=== PATIENT | male | born 1950 ===

== ENCOUNTER 2023-07-12 09:31 | Outpatient (OUT) | payer MEDICARE, OTHER, SELFPAY ==
--- NOTE | 2023-07-12 09:30 | CA_ITS ---
Patient Name: SHIVANI RUIZ MR#: [id number] : 1950 Exam Date: 07/12/2023 Ordering Doctor: LETY TOMAS CNP ECHOCARDIOGRAM REPORT PROCEDURE: CA ECHO DOPPLER COMPLETE INDICATIONS: Heart failure COMPARISON: None. DESCRIPTION: COMPLETE ECHOCARDIOGRAM Real-time transthoracic echocardiography with 2D, M-mode, spectral and color flow Doppler performed. QUALITY: Technical quality was adequate. 68 , 290#, BSA 2.39, BP 142/88 LEFT VENTRICLE: Normal chamber size. Mild concentric left ventricular hypertrophy. LV EF: Global left ventricular systolic function is difficult to assess but appears preserved; visually estimated ejection fraction is 50-55%. Unable to assess regional wall motion abnormality; consider contrast study for better delineation of endocardial borders. DIASTOLIC: Unable to assess diastolic dysfunction due to underlying rhythm. ATRIAL SEPTUM: Inadequately seen. LEFT ATRIUM: Mild dilatation. RIGHT ATRIUM: Moderate dilatation. RIGHT VENTRICLE: Poorly seen; mild dilatation. Systolic function appears preserved. TRICUSPID VALVE: Normal mobility and thickness. No stenosis with trivial regurgitation. Unable to assess right-sided pressures due to lack of measurable tricuspid regurgitation. MITRAL VALVE: Normal mobility and thickness. No evidence of mitral valve stenosis. Mild mitral annular calcification. Trivial mitral regurgitation. AORTIC VALVE: Normal trileaflet appearance. Mildly calcified aortic valve. Normal leaflet mobility. No evidence of aortic valve stenosis. No aortic regurgitation. AORTIC ROOT: Normal diameter and appearance. Ascending aorta is normal in size. PULMONIC VALVE: Normal thickness and mobility. No stenosis. No regurgitation. PERICARDIUM: No evidence of pericardial effusion. IVC: Not well visualized. CONCLUSION: 1. Global left ventricular systolic function is difficult to assess but appears preserved; visually estimated ejection fraction is 50 to 55% 2. The right ventricle is poorly seen; it appears dilated with preserved systolic function 3. Biatrial enlargement 4. Valves are poorly seen; no significant valvular abnormalities 5. The patient's underlying rhythm appears to be atrial fibrillation Adult Echocardiography Procedure Report Left Ventricle LVEDD (3.7 - 5.6 cm): 5.40 cm LVESD (2.2 - 4.0 cm): 3.59 cm LVIVS thickness (0.6 - 1.2 cm): 1.06 cm LVPW thickness (0.5 - 1.0 cm): 1.16 cm E - e': 6.42 LVOT Max Gradient: 0.40 mm[Hg] LVOT Area (cm2): 0.31 m/s Peak Velocity (LVOT): 0.31 m/s LVOT Diameter 2.59 cm Left Atrium LA Volume Index (2D A2C): 43.28 ml/m2 Left Atrium Systolic Dimension: 4.74 cm Mitral Valve MV E to A Ratio: 3.79 Mitral Valve A-Wave Peak Velocity: 0.24 m/s Mitral Valve E-Wave Peak Velocity: 0.89 m/s Right Ventricle Aorta AO Root Diam: 3.20 cm Ascending Ao Diam: 3.19 cm Aortic Valve AoV Area (Peak Darvin): 1.67 cm2, 1.67 cm2 Peak Velocity(Antegrade Flow): 0.99 m/s Peak Gradient(Antegrade Flow): 3.94 mm[Hg] Tricuspid Valve Pulmonic Valve Peak Gradient: 2.58 mm[Hg], 3.32 mm[Hg] Right Atrium Right Atrium Systolic Pressure: 109.21 ml, 109.21 ml Dictated by: Stanley Durham M.D. on 07/13/2023 at 16:33 Approved by: Stanley Durham M.D. on 07/13/2023 at 16:39
== END 2023-07-12 09:32 | disposition home or self-care (01) ==
LOC: CARD 09:32
PROVIDERS: Visit Provider Nurse Practitioner Family
DX: I50.22 Chronic systolic (congestive) heart failure (principal)
CPT/HCPCS: 93306

== ENCOUNTER 2024-05-23 09:01 | Outpatient (OUT) | payer MEDICARE, OTHER, SELFPAY ==
--- OUTSIDE RECORDS SUMMARY | 2024-05-23 09:13 | XMS_ITS | CCD ---
Author Organization [facility] Care Team Providers Care Supervisor Powdered Metal Name Role Phone Negin, Jaren M Primary Care Provider UnavailZiyad Lynch Attending Provider Unavailable LEYT URIAS Consulting Unavailable LETY URIAS Admitting Unavailable LETY URIAS Attending Unavailable NEGIN, DR EASTMAN Consulting Unavailable MELITONCECI Consulting Unavailable MELITONCECI Admitting Unavailable MELITONCECI Attending Unavailable MISC, DR ORNELAS Admitting Unavailable MISC, DR ORNELAS Attending Unavailable MISC, DR ORNELAS Admitting Unavailable MISC, DR ORNELAS Attending Unavailable MISC, DR ORNELAS Consulting Unavailable BLUNT, JAREN Primary Care Unavailable CECI GONZALES Attending Unavailable CECI GONZALES Admitting Unavailable BLUNT, JAREN Referring Unavailable BLUNT, JAREN Primary Care Unavailable LAVON PEREZ Attending Unavailable SHENDGE, VITHAL Surgeon Unavailable SELF, REFERRED Referring Unavailable [place] Procedure Practitioner Unavailab le ALI, VALENTIN Admitting Unavailable OH Procedure Practitioner Unavailab le ALI, VALENTIN Surgeon Unavailable MYKEL NASCIMENTO Referring Unavailable BLUNT, JAREN Primary Care Unavailable MYKEL NASCIMENTO Referring Unavailable BLUNT, JAREN Primary Care Unavailable GEORGESCU, HERMAN A Referring Unavailable ARAVIND DOEAR Referring Unavailable SHENDGE, VITHAL Attending Unavailable MYKEL NASCIMENTO Attending Unavailable SHENDGEKYREE Attending Unavailable SHENDGE, VITHAL Referring Unavailable SHENDGE, VITHAL Attending Unavailable SHENDGE, VITBASIL Attending Unavailable LETY URIAS Attending Unavailable LETY URIAS Attending Unavailable MYKEL NASCIMENTO Attending Unavailable TYRONE HANNA Referring Unavailable HORANI, HYUN Admitting Unavailable HYUN, VALENTIN Attending Unavailable HYUN, AVLENTIN Referring Unavailable GEORGESCU, HERMAN A Referring Unavailable Mykel Nascimento Admitting Unavailable Mykel Nascimento Attending Unavailable Lety Urias Consulting Unavailable Blunt, Jaren M Primary Care Unavailable Blunt, Jaren M Consulting Unavailable Mykel Nascimento Admitting Unavailable Nascimento, Mykel Attending Unavailable Blunt, Jaren M Primary Care Unavailable Blunt, Jaren M Primary Care Unavailable Blunt, Jaren M Attending Unavailable Nascimento, Mykel Admitting Unavailable Nascimento, Mykel Attending Unavailable Blunt, Jaren M Primary Care Unavailable Copsey, Angella M Attending Unavailable Copsey, Angella M Admitting Unavailable Blunt, Jaren M Primary Care Unavailable Azam, Mykel Admitting Unavailable Nascimento, Mykel Attending Unavailable Blunt, Jaren M Primary Care Unavailable Blunt, Jaren M Attending Unavailable Blunt, Jaren M Admitting Unavailable Blunt, Jaren M Primary Care Unavailable Mykel Nascimento Admitting Unavailable Azam, Mykel Attending Unavailable Blunt, Jaren M Primary Care Unavailable Blunt, Jaren M Primary Care Unavailable Mannie PETE, Kyree B Admitting Unavailable Mannie PETE, Vithal B Attending Unavailable Mannie PETE, Vithal B Admitting Unavailable Blunt, Jaren M Primary Care Unavailable Mannie PETE, Vithal B Attending Unavailable Mannie PETE, Vithal B Admitting Unavailable Blunt, Jaren M Primary Care Unavailable Mannie PETE, Vithal B Attending Unavailable Mykel Nascimento Admitting Unavailable Mykel Nascimento Attending Unavailable Blunt, Jaren M Primary Care Unavailable NICHOLAS Isaac Attending Unavailable NICHOALS Isaac Admitting Unavailable Blunt, Jaren M Primary Care Unavailable Comer PAC, Jack Anderson Attending Unavailable Comer PAC, Jack Anderson Admitting Unavailable Blunt, Jaren M Primary Care Unavailable Copsey, Angella M Attending Unavailable Copsey, Angella M Admitting Unavailable Blunt, Jaren M Primary Care Unavailable Mykel Nascimento Admitting Unavailable Mykel Nascimento Attending Unavailable Blunt, Jaren M Primary Care Unavailable Mykel Nascimento Admitting Unavailable Mykel Nascimento Attending Unavailable Blunt, Jaren M Primary Care Unavailable Mykel Nascimento Admitting Unavailable Azam, Mykel Attending Unavailable Blunt, Jaren M Primary Care Unavailable Copsey, Angella M Attending Unavailable Copsey, Angella M Admitting Unavailable Blunt, Jaren M Primary Care Unavailable Blunt, Jaren M Attending Unavailable Blunt, Jaren M Primary Care Unavailable Blunt, Jaren M Attending Unavailable Blunt, Jaren M Primary Care Unavailable Blunt, Jaren M Primary Care Unavailable Blunt, Jaren M Attending Unavailable Blunt, Jaren M Attending Unavailable Blunt, Jaren M Primary Care Unavailable Copsey, Angella M Admitting Unavailable Copsey, Angella M Attending Unavailable Blunt, Jaren M Primary Care Unavailable Copsey, Angella M Admitting Unavailable Copsey, Angella M Attending Unavailable Blunt, Jaren M Primary Care Unavailable Copsey, Angella M Admitting Unavailable Copsey, Angella M Attending Unavailable Blunt, Jaren M Primary Care Unavailable Copsey, Angella M Admitting Unavailable Copsey, Angella M Attending Unavailable Blunt, Jaren M Primary Care Unavailable Copsey, Angella M Admitting Unavailable Copsey, Angella M Attending Unavailable Blunt, Jaren M Primary Care Unavailable Copsey, Angella M Admitting Unavailable Copsey, Angella M Attending Unavailable Blunt, Jaren M Primary Care Unavailable Copsey, Angella M Attending Unavailable Copsey, Angella M Admitting Unavailable Blunt, Jaren M Primary Care Unavailable Copsey, Angella M Attending Unavailable Copsey, Angella M Admitting Unavailable Blunt, Jaren M Primary Care Unavailable Copsey, Angella M Attending Unavailable Copsey, Angella M Admitting Unavailable Blunt, Jaren M Primary Care Unavailable Copsey, Angella M Attending Unavailable Copsey, Angella M Admitting Unavailable Blunt, Jaren M Primary Care Unavailable Stalter, Tyrone Attending Unavailable Blunt, Jaren M Primary Care Unavailable Stalter, Tyrone Admitting Unavailable Blunt, Jaren M Primary Care Unavailable BrooksKasi weinstein Admitting Unavailable BrooksKasi weinstein P Attending Unavailable Azam, Mykel Admitting Unavailable Azam, Mykel Attending Unavailable Blunt, Jaren M Primary Care Unavailable Azam, Mykel Admitting Unavailable Azam, Mykel Attending Unavailable Blunt, Jaren M Primary Care Unavailable Blunt, Jaren M Primary Care Unavailable Willy Romero Admitting Unavailable Willy Romero Attending Unavailable Mykel Nascimento Admitting Unavailable Blunt, Jaren M Primary Care Unavailable Azam, Mykel Attending Unavailable Copsey, Angella M Attending Unavailable Copsey, Angella M Admitting Unavailable Blunt, Jaren M Primary Care Unavailable Copsey, Angella M Attending Unavailable Copsey, Angella M Admitting Unavailable Blunt, Jaren M Primary Care Unavailable KYREE CHAND Referring Unavailable BLUNT, JAREN Primary Care Unavailable Unavailable Unavailable Unavailable Allergies Allergy Classification Reported Allergen(s) Allergy Type Date of Onset Reaction(s) Facility (1 source) CH; Translations: [CHG] Propensity to adverse reactions (disorder) 1 [facility] Repository (1 source) Chlorhexidine; Translations: [CHLORHEXIDINE] Drug Allergy 2 [facility] Repository (1 source) ALCOHOL SWABS; Translations: [ALCOHOL SWABS] Propensity to adverse reactions to drug (disorder) 2 [facility] Repository (1 source) chlorhexidine containing compounds; Translations: [chlorhexidine containing compounds] Propensity to adverse reactions to drug (disorder) [facility] Repository (1 source) Alcohol Prep Pads; Translations: [Alcohol Prep Pads] Propensity to adverse reactions (disorder) [facility] Repository Medications Current Medications Medication Drug Class(es) Dates Sig (Normalized) Sig (Original) allopurinol 300 mg oral tablet (1 source) Xanthine Oxidase Inhibitor Start: 07-28-2019 Allopurinol Active TABLET July 28, 2019 7:55am apixaban 5 mg oral tablet (1 source) Factor Xa Inhibitor Start: 07-28-2019 Apixaban Active TABLET July 28, 2019 7:57am pt unsure of mg carvedilol 6.25 mg oral tablet (1 source) alpha-Adrenergic Zena, beta-Adrenergic Zena Start: 07-28-2019 Carvedilol Active TABLET July 28, 2019 7:55am clindamycin 300 mg oral capsule (1 source) Lincosamide Antibacterial Start: 07-28-2019 Clindamycin Hcl Active July 28, 2019 7:55am furosemide 40 mg oral tablet (1 source) Loop Diuretic Start: 07-28-2019 Furosemide Active TABLET July 28, 2019 7:55am hydrOXYzine hydrochloride 25 mg oral tablet (1 source) Antihistamine Start: 07-28-2019 Hydroxyzine Hcl Active TABLET July 28, 2019 7:55am pantoprazole 40 mg delayed release oral tablet (1 source) Proton Pump Inhibitor Start: 07-28-2019 Pantoprazole Active July 28, 2019 7:55am microencapsulated potassium chloride 20 meq extended release oral tablet (1 source) Start: 07-28-2019 Potassium Chloride Active July 28, 2019 7:55am Problems Active Problems Problem Classification Problem Date Documented Da te Episodic/Chronic Chronic ulcer of skin (1 source) 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; Translations: [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] Onset: 05-17-2024 Chronic Complications of surgical procedures or medical care (3 sources) Disruption of wound, unspecified, initial encounter; Translations: [Dehiscence of amputation stump] Onset: 11-13-2022 Episodic Congestive heart failure; nonhypertensive (4 sources) Chronic combined systolic (congestive) and diastolic (congestive) heart failure; Translations: [Chronic systolic (congestive) heart failure] Onset: 11-23-2022 Chronic Infective arthritis and osteomyelitis (except that caused by tuberculosis or sexually transmitted disease) (7 sources) Other chronic osteomyelitis, right tibia and fibula; Translations: [Osteomyelitis, unspecified] Onset: 12-19-2021 Chronic Open wounds of extremities (2 sources) 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, initial encounter; Translations: [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, initial encounter] Onset: 11-13-2022 Chronic Other connective tissue disease (2 sources) Presence of unspecified artificial knee joint; Translations: [Presence of unspecified artificial knee joint] Onset: 10-17-2022 Chronic Other gastrointestinal disorders (1 source) Dysphagia; Translations: [Swallowing painful] Episodic Other gastrointestinal disorders (1 source) Dysphagia, unspecified; Translations: [Swallowing painful] Episodic Other nutritional; endocrine; and metabolic disorders (2 sources) Morbid (severe) obesity with alveolar hypoventilation; Translations: [Morbid (severe) obesity with alveolar hypoventilation] Onset: 01-24-2024 Chronic Other nutritional; endocrine; and metabolic disorders (2 sources) Body mass index (BMI) 40.0-44.9, adult; Translations: [Body mass index (BMI) 40.0-44.9, adult] Onset: 01-24-2024 Chronic Residual codes; unclassified (1 source) Illness, unspecified; Translations: [Illness, unspecified] Onset: 05-14-2023 Episodic Residual codes; unclassified (2 sources) Pain; Translations: [Pain] Onset: 02-28-2024 Episodic Unclassified (4 sources) Permanent atrial fibrillation; Translations: [PERMANENT ATRIAL FIBRILLATION] Onset: 10-02-2020 Unclassified (4 sources) Chronic atrial fibrillation, unspecified; Translations: [CHRONIC ATRIAL FIBRILLATION UNSPEC] Onset: 06-11-2020 Unclassified (1 source) Obesity, class 3; Translations: [Obesity, class 3] Onset: 01-24-2024 Past or Other Problems Problem Classification Problem Date Documented Da te Episodic/Chronic Complication of device; implant or graft (2 sources) Infection and inflammatory reaction due to other internal joint prosthesis, subsequent encounter; Translations: [Infection and inflammatory reaction due to other internal joint prosthesis, subsequent encounter] Onset: 10-17-2022 Episodic Nutritional deficiencies (2 sources) Thiamine deficiency, unspecified; Translations: [Thiamine deficiency, unspecified] Onset: 01-01-2024 Episodic Other lower respiratory disease (1 source) Dyspnea, unspecified; Translations: [DYSPNEA UNSPECIFIED] Onset: 06-17-2020 Episodic Unclassified (1 source) Obesity, class 3; Translations: [Obesity, class 3] Onset: 01-24-2024 Results Test Name Value Interpretation Reference Range Facility Wound Care Noteon 05-19-2024 Wound Care Note [id number]#[id number] Normal [facility] BASIC METABOLIC PANLon 05-18 Anion gap [Moles/Vol] 4 mmol/L Low 5-15 [facility] Comment on above: Performed By: #### Jose AGUIRRE [facility], 1987-07 #### [facility] ([id number]) [address] [place] [address] 81655 Calcium [Mass/Vol] 8.9 mg/dL Normal 8.5-10.5 [facility] Comment on above: Performed By: #### Jose AGUIRRE [facility]1987-07 #### [facility] ([id number]) [address] [place] [address] 85040 Chloride [Moles/Vol] 101 mmol/L Normal 98-109 [facility] Comment on above: Performed By: #### Jose AGUIRRE [facility]1987-07 #### [facility] ([id number]) [address] [place] [address] 86170 CO2 [Moles/Vol] 29 mmol/L Normal 22-32 [facility] Comment on above: Performed By: #### Jose AGUIRRE [facility]1987-07 #### [facility] ([id number]) [address] [place] [address] 59392 Creatinine [Mass/Vol] 1.54 mg/dL High 0.70-1.20 [facility] Comment on above: Result Comment: METH OD TRACEABLE TO IDMS STANDARD Performed By: #### C CARLA [facility], 1987-07 #### [facility] ([id number]) [address] [place] [address] 80572 GFR/1.73 sq M.predicted among non-blacks MDRD (S/P/Bld) [Vol rate/Area] 48 mL/min/{1.73_m2} Low >59 [facility] Comment on above: Result Comment: Reported eGFR is based on the CKD-EPI 2020 equation that does not use a race coefficient. Performed By: #### C CARLA [facility], 1987-07 #### [facility] ([id number]) [address] [place] [address] 18972 Glucose [Mass/Vol] 116 mg/dL High 65-99 [facility] Comment on above: Performed By: #### C CARLA [facility]1987-07 #### [facility] ([id number]) [address] [place] [address] 09072 Potassium [Moles/Vol] 4.0 mmol/L Normal 3.5-5.0 [facility] Comment on above: Performed By: #### C CARLA [facility]1987-07 #### [facility] ([id number]) [address] [place] [address] 92544 Sodium [Moles/Vol] 134 mmol/L Normal 134-146 [facility] Comment on above: Performed By: #### C CARLA [facility]1987-07 #### [facility] ([id number]) [address] [place] [address] 29862 Urea nitrogen [Mass/Vol] 29 mg/dL High 5-27 [facility] Comment on above: Performed By: #### C CARLA [facility], 1987-07 #### [facility] ([id number]) [address] [place] [address] 05991 CBC AND AUTO DIFFon 05-19-19 25 ABSOLUTE BASOPHIL 0.1 X10E9/L Normal 0.0-0.2 [facility] Comment on above: Performed By: #### Jose [facility], 1987-07 #### [facility] ([id number]) [address] [place] [address] 33689 ABSOLUTE NEUTROPHIL 4.3 X10E9/L Normal 1.5-6.6 [facility] Comment on above: Performed By: #### Jose [facility], 1987-07 #### [facility] ([id number]) [address] [place] [address] 38405 Basophils/100 WBC (Bld) 0.7 % Normal [facility] Comment on above: Performed By: #### Jose [facility], 1987-07 #### [facility] ([id number]) [address] [place] [address] 85879 Eosinophils (Bld) [#/Vol] 0.8 10*3/uL High 0.0-0.4 [facility] Comment on above: Performed By: #### Jose AGUIRRE [facility], 1987-07 #### [facility] ([id number]) [address] [place] [address] 64348 Eosinophils/100 WBC (Bld) 11.6 % Normal [facility] Comment on above: Performed By: #### Jose [facility]-07 #### [facility] ([id number]) [address] [place] [address] 07018 Erythrocyte distribution width (RBC) [Ratio] 16.4 % High 11.5-15.0 [facility] Comment on above: Performed By: #### Jose AGUIRRE [facility]1987-07 #### [facility] ([id number]) [address] [place] [address] 31436 Hematocrit (Bld) [Volume fraction] 42.6 % Normal 39-49 [facility] Comment on above: Performed By: #### Jose AGUIRRE [facility], 1987-07 #### [facility] ([id number]) [address] [place] [address] 72445 Hemoglobin (Bld) [Mass/Vol] 14.4 g/dL Normal 13.0-17.0 [facility] Comment on above: Performed By: #### Jose AGUIRRE [facility], 1987-07 #### [facility] ([id number]) [address] [place] [address] 05099 Lymphocytes (Bld) [#/Vol] 1.3 10*3/uL Normal 1.0-3.5 [facility] Comment on above: Performed By: #### Jose AGUIRRE [facility] 1987-07 #### [facility] ([id number]) [address] [place] [address] 04484 Lymphocytes/100 WBC (Bld) 18.5 % Normal [facility] Comment on above: Performed By: #### Jose AGUIRRE [facility]1987-07 #### [facility] ([id number]) [address] [place] [address] 67151 MCH (RBC) [Entitic mass] 34.6 pg High 27-34 [facility] Comment on above: Performed By: #### Jose AGUIRRE [facility], 1987-07 #### [facility] ([id number]) [address] [place] [address] 17638 MCHC (RBC) [Mass/Vol] 33.7 g/dL Normal 32-36 [facility] Comment on above: Performed By: #### Jose AGUIRRE [facility]1987-07 #### [facility] ([id number]) [address] [place] [address] 60072 MCV (RBC) [Entitic vol] 103 fL High 80-100 [facility] Comment on above: Performed By: #### Jose AGUIRRE [facility], 1987-07 #### [facility] ([id number]) [address] [place] [address] 04015 Monocytes (Bld) [#/Vol] 0.5 10*3/uL Normal 0-0.9 [facility] Comment on above: Performed By: #### Jose AGUIRRE [facility], 1987-07 #### [facility] ([id number]) [address] [place] [address] 09373 Monocytes/100 WBC (Bld) 7.5 % Normal [facility] Comment on above: Performed By: #### Jose AGUIRRE [facility], 1987-07 #### [facility] ([id number]) [address] [place] [address] 36992 Neutrophils/100 WBC (Bld) 61.7 % Normal [facility] Comment on above: Performed By: #### Jose AGUIRRE [facility], 1987-07 #### [facility] ([id number]) [address] [place] [address] 62085 Platelet mean volume (Bld) [Entitic vol] 7.9 fL Normal 7-12 [facility] Comment on above: Performed By: #### Jose AGUIRRE [facility], 1987-07 #### [facility] ([id number]) [address] [place] [address] 55347 Platelets (Bld) [#/Vol] 234 10*3/uL Normal 150-450 [facility] Comment on above: Performed By: #### Jose AGUIRRE [facility], 1987-07 #### [facility] ([id number]) [address] [place] [address] 08696 RBC COUNT 4.15 X10E12/L Normal 4.10-5.70 [facility] Comment on above: Performed By: #### Jose AGUIRRE [facility], 1987-07 #### [facility] ([id number]) [address] [place] [address] WBC (Bld) [#/Vol] 7.0 10*3/uL Normal 4.0-11.0 [facility] Comment on above: Performed By: #### C MARCUS AGUIRRE, 1985-07 #### [facility] ([id number]) [address] [place] [address] 88042 CRP [Mass/Vol]on 05-18-2024 C REACTIVE PROTEIN 1.4 mg/dL High 0.000-0.744 [facility] Comment on above: Performed By: #### C MARCUS AGUIRRE, 1985-07 #### [facility] ([id number]) [address] [place] [address] 32954 Wound Cultureon 05-17-2024 Wound Culture right amp site above the knee, TC, 05-17-24, 30 Scant growth of Staphylococcus epidermidis No NESTOR performed on this organism Rare Gram Positive Rods [facility] Comment on above: Performed By: #### [id number] ####[facility] (DEFAULT)[address] [place] [address] Coding Summaryon 05-15-2024 Coding Summary [facility] Coding Summary [facility] Wound Care Noteon 05-12-2024 Wound Care Note [id number]#[id number] [facility] 36on 05-08-2024 36 Called and left mess age for patient to reschedule for 06/21 instead of 06/[address] Chand. Normal [facility] Wound Care Noteon 05-05-2024 Wound Care Note [id number]#[id number] [facility] C Tissueon 05-03-2024 C Tissue TC, 05-03-24, 09:30, rt thigh No growth at 3 days. Rare Gram Negative Rods [facility] Comment on above: Performed By: #### 2 [id number] ####[facility] (DEFAULT)[address] [place] [address] 8[address] Coding Summaryon 05-01-2024 Coding Summary Normal [facility] Wound Care Noteon 05-01-2024 Wound Care Note [id number]#[id number] Normal [facility] Coding Summaryon 04-23-2024 Coding Summary Normal [facility] .Auto Diff 1on 04-21-2024 Auto [place] % 8 % Normal 12 [facility] Comment on above: Performed By: #### 1 [id number], [id number], [id number] ####[facility] (DEFAULT)[address] [place] [address] Baso Abs# 0.2 x10 Normal 0.0-0.2 [facility] Comment on above: Performed By: #### 1 [id number], [id number], [id number] ####[facility] (DEFAULT)[address] [place] [address] 39411 Basophils/100 WBC (Bld) 3.9 % High 0.2-2.0 [facility] [facility] Comment on above: Performed By: #### 1 1702460, 3549421, [id number], 0618813 ####[facility] (DEFAULT)[address] [place] [address] 82075 Eos Abs# 0.6 x10 High 0.0-0.4 [facility] Comment on above: Performed By: #### 1 3701897, 9901990, [id number], 4059903 ####[facility] (DEFAULT)[address] [place] [address] 34060 Eosinophils/100 WBC (Bld) 11.6 % High 0.9-4.0 [facility] Comment on above: Performed By: #### 1 0526868, 4022834, 5268415033, 8298547 ####[facility] (DEFAULT)[address] [place] [address] 37807 Lymph Abs# 0.7 x10 Low 1.3-2.9 [facility] Comment on above: Performed By: #### 1 1949315, 9191697, 5788354325, 3183302 ####[facility] (DEFAULT)[address] [place] [address] 78142 Lymphocytes/100 WBC (Bld) 12 % Low 14-48 [facility] Comment on above: Performed By: #### 1 8670896, 5432812, 9564799601, 9829656 ####[facility] (DEFAULT)[address] [place] [address] [place] Abs# 0.4 x10 Normal 0.0-0.8 [facility] Comment on above: Performed By: #### 1 6941492, 8156447, 7872962351, 4320490 ####[facility] (DEFAULT)[address] [place] [address] Neut Abs# 3.6 x10 Normal 1.5-9.2 [facility] Comment on above: Performed By: #### 1 1241316, 2453400, 7527910871, 1331120 ####[facility] (DEFAULT)[address] [place] [address] 00353 Neutrophils/100 WBC (Bld) 65 % Normal 44-88 [facility] Comment on above: Performed By: #### 1 3661433, 2383926, [id number], 1029269 ####[facility] (DEFAULT)[address] [place] [address] 04613 BMP Standardon 04-21-2024 eGFR Non AA 38 mL/min/1.73m2 Invalid Interpretation Code [facility] Comment on above: Performed By: #### 1 7951492, 4360065, 4902034640, 8531211 ####[facility] (DEFAULT)[address] [place] [address] 17921 eGFR AA 46 mL/min/1.73m2 Invalid Interpretation Code [facility] Comment on above: Performed By: #### 1 8998382, 6797609, [id number], 9491321 ####[facility] (DEFAULT)[address] [place] [address] 49953 Anion gap [Moles/Vol] 11.7 mmol/L Normal 5.0-19.0 [facility] Comment on above: Performed By: #### 1 1310581, 6179841, 9543382352, 1416857 ####[facility] (DEFAULT)[address] [place] [address] 33965 Calcium [Mass/Vol] 9.5 mg/dL Normal 8.9-10.3 [facility] Comment on above: Performed By: #### 1 7081967, 2759139, 2560960917, 3156261 ####[facility] (DEFAULT)[address] [place] [address] 69712 Chloride [Moles/Vol] 100 mmol/L Low 101-111 [facility] Comment on above: Performed By: #### 1 0021020, 0545319, 8104409675, 2127605 ####[facility] (DEFAULT)[address] [place] [address] 70838 CO2 [Moles/Vol] 31 mmol/L Normal 21-32 [facility] Comment on above: Performed By: #### 1 8747011, 8576260, 7578045657, 1763483 ####[facility] (DEFAULT)[address] [place] [address] 58953 Creatinine [Mass/Vol] 1.79 mg/dL High 0.90-1.30 [facility] Comment on above: Performed By: #### 1 1371540, 9320414, 5324514984, 1938463 ####[facility] (DEFAULT)[address] [place] [address] 53333 Glucose [Mass/Vol] 96.0 mg/dL Normal 74.0-118.0 [facility] Comment on above: Performed By: #### 1 0517679, 7999720, 9110479266, 3459444 ####[facility] (DEFAULT)[address] [place] [address] 64843 Osmolality 287 mOsm/L Invalid Interpretation Code [facility] Comment on above: Performed By: #### 1 2501580, 4615794, 7014071245, 2508449 ####[facility] (DEFAULT)[address] [place] [address] 93065 Potassium [Moles/Vol] 4.7 mmol/L Normal 3.6-5.1 [facility] Comment on above: Performed By: #### 1 1867194, 0757139, 0753970958, 4639475 ####[facility] (DEFAULT)[address] [place] [address] 54314 Sodium [Moles/Vol] 138.0 mmol/L Normal 136.0-144.0 [facility] Comment on above: Performed By: #### 1 4225706, 9216351, 3637016612, 8873012 ####[facility] (DEFAULT)[address] [place] [address] 47726 Urea nitrogen [Mass/Vol] 45 mg/dL High 8-26 [facility] Comment on above: Performed By: #### 1 0904394, 5649669, 1630048150, 1056880 ####[facility] (DEFAULT)[address] [place] [address] 32311 Urea nitrogen/Creatini ne [Mass ratio] 25.1 mg/mg High 4.6-16.2 [facility] Comment on above: Performed By: #### 1 6110279, 1663605, 1726336841, 7615402 ####[facility] (DEFAULT)[address] [place] [address] 61454 CBC w/ Auto Diffon 5 Erythrocyte distribution width (RBC) [Ratio] 18.4 % High 11.5-15.0 [facility] Comment on above: Performed By: #### 1 4283562, 3992969, 7858798651, 0808566 ####[facility] (DEFAULT)[address] [place] [address] 91379 Hematocrit (Bld) [Volume fraction] 43.7 % Normal 34.8-51.9 [facility] Comment on above: Performed By: #### 1 9992797, 9809709, 2261795693, 0210856 ####[facility] (DEFAULT)[address] [place] [address] 80688 Hemoglobin (Bld) [Mass/Vol] 14.6 g/dL Normal 11.8-17.7 [facility] Comment on above: Performed By: #### 1 6245461, 0050205, 3866772290, 3919137 ####[facility] (DEFAULT)[address] [place] [address] Man Diff? Auto Invalid Interpretation Code [facility] Comment on above: Performed By: #### 1 1771855, 5571385, 9513578824, 4672766 ####[facility] (DEFAULT)[address] [place] [address] MCH (RBC) [Entitic mass] 34 pg Normal 24-34 [facility] Comment on above: Performed By: #### 1 1233061, 7054290, 1302091307, 0396634 ####[facility] (DEFAULT)[address] [place] [address] MCHC (RBC) [Mass/Vol] 33 g/dL Normal 26-37 [facility] Comment on above: Performed By: #### 1 4460011, 2803014, 2541927092, 0655737 ####[facility] (DEFAULT)[address] [place] [address] MCV (RBC) [Entitic vol] 102 fL High 81-100 [facility] Comment on above: Performed By: #### 1 9025017, 4830734, 2301690592, 9661423 ####[facility] (DEFAULT)[address] [place] [address] Platelet 229 x10 Normal 138-427 [facility] Comment on above: Performed By: #### 1 1905898, 8993631, 1979601477, 3331707 ####[facility] (DEFAULT)[address] [place] [address] 58774 Platelet mean volume (Bld) [Entitic vol] 8.8 fL Normal 6.3-10.2 [facility] Comment on above: Performed By: #### 1 6823063, 7521088, 2378282468, 2232519 ####[facility] (DEFAULT)[address] [place] [address] RBC 4.26 x10 Normal 3.70-5.30 [facility] Comment on above: Performed By: #### 1 9912410, 1180294, 5921528442, 5019739 ####[facility] (DEFAULT)[address] [place] [address] WBC 5.5 x10 Normal 3.5-10.5 [facility] Comment on above: Performed By: #### 1 9534445, 2719280, 9253372097, 4577548 ####[facility] (DEFAULT)[address] [place] [address] CRPon 04-21-2024 CRP 1.5 mg/dL High <=0.5 [facility] Comment on above: Performed By: #### 1 8181156, 5127787, 9928803037, 1382095 ####[facility] (DEFAULT)[address] [place] [address] Provider Orderson 04-21-2024 Provider Orders [id number]#1.00OTGTIFF [facility] Provider Orders [id number]#1.00OTGTIFF [facility] Wound Care Noteon 04-21-2024 Wound Care Note [id number]#1.00OTGTIFF [facility] Coding Summaryon 04-20-2024 Coding Summary [facility] Refillon 04-20-2024 Refill [id number] Shivani Ruiz 1950 M Date Provider Department Center 04/20/2024 KEN ELLSWORTH [facility] Family History Problem Relation Age of Onset Heart attack Father Coronary artery disease Father Other Father Coronary artery disease Brother Family Status - Relation Status Age at Father Brother Reason for Visit and Comments: Med Refill [[id number]] Normal [facility] Coding Summaryon 04-18-2024 Coding Summary [facility] Wound Care Noteon 04-17-2024 Wound Care Note [id number]#1.00OTGTIFF [facility] Wound Care Noteon 04-10-2024 Wound Care Note [id number]#1.00OTGTIFF [facility] Coding Summaryon 04-07-2024 Coding Summary Normal [facility] Outside Recordson 04-03-2024 Outside Records [id number]#1.00OTGTIFF [facility] Wound Care Noteon 04-03-2024 Wound Care Note [id number]#1.00OTGTIFF [facility] Coding Summaryon 03-31-2024 Coding Summary Normal [facility] Coding Summary [facility] Coding Summary [facility] 36on 03-28-2024 36 Pt notified by voice mail on 03/28/24 at 8:32am Normal [facility] Wound Care Noteon 03-27-2024 Wound Care Note [id number]#1.00OTGTIFF [facility] .Auto Diff 1on 03-25-2024 Auto [place] % 9 % Normal 1-12 [facility] Comment on above: Performed By: #### 2 925248, 01386951, 9721953, [id number] ####[facility] (DEFAULT)[address] [place] [address] Baso Abs# 0.1 x10 Normal 0.0-0.2 [facility] Comment on above: Performed By: #### 2 566585, 47953847, 7771310, [id number] ####[facility] (DEFAULT)[address] [place] [address] 97921 Basophils/100 WBC (Bld) 1.1 % Normal 0.2-2.0 [facility] Comment on above: Performed By: #### 2 677086, 45759147, 0550567, [id number] ####[facility] (DEFAULT)[address] [place] [address] 15701 Eos Abs# 0.7 x10 High 0.0-0.4 [facility] Comment on above: Performed By: #### 2 525854, 58622970, 9062168, [id number] ####[facility] (DEFAULT)[address] [place] [address] 94850 Eosinophils/100 WBC (Bld) 10.9 % High 0.9-4.0 [facility] Comment on above: Performed By: #### 2 061853, 98679710, 6659665, [id number] ####[facility] (DEFAULT)[address] [place] [address] 26304 Lymph Abs# 1.2 x10 Low 1.3-2.9 [facility] Comment on above: Performed By: #### 2 129757, 39065123, 1744801, 2522342552 ####[facility] (DEFAULT)[address] [place] [address] 77810 Lymphocytes/100 WBC (Bld) 18 % Normal 14-48 [facility] Comment on above: Performed By: #### 2 967669, 84786933, 4651679, 3624744335 ####[facility] (DEFAULT)[address] [place] [address] [place] Abs# 0.6 x10 Normal 0.0-0.8 [facility] Comment on above: Performed By: #### 2 339575, 92871012, 8051770, 8082321173 ####[facility] (DEFAULT)[address] [place] [address] 44606 Neut Abs# 4.1 x10 Normal 1.5-9.2 [facility] Comment on above: Performed By: #### 2 158743, 76182482, 8167652, 8810929303 ####[facility] (DEFAULT)[address] [place] [address] 33350 Neutrophils/100 WBC (Bld) 61 % Normal 44-88 [facility] Comment on above: Performed By: #### 2 715125, 41265724, 8244033, 9285104485 ####[facility] (DEFAULT)[address] [place] [address] BMP Standardon 03-25-2024 eGFR Non AA 33 mL/min/1.73m2 Invalid Interpretation Code [facility] Comment on above: Performed By: #### 2 777681, 56952531, 6350865, [id number] ####[facility] (DEFAULT)[address] [place] [address] 05457 eGFR AA 41 mL/min/1.73m2 Invalid Interpretation Code [facility] Comment on above: Performed By: #### 2 684873, 99022575, 0852752, 5709796505 ####[facility] (DEFAULT)[address] [place] [address] 36528 Calcium [Mass/Vol] 9.2 mg/dL Normal 8.9-10.3 [facility] Comment on above: Performed By: #### 2 592128, 99403503, 1493245, 8578312920 ####[facility] (DEFAULT)[address] [place] [address] 76681 Chloride [Moles/Vol] 99 mmol/L Low 101-111 [facility] Comment on above: Performed By: #### 2 617091, 81543869, 7059166, 1272275908 ####[facility] (DEFAULT)[address] [place] [address] 23515 CO2 [Moles/Vol] 28 mmol/L Normal 21-32 [facility] Comment on above: Performed By: #### 2 832343, 87958374, 8340006, 5116146114 ####[facility] (DEFAULT)[address] [place] [address] 72936 Creatinine [Mass/Vol] 1.98 mg/dL High 0.90-1.30 [facility] Comment on above: Performed By: #### 2 497569, 79296835, 1443162, 1781709611 ####[facility] (DEFAULT)[address] [place] [address] 24638 Glucose [Mass/Vol] 93.0 mg/dL Normal 74.0-118.0 [facility] Comment on above: Performed By: #### 2 719893, 67898051, 5380774, 5406190624 ####[facility] (DEFAULT)[address] [place] [address] 38139 Potassium [Moles/Vol] 3.7 mmol/L Normal 3.6-5.1 [facility] Comment on above: Performed By: #### 2 275099, 31915098, 5979709, 1220445535 ####[facility] (DEFAULT)[address] [place] [address] 84793 Sodium [Moles/Vol] 134.0 mmol/L Low 136.0-144.0 [facility] Comment on above: Performed By: #### 2 363826, 83854212, 5155186, 3950762237 ####[facility] (DEFAULT)[address] [place] [address] 02792 Urea nitrogen [Mass/Vol] 45 mg/dL High 8-26 [facility] Comment on above: Performed By: #### 2 107871, 92428793, 3775680, 0305259316 ####[facility] (DEFAULT)[address] [place] [address] 59484 Anion gap [Moles/Vol] 10.7 mmol/L Normal 5.0-19.0 [facility] Comment on above: Performed By: #### 2 013946, 56821789, 0143095, [id number] ####[facility] (DEFAULT)[address] [place] [address] Osmolality 279 mOsm/L Invalid Interpretation Code [facility] Comment on above: Performed By: #### 2 402935, 85606408, 9070166, 7475485810 ####[facility] (DEFAULT)[address] [place] [address] 46073 Urea nitrogen/Creatini ne [Mass ratio] 22.7 mg/mg High 4.6-16.2 [facility] Comment on above: Performed By: #### 2 077896, 39366868, 1073375, 0584237246 ####[facility] (DEFAULT)[address] [place] [address] 08705 CBC w/ Auto Diffon 5 Erythrocyte distribution width (RBC) [Ratio] 17.8 % High 11.5-15.0 [facility] Comment on above: Performed By: #### 2 055881, 49789002, 5635327, 7142876481 ####[facility] (DEFAULT)[address] [place] [address] Hematocrit (Bld) [Volume fraction] 47.0 % Normal 34.8-51.9 [facility] Comment on above: Performed By: #### 2 435781, 05588684, 6422542, [id number] ####[facility] (DEFAULT)[address] [place] [address] Hemoglobin (Bld) [Mass/Vol] 15.8 g/dL Normal 11.8-17.7 [facility] Comment on above: Performed By: #### 2 129729, 92614121, 4682273, 7843139717 ####[facility] (DEFAULT)[address] [place] [address] Man Diff? Auto Invalid Interpretation Code [facility] Comment on above: Performed By: #### 2 109475, 07124686, 4919464, [id number] ####[facility] (DEFAULT)[address] [place] [address] 59021 MCH (RBC) [Entitic mass] 34 pg Normal 24-34 [facility] Comment on above: Performed By: #### 2 100336, 92345862, 4422000, 8108730999 ####[facility] (DEFAULT)[address] [place] [address] 27171 MCHC (RBC) [Mass/Vol] 34 g/dL Normal 26-37 [facility] Comment on above: Performed By: #### 2 872638, 28389834, 6526340, 4423638523 ####[facility] (DEFAULT)[address] [place] [address] 09247 MCV (RBC) [Entitic vol] 103 fL High 81-100 [facility] Comment on above: Performed By: #### 2 587256, 39904879, 4167783, 4981031232 ####[facility] (DEFAULT)[address] [place] [address] 01795 Platelet 252 x10 Normal 138-427 [facility] Comment on above: Performed By: #### 2 038829, 94828205, 2228557, [id number] ####[facility] (DEFAULT)[address] [place] [address] 12061 Platelet mean volume (Bld) [Entitic vol] 9.0 fL Normal 6.3-10.2 [facility] Comment on above: Performed By: #### 2 870571, 66106008, 6848720, 4955226154 ####[facility] (DEFAULT)[address] [place] [address] 96395 RBC 4.57 x10 Normal 3.70-5.30 [facility] Comment on above: Performed By: #### 2 968136, 58938937, 0319237, [id number] ####[facility] (DEFAULT)[address] [place] [address] 29463 WBC 6.8 x10 Normal 3.5-10.5 [facility] Comment on above: Performed By: #### 2 918783, 64236965, 3758569, [id number] ####[facility] (DEFAULT)[address] [place] [address] 97359 CRPon 03-25-2024 CRP 1.7 mg/dL High <=0.5 [facility] Comment on above: Performed By: #### 2 957140, 10239002, 1360986, 1355853684 ####[facility] (DEFAULT)[address] [place] [address] 92151 Provider Orderson 03-25-2024 Provider Orders [id number]#1.00OTGTIFF [facility] 36on 03-24-2024 36 Pt called and stated he had a bottle of pills that expires 12/2024 and wasn't sure if he could take them, but he didn't want them to go bad. Pill had the following letters [id number] Normal [facility] Telephoneon 03-24-2024 Telephone [id number] Shivani Ruiz 1950 M Date Provider Department Center 03/24/2024 [facility] Family History Problem Relation Age of Onset Heart attack Father Coronary artery disease Father Other Father Coronary artery disease Brother Family Status - Relation Status Age at Father Brother [facility] Coding Summaryon 03-22-2024 Coding Summary [facility] Follow-Upon 03-22-2024 Follow-Up [id number] Shivani Ruiz 1950 M [facility] Provider Department Center 03/22/2024 MYKEL L[facility]Z [facility] Family History Problem Relation Age of Onset Heart attack Father Coronary artery disease Father Other Father Coronary artery disease Brother Family Status - Relation Status Age at Father Brother Level of Service:41078 [place] OFFICE/OUTPATIENT ESTABLISHED MOD MDM 30 MIN [facility] 36on 03-21-2024 36 I called the patient . Labs are okay. We could move this to every month lab draw. Normal [facility] Coding Summaryon 03-21-2024 Coding Summary [facility] Coding Summary [facility] Coding Summary [facility] Telephoneon 03-21-2024 Telephone [id number] Shivani Ruiz 1950 [facility] Provider Department Center 03/21/2024 MYKEL LOPEZ [facility] Family History Problem Relation Age of Onset Heart attack Father Coronary artery disease Father Other Father Coronary artery disease Brother Family Status - Relation Status Age at Father Brother [facility] .Auto Diff 03-17-2024 Auto [place] % 7 % Normal - [facility] Comment on above: Performed By: #### 1 3560875, [id number], 1950523 ####[facility] (DEFAULT)[address] [place] [address] Baso Abs# 0.1 x10 Normal 0.0-0.2 [facility] Comment on above: Performed By: #### 1 7586577, [id number], 0579209 ####[facility] (DEFAULT)[address] [place] [address] Basophils/100 WBC (Bld) 1.3 % Normal 0.2-2.0 [facility] Comment on above: Performed By: #### 1 4583558, 3788225161, 6656888 ####[facility] (DEFAULT)[address] [place] [address] 81589 Eos Abs# 0.7 x10 High 0.0-0.4 [facility] Comment on above: Performed By: #### 1 1401161, [id number], 2724281 ####[facility] (DEFAULT)[address] [place] [address] 01216 Eosinophils/100 WBC (Bld) 10.2 % High 0.9-4.0 [facility] Comment on above: Performed By: #### 1 6263197, 8289647152, 4730161 ####[facility] (DEFAULT)[address] [place] [address] 08205 Lymph Abs# 1.6 x10 Normal 1.3-2.9 [facility] Comment on above: Performed By: #### 1 8451672, 1390684477, 1490669 ####[facility] (DEFAULT)[address] [place] [address] 41728 Lymphocytes/100 WBC (Bld) 23 % Normal 14-48 [facility] Comment on above: Performed By: #### 1 6619167, 5147770004, 5476238 ####[facility] (DEFAULT)[address] [place] [address] 68071 [place] Abs# 0.5 x10 Normal 0.0-0.8 [facility] Comment on above: Performed By: #### 1 7257187, 8306449666, 4428275 ####[facility] REHABILITATION (DEFAULT)[address] [place] [address] 50532 Neut Abs# 4.0 x10 Normal 1.5-9.2 [facility] Comment on above: Performed By: #### 1 [id number], [id number], 7565659 ####[facility] (DEFAULT)[address] [place] [address] 77605 Neutrophils/100 WBC (Bld) 58 % Normal 44-88 [facility] Comment on above: Performed By: #### 1 5619171, [id number], 2914734 ####[facility] (DEFAULT)[address] [place] [address] 65251 CBC w/ Auto Diffon Erythrocyte distribution width (RBC) [Ratio] 17.4 % High 11.5-15.0 [facility] Comment on above: Performed By: #### 1 5912783, [id number], 5282634 ####[facility] (DEFAULT)[address] [place] [address] Hematocrit (Bld) [Volume fraction] 47.6 % Normal 34.8-51.9 [facility] Comment on above: Performed By: #### 1 6347085, [id number], 2551895 ####[facility] (DEFAULT)[address] [place] [address] Hemoglobin (Bld) [Mass/Vol] 16.0 g/dL Normal 11.8-17.7 [facility] Comment on above: Performed By: #### 1 2280533, [id number], 3861703 ####[facility] (DEFAULT)[address] [place] [address] Man Diff? Auto Invalid Interpretation Code [facility] Comment on above: Performed By: #### 1 [id number], [id number], 3485981 ####[facility] (DEFAULT)[address] [place] [address] MCH (RBC) [Entitic mass] 34 pg Normal 24-34 [facility] Comment on above: Performed By: #### 1 8028565, [id number], 7814248 ####[facility] (DEFAULT)[address] [place] [address] 93256 MCHC (RBC) [Mass/Vol] 34 g/dL Normal 26-37 [facility] Comment on above: Performed By: #### 1 4857742, [id number], 2314134 ####[facility] (DEFAULT)[address] [place] [address] MCV (RBC) [Entitic vol] 102 fL High 81-100 [facility] Comment on above: Performed By: #### 1 [id number], [id number], 6227619 ####[facility] (DEFAULT)[address] [place] [address] Platelet 226 x10 Normal 138-427 [facility] Comment on above: Performed By: #### 1 8242650, [id number], 1125612 ####[facility] (DEFAULT)[address] [place] [address] 90895 Platelet mean volume (Bld) [Entitic vol] 9.1 fL Normal 6.3-10.2 [facility] Comment on above: Performed By: #### 1 8931233, [id number], 7149805 ####[facility] (DEFAULT)[address] [place] [address] 77712 RBC 4.66 x10 Normal 3.70-5.30 [facility] Comment on above: Performed By: #### 1 7915893, [id number], 9494278 ####[facility] (DEFAULT)[address] [place] [address] 40941 WBC 6.9 x10 Normal 3.5-10.5 [facility] Comment on above: Performed By: #### 1 9158930, [id number], 5023875 ####[facility] (DEFAULT)[address] [place] [address] Provider Orderson 03-17-2024 Provider Orders [id number]#[id number] Normal [facility] Renal Function Panel Standar don 03-17-2024 eGFR Non AA 49 mL/min/1.73m2 Invalid Interpretation Code [facility] Comment on above: Performed By: #### 1 9810669, [id number], 2763352 ####[facility] (DEFAULT)[address] [place] [address] 85316 eGFR AA 60 mL/min/1.73m2 Invalid Interpretation Code [facility] Comment on above: Performed By: #### 1 8405725, [id number], 2048541 ####[facility] (DEFAULT)[address] [place] [address] 65569 Albumin [Mass/Vol] 4.0 g/dL Normal 3.5-5.0 [facility] Comment on above: Performed By: #### 1 0412873, [id number], 9893193 ####[facility] (DEFAULT)[address] [place] [address] 55953 Anion gap [Moles/Vol] 14.6 mmol/L Normal 5.0-19.0 [facility] Comment on above: Performed By: #### 1 4251306, [id number], 7866015 ####[facility] (DEFAULT)[address] [place] [address] 17238 Calcium [Mass/Vol] 9.3 mg/dL Normal 8.9-10.3 [facility] Comment on above: Performed By: #### 1 0057088, [id number], 6589318 ####[facility] (DEFAULT)[address] [place] [address] 69538 Chloride [Moles/Vol] 102 mmol/L Normal 101-111 [facility] Comment on above: Performed By: #### 1 5720457, [id number], 6375680 ####[facility] (DEFAULT)[address] [place] [address] 28646 CO2 [Moles/Vol] 24 mmol/L Normal 21-32 [facility] Comment on above: Performed By: #### 1 5002127, 1452637475, 4384469 ####[facility] (DEFAULT)[address] [place] [address] 80399 Creatinine [Mass/Vol] 1.42 mg/dL High 0.90-1.30 [facility] Comment on above: Performed By: #### 1 3148320, [id number], 8405669 ####[facility] (DEFAULT)[address] [place] [address] 19059 Glucose [Mass/Vol] 103.0 mg/dL Normal 74.0-118.0 [facility] Comment on above: Performed By: #### 1 7180653, [id number], 0939998 ####[facility] (DEFAULT)[address] [place] [address] 87801 Osmolality 280 mOsm/L Invalid Interpretation Code [facility] Comment on above: Performed By: #### 1 7053908, [id number], 6700896 ####[facility] (DEFAULT)[address] [place] [address] 45399 Phosphate [Mass/Vol] 2.8 mg/dL Normal 2.5-4.6 [facility] Comment on above: Performed By: #### 1 4762080, 1579439682, 4375909 ####[facility] (DEFAULT)[address] [place] [address] 19721 Potassium [Moles/Vol] 3.6 mmol/L Normal 3.6-5.1 [facility] Comment on above: Performed By: #### 1 0779930, [id number], 4698373 ####[facility] (DEFAULT)[address] [place] [address] 02347 Sodium [Moles/Vol] 137.0 mmol/L Normal 136.0-144.0 [facility] Comment on above: Performed By: #### 1 4212524, 0629241097, 9197606 ####[facility] (DEFAULT)[address] [place] [address] 80328 Urea nitrogen [Mass/Vol] 30 mg/dL High 8-26 [facility] Comment on above: Performed By: #### 1 5359599, 6309856135, 3575396 ####[facility] (DEFAULT)[address] [place] [address] 89916 Urea nitrogen/Creatini ne [Mass ratio] 21.1 mg/mg High 4.6-16.2 [facility] Comment on above: Performed By: #### 1 1202574, [id number], 5566133 ####[facility] (DEFAULT)[address] [place] [address] 30485 Wound Care Noteon 03-17-2024 Wound Care Note [id number]#1.00OTGTIFF Normal [facility] Coding Summaryon 03-13-2024 Coding [address] [facility] .Auto Diff 1on 03-09-2024 Auto [place] % 9 % Normal 1-12 [facility] Comment on above: Performed By: #### 1 [id number], 70138058, 1851896 ####[facility] (DEFAULT)[address] [place] [address] 30728 Baso Abs# 0.0 x10 Normal 0.0-0.2 [facility] Comment on above: Performed By: #### 1 714531500, 43701951, 5516118 ####[facility] (DEFAULT)[address] [place] [address] 01713 Basophils/100 WBC (Bld) 1.1 % Normal 0.2-2.0 [facility] Comment on above: Performed By: #### 1 441868545, 41750324, 1136397 ####[facility] (DEFAULT)[address] [place] [address] 13311 Eos Abs# 0.5 x10 High 0.0-0.4 [facility] Comment on above: Performed By: #### 1 271088219, 24337308, 8632317 ####[facility] (DEFAULT)[address] [place] [address] Eosinophils/100 WBC (Bld) 11.8 % High 0.9-4.0 [facility] Comment on above: Performed By: #### 1 855290681, 48895215, 0264717 ####[facility] (DEFAULT)[address] [place] [address] 60396 Lymph Abs# 0.8 x10 Low 1.3-2.9 [facility] Comment on above: Performed By: #### 1 781655166, 76583716, 2816040 ####[facility] (DEFAULT)[address] [place] [address] 40569 Lymphocytes/100 WBC (Bld) 18 % Normal 14-48 [facility] Comment on above: Performed By: #### 1 [id number], 76524942, 2922459 ####[facility] (DEFAULT)[address] [place] [address] 30636 [place] Abs# 0.4 x10 Normal 0.0-0.8 [facility] Comment on above: Performed By: #### 1 103629523, 44449239, 6805866 ####[facility] (DEFAULT)[address] [place] [address] Neut Abs# 2.7 x10 Normal 1.5-9.2 [facility] Comment on above: Performed By: #### 1 431500255, 42123607, 0876621 ####[facility] (DEFAULT)[address] [place] [address] Neutrophils/100 WBC (Bld) 60 % Normal 44-88 [facility] Comment on above: Performed By: #### 1 [id number], 26377490, 8898223 ####[facility] (DEFAULT)[address] [place] [address] CBC w/ Auto Diffon 5 Erythrocyte distribution width (RBC) [Ratio] 16.5 % High 11.5-15.0 [facility] Comment on above: Performed By: #### 1 215143543, 30361615, 8048112 ####[facility] (DEFAULT)[address] [place] [address] Hematocrit (Bld) [Volume fraction] 45.0 % Normal 34.8-51.9 [facility] Comment on above: Performed By: #### 1 175389943, 77433454, 2100620 ####[facility] (DEFAULT)[address] [place] [address] Hemoglobin (Bld) [Mass/Vol] 14.9 g/dL Normal 11.8-17.7 [facility] Comment on above: Performed By: #### 1 031883743, 83165020, 3579010 ####[facility] (DEFAULT)[address] [place] [address] Man Diff? Auto Invalid Interpretation Code [facility] Comment on above: Performed By: #### 1 [id number], 31508182, 4345969 ####[facility] (DEFAULT)[address] [place] [address] MCH (RBC) [Entitic mass] 34 pg Normal 24-34 [facility] Comment on above: Performed By: #### 1 844051646, 95113737, 5406375 ####[facility] (DEFAULT)[address] [place] [address] 13301 MCHC (RBC) [Mass/Vol] 33 g/dL Normal 26-37 [facility] Comment on above: Performed By: #### 1 154565029, 88425208, 3599758 ####[facility] (DEFAULT)[address] [place] [address] 38769 MCV (RBC) [Entitic vol] 103 fL High 81-100 [facility] Comment on above: Performed By: #### 1 [id number], 41077016, 4243179 ####[facility] (DEFAULT)[address] [place] [address] 94028 Platelet 205 x10 Normal 138-427 [facility] Comment on above: Performed By: #### 1 603406850, 10213324, 9152173 ####[facility] (DEFAULT)[address] [place] [address] 43600 Platelet mean volume (Bld) [Entitic vol] 8.5 fL Normal 6.3-10.2 [facility] Comment on above: Performed By: #### 1 100896693, 67464103, 9960463 ####[facility] (DEFAULT)[address] [place] [address] 32460 RBC 4.37 x10 Normal 3.70-5.30 [facility] Comment on above: Performed By: #### 1 443710533, 94429665, 3526634 ####[facility] (DEFAULT)[address] [place] [address] 48611 WBC 4.5 x10 Normal 3.5-10.5 [facility] Comment on above: Performed By: #### 1 221856149, 43558638, 7664286 ####[facility] (DEFAULT)[address] [place] [address] Provider Orderson 03-09-2024 Provider Orders [id number] Normal [facility] Renal Function Panel Standar don 03-09-2024 eGFR Non AA 53 mL/min/1.73m2 Invalid Interpretation Code [facility] Comment on above: Performed By: #### 1 [id number], 58874479, 3814609 ####[facility] (DEFAULT)[address] [place] [address] 03368 eGFR AA >60 Invalid Interpretation Code [facility] Comment on above: Performed By: #### 1 [id number], 93879521, 1255856 ####[facility] (DEFAULT)[address] [place] [address] 81871 Albumin [Mass/Vol] 3.5 g/dL Normal 3.5-5.0 [facility] Comment on above: Performed By: #### 1 710353905, 12044065, 9675924 ####[facility] (DEFAULT)[address] [place] [address] 68819 Anion gap [Moles/Vol] 13.6 mmol/L Normal 5.0-19.0 [facility] Comment on above: Performed By: #### 1 997105414, 44372013, 1459376 ####[facility] (DEFAULT)[address] [place] [address] 74721 Calcium [Mass/Vol] 8.8 mg/dL Low 8.9-10.3 [facility] Comment on above: Performed By: #### 1 301502956, 92263030, 9302986 ####[facility] (DEFAULT)[address] [place] [address] 58394 Chloride [Moles/Vol] 101 mmol/L Normal 101-111 [facility] Comment on above: Performed By: #### 1 590395803, 50901693, 7870070 ####[facility] (DEFAULT)[address] [place] [address] 47651 CO2 [Moles/Vol] 23 mmol/L Normal 21-32 [facility] Comment on above: Performed By: #### 1 791805503, 57016140, 0782647 ####[facility] (DEFAULT)[address] [place] [address] 90498 Creatinine [Mass/Vol] 1.34 mg/dL High 0.90-1.30 [facility] Comment on above: Performed By: #### 1 [id number], 90047838, 1040040 ####[facility] (DEFAULT)[address] [place] [address] 90417 Glucose [Mass/Vol] 107.0 mg/dL Normal 74.0-118.0 [facility] Comment on above: Performed By: #### 1 022748601, 06377584, 0729274 ####[facility] (DEFAULT)[address] [place] [address] 67748 Osmolality 271 mOsm/L Invalid Interpretation Code [facility] Comment on above: Performed By: #### 1 [id number], 08892476, 2294630 ####[facility] (DEFAULT)[address] [place] [address] 85527 Phosphate [Mass/Vol] 3.0 mg/dL Normal 2.5-4.6 [facility] Comment on above: Performed By: #### 1 863269212, 18458245, 9471159 ####[facility] (DEFAULT)[address] [place] [address] 90161 Potassium [Moles/Vol] 4.6 mmol/L Normal 3.6-5.1 [facility] Comment on above: Performed By: #### 1 [id number], 27709201, 0573099 ####[facility] (DEFAULT)[address] [place] [address] 06843 Sodium [Moles/Vol] 133.0 mmol/L Low 136.0-144.0 [facility] Comment on above: Performed By: #### 1 798088057, 98363230, 7398222 ####[facility] (DEFAULT)[address] [place] [address] 81856 Urea nitrogen [Mass/Vol] 24 mg/dL Normal 8-26 [facility] Comment on above: Performed By: #### 1 [id number], 53130912, 0332176 ####[facility] (DEFAULT)[address] [place] [address] 11989 Urea nitrogen/Creatini ne [Mass ratio] 17.9 mg/mg High 4.6-16.2 [facility] Comment on above: Performed By: #### 1 827443866, 54977903, 3689752 ####[facility] (DEFAULT)[address] [place] [address] 50574 Coding Summaryon 03-07-2024 Coding Summary Normal [facility] Coding Summary Normal [facility] .Auto Diff 1on 03-03-2024 Auto [place] % 8 % Normal 03-19 [facility] Comment on above: Performed By: #### 7 259414, [id number] ####[facility] (DEFAULT)[address] [place] [address] 56562 Baso Abs# 0.1 x10 Normal 0.0-0.2 [facility] Comment on above: Performed By: #### 7 080337, [id number] ####[facility] (DEFAULT)[address] [place] [address] Basophils/100 WBC (Bld) 1.1 % Normal 0.2-2.0 [facility] Comment on above: Performed By: #### 7 953894, 49809682 ####[facility] (DEFAULT)[address] [place] [address] 47275 Eos Abs# 0.5 x10 High 0.0-0.4 [facility] Comment on above: Performed By: #### 7 991283, 16256659 ####[facility] (DEFAULT)[address] [place] [address] Eosinophils/100 WBC (Bld) 10.3 % High 0.9-4.0 [facility] Comment on above: Performed By: #### 7 320054, 62050503 ####[facility] (DEFAULT)[address] [place] [address] 33473 Lymph Abs# 0.9 x10 Low 1.3-2.9 [facility] Comment on above: Performed By: #### 7 468537, 57563394 ####[facility] (DEFAULT)[address] [place] [address] 86243 Lymphocytes/100 WBC (Bld) 19 % Normal 14-48 [facility] Comment on above: Performed By: #### 7 445660, 96200782 ####[facility] (DEFAULT)[address] [place] [address] 67259 [place] Abs# 0.4 x10 Normal 0.0-0.8 [facility] Comment on above: Performed By: #### 7 461875, 42233633 ####[facility] (DEFAULT)[address] [place] [address] Neut Abs# 3.1 x10 Normal 1.5-9.2 [facility] Comment on above: Performed By: #### 7 244808, 34909004 ####[facility] (DEFAULT)[address] [place] [address] Neutrophils/100 WBC (Bld) 62 % Normal 44-88 [facility] Comment on above: Performed By: #### 7 786681, [id number] ####[facility] (DEFAULT)[address] [place] [address] 36on 03-03-2024 36 Pt notified Normal [facility] CBC w/ Auto Diffon Erythrocyte distribution width (RBC) [Ratio] 16.1 % High 11.5-15.0 [facility] Comment on above: Performed By: #### 7 839991, 87617888 ####[facility] (DEFAULT)[address] [place] [address] Hematocrit (Bld) [Volume fraction] 45.7 % Normal 34.8-51.9 [facility] Comment on above: Performed By: #### 7 954208, 16077091 ####[facility] (DEFAULT)[address] [place] [address] Hemoglobin (Bld) [Mass/Vol] 15.3 g/dL Normal 11.8-17.7 [facility] Comment on above: Performed By: #### 7 706133, 19822355 ####[facility] (DEFAULT)[address] [place] [address] Man Diff? Auto Invalid Interpretation Code [facility] Comment on above: Performed By: #### 7 755056, [id number] ####[facility] (DEFAULT)[address] [place] [address] 35472 MCH (RBC) [Entitic mass] 34 pg Normal 24-34 [facility] Comment on above: Performed By: #### 7 882760, 98396281 ####[facility] (DEFAULT)[address] [place] [address] 87342 MCHC (RBC) [Mass/Vol] 34 g/dL Normal 26-37 [facility] Comment on above: Performed By: #### 7 036936, [id number] ####[facility] (DEFAULT)[address] [place] [address] 82751 MCV (RBC) [Entitic vol] 102 fL High 81-100 [facility] Comment on above: Performed By: #### 7 148762, 43044130 ####[facility] (DEFAULT)[address] [place] [address] 40152 Platelet 259 x10 Normal 138-427 [facility] Comment on above: Performed By: #### 7 735326, 16702987 ####[facility] (DEFAULT)[address] [place] [address] 82843 Platelet mean volume (Bld) [Entitic vol] 8.6 fL Normal 6.3-10.2 [facility] Comment on above: Performed By: #### 7 103532, 97772397 ####[facility] (DEFAULT)[address] [place] [address] RBC 4.49 x10 Normal 3.70-5.30 [facility] Comment on above: Performed By: #### 7 926373, [id number] ####[facility] (DEFAULT)[address] [place] [address] 11642 WBC 5.0 x10 Normal 3.5-10.5 [facility] Comment on above: Performed By: #### 7 324311, 79177346 ####[facility] (DEFAULT)[address] [place] [address] 52179 Provider Orderson 03-03-2024 Provider Orders [id number] Normal [facility] Renal Function Panel Standar don 03-03-2024 eGFR Non AA 53 mL/min/1.73m2 Invalid Interpretation Code [facility] Comment on above: Performed By: #### 1 [id number] ####[facility] (DEFAULT)[address] [place] [address] eGFR AA >60 Invalid Interpretation Code [facility] Comment on above: Performed By: #### 1 [id number] ####[facility] (DEFAULT)[address] [place] [address] 67435 Albumin [Mass/Vol] 3.6 g/dL Normal 3.5-5.0 [facility] Comment on above: Performed By: #### 1 [id number] ####[facility] (DEFAULT)[address] [place] [address] 23047 Anion gap [Moles/Vol] 13.4 mmol/L Normal 5.0-19.0 [facility] Comment on above: Performed By: #### 1 [id number] ####[facility] (DEFAULT)[address] [place] [address] [id number] Calcium [Mass/Vol] 9.2 mg/dL Normal 8.9-10.3 [facility] Comment on above: Performed By: #### 1 [id number] ####[facility] (DEFAULT)[address] [place] [address] [id number] Chloride [Moles/Vol] 100 mmol/L Low 101-111 [facility] Comment on above: Performed By: #### 1 [id number] ####[facility] (DEFAULT)[address] [place] [address] [id number] CO2 [Moles/Vol] 28 mmol/L Normal 21-32 [facility] Comment on above: Performed By: #### 1 [id number] ####[facility] (DEFAULT)[address] [place], [place] [address] 43616 Creatinine [Mass/Vol] 1.34 mg/dL High 0.90-1.30 [facility] Comment on above: Performed By: #### 1 [id number] ####[facility] (DEFAULT)[address] [place] [address] 39133 Glucose [Mass/Vol] 120.0 mg/dL High 74.0-118.0 [facility] Comment on above: Performed By: #### 1 [id number] ####[facility] (DEFAULT)[address] [place] [address] 57344 Osmolality 280 mOsm/L Invalid Interpretation Code [facility] Comment on above: Performed By: #### 1 [id number] ####[facility] (DEFAULT)[address] [place] [address] 82222 Phosphate [Mass/Vol] 2.9 mg/dL Normal 2.5-4.6 [facility] Comment on above: Performed By: #### 1 [id number] ####[facility] (DEFAULT)[address] [place] [address] 43299 Potassium [Moles/Vol] 4.4 mmol/L Normal 3.6-5.1 [facility] Comment on above: Performed By: #### 1 [id number] ####[facility] (DEFAULT)[address] [place] [address] 53709 Sodium [Moles/Vol] 137.0 mmol/L Normal 136.0-144.0 [facility] Comment on above: Performed By: #### 1 [id number] ####[facility] (DEFAULT)[address] [place] [address] 65498 Urea nitrogen [Mass/Vol] 27 mg/dL High 10-31 [facility] Comment on above: Performed By: #### 1 [id number] ####[facility] (DEFAULT)[address] [place] [address] 44172 Urea nitrogen/Creatini ne [Mass ratio] 20.1 mg/mg High 4.6-16.2 [facility] Comment on above: Performed By: #### 1 [id number] ####[facility] (DEFAULT)[address] [place] [address] 85105 36on 03-02-2024 36 Pt called and wanted to know if he need to refill his medications you prescribed? Normal [facility] Telephoneon 03-02-2024 Telephone [id number] Shivani Ruiz 1950 M Date Provider Department Center 03/02/2024 KEN ELLSWORTH [facility] INF Mohit Heal Family History Problem Relation Age of Onset Heart attack Father Coronary artery disease Father Other Father Coronary artery disease Brother Family Status - Relation Status Age at Father Brother [facility] Coding Summaryon 02-29-2024 Coding Summary [facility] 36on 02-28-2024 36 I called the patient . Labs are stable. Normal [facility] Follow-Upon 02-28-2024 Follow-Up [id number] Shivani Ruiz 1950 M Date Provider Department Center 02/28/2024 KYREE RAWLS ORTHO MPORTHO Family History Problem Relation Age of Onset Heart attack Father Coronary artery disease Father Other Father Coronary artery disease Brother Family Status - Relation Status Age at Father Brother Level of Service:49745 [place] OFFICE/OUTPATIENT ESTABLISHED SF MDM 10 MIN () Reason for Visit and Comments: Follow-up [804779] Pain [136] Normal [facility] Telephoneon 02-28-2024 Telephone [id number] Shivani Ruiz 1950 M Date Provider Department Center 02/28/2024 MYKEL LOPEZ [facility] INF Mohit Heal Family History Problem Relation Age of Onset Heart attack Father Coronary artery disease Father Other Father Coronary artery disease Brother Family Status - Relation Status Age at Father Brother [facility] Wound Care Noteon 02-28-2024 Wound Care Note [id number]#[id number] [facility] .Auto Diff 1on 02-25-2024 Auto [place] % 10 % Normal 03-19 [facility] Comment on above: Performed By: #### 7 222107, [id number], [id number] ####[facility] (DEFAULT)[address] [place] [address] 34298 Baso Abs# 0.1 x10 Normal 0.0-0.2 [facility] Comment on above: Performed By: #### 7 716557, [id number], 23952545 ####[facility] (DEFAULT)[address] [place] [address] 83020 Basophils/100 WBC (Bld) 1.5 % Normal 0.2-2.0 [facility] Comment on above: Performed By: #### 7 817810, [id number], [id number] ####[facility] (DEFAULT)[address] [place] [address] 47452 Eos Abs# 0.6 x10 High 0.0-0.4 [facility] Comment on above: Performed By: #### 7 591652, [id number], 96957915 ####[facility] (DEFAULT)[address] [place] [address] 68554 Eosinophils/100 WBC (Bld) 10.6 % High 0.9-4.0 [facility] Comment on above: Performed By: #### 7 673783, [id number], [id number] ####[facility] (DEFAULT)[address] [place] [address] 86454 Lymph Abs# 0.6 x10 Low 1.3-2.9 [facility] Comment on above: Performed By: #### 7 007531, [id number], [id number] ####[facility] (DEFAULT)[address] [place] [address] 38375 Lymphocytes/100 WBC (Bld) 11 % Low 14-48 [facility] Comment on above: Performed By: #### 7 282615, [id number], [id number] ####[facility] (DEFAULT)[address] [place] [address] [place] Abs# 0.5 x10 Normal 0.0-0.8 [facility] Comment on above: Performed By: #### 7 330230, [id number], 40161040 ####[facility] (DEFAULT)[address] [place] [address] 35315 Neut Abs# 3.6 x10 Normal 1.5-9.2 [facility] Comment on above: Performed By: #### 7 401791, [id number], 13438700 ####[facility] (DEFAULT)[address] [place] [address] 02768 Neutrophils/100 WBC (Bld) 67 % Normal 44-88 [facility] Comment on above: Performed By: #### 7 038194, [id number], 19924059 ####[facility] (DEFAULT)[address] [place] [address] CBC w/ Auto Diffon 4 Erythrocyte distribution width (RBC) [Ratio] 15.7 % High 11.5-15.0 [facility] Comment on above: Performed By: #### 7 817094, [id number], [id number] ####[facility] (DEFAULT)[address] [place] [address] Hematocrit (Bld) [Volume fraction] 47.1 % Normal 34.8-51.9 [facility] Comment on above: Performed By: #### 7 551443, [id number], 51415197 ####[facility] (DEFAULT)[address] [place] [address] Hemoglobin (Bld) [Mass/Vol] 15.7 g/dL Normal 11.8-17.7 [facility] Comment on above: Performed By: #### 7 063884, [id number], 69505689 ####[facility] (DEFAULT)[address] [place] [address] Man Diff? Auto Invalid Interpretation Code [facility] Comment on above: Performed By: #### 7 512545, [id number], [id number] ####[facility] (DEFAULT)[address] [place] [address] MCH (RBC) [Entitic mass] 34 pg Normal 24-34 [facility] Comment on above: Performed By: #### 7 592701, [id number], 75617643 ####[facility] (DEFAULT)[address] [place] [address] MCHC (RBC) [Mass/Vol] 33 g/dL Normal 26-37 [facility] Comment on above: Performed By: #### 7 856369, [id number], 96279420 ####[facility] (DEFAULT)[address] [place] [address] 76168 MCV (RBC) [Entitic vol] 103 fL High 81-100 [facility] Comment on above: Performed By: #### 7 807712, [id number], [id number] ####[facility] (DEFAULT)[address] [place] [address] 79856 Platelet 262 x10 Normal 138-427 [facility] Comment on above: Performed By: #### 7 705163, [id number], 44046766 ####[facility] (DEFAULT)[address] [place] [address] 17774 Platelet mean volume (Bld) [Entitic vol] 8.6 fL Normal 6.3-10.2 [facility] Comment on above: Performed By: #### 7 256002, [id number], 54640428 ####[facility] (DEFAULT)[address] [place] [address] 80996 RBC 4.59 x10 Normal 3.70-5.30 [facility] Comment on above: Performed By: #### 7 109742, 5075270694, 85771075 ####[facility] (DEFAULT)[address] [place] [address] 08053 WBC 5.4 x10 Normal 3.5-10.5 [facility] Comment on above: Performed By: #### 7 371965, [id number], 32158157 ####[facility] (DEFAULT)[address] [place] [address] Provider Orderson 02-25-2024 Provider Orders [id number]#1.00OTGTIFF Normal [facility] Renal Function Panel Standar don 02-25-2024 eGFR Non AA 45 mL/min/1.73m2 Invalid Interpretation Code [facility] Comment on above: Performed By: #### 7 642607, [id number], 28735997 ####[facility] (DEFAULT)[address] [place] [address] 06327 eGFR AA 54 mL/min/1.73m2 Invalid Interpretation Code [facility] Comment on above: Performed By: #### 7 222593, [id number], 78409688 ####[facility] (DEFAULT)[address] [place] [address] 60926 Albumin [Mass/Vol] 3.7 g/dL Normal 3.5-5.0 [facility] Comment on above: Performed By: #### 7 786825, [id number], 94964471 ####[facility] (DEFAULT)[address] [place] [address] 54332 Creatinine [Mass/Vol] 1.54 mg/dL High 0.90-1.30 [facility] Comment on above: Performed By: #### 7 326147, [id number], 88589642 ####[facility] (DEFAULT)[address] [place] [address] 84285 Osmolality 279 mOsm/L Invalid Interpretation Code [facility] Comment on above: Performed By: #### 7 679908, [id number], 18744922 ####[facility] (DEFAULT)[address] [place] [address] 21749 Phosphate [Mass/Vol] 3.2 mg/dL Normal 2.5-4.6 [facility] Comment on above: Performed By: #### 7 528030, [id number], 12685349 ####[facility] (DEFAULT)[address] [place] [address] 02727 Urea nitrogen [Mass/Vol] 29 mg/dL High 8-26 [facility] Comment on above: Performed By: #### 7 280655, 7145375438, 60395414 ####[facility] (DEFAULT)[address] [place] [address] 39298 Urea nitrogen/Creatini ne [Mass ratio] 18.8 mg/mg High 4.6-16.2 [facility] Comment on above: Performed By: #### 7 069574, [id number], 50085685 ####[facility] (DEFAULT)[address] [place] [address] 55191 Anion gap [Moles/Vol] 14.2 mmol/L Normal 5.0-19.0 [facility] Comment on above: Performed By: #### 7 215286, [id number], 50483241 ####[facility] (DEFAULT)[address] [place] [address] 49257 Calcium [Mass/Vol] 9.0 mg/dL Normal 8.9-10.3 [facility] Comment on above: Performed By: #### 7 132105, [id number], 63369404 ####[facility] (DEFAULT)[address] [place] [address] 20253 Chloride [Moles/Vol] 97 mmol/L Low 101-111 [facility] Comment on above: Performed By: #### 7 474467, 5133450034, 79107787 ####[facility] (DEFAULT)[address] [place] [address] 46302 CO2 [Moles/Vol] 28 mmol/L Normal 21-32 [facility] Comment on above: Performed By: #### 7 381497, 0829058048, 49404895 ####[facility] (DEFAULT)[address] [place] [address] 59002 Glucose [Mass/Vol] 152.0 mg/dL High 74.0-118.0 [facility] Comment on above: Performed By: #### 7 946006, 3332410691, 54050195 ####[facility] (DEFAULT)[address] [place] [address] 08899 Potassium [Moles/Vol] 4.2 mmol/L Normal 3.6-5.1 [facility] Comment on above: Performed By: #### 7 525758, 3852301476, 31145531 ####[facility] (DEFAULT)[address] [place] [address] 66700 Sodium [Moles/Vol] 135.0 mmol/L Low 136.0-144.0 [facility] Comment on above: Performed By: #### 7 232919, 4545930464, 20053332 ####[facility] (DEFAULT)[address] [place] [address] 79572 Coding Summaryon 02-22-2024 Coding Summary Normal [facility] .Auto Diff 102-18-2024 Auto [place] % 8 % Normal 03-19 [facility] Comment on above: Performed By: #### 1 [id number], 5093766, 53465581 ####[facility] (DEFAULT)[address] [place] [address] 41088 Baso Abs# 0.1 x10 Normal 0.0-0.2 [facility] Comment on above: Performed By: #### 1 [id number], 4389393, 97793661 ####[facility] (DEFAULT)[address] [place] [address] 65106 Basophils/100 WBC (Bld) 1.2 % Normal 0.2-2.0 [facility] Comment on above: Performed By: #### 1 048291542, 0318130, 22205995 ####[facility] (DEFAULT)[address] [place] [address] 65958 Eos Abs# 0.7 x10 High 0.0-0.4 [facility] Comment on above: Performed By: #### 1 609381258, 2623980, 04454763 ####[facility] (DEFAULT)[address] [place] [address] 88669 Eosinophils/100 WBC (Bld) 12.6 % High 0.9-4.0 [facility] Comment on above: Performed By: #### 1 549171309, 6727442, 97766469 ####[facility] (DEFAULT)[address] [place] [address] Lymph Abs# 0.5 x10 Low 1.3-2.9 [facility] Comment on above: Performed By: #### 1 [id number], 4362499, 47011536 ####[facility] (DEFAULT)[address] [place] [address] 20026 Lymphocytes/100 WBC (Bld) 10 % Low 14-48 [facility] Comment on above: Performed By: #### 1 665632063, 2903021, 12123046 ####[facility] (DEFAULT)[address] [place] [address] 91661 [place] Abs# 0.4 x10 Normal 0.0-0.8 [facility] Comment on above: Performed By: #### 1 693382794, 7417158, 27253797 ####[facility] (DEFAULT)[address] [place] [address] 04314 Neut Abs# 3.7 x10 Normal 1.5-9.2 [facility] Comment on above: Performed By: #### 1 875135793, 0043960, 37990385 ####[facility] (DEFAULT)[address] [place] [address] 17948 Neutrophils/100 WBC (Bld) 68 % Normal 44-88 [facility] Comment on above: Performed By: #### 1 364208784, 2892298, 71714026 ####[facility] (DEFAULT)[address] [place] [address] CBC w/ Auto Diffon Erythrocyte distribution width (RBC) [Ratio] 15.7 % High 11.5-15.0 [facility] Comment on above: Performed By: #### 1 317704316, 2111740, 65524606 ####[facility] (DEFAULT)[address] [place] [address] Hematocrit (Bld) [Volume fraction] 44.5 % Normal 34.8-51.9 [facility] Comment on above: Performed By: #### 1 487995585, 6476192, 93250458 ####[facility] (DEFAULT)[address] [place] [address] Hemoglobin (Bld) [Mass/Vol] 14.7 g/dL Normal 11.8-17.7 [facility] Comment on above: Performed By: #### 1 440115276, 4727037, 53286691 ####[facility] (DEFAULT)[address] [place] [address] Man Diff? Auto Invalid Interpretation Code [facility] Comment on above: Performed By: #### 1 [id number], 5601249, 30009205 ####[facility] (DEFAULT)[address] [place] [address] MCH (RBC) [Entitic mass] 34 pg Normal 24-34 [facility] Comment on above: Performed By: #### 1 [id number], 6772624, 71863431 ####[facility] (DEFAULT)[address] [place] [address] MCHC (RBC) [Mass/Vol] 33 g/dL Normal 26-37 [facility] Comment on above: Performed By: #### 1 [id number], 9517228, 06194957 ####[facility] (DEFAULT)[address] [place] [address] MCV (RBC) [Entitic vol] 103 fL High 81-100 [facility] Comment on above: Performed By: #### 1 044236578, 3683702, 25933120 ####[facility] (DEFAULT)[address] [place] [address] 17147 Platelet 206 x10 Normal 138-427 [facility] Comment on above: Performed By: #### 1 [id number], 7031311, 17579777 ####[facility] (DEFAULT)[address] [place] [address] 69846 Platelet mean volume (Bld) [Entitic vol] 8.7 fL Normal 6.3-10.2 [facility] Comment on above: Performed By: #### 1 451282087, 9105082, 31533339 ####[facility] (DEFAULT)[address] [place] [address] RBC 4.33 x10 Normal 3.70-5.30 [facility] Comment on above: Performed By: #### 1 861969635, 7747324, 91764304 ####[facility] (DEFAULT)[address] [place] [address] WBC 5.4 x10 Normal 3.5-10.5 [facility] Comment on above: Performed By: #### 1 [id number], 3194477, 77083321 ####[facility] (DEFAULT)[address] [place] [address] Provider Orderson 02-18-2024 Provider Orders [id number]#[id number] Normal [facility] Renal Function Panel Standar don 02-18-2024 eGFR Non AA 53 mL/min/1.73m2 Invalid Interpretation Code [facility] Comment on above: Performed By: #### 1 [id number], 1641444, 96589334 ####[facility] (DEFAULT)[address] [place] [address] eGFR AA >60 Invalid Interpretation Code [facility] Comment on above: Performed By: #### 1 [id number], 4486228, 70607258 ####[facility] (DEFAULT)[address] [place] [address] 39129 Albumin [Mass/Vol] 3.4 g/dL Low 3.5-5.0 [facility] Comment on above: Performed By: #### 1 [id number], 7922368, 54123747 ####[facility] (DEFAULT)[address] [place] [address] 42690 Creatinine [Mass/Vol] 1.32 mg/dL High 0.90-1.30 [facility] Comment on above: Performed By: #### 1 893267895, 6619353, 07790319 ####[facility] (DEFAULT)[address] [place] [address] 40197 Osmolality 270 mOsm/L Invalid Interpretation Code [facility] Comment on above: Performed By: #### 1 721062137, 3004877, 06220726 ####[facility] (DEFAULT)[address] [place] [address] 30592 Phosphate [Mass/Vol] 3.1 mg/dL Normal 2.5-4.6 [facility] Comment on above: Performed By: #### 1 212167323, 5332394, 28507938 ####[facility] (DEFAULT)[address] [place] [address] 05981 Urea nitrogen [Mass/Vol] 25 mg/dL Normal 8-26 [facility] Comment on above: Performed By: #### 1 624103722, 1114311, 44586155 ####[facility] (DEFAULT)[address] [place] [address] 69882 Urea nitrogen/Creatini ne [Mass ratio] 18.9 mg/mg High 4.6-16.2 [facility] Comment on above: Performed By: #### 1 318134643, 9909750, 41487086 ####[facility] (DEFAULT)[address] [place] [address] 57584 Anion gap [Moles/Vol] 6.8 mmol/L Normal 5.0-19.0 [facility] Comment on above: Performed By: #### 1 [id number], 0984205, 66484764 ####[facility] (DEFAULT)[address] [place] [address] 14729 Calcium [Mass/Vol] 8.4 mg/dL Low 8.9-10.3 [facility] Comment on above: Performed By: #### 1 759521592, 1870327, 25004307 ####[facility] (DEFAULT)[address] [place] [address] 04471 Chloride [Moles/Vol] 100 mmol/L Low 101-111 [facility] Comment on above: Performed By: #### 1 019822075, 8526624, 27124582 ####[facility] (DEFAULT)[address] [place] [address] 80226 CO2 [Moles/Vol] 28 mmol/L Normal 21-32 [facility] Comment on above: Performed By: #### 1 886413451, 3109368, 03248754 ####[facility] (DEFAULT)[address] [place] [address] 52568 Glucose [Mass/Vol] 144.0 mg/dL High 74.0-118.0 [facility] Comment on above: Performed By: #### 1 660990342, 8115048, 89906774 ####[facility] (DEFAULT)[address] [place] [address] 54627 Potassium [Moles/Vol] 3.8 mmol/L Normal 3.6-5.1 [facility] Comment on above: Performed By: #### 1 359034594, 3563444, 16791580 ####[facility] (DEFAULT)[address] [place] [address] 45405 Sodium [Moles/Vol] 131.0 mmol/L Low 136.0-144.0 [facility] Comment on above: Performed By: #### 1 857517387, 8629269, 48351965 ####[facility] (DEFAULT)[address] [place] [address] 72002 Wound Care Noteon 02-18-2024 Wound Care Note [id number]#1.00OTGTIFF [facility] Coding Summaryon 02-16-2024 Coding Summary [facility] .Auto Diff 1on 02-11-2024 Auto [place] % 9 % Normal 03-19 [facility] Comment on above: Performed By: #### 7 158092, 83485823, [id number] ####[facility] (DEFAULT)[address] [place] [address] 61571 Baso Abs# 0.1 x10 Normal 0.0-0.2 [facility] Comment on above: Performed By: #### 7 088924, 09025308, [id number] ####[facility] (DEFAULT)[address] [place] [address] 61688 Basophils/100 WBC (Bld) 0.9 % Normal 0.2-2.0 [facility] Comment on above: Performed By: #### 7 982832, 72857088, [id number] ####[facility] (DEFAULT)[address] [place] [address] 02877 Eos Abs# 0.6 x10 High 0.0-0.4 [facility] Comment on above: Performed By: #### 7 539484, 85603791, [id number] ####[facility] (DEFAULT)[address] [place] [address] Eosinophils/100 WBC (Bld) 9.6 % High 0.9-4.0 [facility] Comment on above: Performed By: #### [id number] ####[facility] (DEFAULT)[address] [place] [id number] Lymph Abs# 0.8 x10 Low 1.3-2.9 [facility] Comment on above: Performed By: #### [id number] ####[facility] [facility] ([facility] [place] [address] 18206 Lymphocytes/100 WBC (Bld) 13 % Low 14-48 [facility] Comment on above: Performed By: #### 7 434067, 51218410, [id number] ####[facility] (DEFAULT)[address] [place] [address] 64396 [place] Abs# 0.6 x10 Normal 0.0-0.8 [facility] Comment on above: Performed By: #### 7 971951, 98728697, [id number] ####[facility] (DEFAULT)[address] [place] [address] Neut Abs# 4.1 x10 Normal 1.5-9.2 [facility] Comment on above: Performed By: #### 7 705395, 68023286, [id number] ####[facility] (DEFAULT)[address] [place] [address] Neutrophils/100 WBC (Bld) 67 % Normal 44-88 [facility] Comment on above: Performed By: #### 7 089631, 37137633, [id number] ####[facility] (DEFAULT)[address] [place] [address] CBC w/ Auto Diffon 4 Erythrocyte distribution width (RBC) [Ratio] 15.5 % High 11.5-15.0 [facility] Comment on above: Performed By: #### 7 924062, 64536083, [id number] ####[facility] (DEFAULT)[address] [place] [address] Hematocrit (Bld) [Volume fraction] 46.3 % Normal 34.8-51.9 [facility] Comment on above: Performed By: #### 7 122853, 32727403, [id number] ####[facility] (DEFAULT)[address] [place] [address] Hemoglobin (Bld) [Mass/Vol] 15.3 g/dL Normal 11.8-17.7 [facility] Comment on above: Performed By: #### 7 720056, 45509054, [id number] ####[facility] (DEFAULT)[address] [place] [address] Man Diff? Auto Invalid Interpretation Code [facility] Comment on above: Performed By: #### 7 433943, 86627365, [id number] ####[facility] (DEFAULT)[address] [place] [address] 77616 MCH (RBC) [Entitic mass] 34 pg Normal 24-34 [facility] Comment on above: Performed By: #### 7 064895, 22543871, [id number] ####[facility] (DEFAULT)[address] [place] [address] MCHC (RBC) [Mass/Vol] 33 g/dL Normal 26-37 [facility] Comment on above: Performed By: #### 7 200955, 24146486, [id number] ####[facility] (DEFAULT)[address] [place] [address] MCV (RBC) [Entitic vol] 102 fL High 81-100 [facility] Comment on above: Performed By: #### 7 145637, 40016777, [id number] ####[facility] (DEFAULT)[address] [place] [address] Platelet 235 x10 Normal 138-427 [facility] Comment on above: Performed By: #### 7 122896, 15293972, [id number] ####[facility] (DEFAULT)[address] [place] [address] Platelet mean volume (Bld) [Entitic vol] 9.1 fL Normal 6.3-10.2 [facility] Comment on above: Performed By: #### 7 459408, 62092589, [id number] ####[facility] (DEFAULT)[address] [place] [address] RBC 4.52 x10 Normal 3.70-5.30 [facility] Comment on above: Performed By: #### 7 892682, 88535750, [id number] ####[facility] (DEFAULT)[address] [place] [address] WBC 6.1 x10 Normal 3.5-10.5 [facility] Comment on above: Performed By: #### 7 329562, 65066234, [id number] ####[facility] (DEFAULT)[address] [place] [address] Provider Orderson 02-11-2024 Provider Orders [id number]#1.00OTGTIFF Normal [facility] Provider Orders [id number]#1.00OTGTIFF Normal [facility] Renal Function Panel Standar don 02-11-2024 eGFR Non AA 54 mL/min/1.73m2 Invalid Interpretation Code [facility] Comment on above: Performed By: #### 7 119705, 13623683, [id number] ####[facility] (DEFAULT)[address] [place] [address] 19735 eGFR AA >60 Invalid Interpretation Code [facility] Comment on above: Performed By: #### 7 079562, 34453245, [id number] ####[facility] (DEFAULT)[address] [place] [address] 18380 Albumin [Mass/Vol] 3.6 g/dL Normal 3.5-5.0 [facility] Comment on above: Performed By: #### 7 229948, 50859029, [id number] ####[facility] (DEFAULT)[address] [place] [address] 74366 Anion gap [Moles/Vol] 8.2 mmol/L Normal 5.0-19.0 [facility] Comment on above: Performed By: #### 7 639897, 13772594, [id number] ####[facility] (DEFAULT)[address] [place] [address] 49997 Calcium [Mass/Vol] 8.8 mg/dL Low 8.9-10.3 [facility] Comment on above: Performed By: #### 7 271481, 98376302, [id number] ####[facility] (DEFAULT)[address] [place] [address] 81687 Chloride [Moles/Vol] 101 mmol/L Normal 101-111 [facility] Comment on above: Performed By: #### 7 451715, 57354871, [id number] ####[facility] (DEFAULT)[address] [place] [address] 87548 CO2 [Moles/Vol] 29 mmol/L Normal 21-32 [facility] Comment on above: Performed By: #### 7 948481, 66172061, [id number] ####[facility] (DEFAULT)[address] [place] [address] 73085 Creatinine [Mass/Vol] 1.30 mg/dL Normal 0.90-1.30 [facility] Comment on above: Performed By: #### 7 138724, 08741214, [id number] ####[facility] (DEFAULT)[address] [place] [address] 36144 Glucose [Mass/Vol] 146.0 mg/dL High 74.0-118.0 [facility] Comment on above: Performed By: #### 7 039265, 51044683, 9393063281 ####[facility] (DEFAULT)[address] [place] [address] 05625 Osmolality 275 mOsm/L Invalid Interpretation Code [facility] Comment on above: Performed By: #### 7 141384, 09592413, [id number] ####[facility] (DEFAULT)[address] [place] [address] 73624 Phosphate [Mass/Vol] 2.8 mg/dL Normal 2.5-4.6 [facility] Comment on above: Performed By: #### 7 217306, 36073051, 7778211672 ####[facility] (DEFAULT)[address] [place] [address] 27888 Potassium [Moles/Vol] 4.2 mmol/L Normal 3.6-5.1 [facility] Comment on above: Performed By: #### 7 622657, 36911259, 1656930716 ####[facility] (DEFAULT)[address] [place] [address] 94387 Sodium [Moles/Vol] 134.0 mmol/L Low 136.0-144.0 [facility] Comment on above: Performed By: #### 7 166239, 91060503, [id number] ####[facility] (DEFAULT)[address] [place] [address] 43832 Urea nitrogen [Mass/Vol] 25 mg/dL Normal 8-26 [facility] Comment on above: Performed By: #### 7 744472, 99071848, [id number] ####[facility] (DEFAULT)[address] [place] [address] 14746 Urea nitrogen/Creatini ne [Mass ratio] 19.2 mg/mg High 4.6-16.2 [facility] Comment on above: Performed By: #### 7 303691, 80842324, 1785443094 ####[facility] (DEFAULT)[address] [place] [address] 98715 Wound Care Noteon 02-11-2024 Wound Care Note [id number]#1.00OTGTIFF Normal [facility] Coding Summaryon 02-10-2024 Coding Summary Normal [facility] Physical Therapy Noteon Physical Therapy Note [id number]#1.00OTGTIFF Normal [facility] Provider Orderson 02-07-2024 Provider Orders [id number]#1.00OTGTIFF Normal [facility] Hemogram Standardon 02-05-20 Erythrocyte distribution width (RBC) [Ratio] 15.2 % High 11.5-15.0 [facility] Comment on above: Performed By: #### 1 [id number], [id number] ####[facility] (DEFAULT)[address] [place] [address] 78585 Hematocrit (Bld) [Volume fraction] 46.2 % Normal 34.8-51.9 [facility] Comment on above: Performed By: #### 1 447883382, 7196150086 ####[facility] (DEFAULT)[address] [place] [address] 41527 Hemoglobin (Bld) [Mass/Vol] 15.2 g/dL Normal 11.8-17.7 [facility] Comment on above: Performed By: #### 1 116766522, [id number] ####[facility] (DEFAULT)[address] [place] [address] 09239 MCH (RBC) [Entitic mass] 34 pg Normal 24-34 [facility] Comment on above: Performed By: #### 1 722275655, 0252741872 ####[facility] (DEFAULT)[address] [place] [address] 10234 MCHC (RBC) [Mass/Vol] 33 g/dL Normal 26-37 [facility] Comment on above: Performed By: #### 1 104206628, 1457466585 ####[facility] (DEFAULT)[address] [place] [address] 26254 MCV (RBC) [Entitic vol] 104 fL High 81-100 [facility] Comment on above: Performed By: #### 1 644554764, [id number] ####[facility] (DEFAULT)[address] [place] [address] Platelet 282 x10 Normal 138-427 [facility] Comment on above: Performed By: #### 1 120135956, 5800730706 ####[facility] (DEFAULT)[address] [place] [address] Platelet mean volume (Bld) [Entitic vol] 8.6 fL Normal 6.3-10.2 [facility] Comment on above: Performed By: #### 1 973498581, 6889772381 ####[facility] (DEFAULT)[address] [place] [address] RBC 4.47 x10 Normal 3.70-5.30 [facility] Comment on above: Performed By: #### 1 [id number], 7055058262 ####[facility] (DEFAULT)[address] [place] [address] WBC 6.8 x10 Normal 3.5-10.5 [facility] Comment on above: Performed By: #### 1 [id number], 6808316928 ####[facility] (DEFAULT)[address] [place] [address] Provider Orderson 02-05-2024 Provider Orders [id number]#1.00OTGTIFF Normal [facility] Renal Function Panel Standar don 02-05-2024 eGFR Non AA 44 mL/min/1.73m2 Invalid Interpretation Code [facility] Comment on above: Performed By: #### 1 066322535, [id number] ####[facility] (DEFAULT)[address] [place] [address] eGFR AA 53 mL/min/1.73m2 Invalid Interpretation Code [facility] Comment on above: Performed By: #### 1 [id number], [id number] ####[facility] (DEFAULT)[address] [place] [address] 01826 Albumin [Mass/Vol] 3.6 g/dL Normal 3.5-5.0 [facility] Comment on above: Performed By: #### 1 [id number], 4985331424 ####[facility] (DEFAULT)[address] [place] [address] 03893 Anion gap [Moles/Vol] 13.5 mmol/L Normal 5.0-19.0 [facility] Comment on above: Performed By: #### 1 209234866, [id number] ####[facility] (DEFAULT)[address] [place] [address] 90409 Calcium [Mass/Vol] 9.1 mg/dL Normal 8.9-10.3 [facility] Comment on above: Performed By: #### 1 864304054, 7417936655 ####[facility] (DEFAULT)[address] [place] [address] 46389 Chloride [Moles/Vol] 98 mmol/L Low 101-111 [facility] Comment on above: Performed By: #### 1 778556275, 6034710220 ####[facility] (DEFAULT)[address] [place] [address] 70512 CO2 [Moles/Vol] 27 mmol/L Normal 21-32 [facility] Comment on above: Performed By: #### 1 093087143, 6130104444 ####[facility] (DEFAULT)[address] [place] [address] 57691 Creatinine [Mass/Vol] 1.56 mg/dL High 0.90-1.30 [facility] Comment on above: Performed By: #### 1 765177890, 1040437312 ####[facility] (DEFAULT)[address] [place] [address] 60319 Glucose [Mass/Vol] 112.0 mg/dL Normal 74.0-118.0 [facility] Comment on above: Performed By: #### 1 951407104, 3094503767 ####[facility] (DEFAULT)[address] [place] [address] 73200 Osmolality 272 mOsm/L Invalid Interpretation Code [facility] Comment on above: Performed By: #### 1 246710366, [id number] ####[facility] (DEFAULT)[address] [place] [address] 85049 Phosphate [Mass/Vol] 2.7 mg/dL Normal 2.5-4.6 [facility] Comment on above: Performed By: #### 1 327401303, 2725031578 ####[facility] (DEFAULT)[address] [place] [address] 37952 Potassium [Moles/Vol] 3.5 mmol/L Low 3.6-5.1 [facility] Comment on above: Performed By: #### 1 942518309, 4248139419 ####[facility] (DEFAULT)[address] [place] [address] 16108 Sodium [Moles/Vol] 135.0 mmol/L Low 136.0-144.0 [facility] Comment on above: Performed By: #### 1 753871587, 9839170365 ####[facility] (DEFAULT)[address] [place] [address] 17106 Urea nitrogen [Mass/Vol] 17 mg/dL Normal 10-31 [facility] Comment on above: Performed By: #### 1 811365634, 0805581727 ####[facility] (DEFAULT)[address] [place] [address] 48078 Urea nitrogen/Creatini ne [Mass ratio] 10.8 mg/mg Normal 4.6-16.2 [facility] Comment on above: Performed By: #### 1 270686529, 8898993758 ####[facility] (DEFAULT)[address] [place] [address] 30246 Wound Care Noteon 02-04-2024 Wound Care Note [id number]#1.00OTGTIFF Normal [facility] Coding Summaryon 02-02-2024 Coding Summary [facility] 36on 02-01-2024 36 Patient called to reschedule 02/01 appointment. Next available appointment he is able to make is March 15 at 9:40. He was also requesting you give him a call. Normal [facility] Orthopedic Office/Clinic Not omari 02-01-2024 Orthopedic Office/Clinic Note [id number]#1.00OTGTIFF Normal [facility] .Auto Diff 1on 01-28-2024 Auto [place] % 9 % Normal - [facility] Comment on above: Performed By: #### 1 4713075, 6110830, [id number] ####[facility] (DEFAULT)[address] [place] [address] Baso Abs# 0.1 x10 Normal 0.0-0.2 [facility] Comment on above: Performed By: #### 1 1986967, 8879787, [id number] ####[facility] (DEFAULT)[address] [place] [address] Basophils/100 WBC (Bld) 1.2 % Normal 0.2-2.0 [facility] Comment on above: Performed By: #### 1 6806019, 7707483, [id number] ####[facility] (DEFAULT)[address] [place] [address] Eos Abs# 0.8 x10 High 0.0-0.4 [facility] Comment on above: Performed By: #### 1 0090054, 8497974, [id number] ####[facility] (DEFAULT)[address] [place] [address] Eosinophils/100 WBC (Bld) 14.9 % High 0.9-4.0 [facility] Comment on above: Performed By: #### 1 9613723, 4476557, 0822461104 ####[facility] (DEFAULT)[address] [place] [address] Lymph Abs# 0.9 x10 Low 1.3-2.9 [facility] Comment on above: Performed By: #### 1 0191051, 7260770, 3819783452 ####[facility] (DEFAULT)[address] [place] [address] Lymphocytes/100 WBC (Bld) 17 % Normal 14-48 [facility] Comment on above: Performed By: #### 1 7146730, 4267023, [id number] ####[facility] (DEFAULT)[address] [place] [address] [place] Abs# 0.5 x10 Normal 0.0-0.8 [facility] Comment on above: Performed By: #### 1 9395457, 5871957, 3160156377 ####[facility] (DEFAULT)[address] [place] [address] Neut Abs# 3.1 x10 Normal 1.5-9.2 [facility] Comment on above: Performed By: #### 1 7137940, 7875014, 8396816476 ####[facility] (DEFAULT)[address] [place] [address] Neutrophils/100 WBC (Bld) 58 % Normal 44-88 [facility] Comment on above: Performed By: #### 1 7351861, 8134416, [id number] ####[facility] (DEFAULT)[address] [place] [address] CBC w/ Auto Diffon Erythrocyte distribution width (RBC) [Ratio] 14.9 % Normal 11.5-15.0 [facility] Comment on above: Performed By: #### 1 9906152, 1298840, 3686866023 ####[facility] (DEFAULT)[address] [place] [address] Hematocrit (Bld) [Volume fraction] 43.7 % Normal 34.8-51.9 [facility] Comment on above: Performed By: #### 1 7756859, 1388205, 3176754087 ####[facility] (DEFAULT)[address] [place] [address] Hemoglobin (Bld) [Mass/Vol] 14.7 g/dL Normal 11.8-17.7 [facility] Comment on above: Performed By: #### 1 0125247, 8123596, 6272083677 ####[facility] (DEFAULT)[address] [place] [address] 58629 Man Diff? Auto Invalid Interpretation Code [facility] Comment on above: Performed By: #### 1 8775190, 4166146, [id number] ####[facility] (DEFAULT)[address] [place] [address] 21642 MCH (RBC) [Entitic mass] 34 pg Normal 24-34 [facility] Comment on above: Performed By: #### 1 2992692, 8587902, 4606752861 ####[facility] (DEFAULT)[address] [place] [address] 71245 MCHC (RBC) [Mass/Vol] 34 g/dL Normal 26-37 [facility] Comment on above: Performed By: #### 1 4836896, 3737161, 7450575299 ####[facility] (DEFAULT)[address] [place] [address] 24684 MCV (RBC) [Entitic vol] 102 fL High 81-100 [facility] Comment on above: Performed By: #### 1 5728656, 4678712, [id number] ####[facility] (DEFAULT)[address] [place] [address] 34830 Platelet 324 x10 Normal 138-427 [facility] Comment on above: Performed By: #### 1 7936472, 8037885, 7118038591 ####[facility] (DEFAULT)[address] [place] [address] 72377 Platelet mean volume (Bld) [Entitic vol] 8.8 fL Normal 6.3-10.2 [facility] Comment on above: Performed By: #### 1 6267420, 3874824, 1145102313 ####[facility] (DEFAULT)[address] [place] [address] 39308 RBC 4.28 x10 Normal 3.70-5.30 [facility] Comment on above: Performed By: #### 1 2582202, 0339931, [id number] ####[facility] (DEFAULT)[address] [place] [address] 92121 WBC 5.3 x10 Normal 3.5-10.5 [facility] Comment on above: Performed By: #### 1 0731459, 7076928, [id number] ####[facility] (DEFAULT)[address] [place] [address] Provider Orderson 01-28-2024 Provider Orders [id number]#1.00OTGTIFF Normal [facility] Renal Function Panel Standar don 01-28-2024 eGFR Non AA 48 mL/min/1.73m2 Invalid Interpretation Code [facility] Comment on above: Performed By: #### 1 4395186, 0060362, [id number] ####[facility] (DEFAULT)[address] [place] [address] 08215 eGFR AA 59 mL/min/1.73m2 Invalid Interpretation Code [facility] Comment on above: Performed By: #### 1 2842436, 2568181, [id number] ####[facility] (DEFAULT)[address] [place] [address] 07264 Albumin [Mass/Vol] 3.6 g/dL Normal 3.5-5.0 [facility] Comment on above: Performed By: #### 1 5175945, 4060918, [id number] ####[facility] (DEFAULT)[address] [place] [address] 11069 Anion gap [Moles/Vol] 14.3 mmol/L Normal 5.0-19.0 [facility] Comment on above: Performed By: #### 1 5557939, 9088217, 8644930587 ####[facility] (DEFAULT)[address] [place] [address] 33670 Calcium [Mass/Vol] 9.3 mg/dL Normal 8.9-10.3 [facility] Comment on above: Performed By: #### 1 8698540, 8815191, [id number] ####[facility] (DEFAULT)[address] [place] [address] 11282 Chloride [Moles/Vol] 100 mmol/L Low 101-111 [facility] Comment on above: Performed By: #### 1 9544282, 7245188, [id number] ####[facility] (DEFAULT)[address] [place] [address] 06092 CO2 [Moles/Vol] 26 mmol/L Normal 21-32 [facility] Comment on above: Performed By: #### 1 4262790, 9932691, [id number] ####[facility] (DEFAULT)[address] [place] [address] 24469 Creatinine [Mass/Vol] 1.44 mg/dL High 0.90-1.30 [facility] Comment on above: Performed By: #### 1 7160709, 4786990, [id number] ####[facility] (DEFAULT)[address] [place] [address] 26016 Glucose [Mass/Vol] 142.0 mg/dL High 74.0-118.0 [facility] Comment on above: Performed By: #### 1 4003326, 6856986, [id number] ####[facility] (DEFAULT)[address] [place] [address] 52120 Osmolality 277 mOsm/L Invalid Interpretation Code [facility] Comment on above: Performed By: #### 1 [id number], [id number], [id number] ####[facility] (DEFAULT)[address] [place] [address] 77772 Phosphate [Mass/Vol] 3.2 mg/dL Normal 2.5-4.6 [facility] Comment on above: Performed By: #### 1 [id number], [id number], [id number] ####[facility] (DEFAULT)[address] [place] [address] 37881 Potassium [Moles/Vol] 4.3 mmol/L Normal 3.6-5.1 [facility] Comment on above: Performed By: #### 1 [id number], [id number], [id number] ####[facility] (DEFAULT)67 [place] [address] Sodium [Moles/Vol] 136.0 mmol/L Normal 136.0-144.0 [facility] Comment on above: Performed By: #### 1 [id number], [id number], [id number] ####[facility] (DEFAULT)[address] [place] [address] Urea nitrogen [Mass/Vol] 20 mg/dL Normal 8-26 [facility] Comment on above: Performed By: #### 1 [id number], 7817914, [id number] ####[facility] (DEFAULT)[address] [place] [address] Urea nitrogen/Creatini ne [Mass ratio] 13.8 mg/mg Normal 4.6-16.2 [facility] Comment on above: Performed By: #### 1 9394937, 3197323, [id number] ####[facility] (DEFAULT)[address] [place] [address] 36on 01-25-2024 36 Spoke with richar thomson relayed over the phone [facility] 36on 01-24-2024 36 [facility] called requesting wound care orders. Office not is open from 01/24/24 so ad copy writer unable to advise. Please call Richar [phone] Please fax orders to [phone] [facility] Office Visiton 01-24-2024 Follow-up visit [id number] Shivani Ruiz 1950 [facility] Provider Department Center 01/24/2024 KYREE RAWLS MP ORTHO MPORTHO Family History Problem Relation Age of Onset Heart attack Father Coronary artery disease Father Other Father Coronary artery disease Brother Family Status - Relation Status Age at Father Brother Level of Service:34184 [place] POSTOP FOLLOW UP VISIT RELATED TO ORIGINAL PX Reason for Visit and Comments: Post-op [483] Pain [136] [facility] Outside Recordson 01-24-2024 Outside Records [id number]#1.00OTGTIFF [facility] Outside Records [id number]#1.00OTGTIFF [facility] Follow-Upon 01-20-2024 Follow-Up [id number] Shivani Ruiz 1950 [facility] Provider Department Center 01/20/2024 MYKEL LOPEZ [facility] INF [facility] Family History Problem Relation Age of Onset Heart attack Father Coronary artery disease Father Other Father Coronary artery disease Brother Family Status - Relation Status Age at Father Brother Level of Service:95918 [place] OFFICE/OUTPATIENT ESTABLISHED HIGH MDM 40 MIN Normal [facility] 01-19-2024 36 SNF updated to dani weeks up with Dr. Nascimento in office 01/19 to determine care plan. No new orders at this time Normal [facility] 3601-18-2024 36 Ghazala HAYNES from [facility] called stating that overnight patient had chills, no fever and vital signs WLN. States that WBC on 01/16 was 9.7. He does have drainage from right thigh stump and was wondering if you would like drainage cultured or wait until patient is seen in office 01/19. Please advise [facility] faxing over 01/16 lab result Callback Number [phone] [facility] .Auto Diff 01-17-2024 Auto [place] % 9 % Normal 03-19 [facility] Comment on above: Performed By: #### 2 657298, 93349131, 4773463, 7419690, 1919009, 7207262, 1446782 ####[facility] (DEFAULT)[address] [place] [address] Baso Abs# 0.1 x10 Normal 0.0-0.2 [facility] Comment on above: Performed By: #### 2 323071, 31840305, 7709927, 7335407, 1824932, 4934217, 2766673 ####[facility] (DEFAULT)[address] [place] [address] Basophils/100 WBC (Bld) 1.4 % Normal 0.2-2.0 [facility] Comment on above: Performed By: #### 2 180456, 29526087, 4535829, 9968738, 1076860, 7436758, 0526517 ####[facility] (DEFAULT)[address] [place] [address] Eos Abs# 0.9 x10 High 0.0-0.4 [facility] Comment on above: Performed By: #### 2 403668, 59596817, 3880330, 1980356, 9089446, 9144463, 5816468 ####[facility] (DEFAULT)[address] [place] [address] 77365 Eosinophils/100 WBC (Bld) 9.1 % High 0.9-4.0 [facility] Comment on above: Performed By: #### 2 198771, 04405725, 2065969, 9359369, 1972570, 9892647, 3426255 ####[facility] (DEFAULT)[address] [place] [address] Lymph Abs# 0.9 x10 Low 1.3-2.9 [facility] Comment on above: Performed By: #### 2 596113, 68277103, 8070426, 8723809, 5778314, 7910645, 3999995 ####[facility] (DEFAULT)[address] [place] [address] Lymphocytes/100 WBC (Bld) 10 % Low 14-48 [facility] Comment on above: Performed By: #### 2 435638, 76076456, 3020053, 6394477, 5217268, 0818151, 8399581 ####[facility] (DEFAULT)[address] [place] [address] [place] Abs# 0.9 x10 High 0.0-0.8 [facility] Comment on above: Performed By: #### 2 613548, 80863863, 9668218, 8977382, 5326158, 1542872, 1932389 ####[facility] (DEFAULT)[address] [place] [address] Neut Abs# 6.9 x10 Normal 1.5-9.2 [facility] Comment on above: Performed By: #### 2 878417, 30307780, 4164559, 8855401, 1387402, 9373431, 7188009 ####[facility] (DEFAULT)[address] [place] [address] Neutrophils/100 WBC (Bld) 71 % Normal 44-88 [facility] Comment on above: Performed By: #### 2 830713, 36035841, 7061851, 6193802, 0490957, 7723075, 3558556 ####[facility] (DEFAULT)[address] [place] [address] BUNon 01-17-2024 Urea nitrogen [Mass/Vol] 18 mg/dL Normal 8-26 [facility] Comment on above: Performed By: #### 2 961495, 70139302, 5145894, 0930819, 5019111, 4845880, 4334831 ####[facility] (DEFAULT)[address] [place] [address] CBC w/ Auto Diffon Erythrocyte distribution width (RBC) [Ratio] 14.7 % Normal 11.5-15.0 [facility] Comment on above: Performed By: #### 2 322199, 04872919, 7057416, 8162211, 9643166, 7285263, 9345554 ####[facility] (DEFAULT)[address] [place] [address] Hematocrit (Bld) [Volume fraction] 36.7 % Normal 34.8-51.9 [facility] Comment on above: Performed By: #### 2 381675, 25669375, 2163450, 1749453, 2768553, 3202563, 3958405 ####[facility] (DEFAULT)[address] [place] [address] Hemoglobin (Bld) [Mass/Vol] 11.9 g/dL Normal 11.8-17.7 [facility] Comment on above: Performed By: #### 2 327918, 81871970, 7985460, 9988587, 7832189, 4439324, 0642074 ####[facility] (DEFAULT)[address] [place] [address] Man Diff? Auto Invalid Interpretation Code [facility] Comment on above: Performed By: #### 2 814109, 87887210, 2598522, 6127471, 5985187, 1461236, 8390415 ####[facility] (DEFAULT)[address] [place] [address] MCH (RBC) [Entitic mass] 34 pg Normal 24-34 [facility] Comment on above: Performed By: #### 2 549832, 78431741, 5508564, 4383244, 2482564, 7337376, 9881550 ####[facility] (DEFAULT)[address] [place] [address] MCHC (RBC) [Mass/Vol] 32 g/dL Normal 26-37 [facility] Comment on above: Performed By: #### 2 250333, 87004778, 7297153, 4728872, 0116418, 5113919, 8729297 ####[facility] (DEFAULT)[address] [place] [address] MCV (RBC) [Entitic vol] 106 fL High 81-100 [facility] Comment on above: Performed By: #### 2 863724, 99306230, 1136325, 5692389, 6006034, 7113339, 8132713 ####[facility] (DEFAULT)[address] [place] [address] Platelet 290 x10 Normal 138-427 [facility] Comment on above: Performed By: #### 2 316146, 74569961, 3438810, 1292763, 9292629, 4496646, 4357617 ####[facility] (DEFAULT)[address] [place] [address] Platelet mean volume (Bld) [Entitic vol] 8.7 fL Normal 6.3-10.2 [facility] Comment on above: Performed By: #### 2 473771, 48907045, 1322828, 1622759, 6481941, 8779400, 1277949 ####[facility] (DEFAULT)[address] [place] [address] RBC 3.47 x10 Low 3.70-5.30 [facility] Comment on above: Performed By: #### 2 328503, 90479392, 7196334, 6261842, 9470194, 8644446, 4978332 ####[facility] (DEFAULT)[address] [place] [address] WBC 9.7 x10 Normal 3.5-10.5 [facility] Comment on above: Performed By: #### 2 054059, 90606210, 2870310, 4926904, 8003102, 5863870, 1679060 ####[facility] (DEFAULT)[address] [place] [address] 08447 CKon 01-17-2024 CK [Catalytic activity/Vol] 27 U/L Low 49-397 [facility] Comment on above: Performed By: #### 2 304630, 44345842, 3245989, 6909164, 5891788, 0722677, 6014408 ####[facility] (DEFAULT)[address] [place] [address] 25435 CRPon 01-17-2024 CRP 2.8 mg/dL High <=0.5 [facility] Comment on above: Performed By: #### 2 745281, 38970649, 6908228, 9327464, 5898268, 1746044, 2523904 ####[facility] (DEFAULT)[address] [place] [address] 47557 Creatinine Lvlon 01-17-2024 eGFR Non AA >60 Invalid Interpretation Code [facility] Comment on above: Performed By: #### 2 822836, 53774708, 9812138, 3517120, 5577291, 3180808, 9693031 ####[facility] (DEFAULT)[address] [place] [address] 92280 eGFR AA >60 Invalid Interpretation Code [facility] Comment on above: Performed By: #### 2 594142, 18466262, 1781789, 6454035, 3576854, 1151178, 6204926 ####[facility] (DEFAULT)[address] [place] [address] 94311 Creatinine [Mass/Vol] 1.09 mg/dL Normal 0.90-1.30 [facility] Comment on above: Performed By: #### 2 454382, 69006548, 6042262, 9011667, 7573793, 4575055, 4843081 ####[facility] (DEFAULT)[address] [place] [address] 85774 Provider Orderson 01-17-2024 Provider Orders [id number]#1.00OTGTIFF [facility] Sed Rateon 01-17-2024 Sed Rate 32 mm/hr High 0-15 [facility] Comment on above: Performed By: #### 2 472456, 61238789, 5463411, 4068691, 3364413, 7031141, 4433068 ####[facility] (DEFAULT)[address] [place] [address] 36on 01-14-2024 36 RN called to request most recent labs be faxed to [facility] ID. Fax number confirmed [facility] Coding Summaryon 01-13-2024 Coding Summary [facility] Progress Note - Provideron 1 03-13-2023 Progress Note - Provider [id number]#1.00OTGTIFF [facility] Coding Summaryon 01-11-2024 Coding Summary [facility] 36on 01-10-2024 36 Patient called coco may to be seen by you on 01/19 at 9am for hospital follow up. I did get his appointment moved to 9:40am when you had available appointment but patient wanted to know if he could be seen at 9am on 01/19. Normal [facility] 36on 01-07-2024 36 Called to confirm OP AT orders, no answer, unable to leave callback number Normal [facility] BASIC METABOLIC PANELon 10-3 Anion gap [Moles/Vol] 8 mmol/L Normal 7-20 [facility] Comment on above: Performed By: #### L [id number] #### [facility] (BEAKER) [address] [place] [address] Calcium [Mass/Vol] 8.5 mg/dL Low 8.6-10.3 [facility] Comment on above: Performed By: #### L [id number] #### [facility] (BEAKER) [address] [place] [address] Chloride [Moles/Vol] 106 mmol/L Normal 98-107 [facility] Comment on above: Performed By: #### L [id number] #### [facility] ([facility]) [address] [place] [address] CO2 [Moles/Vol] 32 mmol/L High 21-31 [facility] Comment on above: Performed By: #### L [id number] #### [facility] ([facility]) [address] [place] [address] Creatinine [Mass/Vol] 1.00 mg/dL Normal 0.70-1.30 [facility] Comment on above: Performed By: #### L [id number] #### [facility] ([facility]) [address] [place] [address] GLOMERULAR FILTRATION RATE ML/MIN/1.73 SQ M.PREDICTED 80.5 mL/min/1.73m*2 Normal >60.0 [facility] Comment on above: Result Comment: The [facility]???s estimated glomerular filtration rate (eGFR) will no longer include consideration of race in its calculation. The National Kidney Foundation???s eGFR Task Force developed new recommendations for the estimation of the glomerular filtration rate in the [place] They recommend immediate implementation of the new equation refit without the race variable in all laboratories because the calculation does not include race. In addition to not including race in the calculation and reporting, it included diversity in its development, and has acceptable performance characteristics and potential consequences that do not disproportionately affect any one group of individuals. Performed By: #### L [id number] #### [facility] ([facility]) [address] [place] [address] Glucose [Mass/Vol] 100 mg/dL Normal 70-100 [facility] Comment on above: Performed By: #### L [id number] #### [facility] ([facility]) [address] [place] [address] Potassium [Moles/Vol] 4.3 mmol/L Normal 3.5-5.1 [facility] Comment on above: Performed By: #### L [id number] #### [facility] (BEAKER) [address] [place] [address] Sodium [Moles/Vol] 142 mmol/L Normal 136-145 [facility] Comment on above: Performed By: #### L [id number] #### [facility] ([place]) [address] [place] [address] Urea nitrogen [Mass/Vol] 21 mg/dL Normal 7-25 [facility] Comment on above: Performed By: #### L [id number] #### [facility] ([place]) [address] [place] [address] UREA NITROGEN/CREATINI NE (MASS RATIO) IN SER/PLAS 21.0 Normal [facility] Comment on above: Performed By: #### L [id number] #### [facility] ([place]) [address] [place] [address] NURSNOTEon 01-06-2024 NURSNOTE Report called to [facility] isgerald at [facility]. All questions answered. Patient discharged via [employer]. All questions answered. Patient left floor with all belongings. Normal [facility] 30on 01-05-2024 30 Daily Case Managemen t Update Multidisciplinary rounds have been completed. Barriers to Discharge: Voicemail left for Francia in admissions at [facility] ([place]). Awaiting call back. 1220: Francia reported the first bed available is not until 01/12/24. Need additional SNF choices. 1600: [facility] is able to accept and can admit patient 01/05. Diet: Dietary Orders (From admission, onward) Start Ordered 01/03/24 1005 Dietary nutrition supplements TID; Liquacel; Vary Flavors; 1 packet; Oral Until discontinued Question Answer Comment Deliver with TID Select supplement: Liquacel flavor Vary Flavors Strength: 1 packet Route Oral 01/03/24 1004 01/02/241808 Regular Diet Diet effective now Question: Room Service? Answer: Yes 01/02/241808 Physician Expected Discharge Date: 01/05/2024 Discharge Delays: PT Six Click Score: 14 OT Six Click Score: 17 PT Recommendations: intermediate facility placement OT Recommendations: intermediate facility placement New Consults: Therapy Orders (From admission, onward) Start Ordered 01/01/2447 PT eval and treat Until therapy completed Question: Reason for PT? Answer: dc recs 01/01/24 0746 01/01/2447 OT eval and treat Until therapy completed Question: Reason for OT? Answer: dc recs 01/01/24 0746 Normal [facility] BASIC METABOLIC PANELon 10-3 0-2023 Anion gap [Moles/Vol] 6 mmol/L Low 7-20 [facility] Comment on above: Performed By: #### L [id number] #### [facility] (BEAKER) [address] [place] [address] Calcium [Mass/Vol] 8.4 mg/dL Low 8.6-10.3 [facility] Comment on above: Performed By: #### L [id number] #### [facility] (BEAKER) [address] [place] [address] Chloride [Moles/Vol] 107 mmol/L Normal 98-107 [facility] Comment on above: Performed By: #### L [id number] #### [facility] (BEAKER) [address] [place] [address] CO2 [Moles/Vol] 33 mmol/L High 21-31 [facility] Comment on above: Performed By: #### L [id number] #### [facility] (BEAKER) [address] [place] [address] Creatinine [Mass/Vol] 1.02 mg/dL Normal 0.70-1.30 [facility] Comment on above: Performed By: #### L [id number] #### [facility] (BEAKER) [address] [place] [address] GLOMERULAR FILTRATION RATE ML/MIN/1.73 SQ M.PREDICTED 78.6 mL/min/1.73m*2 Normal >60.0 [facility] Comment on above: Result Comment: The [facility]???s estimated glomerular filtration rate (eGFR) will no longer include consideration of race in its calculation. The National Kidney Foundation???s eGFR Task Force developed new recommendations for the estimation of the glomerular filtration rate in the [place] They recommend immediate implementation of the new equation refit without the race variable in all laboratories because the calculation does not include race. In addition to not including race in the calculation and reporting, it included diversity in its development, and has acceptable performance characteristics and potential consequences that do not disproportionately affect any one group of individuals. Performed By: #### L [id number] #### [facility] ([facility]) [address] [place] [address] Glucose [Mass/Vol] 92 mg/dL Normal 70-100 [facility] Comment on above: Performed By: #### L [id number] #### [facility] ([facility]) [address] [place] [address] Potassium [Moles/Vol] 4.3 mmol/L Normal 3.5-5.1 [facility] Comment on above: Performed By: #### L [id number] #### [facility] ([facility]) [address] [place] [address] Sodium [Moles/Vol] 142 mmol/L Normal 136-145 [facility] Comment on above: Performed By: #### L [id number] #### [facility] ([facility]) [address] [place] [address] Urea nitrogen [Mass/Vol] 23 mg/dL Normal 7-25 [facility] Comment on above: Performed By: #### L [id number] #### [facility] ([facility]) [address] [place] [address] UREA NITROGEN/CREATINI NE (MASS RATIO) IN SER/PLAS 22.5 Normal [facility] Comment on above: Performed By: #### L [id number] #### [facility] (BEAKER) [address] [place] [address] C Bloodon 01-05-2024 C Blood No growth at 5 Days Normal [facility] Comment on above: Performed By: #### 6 [id number] ####[facility] (DEFAULT)[address] [place] [address] CBC WITH AUTO DIFFERENTIALon 01-05-2024 Basophils (Bld) [#/Vol] 0.07 10*3/uL Normal 0.00-0.20 [facility] Comment on above: Performed By: #### L [id number] #### [facility] (BEAKER) [address] [place] [address] Basophils/100 WBC (Bld) 0.9 % Normal 0.0-1.0 [facility] Comment on above: Performed By: #### L [id number] #### [facility] ([facility]) [address] [place] [address] Eosinophils (Bld) [#/Vol] 0.67 10*3/uL High 0.00-0.50 [facility] Comment on above: Performed By: #### L [id number] #### [facility] ([facility]) [address] [place] [address] Eosinophils/100 WBC (Bld) 8.9 % High 0.0-6.0 [facility] Comment on above: Performed By: #### L [id number] #### [facility] ([facility]) [address] [place] [address] Erythrocyte distribution width (RBC) [Ratio] 13.0 % Normal 11.5-15.0 [facility] Comment on above: Performed By: #### L [id number] #### [facility] ([facility]) [address] [place] [address] ERYTHROCYTE MEAN CORPUSCULAR HEMOGLOBIN CONCENTRATION (G/DL) BY AUTOMATED 32.9 g/dL Normal 32.0-35.0 [facility] Comment on above: Performed By: #### L [id number] #### [facility] ([facility]) [address] [place] [address] Hematocrit (Bld) [Volume fraction] 34.0 % Low 39.0-55.0 [facility] Comment on above: Performed By: #### L [id number] #### [facility] (BEAKER) [address] [place] [address] Hemoglobin (Bld) [Mass/Vol] 11.2 g/dL Low 13.0-17.0 [facility] Comment on above: Performed By: #### L [id number] #### [facility] ([facility]) [address] [place] [address] Immature granulocytes (Bld) [#/Vol] 0.03 10*3/uL Normal 0.00-0.20 [facility] Comment on above: Performed By: #### L [id number] #### [facility] ([facility]) [address] [address] Immature granulocytes/100 WBC (Bld) 0.4 % Normal 0.0-1.0 [facility] Comment on above: Performed By: #### L [id number] #### [facility] ([facility]) [address] [place] [address] Lymphocytes (Bld) [#/Vol] 1.44 10*3/uL Normal 1.20-4.00 [facility] Comment on above: Performed By: #### L [id number] #### [facility] ([facility]) [address] [place] [address] Lymphocytes/100 WBC (Bld) 19.1 % Low 20.0-45.0 [facility] Comment on above: Performed By: #### L [id number] #### [facility] ([facility]) [address] [place] [address] MCH (RBC) [Entitic mass] 34.7 pg High 27.0-33.0 [facility] Comment on above: Performed By: #### L [id number] #### [facility] ([facility]) [address] [place] [address] MCV (RBC) [Entitic vol] 105.3 fL High 82.0-98.0 [facility] Comment on above: Performed By: #### L [id number] #### [facility] (BEAKER) [address] [place] [address] Monocytes (Bld) [#/Vol] 0.61 10*3/uL Normal 0.10-1.00 [facility] Comment on above: Performed By: #### L [id number] #### [facility] ([facility]) [address] [place] [address] Monocytes/100 WBC (Bld) 8.1 % Normal 5.0-12.0 [facility] Comment on above: Performed By: #### L [id number] #### [facility] ([facility]) [address] [place] [address] Neutrophils (Bld) [#/Vol] 4.73 10*3/uL Normal 1.60-7.60 [facility] Comment on above: Performed By: #### L [id number] #### [facility] ([facility]) [address] [place] [address] Neutrophils/100 WBC (Bld) 62.6 % Normal 40.0-72.0 [facility] Comment on above: Performed By: #### L [id number] #### [facility] ([facility]) [address] [place] [address] NRBC (PER 100 WBCS) BY AUTOMATED COUNT 0.0 % Normal 0 [facility] Comment on above: Performed By: #### L [id number] #### [facility] ([facility]) [address] [place] [address] PLATELETS (10*3/UL) IN BLOOD AUTOMATED COUNT 295 10*3/uL Normal 150-400 [facility] Comment on above: Performed By: #### L [id number] #### [facility] ([facility]) [address] [place] [address] RBC (Bld) [#/Vol] 3.23 10*6/uL Low 4.20-5.70 [facility] Comment on above: Performed By: #### L [id number] #### [facility] ([facility]) [address] [place] [address] WBC (Bld) [#/Vol] 7.55 10*3/uL Normal 4.00-10.60 [facility] Comment on above: Performed By: #### L [id number] #### [facility] ([facility]) [address] [place] [address] 30on 01-04-2024 30 Daily Case Managemen t Update Multidisciplinary rounds have been completed. Barriers to Discharge: Plan for total of 6 weeks of IV Daptomycin per ID. Awaiting SNF acceptance to [facility] ([place])- patient does not need pre-cert. 1615: Spoke with Francia at [facility] who is checking to see if they are able to accommodate patients Daptomycin dose and when they will have an available bed. Diet: Dietary Orders (From admission, onward) Start Ordered 01/03/24 1005 Dietary nutrition supplements TID; Liquacel; Vary Flavors; 1 packet; Oral Until discontinued Question Answer Comment Deliver with TID Select supplement: Liquacel flavor Vary Flavors Strength: 1 packet Route Oral 01/03/24 1004 01/02/24 180 Regular Diet Diet effective now Question: Room Service? Answer: Yes 01/02/241808 Physician Expected Discharge Date: 01/05/2024 Discharge Delays: PT Six Click Score: 18 OT Six Click Score: 17 PT Recommendations: intermediate facility placement OT Recommendations: intermediate facility placement New Consults: Therapy Orders (From admission, onward) Start Ordered 01/01/24 0747 PT eval and treat Until therapy completed Question: Reason for PT? Answer: dc recs 01/01/24 0746 01/01/24 0747 OT eval and treat Until therapy completed Question: Reason for OT? Answer: dc recs 01/01/24 0746 Normal [facility] BASIC METABOLIC PANELon 10- Anion gap [Moles/Vol] 7 mmol/L Normal 7-20 [facility] Comment on above: Performed By: #### L [id number] ####[facility] ([facility])[address] [place] [address] Calcium [Mass/Vol] 8.4 mg/dL Low 8.6-10.3 [facility] Comment on above: Performed By: #### L [id number] ####[facility] ([employer] [place] [address] Chloride [Moles/Vol] 107 mmol/L Normal 98-107 [facility] Comment on above: Performed By: #### L [id number] ####[facility] ([facility])[address] [place] [address] CO2 [Moles/Vol] 29 mmol/L Normal 21-31 [facility] Comment on above: Performed By: #### L [id number] ####[facility] ([facility])[address] [place] [address] Creatinine [Mass/Vol] 1.27 mg/dL Normal 0.70-1.30 [facility] Comment on above: Performed By: #### L [id number] ####[facility] ([facility])[address] [place] [address] GLOMERULAR FILTRATION RATE ML/MIN/1.73 SQ M.PREDICTED 60.4 mL/min/1.73m*2 Normal >60.0 [facility] Comment on above: Result Comment: The [facility]???s estimated glomerular filtration rate (eGFR) will no longer include consideration of race in its calculation. The National Kidney Foundation???s eGFR Task Force developed new recommendations for the estimation of the glomerular filtration rate in the [place] They recommend immediate implementation of the new equation refit without the race variable in all laboratories because the calculation does not include race. In addition to not including race in the calculation and reporting, it included diversity in its development, and has acceptable performance characteristics and potential consequences that do not disproportionately affect any one group of individuals. Performed By: #### L [id number] ####[facility] ([facility])[address] [place] [address] Glucose [Mass/Vol] 112 mg/dL High 70-100 [facility] Comment on above: Performed By: #### L [id number] ####[facility] ([facility])[address] [place] [address] Potassium [Moles/Vol] 4.4 mmol/L Normal 3.5-5.1 [facility] Comment on above: Performed By: #### L [id number] ####[facility] ([facility])[address] [place] [address] Sodium [Moles/Vol] 139 mmol/L Normal 136-145 [facility] Comment on above: Performed By: #### L [id number] ####[facility] ([facility])[address] [place] [address] Urea nitrogen [Mass/Vol] 28 mg/dL High 7-25 [facility] Comment on above: Performed By: #### L [id number] ####[facility] ([facility])[address] [place] [address] UREA NITROGEN/CREATINI NE (MASS RATIO) IN SER/PLAS 22.0 Normal [facility] Comment on above: Performed By: #### L [id number] ####[facility] ([facility])[address] [place] [address] CBCon 01-04-2024 Erythrocyte distribution width (RBC) [Ratio] 13.1 % Normal 11.5-15.0 [facility] Comment on above: Performed By: #### L [id number] ####[facility] ([facility])[address] [place] [address] ERYTHROCYTE MEAN CORPUSCULAR HEMOGLOBIN CONCENTRATION (G/DL) BY AUTOMATED 32.4 g/dL Normal 32.0-35.0 [facility] Comment on above: Performed By: #### L [id number] ####[facility] ([facility])[address] [place] [address] Hematocrit (Bld) [Volume fraction] 33.3 % Low 39.0-55.0 [facility] Comment on above: Performed By: #### L [id number] ####[facility] ([facility])[address] [place] [address] Hemoglobin (Bld) [Mass/Vol] 10.8 g/dL Low 13.0-17.0 [facility] Comment on above: Performed By: #### L [id number] ####[facility] ([facility])[address] [place] [address] MCH (RBC) [Entitic mass] 34.4 pg High 27.0-33.0 [facility] Comment on above: Performed By: #### L [id number] ####[facility] ([facility])[address] [place] [address] MCV (RBC) [Entitic vol] 106.1 fL High 82.0-98.0 [facility] Comment on above: Performed By: #### L [id number] ####[facility] ([facility])[address] [place] [address] PLATELETS (10*3/UL) IN BLOOD AUTOMATED COUNT 284 10*3/uL Normal 150-400 [facility] Comment on above: Performed By: #### L [id number] ####[facility] ([facility])[address] [place] [address] RBC (Bld) [#/Vol] 3.14 10*6/uL Low 4.20-5.70 [facility] Comment on above: Performed By: #### L [id number] ####[facility] ([facility])[address] [place] [address] WBC (Bld) [#/Vol] 8.71 10*3/uL Normal 4.00-10.60 [facility] Comment on above: Performed By: #### L [id number] ####[facility] ([facility])[address] [place] [address] CKon 01-04-2024 CREATINE KINASE (U/L) IN SER/PLAS 18.0 U/L Low 30.0-223.0 [facility] Comment on above: Performed By: #### L [id number] #### [facility] ([facility]) [address] [place] [address] 30on 01-03-2024 30 Daily Case Managemen t Update Multidisciplinary rounds have been completed. Barriers to Discharge: POD 1 I&D R AKA stump. On vanco per ID. PT/OT ordered. Diet: Dietary Orders (From admission, onward) Start Ordered 01/03/24 1005 Dietary nutrition supplements TID; Liquacel; Vary Flavors; 1 packet; Oral Until discontinued Question Answer Comment Deliver with TID Select supplement: Liquacel flavor Vary Flavors Strength: 1 packet Route Oral 01/03/24 1004 01/02/241808 Regular Diet Diet effective now Question: Room Service? Answer: Yes 01/02/241808 Physician Expected Discharge Date: 01/05/2024 Discharge Delays: PT Six Click Score: 14 OT Six Click Score: PT Recommendations: OT Recommendations: New Consults: Ancillary Consults (From admission, onward) Start Ordered 01/01/24211 Inpatient consult to Social Work Once Provider: (Not yet assigned) Question: Select all services needed for the patient Answer: Substance Abuse 01/01/24211 Therapy Orders (From admission, onward) Start Ordered 01/01/24746 PT eval and treat Until therapy completed Question: Reason for PT? Answer: dc recs 01/01/2446 01/01/24746 OT eval and treat Until therapy completed Question: Reason for OT? Answer: dc recs 01/01/24745 Normal [facility] BASIC METABOLIC PANELon 10- Anion gap [Moles/Vol] 10 mmol/L Normal 7-20 [facility] Comment on above: Performed By: #### L [id number] #### [facility] ([facility]) [address] [place] [address] Calcium [Mass/Vol] 8.3 mg/dL Low 8.6-10.3 [facility] Comment on above: Performed By: #### L [id number] #### [facility] ([facility]) [address] [place] [address] Chloride [Moles/Vol] 105 mmol/L Normal 98-107 [facility] Comment on above: Performed By: #### L [id number] #### [facility] ([facility]) [address] [place] [address] CO2 [Moles/Vol] 28 mmol/L Normal 21-31 [facility] Comment on above: Performed By: #### L [id number] #### [facility] ([facility]) [address] [place] [address] Creatinine [Mass/Vol] 1.35 mg/dL High 0.70-1.30 [facility] Comment on above: Performed By: #### L [id number] #### [facility] ([facility]) [address] [place] [address] GLOMERULAR FILTRATION RATE ML/MIN/1.73 SQ M.PREDICTED 56.1 mL/min/1.73m*2 Low >60.0 [facility] Comment on above: Result Comment: The [facility]???s estimated glomerular filtration rate (eGFR) will no longer include consideration of race in its calculation. The National Kidney Foundation???s eGFR Task Force developed new recommendations for the estimation of the glomerular filtration rate in the [place] They recommend immediate implementation of the new equation refit without the race variable in all laboratories because the calculation does not include race. In addition to not including race in the calculation and reporting, it included diversity in its development, and has acceptable performance characteristics and potential consequences that do not disproportionately affect any one group of individuals. Performed By: #### L [id number] #### [facility] ([facility]) [address] [place] [address] Glucose [Mass/Vol] 166 mg/dL High 70-100 [facility] Comment on above: Performed By: #### L [id number] #### [facility] ([facility]) [address] [place] [address] Potassium [Moles/Vol] 4.6 mmol/L Normal 3.5-5.1 [facility] Comment on above: Performed By: #### L [id number] #### [facility] ([facility]) [address] [place] [address] Sodium [Moles/Vol] 138 mmol/L Normal 136-145 [facility] Comment on above: Performed By: #### L [id number] #### [facility] ([facility]) [address] [place] [address] Urea nitrogen [Mass/Vol] 26 mg/dL High 7-25 [facility] Comment on above: Performed By: #### L [id number] #### [facility] ([facility]) [address] [place] [address] UREA NITROGEN/CREATINI NE (MASS RATIO) IN SER/PLAS 19.3 Normal [facility] Comment on above: Performed By: #### L [id number] #### [facility] ([facility]) [address] [place] [address] Anion gap [Moles/Vol] 8 mmol/L Normal 7-20 [facility] Comment on above: Performed By: #### L [id number] #### [facility] ([facility]) [address] [place] [address] Calcium [Mass/Vol] 8.8 mg/dL Normal 8.6-10.3 [facility] Comment on above: Performed By: #### L [id number] #### [facility] ([facility]) [address] [place] [address] Chloride [Moles/Vol] 106 mmol/L Normal 98-107 [facility] Comment on above: Performed By: #### L [id number] #### [facility] ([facility]) [address] [place] [address] CO2 [Moles/Vol] 29 mmol/L Normal 21-31 [facility] Comment on above: Performed By: #### L [id number] #### [facility] ([facility]) [address] [place] [address] Creatinine [Mass/Vol] 1.25 mg/dL Normal 0.70-1.30 [facility] Comment on above: Performed By: #### L [id number] #### [facility] ([facility]) [address] [place] [address] GLOMERULAR FILTRATION RATE ML/MIN/1.73 SQ M.PREDICTED 61.6 mL/min/1.73m*2 Normal >60.0 [facility] Comment on above: Result Comment: The [facility]???s estimated glomerular filtration rate (eGFR) will no longer include consideration of race in its calculation. The National Kidney Foundation???s eGFR Task Force developed new recommendations for the estimation of the glomerular filtration rate in the [place] They recommend immediate implementation of the new equation refit without the race variable in all laboratories because the calculation does not include race. In addition to not including race in the calculation and reporting, it included diversity in its development, and has acceptable performance characteristics and potential consequences that do not disproportionately affect any one group of individuals. Performed By: #### L [id number] #### [facility] ([facility]) [address] [place] [address] Glucose [Mass/Vol] 156 mg/dL High 70-100 [facility] Comment on above: Performed By: #### L [id number] #### [facility] ([facility]) [address] [place] [address] Potassium [Moles/Vol] 5.2 mmol/L High 3.5-5.1 [facility] Comment on above: Performed By: #### L [id number] #### [facility] ([facility]) [address] [place] [address] Sodium [Moles/Vol] 138 mmol/L Normal 136-145 [facility] Comment on above: Performed By: #### L [id number] #### [facility] ([facility]) [address] [place] [address] Urea nitrogen [Mass/Vol] 22 mg/dL Normal 7-25 [facility] Comment on above: Performed By: #### L [id number] #### [facility] ([facility]) [address] [place] [address] UREA NITROGEN/CREATINI NE (MASS RATIO) IN SER/PLAS 17.6 Normal [facility] Comment on above: Performed By: #### L [id number] #### [facility] ([facility]) [address] [place] [address] CONSULTon 01-03-2024 CONSULT construction safety consultant Davion magallon Note Visit Date: 01/03/2024 Patient Name: Shivani Ruiz Date of : 1950 Reason for Consult: Wound on L lower leg *Staff nurses are responsible for performing treatments and interventions as ordered. Recommended care: Wound Location: Left Lower Extremity wound Wash wound with normal saline or wound cleanser. Pat wound and surrounding area dry. May leave open to air. Cleanse wound and assess daily for changes in appearance and report unexpected changes to MD immediately. Wound Care Prevention: Pillows applied for pressure redistribution and Patient/Staff were educated on the importance of frequent turns in bed to avoid prolonged pressure on high-risk area. Focused skin assessment performed Situation/ background: History of wound: Shivani Ruiz is an 73 y.o. male who is having surgery for an infected right above-knee amputation site. Patient has a history of multiple amputations and osteomyelitis. He was transferred from an outside hospital due to induration and CT findings of a focal fluid collection at the R AKA site. Patient was noted to have a partial thickness wound due to a previous dog bite to the left lower extremity. The original injury occurred in June of 2022 and has been slowly healing since. The area was noted to have a dry stable scab covering at this time. Orders have been written for treatment. Patient was noted to be s/p Incision and drainage down to deep fascia of right above-knee amputation infected stump site and Irrigation and debridement of right above-knee amputation site on 01/02/[address] Kyree Chand MD, Maria E Webster MD, and Harish Mtz DO. Barriers to care: Patient is free from barriers at this time. Problems identified: None Discharge Planning: Patient to discharge home with home health , Patient to follow up with MD., and Patient requires assistance to care for their wound after discharge. Teaching performed: Patient was educated on the process of how to care for their wound after discharge. Tolerance of dressings: Patient tolerated well without being medicated for pain. Number of staff and time required for dressin, 10 minutes Photos: 01/03/2024 Left Lower Extremity wound 01/03/2024 Left Lower Extremity wound Pertinent Labs: Albumin Date Value Ref Range Status 01/01/2024 3.1 (L) 3.5 - 5.7 g/dL Final Wound Assessment: Wound 10/14/22 Traumatic Pretibial Left (Active) Wound Image 01/03/24 0942 Site Assessment Dry;Red 01/03/24 1006 Divine-Wound Assessment Dry;Intact 01/03/24 1006 Wound Length (cm) 2.5 cm 01/03/24 1006 Wound Width (cm) 0.7 cm 01/03/24 1006 Wound Surface Area (cm^2) 1.75 cm^2 01/03/24 100 Wound Depth (cm) 0.1 cm 01/03/24 100 Wound Volume (cm^3) 0.175 cm^3 01/03/24 100 Closure None 01/03/24 100 Drainage Amount None 01/03/24 1006 Treatments Cleansed 01/03/24 100 Dressing Open to air 01/03/241005 Dressing Changed Changed 01/03/241005 State of Healing Non-granulated tissue 01/03/24 100 Wound Bed Granulation (%) 0 % 01/03/24 100 Wound Bed Epithelium (%) 0 % 01/03/241005 Wound Bed Non-Granulation (%) 100 % 01/03/24 100 Wound Bed Slough (%) 0 % 01/03/241005 Wound Bed Eschar (%) 0 % 01/03/241005 Margins Attached edges;Well-defined edges 01/03/241005 Non-staged Wound Description Partial thickness 01/03/241005 Wound 01/02/24 Incision Leg Anterior;Distal;Right;Upper (Active) Site Assessment Unable to assess 01/03/24832 Closure Sutures 01/02/241999 Dressing ABD;Gauze;Misha bandage;Xeroform 01/02/241999 Dressing Changed New 01/02/241999 Dressing Status Clean;Intact 01/03/24832 Rebecca Maki RN, CWON 01/03/2024 10:08 AM Normal [facility] Consent Formson 01-03-2024 Consent Forms [id number] [facility] Transfer Noteon 01-03-2024 Transfer Note [id number] [facility] VANCOMYCIN TIMEDon VANCOMYCIN IN SER/PLAS - TIMED 13.6 Low 20.0-40.0 [facility] Comment on above: Performed By: #### L [id number] #### [facility] ([facility]) [address] [place] [address] ABSCESS CULTUREon 01-02-2024 Clindamycin [Susc] >2 Resistant [facility] Comment on above: Order Comment: Pre-o p diagnosis:Osteomyelitis (CMS/HCC) [M86.9] Performed By: #### L [id number] #### [facility] ([facility]) [address] [place] [address] DAPTOmycin [Susc] <=1 Susceptible [facility] Comment on above: Order Comment: Pre-o p diagnosis:Osteomyelitis (CMS/HCC) [M86.9] Performed By: #### L [id number] #### [facility] ([facility]) [address] [place] [address] Linezolid [Susc] <=1 Susceptible [facility] Comment on above: Order Comment: Pre-o p diagnosis:Osteomyelitis (CMS/HCC) [M86.9] Performed By: #### L [id number] #### [facility] ([facility]) [address] [place] [address] Oxacillin [Susc] >2 Resistant [facility] Comment on above: Order Comment: Pre-o p diagnosis:Osteomyelitis (CMS/HCC) [M86.9] Performed By: #### L [id number] #### [facility] ([facility]) [address] [place] [address] Tetracycline [Susc] >8 Resistant [facility] Comment on above: Order Comment: Pre-o p diagnosis:Osteomyelitis (CMS/HCC) [M86.9] Performed By: #### L [id number] #### [facility] ([facility]) [address] [place] [address] Trimethoprim+Sulf amethoxazole [Susc] <=0.5/9.5 Susceptible [facility] Comment on above: Order Comment: Pre-o p diagnosis:Osteomyelitis (CMS/HCC) [M86.9] Performed By: #### L [id number] #### [facility] ([facility]) [address] [place] [address] Vancomycin [Susc] <=0.5 Susceptible [facility] Comment on above: Order Comment: Pre-o p diagnosis:Osteomyelitis (CMS/HCC) [M86.9] Performed By: #### L [id number] #### [facility] ([facility]) [address] [place] [address] Anesthesiaon 01-02-2024 Anesthesia [id number] Shivani Ruiz 1950 M Date Provider Department Center 01/02/2024 LINDA CH [facility] OR [facility] C Family History Problem Relation Age of Onset Heart attack Father Coronary artery disease Father Other Father Coronary artery disease Brother Family Status - Relation Status Age at Father Brother Normal [facility] BASIC METABOLIC PANELon 12-07 Anion gap [Moles/Vol] 7 mmol/L Normal 7-20 [facility] Comment on above: Performed By: #### L [id number] #### [facility] ([facility]) [address] [place] [address] Calcium [Mass/Vol] 8.8 mg/dL Normal 8.6-10.3 [facility] Comment on above: Performed By: #### L [id number] #### [facility] ([facility]) [address] [place] [address] Chloride [Moles/Vol] 106 mmol/L Normal 98-107 [facility] Comment on above: Performed By: #### L [id number] #### [facility] ([facility]) [address] [place] [address] CO2 [Moles/Vol] 31 mmol/L Normal 21-31 [facility] Comment on above: Performed By: #### L [id number] #### [facility] ([facility]) [address] [place] [address] Creatinine [Mass/Vol] 1.40 mg/dL High 0.70-1.30 [facility] [facility] Comment on above: Performed By: #### L [id number] #### [facility] (BEAKER) [address] [place] [address] GLOMERULAR FILTRATION RATE ML/MIN/1.73 SQ M.PREDICTED 53.7 mL/min/1.73m*2 Low >60.0 [facility] Comment on above: Result Comment: The [facility]???s estimated glomerular filtration rate (eGFR) will no longer include consideration of race in its calculation. The National Kid[employer] Foundation???s eGFR Task Force developed new recommendations for the estimation of the glomerular filtration rate in the [place] They recommend immediate implementation of the new equation refit without the race variable in all laboratories because the calculation does not include race. In addition to not including race in the calculation and reporting, it included diversity in its development, and has acceptable performance characteristics and potential consequences that do not disproportionately affect any one group of individuals. Performed By: #### L [id number] #### [facility] ([facility]) [address] [place] [address] Glucose [Mass/Vol] 100 mg/dL Normal 70-100 [facility] Comment on above: Performed By: #### L [id number] #### [facility] ([facility]) [address] [place] [address] Potassium [Moles/Vol] 4.0 mmol/L Normal 3.5-5.1 [facility] Comment on above: Performed By: #### L [id number] #### [facility] ([facility]) [address] [place] [address] Sodium [Moles/Vol] 140 mmol/L Normal 136-145 [facility] Comment on above: Performed By: #### L [id number] #### [facility] ([facility]) [address] [facility] [place] [address] Urea nitrogen [Mass/Vol] 20 mg/dL Normal 7-25 [facility] Comment on above: Performed By: #### L [id number] #### [facility] ([facility]) [address] [place] [address] UREA NITROGEN/CREATINI NE (MASS RATIO) IN SER/PLAS 14.3 Normal [facility] Comment on above: Performed By: #### L [id number] #### [facility] ([facility]) [address] [place] [address] CONSULTon 01-02-2024 CONSULT ------- Attestation signed by Kyree Chand MD at 01/02/2024 2:38 PM By using the attestations below, the signing clinician agrees that I have read and verify that the documentation has been personally reviewed by me and ensure that the documentation accurately reflects the encounter. GC: I personally saw this patient on the day of the encounter, performed the hernandez portion(s) of the service and participated in the management and confirm the resident's documentation. Please note there may be an additional personal documentation from me. Dr. Kyree Chand MD MRCSEd Phonograph Cartridge Assembler orthopedic surgery Adult Reconstruction and Trauma [facility]. Orthopaedic Surgery CHIEF COMPLAINT: No chief complaint on file. HPI: Shivani Ruiz is a 73 y.o. male who was transferred here from [facility] on 12/31. He is a poor historian. He states that his RLE does not bother him much. However, he did seek medical attention due to increased pain about the stump site. He denies any fevers or chills. Patient History Past Surgical History: Procedure Laterality Date CARDIOVERSION CARPAL TUNNEL RELEASE FL GUIDED ASPIRATION OR INJECTION LARGE JOINT BILATERAL Bilateral 02/04/2018 FL GUIDED ASPIRATION OR INJECTION LARGE JOINT BILATERAL [place] CONVERSION FL GUIDED ASPIRATION OR INJECTION LARGE JOINT BILATERAL Bilateral 04/11/2018 FL GUIDED ASPIRATION OR INJECTION LARGE JOINT BILATERAL [place] CONVERSION KNEE ARTHROPLASTY Right TONSILLECTOMY Past Medical History: Diagnosis Date Atrial fibrillation (CMS/HCC) Cardiomyopathy (CMS/HCC) Chronic infection of prosthetic knee (CMS/HCC) Chronic infectious disease Chronic kidney disease STAGE 3 GERD (gastroesophageal reflux disease) Gout Hypertension Lymphedema MRSA (methicillin resistant Staphylococcus aureus) Nonrheumatic aortic (valve) stenosis Obesity Pneumothorax Allergies Allergen Reactions Chlorhexidine Alcohol Swabs Rash Current Facility-Administered Medications: allopurinol (Zyloprim) tablet 300 mg, 300 mg, oral, Daily after evening meal, Paul Doe MD, 300 mg at 01/01/24 1808 aspirin EC tablet 81 mg, 81 mg, oral, Daily, Paul Doe MD, 81 mg at 01/01/24 0846 carvedilol (Coreg) tablet 6.25 mg, 6.25 mg, oral, BID with meals, Paul Doe MD, 6.25 mg at 01/01/24 1653 folic acid (Folvite) split tablet 1 mg, 1 mg, oral, Daily, Paul Doe MD, 1 mg at 01/01/24 0846 furosemide (Lasix) tablet 20 mg, 20 mg, oral, Daily, Paul Doe MD, 20 mg at 01/01/24 0846 heparin (porcine) injection 5,000 Units, 5,000 Units, subcutaneous, q8h ALEXANDRA, Paul Doe MD, 5,000 Units at 01/02/24 0557 HYDROcodone-acetaminophen ([place]) 7.5-325 mg per tablet 1 tablet, 1 tablet, oral, q6h PRN, Paul Doe MD, 1 tablet at 01/01/24 2130 LORazepam (Ativan) tablet 1 mg, 1 mg, oral, q1h PRN OR LORazepam (Ativan) tablet 2 mg, 2 mg, oral, q1h PRN OR LORazepam (Ativan) tablet 3 mg, 3 mg, oral, q1h PRN OR LORazepam (Ativan) tablet 4 mg, 4 mg, oral, q1h PRN, Paul Doe MD morphine injection 1 mg, 1 mg, intravenous, q6h PRN, Paul Doe MD pantoprazole (ProtoNix) EC tablet 40 mg, 40 mg, oral, Daily before breakfast, Paul Doe MD, 40 mg at 01/02/24 0557 Insert peripheral IV, , , Once AND Saline lock IV, , , Once AND sodium chloride flush 10 mL, 10 mL, intravenous, q8h PRN, Paul Doe MD thiamine (Vitamin B-1) tablet 100 mg, 100 mg, oral, Daily, Paul Doe MD, 100 mg at 01/01/24 0846 vancomycin intermittent dosing placeholder, 1 each, Does not apply, RX Placeholder, Lavon Perez MD Social History Socioeconomic History Marital status: Spouse name: Not on file Number of children: Not on file Years of education: Not on file Highest education level: Not on file Occupational History Not on file Tobacco Use Smoking status: Former Types: Cigarettes Smokeless tobacco: Never Substance and Sexual Activity Alcohol use: Yes Alcohol/week: 8.0 standard drinks of alcohol Types: 8 Cans of beer per week Drug use: Never Sexual activity: Defer Other Topics Concern Not on file Social History Narrative Not on file Social Determinants of Health Financial Resource Strain: Low Risk (01/01/2024) Overall Financial Resource Strain (CARDIA) Difficulty of Paying Living Expenses: Not very hard Food Insecurity: No Food Insecurity (01/01/2024) Hunger Vital Sign Worried About Running Out of Food in the Last Year: Never true Ran Out of Food in the Last Year: Not on file Transportation Needs: No Transportation Needs (01/01/2024) Transportation Lack of Transportation (Medical): No Lack of Transportation (Non-Medical): Not on file Physical Activity: Not on file Stres (more content not included)... Normal [facility] FUNGAL CULTUREon 01-02-2024 FUNGAL SMEAR No yeast or fungal e lements seen Normal [facility] Comment on above: Order Comment: Pre-o p diagnosis:Osteomyelitis (CMS/HCC) [M86.9] Performed By: #### L [id number] #### [facility] (BEAKER) [address] [place] [address] FUNGAL SMEAR No yeast or fungal e lements seen Normal [facility] Comment on above: Order Comment: Pre-o p diagnosis:Osteomyelitis (CMS/HCC) [M86.9] Performed By: #### L [id number] ####[facility] (BEAKER)[address] [place] [address] HPon 01-02-2024 H&P reviewed. The nicholas rosario was examined and there are no changes to the H&P. Patient was seen again in the preoperative holding area and has a right amputation stump has been draining purulent discharge along with collection locally. Patient will benefit with right above-knee amputation stump incision drainage debridement washout and plus or minus use of wound VAC if required and other required procedures. Patient has been reviewed bioprosthetic imaging as well and will need to wait for the healing of the stump before he can start using this again. All the risk and benefits of right above-knee amputation stump irrigation debridement washout and required procedures were explained at length with the patient including complication which are but not restricted to bleeding, infection, neurovascular injury, residual pain and stiffness, recurrent wound dehiscence, wound healing complications, need for strict blood sugar control, need for further revision amputation, anesthetic risks, differentthrombosis, pulm embolism, microinfarction, stroke, recurrence of infection and osteomyelitis, need for multiple revision surgeries, limb-threatening or life-threatening complications, overall discussed at length with the patient. Despite all the risks patient wishes to proceed with surgery. He has signed his consent form. Site was marked. Patient will continue with his follow-up with the infectious disease team and IV antibiotics as required. All questions answered patient agrees with the plan. Dr. Kyree Chand MD MRCSEd Phonograph Cartridge Assembler orthopedic surgery Adult Reconstruction and Trauma [facility]. Normal [facility] HP ------- Attestation signed by Kyree Chand MD at 01/02/2024 2:38 PM By using the attestations below, the signing clinician agrees that I have read and verify that the documentation has been personally reviewed by me and ensure that the documentation accurately reflects the encounter. GC: I personally saw this patient on the day of the encounter, performed the hernandez portion(s) of the service and participated in the management and confirm the resident's documentation. Please note there may be an additional personal documentation from me. Dr. Kyree Chand MD MRCSEd Phonograph Cartridge Assembler orthopedic surgery Adult Reconstruction and Trauma [facility]. Orthopaedic Surgery CHIEF COMPLAINT: No chief complaint on file. HPI: Shivani Ruiz is a 73 y.o. male who was transferred here from [facility] on 12/31. He is a poor historian. He states that his RLE does not bother him much. However, he did seek medical attention due to increased pain about the stump site. He denies any fevers or chills. Patient History Past Surgical History: Procedure Laterality Date CARDIOVERSION CARPAL TUNNEL RELEASE FL GUIDED ASPIRATION OR INJECTION LARGE JOINT BILATERAL Bilateral 02/04/2018 FL GUIDED ASPIRATION OR INJECTION LARGE JOINT BILATERAL [place] CONVERSION FL GUIDED ASPIRATION OR INJECTION LARGE JOINT BILATERAL Bilateral 04/11/2018 FL GUIDED ASPIRATION OR INJECTION LARGE JOINT BILATERAL [place] CONVERSION KNEE ARTHROPLASTY Right TONSILLECTOMY Past Medical History: Diagnosis Date Atrial fibrillation (CMS/HCC) Cardiomyopathy (CMS/HCC) Chronic infection of prosthetic knee (CMS/HCC) Chronic infectious disease Chronic kidney disease STAGE 3 GERD (gastroesophageal reflux disease) Gout Hypertension Lymphedema MRSA (methicillin resistant Staphylococcus aureus) Nonrheumatic aortic (valve) stenosis Obesity Pneumothorax Allergies Allergen Reactions Chlorhexidine Alcohol Swabs Rash Current Facility-Administered Medications: allopurinol (Zyloprim) tablet 300 mg, 300 mg, oral, Daily after evening meal, Paul Doe MD, 300 mg at 01/01/24 1808 aspirin EC tablet 81 mg, 81 mg, oral, Daily, Paul Doe MD, 81 mg at 01/01/24 0846 carvedilol (Coreg) tablet 6.25 mg, 6.25 mg, oral, BID with meals, Paul Doe MD, 6.25 mg at 01/01/24 2814 folic acid (Folvite) split tablet 1 mg, 1 mg, oral, Daily, Paul Doe MD, 1 mg at 01/01/24 0846 furosemide (Lasix) tablet 20 mg, 20 mg, oral, Daily, Paul Doe MD, 20 mg at 01/01/24 0846 heparin (porcine) injection 5,000 Units, 5,000 Units, subcutaneous, q8h ALEXANDRA, Paul Doe MD, 5,000 Units at 01/02/24 0557 HYDROcodone-acetaminophen ([place]) 7.5-325 mg per tablet 1 tablet, 1 tablet, oral, q6h PRN, Paul Doe MD, 1 tablet at 01/01/24 2130 LORazepam (Ativan) tablet 1 mg, 1 mg, oral, q1h PRN OR LORazepam (Ativan) tablet 2 mg, 2 mg, oral, q1h PRN OR LORazepam (Ativan) tablet 3 mg, 3 mg, oral, q1h PRN OR LORazepam (Ativan) tablet 4 mg, 4 mg, oral, q1h PRN, Paul Doe MD morphine injection 1 mg, 1 mg, intravenous, q6h PRN, Paul Deo MD pantoprazole (ProtoNix) EC tablet 40 mg, 40 mg, oral, Daily before breakfast, Paul Doe MD, 40 mg at 01/02/24 0557 Insert peripheral IV, , , Once AND Saline lock IV, , , Once AND sodium chloride flush 10 mL, 10 mL, intravenous, q8h PRN, Paul Doe MD thiamine (Vitamin B-1) tablet 100 mg, 100 mg, oral, Daily, Paul Doe MD, 100 mg at 01/01/24 0846 vancomycin intermittent dosing placeholder, 1 each, Does not apply, RX Placeholder, Lavon Perez MD Social History Socioeconomic History Marital status: Spouse name: Not on file Number of children: Not on file Years of education: Not on file Highest education level: Not on file Occupational History Not on file Tobacco Use Smoking status: Former Types: Cigarettes Smokeless tobacco: Never Substance and Sexual Activity Alcohol use: Yes Alcohol/week: 8.0 standard drinks of alcohol Types: 8 Cans of beer per week Drug use: Never Sexual activity: Defer Other Topics Concern Not on file Social History Narrative Not on file Social Determinants of Health Financial Resource Strain: Low Risk (01/01/2024) Overall Financial Resource Strain (CARDIA) Difficulty of Paying Living Expenses: Not very hard Food Insecurity: No Food Insecurity (01/01/2024) Hunger Vital Sign Worried About Running Out of Food in the Last Year: Never true Ran Out of Food in the Last Year: Not on file Transportation Needs: No Transportation Needs (01/01/2024) Transportation Lack of Transportation (Medical): No Lack of Transportation (Non-Medical): Not on file Physical Activity: Not on file Stres (more content not included)... [facility] NURSNOTEon 01-02-2024 NURSNOTE Pt placed on transpo rt to come to preop for his I&D of Right femur. [facility] OPNOTEon 01-02-2024 OPNOTE ------- Attestation signed by Kyree Chand MD at 01/02/2024 6:50 PM I was present throughout the procedure. I&D RIGHT AKA STUMP (R) Operative Note Date: 01/02/2024 Location: [facility] OR Name: Shivani Ruiz, : 1950, Diagnosis Pre-op Diagnosis * Osteomyelitis (CMS/HCC) [M86.9] Post-op Diagnosis * Osteomyelitis (CMS/HCC) [M86.9] Procedures Incision and drainage down to deep fascia of right above-knee amputation infected stump site Irrigation and debridement of right above-knee amputation site Surgeons Primary: Kyree Chand MD Resident - Assisting: Maria E Webster MD; Harish Mtz DO Procedure Summary Anesthesia: General ASA: IV Estimated Blood Loss: 100 mL Total IV Fluids: Per anesthesia Drains: * None in log * Specimens ID Source Type Tests Collected By Collected At Frozen? Priority Lab ID 1 Leg Tissue FUNGAL CULTURE TISSUE CULTURE AND ANAEROBIC CULTURE Kyree Chand MD 01/02/24 1716 Routine [id number], [id number], [id number] Description: RIGHT AKA SITE ABCESS 2 Leg Tissue FUNGAL CULTURE TISSUE CULTURE AND ANAEROBIC CULTURE Kyree Chand MD 01/02/24 1729 Routine [id number], [id number], [id number] Description: TISSUE FROM RIGHT AKA STUMP Staff: Analyst Food And Beverage: Megha Mckeon RN Scrub Person: Kia Garcia Indications: Shivani Ruiz is an 73 y.o. male who is having surgery for an infected right above-knee amputation site. Patient has a history of multiple amputations and osteomyelitis. He was transferred from an outside hospital due to induration and CT findings of a focal fluid collection at the R AKA site. Nothing was implanted during the procedure Procedure Details: The patient was seen in the preoperative area. The risks, benefits, complications, treatment options, non-operative alternatives, expected recovery and outcomes were discussed with the patient. The possibilities of reaction to medication, pulmonary aspiration, injury to surrounding structures, bleeding, recurrent infection, the need for additional procedures, failure to diagnose a condition, and creating a complication requiring transfusion or operation were discussed with the patient. The patient concurred with the proposed plan, giving informed consent. The site of surgery was properly marked by attending physician. Prophylactic antibiotics have been ordered and given within 1 hours of incision. DVT prophylaxis has been ordered including unilateral sequential compression device. The patient was then taken back to the operating theater and placed in supine position on the operating table. Anesthesia was induced without complications. The right lower extremity was then prepped and draped in a standard sterile fashion. A time-out was next performed to confirm the correct patient, correct procedure, and correct laterality. Operative personnel were introduced as well. We started by marking out an elliptical incision centered over the focal fluid collection, which had now created a small open wound with purulent drainage, over the anterior AKA stump. Using a 10 blade knife incision was made through skin and subcutaneous tissue further dissection was carried out using electrocautery. A full-thickness ellipse of tissue was then excised and sent for culture. A moderate amount of purulent fluid was encountered at the distal aspect of our incision and this fluid was sent for culture. Using rongeur we debrided the remaining devitalized/necrotic tissue. An 18-gauge needle on a syringe was used to aspirate deeper to our level of dissection and no remaining purulence was encountered. We then used electrocautery to debulk an ellipse subcutaneous fat to allow for adequate closure of our incision. We then irrigated with a total of 3 L of normal saline on pulse lavage. The remaining deep fascia was closed using a 1-0 Prolene, subcutaneous layer was closed using 1-0 Prolene and skin was able to be closed using a combination of 1-0 Prolene and 2-0 nylon. Sterile dressing was then applied. Findings: Focal purulent fluid collection in the deep fascia of right AKA stump site with necrotic/devitalized deep fascia and musculature s/p irrigation and debridement and wound closure Complications: None; patient tolerated the procedure well. Disposition: PACU - hemodynamically stable. Condition: stable PLAN: Patient will return to the floor and we will follow up on culture results, infectious disease is on board for this patient Weightbearing Status: NWB right lower extremity until incision has healed DVT prophylaxis: Will need 4 weeks of DVT ppx from day of surgery starting postoperative day 1, Ortho prefers Lovenox however primary team may substitute for alternative as indicated Dressing: Dry dressing with 4 x (more content not included)... Normal [facility] SEDIMENTATION RATEon 024 SEDIMENTATION RATE, ERYTHROCYTE 66 mm/hr High <=10 [facility] Comment on above: Performed By: #### L [id number] #### [facility] (BEAKER) [address] [place] [address] TISSUE CULTUREon 01-02-2024 Bacteria identified Cx Nom (Unsp spec) STAPHYLOCOCCUS AUREUS METHICILLIN (OXACILLIN) RESISTANT Critically abnormal [facility] Comment on above: Order Comment: Pre-o p diagnosis:Osteomyelitis (CMS/HCC) [M86.9] Result Comment: Rare Growth Methicillin-Resistant Staphylococcus aureus For Susceptibility Results Please Refer to Performed By: #### L [id number] #### [facility] ([facility]) [address] [place] [place] [address] GRAM STAIN RESULT Normal [facility] Comment on above: Order Comment: Pre-o p diagnosis:Osteomyelitis (CMS/HCC) [M86.9] Result Comment: Mode rate Polymorphonuclear leukocytes No organisms seen Performed By: #### L [id number] #### [facility] ([facility]) [address] [address] VANCOMYCIN TIMEDon 4 VANCOMYCIN IN SER/PLAS - TIMED 11.9 Low 20.0-40.0 [facility] Comment on above: Performed By: #### L [id number] #### [facility] ([facility]) [address] [place] [address] BLOOD CULTUREon 01-01-2024 Bacteria identified Cx Nom (Bld) No growth at 5 days Normal [facility] Comment on above: Order Comment: From a different site than #1. Performed By: #### L [id number] ####[facility] ([facility])[address] [place] [address] C-REACTIVE PROTEINon 024 C REACTIVE PROTEIN (MG/L) IN SER/PLAS 161.5 mg/L High <=5.0 [facility] Comment on above: Result Comment: Test ing performed using a new methodology, turbidimetry. Normal ranges have been updated. Old normal range was <8 mg/L. Performed By: #### L [id number] #### [facility] ([facility]) [address] [place] [address] CBC WITH AUTO DIFFERENTIALon 01-01-2024 Basophils (Bld) [#/Vol] 0.05 10*3/uL Normal 0.00-0.20 [facility] Comment on above: Performed By: #### L [id number] #### [facility] ([facility]) [address] [place] [address] Basophils/100 WBC (Bld) 0.5 % Normal 0.0-1.0 [facility] Comment on above: Performed By: #### L [id number] #### [facility] ([facility]) [address] [place] [address] Eosinophils (Bld) [#/Vol] 0.68 10*3/uL High 0.00-0.50 [facility] Comment on above: Performed By: #### L [id number] #### [facility] ([facility]) [address] [place] [address] Eosinophils/100 WBC (Bld) 6.6 % High 0.0-6.0 [facility] Comment on above: Performed By: #### L [id number] #### [facility] ([facility]) [address] [place] [address] Erythrocyte distribution width (RBC) [Ratio] 13.5 % Normal 11.5-15.0 [facility] Comment on above: Performed By: #### L [id number] #### [facility] ([facility]) [address] [place] [address] ERYTHROCYTE MEAN CORPUSCULAR HEMOGLOBIN CONCENTRATION (G/DL) BY AUTOMATED 32.9 g/dL Normal 32.0-35.0 [facility] Comment on above: Performed By: #### L [id number] #### [facility] ([facility]) [address] [place] [address] Hematocrit (Bld) [Volume fraction] 40.4 % Normal 39.0-55.0 [facility] Comment on above: Performed By: #### L [id number] #### [facility] ([facility]) [address] [place] [address] Hemoglobin (Bld) [Mass/Vol] 13.3 g/dL Normal 13.0-17.0 [facility] Comment on above: Performed By: #### L [id number] #### [facility] (BEAKER) [address] [place] [address] Immature granulocytes (Bld) [#/Vol] 0.04 10*3/uL Normal 0.00-0.20 [facility] Comment on above: Performed By: #### L [id number] #### [facility] ([facility]) [address] [place] [address] Immature granulocytes/100 WBC (Bld) 0.4 % Normal 0.0-1.0 [facility] Comment on above: Performed By: #### L [id number] #### [facility] ([facility]) [address] [place] [address] Lymphocytes (Bld) [#/Vol] 0.35 10*3/uL Low 1.20-4.00 [facility] Comment on above: Performed By: #### L [id number] #### [facility] ([facility]) [address] [place] [address] Lymphocytes/100 WBC (Bld) 3.4 % Low 20.0-45.0 [facility] Comment on above: Performed By: #### L [id number] #### [facility] ([facility]) [address] [place] [address] MCH (RBC) [Entitic mass] 34.5 pg High 27.0-33.0 [facility] Comment on above: Performed By: #### L [id number] #### [facility] [facility] ([facility]) [address] [place] [address] MCV (RBC) [Entitic vol] 104.7 fL High 82.0-98.0 [facility] Comment on above: Performed By: #### L [id number] #### [facility] ([facility]) [address] [place] [address] Monocytes (Bld) [#/Vol] 0.86 10*3/uL Normal 0.10-1.00 [facility] Comment on above: Performed By: #### L [id number] #### [facility] ([facility]) [address] [place] [address] Monocytes/100 WBC (Bld) 8.4 % Normal 5.0-12.0 [facility] Comment on above: Performed By: #### L [id number] #### [facility] ([facility]) [address] [place] [address] Neutrophils (Bld) [#/Vol] 8.26 10*3/uL High 1.60-7.60 [facility] Comment on above: Performed By: #### L [id number] #### [facility] ([facility]) [address] [place] [address] Neutrophils/100 WBC (Bld) 80.7 % High 40.0-72.0 [facility] Comment on above: Performed By: #### L [id number] #### [facility] ([facility]) [address] [place] [address] NRBC (PER 100 WBCS) BY AUTOMATED COUNT 0.0 % Normal 0 [facility] Comment on above: Performed By: #### L [id number] #### [facility] ([facility]) [address] [place] [address] PLATELETS (10*3/UL) IN BLOOD AUTOMATED COUNT 242 10*3/uL Normal 150-400 [facility] Comment on above: Performed By: #### L [id number] #### [facility] ([facility]) [address] [place] [address] RBC (Bld) [#/Vol] 3.86 10*6/uL Low 4.20-5.70 [facility] Comment on above: Performed By: #### L [id number] #### [facility] ([facility]) [address] [place] [address] WBC (Bld) [#/Vol] 10.24 10*3/uL Normal 4.00-10.60 [facility] Comment on above: Performed By: #### L [id number] #### [facility] ([facility]) [address] [place] [address] COMPREHENSIVE METABOLIC PANE Leo 01-01-2024 Albumin [Mass/Vol] 3.1 g/dL Low 3.5-5.7 [facility] Comment on above: Performed By: #### L [id number] #### [facility] ([facility]) [address] [place] [address] ALP [Catalytic activity/Vol] 109 U/L High 34-104 [facility] Comment on above: Performed By: #### L [id number] #### [facility] ([facility]) [address] [place] [address] ALT [Catalytic activity/Vol] 12 U/L Normal 7-52 [facility] Comment on above: Performed By: #### L [id number] #### [facility] ([facility]) [address] [place] [address] Anion gap [Moles/Vol] 9 mmol/L Normal 7-20 [facility] Comment on above: Performed By: #### L [id number] #### [facility] ([facility]) [address] [place] [address] AST [Catalytic activity/Vol] 16 U/L Normal 13-39 [facility] Comment on above: Performed By: #### L [id number] #### [facility] ([facility]) [address] [place] [address] Bilirubin [Mass/Vol] 0.5 mg/dL Normal 0.3-1.0 [facility] Comment on above: Performed By: #### L [id number] #### [facility] ([facility]) [address] [place] [address] Calcium [Mass/Vol] 8.6 mg/dL Normal 8.6-10.3 [facility] Comment on above: Performed By: #### L [id number] #### [facility] ([facility]) [address] [place] [address] Chloride [Moles/Vol] 104 mmol/L Normal 98-107 [facility] Comment on above: Performed By: #### L [id number] #### [facility] ([facility]) [address] [place] [address] CO2 [Moles/Vol] 30 mmol/L Normal 21-31 [facility] Comment on above: Performed By: #### L [id number] #### [facility] ([facility]) [address] [place] [address] Creatinine [Mass/Vol] 1.43 mg/dL High 0.70-1.30 [facility] Comment on above: Performed By: #### L [id number] #### [facility] ([facility]) [address] [place] [address] GLOMERULAR FILTRATION RATE ML/MIN/1.73 SQ M.PREDICTED 52.4 mL/min/1.73m*2 Low >60.0 [facility] Comment on above: Result Comment: The [facility]???s estimated glomerular filtration rate (eGFR) will no longer include consideration of race in its calculation. The National Kid[employer] Foundation???s eGFR Task Force developed new recommendations for the estimation of the glomerular filtration rate in the [place] They recommend immediate implementation of the new equation refit without the race variable in all laboratories because the calculation does not include race. In addition to not including race in the calculation and reporting, it included diversity in its development, and has acceptable performance characteristics and potential consequences that do not disproportionately affect any one group of individuals. Performed By: #### L [id number] #### [facility] ([facility]) [address] [place] [address] Glucose [Mass/Vol] 111 mg/dL High 70-100 [facility] Comment on above: Performed By: #### L [id number] #### [facility] ([facility]) [address] [place] [address] Potassium [Moles/Vol] 4.1 mmol/L Normal 3.5-5.1 [facility] Comment on above: Performed By: #### L [id number] #### [facility] ([facility]) [address] [place] [address] Protein [Mass/Vol] 6.1 g/dL Normal 6.0-8.3 [facility] Comment on above: Performed By: #### L [id number] #### [facility] ([facility]) [address] [place] [address] Sodium [Moles/Vol] 139 mmol/L Normal 136-145 [facility] Comment on above: Performed By: #### L [id number] #### [facility] ([facility]) [address] [place] [address] Urea nitrogen [Mass/Vol] 20 mg/dL Normal 7-25 [facility] Comment on above: Performed By: #### L [id number] #### [facility] ([facility]) [address] [place] [address] UREA NITROGEN/CREATINI NE (MASS RATIO) IN SER/PLAS 14.0 Normal [facility] Comment on above: Performed By: #### L [id number] #### [facility] ([facility]) [address] [place] [address] VANCOMYCIN, RANDOMon --2 024 VANCOMYCIN (UG/ML) IN SER/PLAS 13.3 ug/mL Low 20.0-40.0 [facility] Comment on above: Performed By: #### L [id number] #### [facility] ([facility]) [address] [place] [address] .Auto Diff 1on 12-30-2023 Auto [place] % 8 % Normal 1-12 [facility] Comment on above: Performed By: #### 7 027331, [id number], 9493727585, 6231598568, 5811253354, 9335696, 5764920, 17530152 ####[facility] (DEFAULT)[address] [place] [address] Baso Abs# 0.1 x10 Normal 0.0-0.2 [facility] Comment on above: Performed By: #### 7 235833, [id number], 8126967935, 7202087466, 0267789517, 7235754, 0711838, 72854963 ####[facility] (DEFAULT)[address] [place] [address] Basophils/100 WBC (Bld) 0.5 % Normal 0.2-2.0 [facility] Comment on above: Performed By: #### 7 715586, [id number], , 2137143654, 5442673859, 1080976, 2845461, 46997296 ####[facility] (DEFAULT)[address] [place] [address] Eos Abs# 0.6 x10 High 0.0-0.4 [facility] Comment on above: Performed By: #### 7 582131, 3923846056, 2532468224, 2456503269, 6151130941, 6491674, 8045484, 70253094 ####[facility] (DEFAULT)[address] [place] [address] Eosinophils/100 WBC (Bld) 6.0 % High 0.9-4.0 [facility] Comment on above: Performed By: #### 7 467575, 8715319538, 9807120651, 3971129803, 1439589848, 4941006, 9806822, 08841610 ####[facility] (DEFAULT)[address] [place] [address] Lymph Abs# 0.7 x10 Low 1.3-2.9 [facility] Comment on above: Performed By: #### 7 659127, 7354016417, 9495923500, 1121426455, 5306185455, 0735221, 8126545, 31383113 ####[facility] (DEFAULT)[address] [place] [address] Lymphocytes/100 WBC (Bld) 6 % Low 14-48 [facility] Comment on above: Performed By: #### 7 549708, 0137800788, 5493795484, 9500301541, 7784716418, 9999728, 4945590, 78806028 ####[facility] (DEFAULT)[address] [place] [address] [place] Abs# 0.8 x10 Normal 0.0-0.8 [facility] Comment on above: Performed By: #### 7 251322, 0595705707, 4405665648, 7093951106, 9552791031, 6179152, 6559822, 36626956 ####[facility] (DEFAULT)[address] [place] [address] Neut Abs# 8.1 x10 Normal 1.5-9.2 [facility] Comment on above: Performed By: #### 7 160993, 7027581238, 0174199448, 1165736683, 8562886669, 8256485, 8380728, 81293769 ####[facility] (DEFAULT)[address] [place] [address] Neutrophils/100 WBC (Bld) 79 % Normal 44-88 [facility] Comment on above: Performed By: #### 7 912967, 1452934984, 8211991740, 0719623803, 8212971380, 5607251, 0874117, 03752216 ####[facility] (DEFAULT)[address] [place] [address] CBC w/ Auto Diffon Erythrocyte distribution width (RBC) [Ratio] 14.4 % Normal 11.5-15.0 [facility] Comment on above: Performed By: #### 7 828494, 7441705968, 9613616349, 9455903887, 0134684358, 9889295, 1501246, 32399467 ####[facility] (DEFAULT)[address] [place] [address] Hematocrit (Bld) [Volume fraction] 44.0 % Normal 34.8-51.9 [facility] Comment on above: Performed By: #### 7 102698, 6361618541, 2858121496, 5426013482, 2773989948, 5842334, 4772547, 60169709 ####[facility] (DEFAULT)[address] [place] [address] Hemoglobin (Bld) [Mass/Vol] 14.5 g/dL Normal 11.8-17.7 [facility] Comment on above: Performed By: #### 7 044491, 3358134449, 1465070278, 1057138695, 5836199483, 1032818, 2606639, 62845787 ####[facility] (DEFAULT)[address] [place] [address] Man Diff? Auto Invalid Interpretation Code [facility] Comment on above: Performed By: #### 7 886975, 6993837394, 7749553193, 3606011640, 4183129442, 7138051, 6788698, 42321248 ####[facility] (DEFAULT)[address] [place] [address] MCH (RBC) [Entitic mass] 35 pg High 24-34 [facility] Comment on above: Performed By: #### 7 556352, 9217947191, 6124532060, 2068863728, 3791858856, 0132838, 0364214, 74587378 ####[facility] (DEFAULT)[address] [place] [address] MCHC (RBC) [Mass/Vol] 33 g/dL Normal 26-37 [facility] Comment on above: Performed By: #### 7 037789, 4813318910, 5063043800, 7098563003, 6104713287, 3207607, 2803855, 38246111 ####[facility] (DEFAULT)[address] [place] [address] MCV (RBC) [Entitic vol] 106 fL High 81-100 [facility] Comment on above: Performed By: #### 7 812829, 8353454404, 2881784239, 4704385637, 4217945331, 0947657, 7338007, 07376615 ####[facility] (DEFAULT)[address] [place] [address] Platelet 283 x10 Normal 138-427 [facility] Comment on above: Performed By: #### 7 331602, 6116960147, 8387852577, 7454790052, 6562996134, 9681382, 9712963, 14275430 ####[facility] (DEFAULT)[address] [place] [address] Platelet mean volume (Bld) [Entitic vol] 8.4 fL Normal 6.3-10.2 [facility] Comment on above: Performed By: #### 7 056045, 8822826830, 8627724355, 8938859594, 1522597277, 2889597, 0326717, 16381002 ####[facility] (DEFAULT)[address] [place], [place] [address] RBC 4.14 x10 Normal 3.70-5.30 [facility] Comment on above: Performed By: #### 7 285649, 1930551177, 6045221346, 8537980527, 4130746695, 4001394, 8844321, 53095717 ####[facility] (DEFAULT)[address] [place] [address] WBC 10.3 x10 Normal 3.5-10.5 [facility] Comment on above: Performed By: #### 7 720063, 7267994056, 3654819232, 1877567213, 0701119605, 3986179, 2711873, 72805404 ####[facility] (DEFAULT)[address] [place] [address] Standardon 12-31-2023 eGFR Non AA 48 mL/min/1.73m2 Invalid Interpretation Code [facility] Comment on above: Performed By: #### 7 026670, 2087622561, 4359939418, 1348777928, 7571539555, 4353707, 3127618, 98505493 ####[facility] (DEFAULT)[address] [place] [address] eGFR AA 58 mL/min/1.73m2 Invalid Interpretation Code [facility] Comment on above: Performed By: #### 7 789366, 8355766973, 7270660207, 3724545435, 3313274902, 9563298, 1501103, 84608402 ####[facility] (DEFAULT)[address] [place] [address] Albumin [Mass/Vol] 3.3 g/dL Low 3.5-5.0 [facility] Comment on above: Performed By: #### 7 479130, 8744799264, 2771360389, 6407238159, 0355554370, 5947308, 7677175, 50326627 ####[facility] (DEFAULT)[address] [place] [address] Albumin/Globulin [Mass ratio] 0.8 {ratio} Low 1.4-2.6 [facility] Comment on above: Performed By: #### 7 901378, 2644692632, 4307554644, 7939446695, 4035841741, 2479387, 7904708, 37394603 ####[facility] (DEFAULT)[address] [place] [address] Alk Phos 108 IU/L High 32-91 [facility] Comment on above: Performed By: #### 7 366993, 8449989355, 1298033412, 3786898278, 4643217180, 9488369, 2439972, 54356064 ####[facility] (DEFAULT)[address] [place] [address] ALT [Catalytic activity/Vol] 20.0 U/L Normal 17.0-63.0 [facility] Comment on above: Performed By: #### 7 825512, 7622516450, 4402487391, 7190504733, 9906553526, 5270899, 1484689, 39288405 ####[facility] (DEFAULT)[address] [place] [address] Anion gap [Moles/Vol] 12.7 mmol/L Normal 5.0-19.0 [facility] Comment on above: Performed By: #### 7 657513, 4192047842, 9157195118, 7909957179, 1267909856, 9902772, 2501442, 25944163 ####[facility] (DEFAULT)[address] [place] [address] AST [Catalytic activity/Vol] 25 U/L Normal 15-41 [facility] Comment on above: Performed By: #### 7 896480, 3028254294, 0481202505, 2849999306, 4329372623, 2854994, 2576365, 83233615 ####[facility] (DEFAULT)[address] [place] [address] Bili Total 0.5 mg/dL Normal 0.3-1.2 [facility] Comment on above: Performed By: #### 7 085041, 7609603138, 4949642589, 2196842945, 3027938579, 2443752, 8539453, 53590148 ####[facility] (DEFAULT)[address] [place] [address] Calcium [Mass/Vol] 8.7 mg/dL Low 8.9-10.3 [facility] Comment on above: Performed By: #### 7 067932, 7821490505, 9729257669, 4879921921, 6574042535, 9145085, 1991540, 42902739 ####[facility] (DEFAULT)[address] [place] [address] Chloride [Moles/Vol] 98 mmol/L Low 101-111 [facility] Comment on above: Performed By: #### 7 482542, 3107344123, 2028879339, 3335408137, 4620451031, 7132882, 6471855, 47625042 ####[facility] (DEFAULT)[address] [place] [address] CO2 [Moles/Vol] 29 mmol/L Normal 21-32 [facility] Comment on above: Performed By: #### 7 388411, 6268217847, 9712630165, 8348384176, 1479347113, 7242202, 5881902, 19851038 ####[facility] (DEFAULT)[address] [place] [address] Creatinine [Mass/Vol] 1.45 mg/dL High 0.90-1.30 [facility] Comment on above: Performed By: #### 7 381837, 0479851991, 6906156490, 6667743876, 5922860928, 3579307, 7807714, 58111106 ####[facility] (DEFAULT)[address] [place] [address] Globulin (S) [Mass/Vol] 3.9 g/dL Normal 1.5-4.3 [facility] Comment on above: Performed By: #### 7 023805, 3341240710, 1875551969, 4553458133, 3087831754, 8048072, 7058175, 61520535 ####[facility] (DEFAULT)[address] [place] [address] 19476 Glucose [Mass/Vol] 119.0 mg/dL High 74.0-118.0 [facility] Comment on above: Performed By: #### 7 444800, 1793646096, 3835601479, 4141311847, 5994560966, 3818949, 0387859, 53406316 ####[facility] (DEFAULT)[address] [place] [address] Osmolality 276 mOsm/L Invalid Interpretation Code [facility] Comment on above: Performed By: #### 7 960216, 6193783934, 2813969071, 9452267386, 7069540291, 9595951, 5795177, 10392632 ####[facility] (DEFAULT)[address] [place] [address] Potassium [Moles/Vol] 3.7 mmol/L Normal 3.6-5.1 [facility] Comment on above: Performed By: #### 7 629944, 2238299570, 1475751266, 5667591631, 1156441540, 9361535, 3760471, 35809443 ####[facility] (DEFAULT)[address] [place] [address]290 Protein [Mass/Vol] 7.2 g/dL Normal 6.5-8.1 [facility] Comment on above: Performed By: #### 7 837988, 9428409879, 0479702754, 1093040885, 2878142201, 4006650, 3156899, 29492316 ####[facility] (DEFAULT)[address] [place] [address]8795 Sodium [Moles/Vol] 136.0 mmol/L Normal 136.0-144.0 [facility] Comment on above: Performed By: #### 7 684616, 1103889637, 7255034849, 4904942097, 0597914196, 2268650, 1015349, 02319835 ####[facility] (DEFAULT)[address] [place] [address] Urea nitrogen [Mass/Vol] 22 mg/dL Normal 8-26 [facility] Comment on above: Performed By: #### 7 235877, 3563692354, 5944455035, 4788208698, 3012497994, 8055969, 3447380, 92421906 ####[facility] (DEFAULT)[address] [place] [address] Urea nitrogen/Creatini ne [Mass ratio] 15.1 mg/mg Normal 4.6-16.2 [facility] Comment on above: Performed By: #### 7 416579, 1575955991, 5102150200, 4849603524, 8914780560, 8131428, 2308599, 57339661 ####[facility] (DEFAULT)[address] [place] [address] CRPon 12-31-2023 CRP 21.2 mg/dL High <=0.5 [facility] Comment on above: Performed By: #### 7 565635, 2608623488, 3884732715, 5271759058, 7160355076, 6887068, 3364002, 13764625 ####[facility] (DEFAULT)[address] [place] [address] Lower Extremity w/o Contr ast Righton 12-31-2023 CT Lower Extremity w/o Contrast Right [facility] Coding Summaryon 12-31-2023 Coding Summary [facility] ED Clinical Summaryon 2023 ED Clinical Summary [facility] ED Note-Nursingon 12-31-2023 ED Note-Nursing [facility] ED Note-Nursing [facility] ED Patient Education Noteon 12-31-2023 ED Patient Education Note Education Materials [facility] ED Patient Summaryon 024 ED Patient Summary Normal [facility] Extra Redon 12-31-2023 Tube Collected Yes Invalid Interpretation Code [facility] Comment on above: Performed By: #### 7 955617, 9776263869, 3827026872, 9976190176, 2546768526, 3872176, 7841275, 22527932 ####[facility] (DEFAULT)[address] [place] [address] 47681 Lactic Acidon 12-31-2023 Lactic Acid 9.4 mg/dL Normal 4.5-19.8 [facility] Comment on above: Performed By: #### 2 840070 ####[facility] (DEFAULT)[address] [place] [address] Sed Rateon 12-31-2023 Sed Rate 44 mm/hr High 0-15 [facility] Comment on above: Performed By: #### 7 524153, 2437528511, 6180392243, 5328128874, 8558903801, 3343704, 3940357, 72334816 ####[facility] (DEFAULT)[address] [place] [address] XR Femur Righton 12-31-2023 XR Femur Right [facility] 36on 12-29-2023 36 Pt called and stated he has another infection in leg. Symptoms Swollen, red, warm to touch and very painful rate pain 7 I called the patient. He is going to go to the ED to have his leg evaluated. He thinks he has an abscess. [facility] ED Clinical Summaryon 2023 ED Clinical Summary [facility] ED Patient Summaryon 024 ED Patient Summary [facility] Patient Handouton 12-29-2023 Patient Handout [facility] Telephoneon 12-29-2023 Telephone [phone] Shivani Ruiz 1950 M [facility] Provider Department Center 12/29/2023 KEN ELLSWORTH [facility] Family History Problem Relation Age of Onset Heart attack Father Coronary artery disease Father Other Father Coronary artery disease Brother Family Status - Relation Status Age at Father Brother [facility] Urgent Care Note- Provideron 12-29-2023 Urgent Care Note- Provider [facility] Urgent Care Recordon 024 Urgent Care Record [facility] 36on 12-21-2023 36 Pt called back and s tated he just missed your call and wanted to know if you could back? Normal [facility] 36 I called the patient . His labs are okay. I left a message. [facility] Telephoneon 12-21-2023 Telephone [id number] Shivani Ruiz 1950 M Date Provider Department Center 12/21/2023 MYKEL LOPEZ [facility] Relation Age of Onset Heart attack Father Coronary artery disease Father Other Father Coronary artery disease Brother Family Status - Relation Status Age at Father Brother [facility] Telephone [phone] Shivani Ruiz 1950 M Date Provider Department Center 12/21/2023 ValdezRemiDEANN JOYAISE [facility] IN[facility]it [facility] Family History Problem Relation Age of Onset Heart attack Father Coronary artery disease Father Other Father Coronary artery disease Brother Family Status - Relation Status Age at Father Brother [facility] 36on 12-17-2023 36 Patient request CBC, CMP, CRP orders be faxed to [facility] BMP Standardon 12-17-2023 eGFR Non AA 40 mL/min/1.73m2 Invalid Interpretation Code [facility] Comment on above: Performed By: #### 2 [id number], [id number] ####[facility] (DEFAULT)[address] [place] [address] 58959 eGFR AA 49 mL/min/1.73m2 Invalid Interpretation Code [facility] Comment on above: Performed By: #### 2 [id number], [id number] ####[facility] (DEFAULT)[address] [place] [address] 32366 Anion gap [Moles/Vol] 12.4 mmol/L Normal 5.0-19.0 [facility] Comment on above: Performed By: #### 2 410917, [id number] ####[facility] (DEFAULT)[address] [place] [address] 87700 Calcium [Mass/Vol] 9.2 mg/dL Normal 8.9-10.3 [facility] Comment on above: Performed By: #### 2 642473, [id number] ####[facility] (DEFAULT)[address] [place] [address] 51297 Chloride [Moles/Vol] 99 mmol/L Low 101-111 [facility] Comment on above: Performed By: #### 2 598790, [id number] ####[facility] (DEFAULT)[address] [place] [address] 20871 CO2 [Moles/Vol] 30 mmol/L Normal 21-32 [facility] Comment on above: Performed By: #### 2 893102, [id number] ####[facility] (DEFAULT)[address] [place] [address] 05869 Creatinine [Mass/Vol] 1.68 mg/dL High 0.90-1.30 [facility] Comment on above: Performed By: #### 2 633363, [id number] ####[facility] (DEFAULT)[address] [place] [address] 80216 Glucose [Mass/Vol] 118.0 mg/dL Normal 74.0-118.0 [facility] Comment on above: Performed By: #### 2 038838, [id number] ####[facility] (DEFAULT)[address] [place] [address] 72555 Osmolality 282 mOsm/L Invalid Interpretation Code [facility] Comment on above: Performed By: #### 2 380294, [id number] ####[facility] (DEFAULT)[address] [place] [address] 92475 Potassium [Moles/Vol] 4.4 mmol/L Normal 3.6-5.1 [facility] Comment on above: Performed By: #### 2 612378, [id number] ####[facility] (DEFAULT)[address] [place] [address] 55580 Sodium [Moles/Vol] 137.0 mmol/L Normal 136.0-144.0 [facility] Comment on above: Performed By: #### 2 807363, [id number] ####[facility] (DEFAULT)[address] [place] [address] 93805 Urea nitrogen [Mass/Vol] 33 mg/dL High 8-26 [facility] Comment on above: Performed By: #### 2 182454, [id number] ####[facility] (DEFAULT)[address] [place] [address] 48476 Urea nitrogen/Creatini ne [Mass ratio] 19.6 mg/mg High 4.6-16.2 [facility] Comment on above: Performed By: #### 2 199244, [id number] ####[facility] (DEFAULT)[address] [place] [address] 86194 CRPon 12-17-2023 CRP 2.6 mg/dL High <=0.5 [facility] Comment on above: Performed By: #### 2 726546, [id number] ####[facility] (DEFAULT)[address] [place] [address] Provider Orderson 12-17-2023 Provider Orders [id number]#1.00OTGTIFF [facility] Controlled Substances Agreem entson 11-19-2023 Controlled Substances Agreements [id number]#1.00OTGTIFF [facility] 36on 11-04-2023 36 I called the patient . He says he had cellulitis of left leg. He says it is getting better. Normal [facility] Coding Summaryon 11-04-2023 Coding Summary [facility] Telephoneon 11-04-2023 Telephone [id number] Shivani Ruiz 1950 M Date Provider Department [place] 11/04/2023 MYKEL LOPEZ [facility] Family History Problem Relation Age of Onset Heart attack Father Coronary artery disease Father Other Father Coronary artery disease Brother Family Status - Relation Status Age at Father Brother Normal [facility] .Auto Diff 1on 11-03-2023 Auto [place] % 8 % Normal 03-19 [facility] Comment on above: Performed By: #### 1 [id number], 15515371, 8457090, 8828691 ####[facility] (DEFAULT)[address] [place] [address] Baso Abs# 0.1 x10 Normal 0.0-0.2 [facility] Comment on above: Performed By: #### 1 [id number], 88786945, 6842329, 4111178 ####[facility] (DEFAULT)[address] [place] [address] Basophils/100 WBC (Bld) 0.9 % Normal 0.2-2.0 [facility] Comment on above: Performed By: #### 1 [id number], 97861300, 5100677, 9958475 ####[facility] (DEFAULT)[address] [place] [address] 76659 Eos Abs# 1.1 x10 High 0.0-0.4 [facility] Comment on above: Performed By: #### 1 666216472, 67676809, 5464421, 7512453 ####[facility] (DEFAULT)[address] [place] [address] 56577 Eosinophils/100 WBC (Bld) 17.9 % High 0.9-4.0 [facility] Comment on above: Performed By: #### 1 [id number], 56457053, 1466356, 6233471 ####[facility] (DEFAULT)[address] [place] [address] 19101 Lymph Abs# 1.0 x10 Low 1.3-2.9 [facility] Comment on above: Performed By: #### 1 970865982, 54781152, 2758182, 4507136 ####[facility] (DEFAULT)[address] [place] [address] 65786 Lymphocytes/100 WBC (Bld) 16 % Normal 14-48 [facility] Comment on above: Performed By: #### 1 [id number], 73170236, 6084673, 1947125 ####[facility] (DEFAULT)[address] [place] [address] 09915 [place] Abs# 0.5 x10 Normal 0.0-0.8 [facility] Comment on above: Performed By: #### 1 784397964, 45660973, 8033148, 9746960 ####[facility] (DEFAULT)[address] [place] [address] 67539 Neut Abs# 3.6 x10 Normal 1.5-9.2 [facility] Comment on above: Performed By: #### 1 749880018, 44436818, 3052063, 2993519 ####[facility] (DEFAULT)[address] [place] [address] 32370 Neutrophils/100 WBC (Bld) 58 % Normal 44-88 [facility] Comment on above: Performed By: #### 1 [id number], 52743712, 5845061, 5219571 ####[facility] (DEFAULT)[address] [place] [address] 43066 36on 11-03-2023 36 I called the patient . Left a message for him to call me back. Normal [facility] BMP Standardon 11-03-2023 eGFR Non AA 38 mL/min/1.73m2 Invalid Interpretation Code [facility] Comment on above: Performed By: #### 1 [id number], 69772731, 6658930, 3288687 ####[facility] (DEFAULT)[address] [place] [address] 54990 eGFR AA 46 mL/min/1.73m2 Invalid Interpretation Code [facility] Comment on above: Performed By: #### 1 [id number], 43664073, 9913006, 0391622 ####[facility] (DEFAULT)[address] [place] [address] 52927 Anion gap [Moles/Vol] 10.7 mmol/L Normal 5.0-19.0 [facility] Comment on above: Performed By: #### 1 [id number], 96006912, 0235162, 5683121 ####[facility] (DEFAULT)[address] [place] [address] 38788 Calcium [Mass/Vol] 9.1 mg/dL Normal 8.9-10.3 [facility] Comment on above: Performed By: #### 1 586818197, 64460870, 4993891, 6697333 ####[facility] (DEFAULT)[address] [place] [address] 49828 Chloride [Moles/Vol] 100 mmol/L Low 101-111 [facility] Comment on above: Performed By: #### 1 361067447, 24507981, 2505338, 6338864 ####[facility] (DEFAULT)[address] [place] [address] 16697 CO2 [Moles/Vol] 28 mmol/L Normal 21-32 [facility] Comment on above: Performed By: #### 1 500628231, 45266350, 1822795, 9502777 ####[facility] (DEFAULT)[address] [place] [address] 37994 Creatinine [Mass/Vol] 1.79 mg/dL High 0.90-1.30 [facility] Comment on above: Performed By: #### 1 252196676, 36616631, 1087104, 3665463 ####[facility] (DEFAULT)[address] [place] [address] 28829 Glucose [Mass/Vol] 111.0 mg/dL Normal 74.0-118.0 [facility] Comment on above: Performed By: #### 1 150468445, 98506692, 3601802, 8223722 ####[facility] (DEFAULT)[address] [place] [address] 15012 Osmolality 272 mOsm/L Invalid Interpretation Code [facility] Comment on above: Performed By: #### 1 603592942, 68933452, 7823641, 0522004 ####[facility] (DEFAULT)[address] [place] [address] 38193 Potassium [Moles/Vol] 4.7 mmol/L Normal 3.6-5.1 [facility] Comment on above: Performed By: #### 1 636164481, 43835292, 9729190, 3669019 ####[facility] (DEFAULT)[address] [place] [address] 09908 Sodium [Moles/Vol] 134.0 mmol/L Low 136.0-144.0 [facility] Comment on above: Performed By: #### 1 [id number], 59262579, 6730413, 3375114 ####[facility] (DEFAULT)[address] [place] [address] 96498 Urea nitrogen [Mass/Vol] 22 mg/dL Normal 8-26 [facility] Comment on above: Performed By: #### 1 146161670, 32399367, 1370722, 3051442 ####[facility] (DEFAULT)[address] [place] [address] 41804 Urea nitrogen/Creatini ne [Mass ratio] 12.2 mg/mg Normal 4.6-16.2 [facility] Comment on above: Performed By: #### 1 086228649, 04891139, 0223166, 9408536 ####[facility] (DEFAULT)[address] [place] [address] CBC w/ Auto Diffon 4 Erythrocyte distribution width (RBC) [Ratio] 15.2 % High 11.5-15.0 [facility] Comment on above: Performed By: #### 1 [id number], 03993053, 2228831, 9857524 ####[facility] (DEFAULT)[address] [place] [address] Hematocrit (Bld) [Volume fraction] 47.2 % Normal 34.8-51.9 [facility] Comment on above: Performed By: #### 1 964511007, 36964057, 3234760, 2547096 ####[facility] (DEFAULT)[address] [place] [address] Hemoglobin (Bld) [Mass/Vol] 15.5 g/dL Normal 11.8-17.7 [facility] Comment on above: Performed By: #### 1 408052552, 04208980, 8348083, 6391940 ####[facility] (DEFAULT)[address] [place] [address] Man Diff? Auto Invalid Interpretation Code [facility] Comment on above: Performed By: #### 1 090494461, 81717310, 7547718, 5843198 ####[facility] (DEFAULT)[address] [place] [address] 56693 MCH (RBC) [Entitic mass] 35 pg High 24-34 [facility] Comment on above: Performed By: #### 1 158433909, 11400849, 9203221, 6685502 ####[facility] (DEFAULT)[address] [place] [address] 62615 MCHC (RBC) [Mass/Vol] 33 g/dL Normal 26-37 [facility] Comment on above: Performed By: #### 1 885161246, 31614483, 0882785, 0156595 ####[facility] (DEFAULT)[address] [place] [address] 94015 MCV (RBC) [Entitic vol] 105 fL High 81-100 [facility] Comment on above: Performed By: #### 1 146480666, 70039124, 5520681, 9374115 ####[facility] (DEFAULT)[address] [place] [address] 87772 Platelet 247 x10 Normal 138-427 [facility] Comment on above: Performed By: #### 1 756690785, 35535566, 5327846, 7789022 ####[facility] (DEFAULT)[address] [place] [address] 31847 Platelet mean volume (Bld) [Entitic vol] 8.5 fL Normal 6.3-10.2 [facility] Comment on above: Performed By: #### 1 073138339, 31266482, 7002426, 8908665 ####[facility] (DEFAULT)[address] [place] [address] 14064 RBC 4.47 x10 Normal 3.70-5.30 [facility] Comment on above: Performed By: #### 1 193865188, 40851973, 1890856, 7076276 ####[facility] (DEFAULT)[address] [place] [address] 91599 WBC 6.2 x10 Normal 3.5-10.5 [facility] Comment on above: Performed By: #### 1 381859773, 14180076, 9995991, 0673405 ####[facility] (DEFAULT)[address] [place] [address] 31990 CRPon 11-03-2023 CRP 0.8 mg/dL High <=0.5 [facility] Comment on above: Performed By: #### 1 986687809, 46315137, 0141182, 2553671 ####[facility] (DEFAULT)[address] [place] [address] 07408 Telephoneon 11-03-2023 Telephone [id number] Shivani Ruiz 1950 M Date Provider Department Center 11/03/2023 MYKEL LOPEZ [facility] Family History Problem Relation Age of Onset Heart attack Father Coronary artery disease Father Other Father Coronary artery disease Brother Family Status - Relation Status Age at Father Brother Normal [facility] 36on 11-02-2023 36 Patient called reque sting Dr. Nascimento gives him a callback, he did not state why. His lab orders were faxed to [facility] per patient request. Normal [facility] Wound Cultureon 10-27-2023 Wound Culture Normal [facility] Comment on above: Performed By: #### 6 [id number] ####[facility] (DEFAULT)[address] [place] [address] ED Clinical Summaryon 2023 ED Clinical Summary [facility] ED Patient Summaryon 024 ED Patient Summary [facility] Patient Handouton 10-25-2023 Patient Handout [facility] Urgent Care Note- Provideron 10-25-2023 Urgent Care Note- Provider [facility] Urgent Care Recordon 024 Urgent Care Record [facility] Coding Summaryon 10-06-2023 Coding Summary [facility] Office Visiton 09-22-2023 Follow-up visit [id number] Shivani Ruiz 1950 M Date Provider Department [place] 09/22/2023 Chanel[facility]LETY [facility] Family History Problem Relation Age of Onset Heart attack Father Coronary artery disease Father Other Father Coronary artery disease Brother Family Status - Relation Status Age at Father Brother Level of Service:56106 [place] OFFICE/OUTPATIENT ESTABLISHED LOW MDM 20 MIN Reason for Visit and Comments: Follow-up [987554] - 3 Month [facility] .Auto Diff 109-21-2023 Auto [place] % 7 % Normal 03-19 [facility] Comment on above: Performed By: #### 1 [id number], 7683407094, 3090644, 2374506 ####[facility] (DEFAULT)[address] [place] [address] 66675 Baso Abs# 0.1 x10 Normal 0.0-0.2 [facility] Comment on above: Performed By: #### 1 8647806, 2390250676, 6812184, 2502574 ####[facility] (DEFAULT)[address] [place] [address] 47588 Basophils/100 WBC (Bld) 1.3 % Normal 0.2-2.0 [facility] Comment on above: Performed By: #### 1 7372388, 9442483683, 5744993, 1433299 ####[facility] (DEFAULT)[address] [place] [address] Eos Abs# 1.5 x10 High 0.0-0.4 [facility] Comment on above: Performed By: #### 1 7697429, 0670826808, 2075619, 5473812 ####[facility] (DEFAULT)[address] [place] [address] 69657 Eosinophils/100 WBC (Bld) 21.0 % High 0.9-4.0 [facility] Comment on above: Performed By: #### 1 1973302, 7816067342, 2430711, 1170859 ####[facility] (DEFAULT)[address] [place] [address] Lymph Abs# 1.2 x10 Low 1.3-2.9 [facility] Comment on above: Performed By: #### 1 8456157, 6966734751, 7812651, 8243789 ####[facility] (DEFAULT)[address] [place] [address] Lymphocytes/100 WBC (Bld) 17 % Normal 14-48 [facility] Comment on above: Performed By: #### 1 6380167, 4728953685, 3028356, 5466364 ####[facility] (DEFAULT)[address] [place] [address] [place] Abs# 0.5 x10 Normal 0.0-0.8 [facility] Comment on above: Performed By: #### 1 1425788, 3073162385, 3322602, 9494812 ####[facility] (DEFAULT)[address] [place] [address] Neut Abs# 3.7 x10 Normal 1.5-9.2 [facility] Comment on above: Performed By: #### 1 4846072, 4037878450, 3929494, 0956657 ####[facility] (DEFAULT)[address] [place] [address] 69654 Neutrophils/100 WBC (Bld) 54 % Normal 44-88 [facility] Comment on above: Performed By: #### 1 3791551, 6723273763, 9631448, 0595934 ####[facility] (DEFAULT)[address] [place] [address] BMP Standardon 09-21-2023 eGFR Non AA 51 mL/min/1.73m2 Invalid Interpretation Code [facility] Comment on above: Performed By: #### 1 6687599, 0246587469, 6370034, 1900934 ####[facility] (DEFAULT)[address] [place] [address] eGFR AA >60 Invalid Interpretation Code [facility] Comment on above: Performed By: #### 1 8408990, 5587110268, 8330786, 5679909 ####[facility] (DEFAULT)[address] [place] [address] 27143 Calcium [Mass/Vol] 8.7 mg/dL Low 8.9-10.3 [facility] Comment on above: Performed By: #### 1 8224573, 8528440489, 2042852, 5245549 ####[facility] (DEFAULT)[address] [place] [address] 00603 Chloride [Moles/Vol] 101 mmol/L Normal 101-111 [facility] Comment on above: Performed By: #### 1 4152470, 2303060580, 3719201, 1829983 ####[facility] (DEFAULT)[address] [place] [address] 40415 CO2 [Moles/Vol] 29 mmol/L Normal 21-32 [facility] Comment on above: Performed By: #### 1 0593764, 0325562119, 8766988, 9773019 ####[facility] (DEFAULT)[address] [place] [address] 69930 Creatinine [Mass/Vol] 1.37 mg/dL High 0.90-1.30 [facility] Comment on above: Performed By: #### 1 2563926, 3741316287, 8752481, 3294488 ####[facility] (DEFAULT)[address] [place] [address] 31563 Glucose [Mass/Vol] 120.0 mg/dL High 74.0-118.0 [facility] Comment on above: Performed By: #### 1 4884415, 2132015221, 5128497, 8316348 ####[facility] (DEFAULT)[address] [place] [address] 93766 Potassium [Moles/Vol] 4.2 mmol/L Normal 3.6-5.1 [facility] Comment on above: Performed By: #### 1 2315668, 6009846764, 9091731, 4078934 ####[facility] (DEFAULT)[address] [place] [address] 78438 Sodium [Moles/Vol] 136.0 mmol/L Normal 136.0-144.0 [facility] Comment on above: Performed By: #### 1 3663521, 4107871847, 4986935, 6437241 ####[facility] (DEFAULT)[address] [place] [address] 23497 Urea nitrogen [Mass/Vol] 21 mg/dL Normal 8-26 [facility] Comment on above: Performed By: #### 1 4601402, 7029895498, 7149677, 4941702 ####[facility] (DEFAULT)[address] [place] [address] 54365 Anion gap [Moles/Vol] 10.2 mmol/L Normal 5.0-19.0 [facility] Comment on above: Performed By: #### 1 0017245, 6209562873, 3030904, 6764258 ####[facility] (DEFAULT)[address] [place] [address] 86626 Osmolality 276 mOsm/L Invalid Interpretation Code [facility] Comment on above: Performed By: #### 1 8131045, 0898624582, 8244710, 2571141 ####[facility] (DEFAULT)[address] [place] [address] 49222 Urea nitrogen/Creatini ne [Mass ratio] 15.3 mg/mg Normal 4.6-16.2 [facility] Comment on above: Performed By: #### 1 6172492, 5174787864, 4686002, 8085589 ####[facility] (DEFAULT)[address] [place] [address] CBC w/ Auto Diffon 4 Erythrocyte distribution width (RBC) [Ratio] 14.6 % Normal 11.5-15.0 [facility] Comment on above: Performed By: #### 1 6055792, 3951734195, 3045284, 9843202 ####[facility] (DEFAULT)[address] [place] [address] Hematocrit (Bld) [Volume fraction] 50.2 % Normal 34.8-51.9 [facility] Comment on above: Performed By: #### 1 1405246, 5444060505, 9296633, 2698006 ####[facility] (DEFAULT)[address] [place] [address] Hemoglobin (Bld) [Mass/Vol] 16.7 g/dL Normal 11.8-17.7 [facility] Comment on above: Performed By: #### 1 3040259, 7484493817, 3512221, 3059856 ####[facility] (DEFAULT)[address] [place] [address] Man Diff? Auto Invalid Interpretation Code [facility] Comment on above: Performed By: #### 1 1546840, 6620821104, 9061156, 5467285 ####[facility] (DEFAULT)[address] [place] [address] 81035 MCH (RBC) [Entitic mass] 36 pg High 24-34 [facility] Comment on above: Performed By: #### 1 1199933, 4863841319, 0038171, 5186062 ####[facility] (DEFAULT)[address] [place] [address] 99907 MCHC (RBC) [Mass/Vol] 33 g/dL Normal 26-37 [facility] Comment on above: Performed By: #### 1 1548893, 1425228210, 3061306, 1162514 ####[facility] (DEFAULT)[address] [place] [address] MCV (RBC) [Entitic vol] 107 fL High 81-100 [facility] Comment on above: Performed By: #### 1 8526017, 8593618992, 5243369, 6830622 ####[facility] (DEFAULT)[address] [place] [address] Platelet 209 x10 Normal 138-427 [facility] Comment on above: Performed By: #### 1 8507976, 7003070646, 4183725, 4676715 ####[facility] (DEFAULT)[address] [place] [address] Platelet mean volume (Bld) [Entitic vol] 8.0 fL Normal 6.3-10.2 [facility] Comment on above: Performed By: #### 1 4682921, [id number], 5997026, 9147901 ####[facility] (DEFAULT)[address] [place] [address] RBC 4.69 x10 Normal 3.70-5.30 [facility] Comment on above: Performed By: #### 1 6826225, [id number], 6877094, 8881846 ####[facility] (DEFAULT)[address] [place] [address] WBC 6.9 x10 Normal 3.5-10.5 [facility] Comment on above: Performed By: #### 1 7242338, [id number], 6198141, 5936057 ####[facility] (DEFAULT)[address] [place] [address] CRPon 09-21-2023 CRP 1.1 mg/dL High <=0.5 [facility] Comment on above: Performed By: #### 1 7926174, 0436259332, 9986944, 7127942 ####[facility] (DEFAULT)[address] [place] [address] Provider Orderson 09-21-2023 Provider Orders [id number]#1.00OTGTIFF Normal [facility] Coding Summaryon 09-08-2023 Coding Summary Normal [facility] .Auto Diff 108-30-2023 Auto [place] % 6 % Normal 1-12 [facility] Comment on above: Performed By: #### 1 3188649, 7473503, 4138876574, 1826144 ####[facility] (DEFAULT)[address] [place] [address] 06698 Baso Abs# 0.1 x10 Normal 0.0-0.2 [facility] Comment on above: Performed By: #### 1 0613062, 7809579, 9758124434, 7591447 ####[facility] (DEFAULT)[address] [place] [address] 72402 Basophils/100 WBC (Bld) 2.1 % High 0.2-2.0 [facility] Comment on above: Performed By: #### 1 9374102, 4020504, [id number], 1122543 ####[facility] (DEFAULT)[address] [place] [address] 36853 Eos Abs# 1.2 x10 High 0.0-0.4 [facility] Comment on above: Performed By: #### 1 5393992, 0302375, 6476478996, 4797865 ####[facility] (DEFAULT)[address] [place] [address] 70973 Eosinophils/100 WBC (Bld) 19.0 % High 0.9-4.0 [facility] Comment on above: Performed By: #### 1 8218362, 7807535, 4586712095, 3745590 ####[facility] (DEFAULT)[address] [place] [address] 47486 Lymph Abs# 1.0 x10 Low 1.3-2.9 [facility] Comment on above: Performed By: #### 1 5631202, 3514950, 4193063875, 4340244 ####[facility] (DEFAULT)[address] [place] [address] 03936 Lymphocytes/100 WBC (Bld) 15 % Normal 14-48 [facility] Comment on above: Performed By: #### 1 0681778, 3801984, 8775652361, 3741738 ####[facility] (DEFAULT)[address] [place] [address] [place] Abs# 0.4 x10 Normal 0.0-0.8 [facility] Comment on above: Performed By: #### 1 8472825, 5425431, 9157828408, 0094643 ####[facility] (DEFAULT)[address] [place] [address] Neut Abs# 3.8 x10 Normal 1.5-9.2 [facility] Comment on above: Performed By: #### 1 8758306, 5741197, 4068183746, 1826442 ####[facility] (DEFAULT)[address] [place] [address] Neutrophils/100 WBC (Bld) 58 % Normal 44-88 [facility] Comment on above: Performed By: #### 1 4497195, 6628561, 1368846548, 0916157 ####[facility] (DEFAULT)[address] [place] [address] Standardon 08-30-2023 eGFR Non AA 55 mL/min/1.73m2 Invalid Interpretation Code [facility] Comment on above: Performed By: #### 1 5402986, 8664262, 2378328996, 7828849 ####[facility] (DEFAULT)[address] [place] [address] eGFR AA >60 Invalid Interpretation Code [facility] Comment on above: Performed By: #### 1 6540631, 9244587, 4146622928, 2429874 ####[facility] (DEFAULT)[address] [place] [address] Anion gap [Moles/Vol] 12.9 mmol/L Normal 5.0-19.0 [facility] Comment on above: Performed By: #### 1 9155722, 0704034, 6488369548, 8452262 ####[facility] (DEFAULT)[address] [place] [address] Calcium [Mass/Vol] 9.2 mg/dL Normal 8.9-10.3 [facility] Comment on above: Performed By: #### 1 5478708, 7856961, 7164316776, 8668886 ####[facility] (DEFAULT)[address] [place] [address] 61919 Chloride [Moles/Vol] 102 mmol/L Normal 101-111 [facility] Comment on above: Performed By: #### 1 5335719, 5634459, 0518166072, 9188924 ####[facility] (DEFAULT)[address] [place] [address] 34026 CO2 [Moles/Vol] 31 mmol/L Normal 21-32 [facility] Comment on above: Performed By: #### 1 3472870, 5915456, 3589702405, 8103102 ####[facility] (DEFAULT)[address] [place] [address] 01248 Creatinine [Mass/Vol] 1.29 mg/dL Normal 0.90-1.30 [facility] Comment on above: Performed By: #### 1 5149071, 1905321, 2847754060, 4110781 ####[facility] (DEFAULT)[address] [place] [address] 48956 Glucose [Mass/Vol] 142.0 mg/dL High 74.0-118.0 [facility] Comment on above: Performed By: #### 1 1297651, 6300946, 4411614786, 5379846 ####[facility] (DEFAULT)[address] [place] [address] 88193 Osmolality 290 mOsm/L Invalid Interpretation Code [facility] Comment on above: Performed By: #### 1 2550403, 5046047, 1038453374, 8831502 ####[facility] (DEFAULT)[address] [place] [address] 10314 Potassium [Moles/Vol] 3.9 mmol/L Normal 3.6-5.1 [facility] Comment on above: Performed By: #### 1 6554486, 1958740, 9081027890, 9377641 ####[facility] (DEFAULT)[address] [place] [address] 67273 Sodium [Moles/Vol] 142.0 mmol/L Normal 136.0-144.0 [facility] Comment on above: Performed By: #### 1 5784769, 4874075, 4158776360, 8424980 ####[facility] (DEFAULT)[address] [place] [address] 39639 Urea nitrogen [Mass/Vol] 25 mg/dL Normal 8-26 [facility] Comment on above: Performed By: #### 1 2979459, 0423779, 8815758744, 9564515 ####[facility] (DEFAULT)[address] [place] [address] 38036 Urea nitrogen/Creatini ne [Mass ratio] 19.3 mg/mg High 4.6-16.2 [facility] Comment on above: Performed By: #### 1 8877303, 0489461, 1327520238, 4514312 ####[facility] (DEFAULT)[address] [place] [address] 31821 CBC w/ Auto Diffon Erythrocyte distribution width (RBC) [Ratio] 15.7 % High 11.5-15.0 [facility] Comment on above: Performed By: #### 1 9757734, 2969019, 8364071157, 6427966 ####[facility] (DEFAULT)[address] [place] [address] 46783 Hematocrit (Bld) [Volume fraction] 49.1 % Normal 34.8-51.9 [facility] Comment on above: Performed By: #### 1 3831693, 2832499, 9521322148, 9597100 ####[facility] (DEFAULT)[address] [place] [address] 91128 Hemoglobin (Bld) [Mass/Vol] 16.1 g/dL Normal 11.8-17.7 [facility] Comment on above: Performed By: #### 1 8258525, 1312002, 7640085157, 1232169 ####[facility] (DEFAULT)[address] [place] [address] 63620 Man Diff? Auto Invalid Interpretation Code [facility] Comment on above: Performed By: #### 1 3574808, 2110224, 7107208279, 6180825 ####[facility] (DEFAULT)[address] [place] [address] 15088 MCH (RBC) [Entitic mass] 36 pg High 24-34 [facility] Comment on above: Performed By: #### 1 7405960, 9342362, 2028897526, 0553383 ####[facility] (DEFAULT)[address] [place] [address] MCHC (RBC) [Mass/Vol] 33 g/dL Normal 26-37 [facility] Comment on above: Performed By: #### 1 7585809, 9125958, 8221213667, 5779838 ####[facility] (DEFAULT)[address] [place] [address] MCV (RBC) [Entitic vol] 109 fL High 81-100 [facility] Comment on above: Performed By: #### 1 8679688, 4486768, 8809791169, 0376048 ####[facility] (DEFAULT)[address] [place] [address] Platelet 211 x10 Normal 138-427 [facility] Comment on above: Performed By: #### 1 7049135, 5213702, 5319137299, 0496413 ####[facility] (DEFAULT)[address] [place] [address] Platelet mean volume (Bld) [Entitic vol] 9.2 fL Normal 6.3-10.2 [facility] Comment on above: Performed By: #### 1 4390160, 1766097, 0974429485, 5131548 ####[facility] (DEFAULT)[address] [place] [address] 51215 RBC 4.51 x10 Normal 3.70-5.30 [facility] Comment on above: Performed By: #### 1 6627441, 7397825, 7663598433, 2321632 ####[facility] (DEFAULT)[address] [place] [address] 41219 WBC 6.6 x10 Normal 3.5-10.5 [facility] Comment on above: Performed By: #### 1 7118229, 2842005, 1146758178, 5494463 ####[facility] (DEFAULT)[address] [place] [address] CRPon 06-24-2024 CRP 1.0 mg/dL High <=0.5 [facility] Comment on above: Performed By: #### 1 4199690, 1907427, 6460866372, 7300095 ####[facility] (DEFAULT)[address] [place] [address] Provider Orderson 08-30-2023 Provider Orders [id number] Follow-Upon 08-23-2023 Follow-Up [id number] Shivani Ruiz 1950 M Date Provider Department Center 08/23/2023 KYREE RAWLS MP ORTHO MPORTHO Family History Problem Relation Age of Onset Heart attack Father Coronary artery disease Father Other Father Coronary artery disease Brother Family Status - Relation Status Age at Father Brother Level of Service:89835 [place] OFFICE/OUTPATIENT ESTABLISHED SF MDM 10 MIN () Reason for Visit and Comments: Follow-up [389490] [facility] Provider Orderson 08-12-2023 Provider Orders [id number][facility] 36on 07-27-2023 36 Please have him resu me his lasix and get a follow-up BMP/BNP in 1 week. Thanks [facility] Coding Summaryon 07-27-2023 Coding Summary [facility] Outside Recordson 07-22-2023 Outside Records [id number]#[facility] Outside Records [id number]#[facility] Outside Records [id number]#[facility] ED Clinical Summaryon 2023 ED Clinical Summary [facility] ED Patient Summaryon 024 ED Patient Summary [facility] Patient Handouton 07-19-2023 Patient Handout [facility] XR Chest 2 Viewson XR Chest 2 Views Normal [facility] Coding Summaryon 07-14-2023 Coding Summary Normal [facility] Orders Onlyon 07-12-2023 Orders Only [id number] RuizGermaine spenceraye Rabago 1950 M Date Provider Department [place] 07/12/2023 GriffinNASCIMENTOMYKEL [facility] Family History Problem Relation Age of Onset Heart attack Father Coronary artery disease Father Other Father Coronary artery disease Brother Family Status - Relation Status Age at Father Brother Normal [facility] .Auto Diff 1on 07-08-2023 Auto [place] % 12 % Normal -12 [facility] Comment on above: Performed By: #### 1 940670889, 2727124, 44004431, 4994317 ####[facility] (DEFAULT)[address] [place] [address] 48487 Baso Abs# 0.0 x10 Normal 0.0-0.2 [facility] Comment on above: Performed By: #### 1 209656890, 3154353, 03376180, 3336091 ####[facility] (DEFAULT)[address] [place] [address] 14921 Basophils/100 WBC (Bld) 0.8 % Normal 0.2-2.0 [facility] Comment on above: Performed By: #### 1 331217599, 6243268, 29960184, 8150826 ####[facility] (DEFAULT)[address] [place] [address] 75504 Eos Abs# 0.7 x10 High 0.0-0.4 [facility] Comment on above: Performed By: #### 1 282488014, 8001057, 14490709, 4798304 ####[facility] (DEFAULT)[address] [place] [address] 17838 Eosinophils/100 WBC (Bld) 14.6 % High 0.9-4.0 [facility] Comment on above: Performed By: #### 1 014429508, 0261710, 97960417, 1210302 ####[facility] (DEFAULT)[address] [place] [address] 66505 Lymph Abs# 0.7 x10 Low 1.3-2.9 [facility] Comment on above: Performed By: #### 1 852600980, 2406558, 22578475, 6171624 ####[facility] (DEFAULT)[address] [place] [address] Lymphocytes/100 WBC (Bld) 15 % Normal 14-48 [facility] Comment on above: Performed By: #### 1 943067572, 7185817, 32019575, 3451330 ####[facility] (DEFAULT)[address] [place] [address] [place] Abs# 0.6 x10 Normal 0.0-0.8 [facility] Comment on above: Performed By: #### 1 681675444, 8908419, 93609027, 7220531 ####[facility] (DEFAULT)[address] [place] [address] Neut Abs# 2.6 x10 Normal 1.5-9.2 [facility] Comment on above: Performed By: #### 1 507895654, 6385428, 59518658, 0885642 ####[facility] (DEFAULT)[address] [place] [address] Neutrophils/100 WBC (Bld) 57 % Normal 44-88 [facility] Comment on above: Performed By: #### 1 671854975, 8805156, 92942328, 4838915 ####[facility] (DEFAULT)[address] [place] [address] Standardon 07-08-2023 eGFR Non AA 51 mL/min/1.73m2 Invalid Interpretation Code [facility] Comment on above: Performed By: #### 1 025844833, 8502747, 66477527, 9335587 ####[facility] (DEFAULT)[address] [place] [address] eGFR AA >60 Invalid Interpretation Code [facility] Comment on above: Performed By: #### 1 372155540, 3290241, 60289699, 2272434 ####[facility] (DEFAULT)[address] [place] [address] 05721 Anion gap [Moles/Vol] 9.9 mmol/L Normal 5.0-19.0 [facility] Comment on above: Performed By: #### 1 389247428, 3194439, 31184512, 5215929 ####[facility] (DEFAULT)[address] [place] [address] 34261 Calcium [Mass/Vol] 9.3 mg/dL Normal 8.9-10.3 [facility] Comment on above: Performed By: #### 1 346471994, 2043688, 21833872, 9723924 ####[facility] (DEFAULT)[address] [place] [address] 10643 Chloride [Moles/Vol] 100 mmol/L Low 101-111 [facility] Comment on above: Performed By: #### 1 198564894, 8496544, 71559576, 5614454 ####[facility] (DEFAULT)[address] [place] [address] 38138 CO2 [Moles/Vol] 31 mmol/L Normal 21-32 [facility] Comment on above: Performed By: #### 1 456061005, 5418058, 54642248, 1072717 ####[facility] (DEFAULT)[address] [place] [address] 82439 Creatinine [Mass/Vol] 1.37 mg/dL High 0.90-1.30 [facility] Comment on above: Performed By: #### 1 401227607, 6958644, 34137104, 3423401 ####[facility] (DEFAULT)[address] [place] [address] 49284 Glucose [Mass/Vol] 98.0 mg/dL Normal 74.0-118.0 [facility] Comment on above: Performed By: #### 1 685742383, 6999528, 86649731, 0282832 ####[facility] (DEFAULT)[address] [place] [address] 81377 Osmolality 277 mOsm/L Invalid Interpretation Code [facility] Comment on above: Performed By: #### 1 632621364, 3366194, 24646111, 1393920 ####[facility] (DEFAULT)[address] [place] [address] 99170 Potassium [Moles/Vol] 3.9 mmol/L Normal 3.6-5.1 [facility] Comment on above: Performed By: #### 1 872704379, 0698019, 85842966, 7212657 ####[facility] (DEFAULT)[address] [place] [address] 56061 Sodium [Moles/Vol] 137.0 mmol/L Normal 136.0-144.0 [facility] Comment on above: Performed By: #### 1 049675619, 3657029, 25743504, 7000524 ####[facility] (DEFAULT)[address] [place] [address] 37889 Urea nitrogen [Mass/Vol] 21 mg/dL Normal 8-26 [facility] Comment on above: Performed By: #### 1 607852280, 4474573, 41167428, 3709317 ####[facility] (DEFAULT)[address] [place] [address] 86017 Urea nitrogen/Creatini ne [Mass ratio] 15.3 mg/mg Normal 4.6-16.2 [facility] Comment on above: Performed By: #### 1 116933399, 4921089, 05517882, 5862132 ####[facility] (DEFAULT)[address] [place] [address] 31717 CBC w/ Auto Diffon 4 Erythrocyte distribution width (RBC) [Ratio] 18.8 % High 11.5-15.0 [facility] Comment on above: Performed By: #### 1 127716947, 0131773, 64872991, 9335644 ####[facility] (DEFAULT)[address] [place] [address] 97228 Hematocrit (Bld) [Volume fraction] 48.6 % Normal 34.8-51.9 [facility] Comment on above: Performed By: #### 1 196601391, 2670592, 32454347, 7590059 ####[facility] (DEFAULT)[address] [place] [address] 97164 Hemoglobin (Bld) [Mass/Vol] 16.1 g/dL Normal 11.8-17.7 [facility] Comment on above: Performed By: #### 1 947667190, 1076177, 11356967, 7499938 ####[facility] (DEFAULT)[address] [place] [address] Man Diff? Auto Invalid Interpretation Code [facility] Comment on above: Performed By: #### 1 507150860, 3594603, 38676575, 4405592 ####[facility] (DEFAULT)[address] [place] [address] MCH (RBC) [Entitic mass] 35 pg High 24-34 [facility] Comment on above: Performed By: #### 1 109900371, 4898706, 45687303, 0470682 ####[facility] (DEFAULT)[address] [place] [address] MCHC (RBC) [Mass/Vol] 33 g/dL Normal 26-37 [facility] Comment on above: Performed By: #### 1 829948222, 6742554, 90516064, 3037343 ####[facility] (DEFAULT)[address] [place] [address] MCV (RBC) [Entitic vol] 106 fL High 81-100 [facility] Comment on above: Performed By: #### 1 330580002, 1628544, 85061820, 2961225 ####[facility] (DEFAULT)[address] [place] [address] 03062 Platelet 209 x10 Normal 138-427 [facility] Comment on above: Performed By: #### 1 123204676, 5979648, 30823448, 2184034 ####[facility] (DEFAULT)[address] [place] [address] 00564 Platelet mean volume (Bld) [Entitic vol] 8.5 fL Normal 6.3-10.2 [facility] Comment on above: Performed By: #### 1 365047267, 4641621, 15423584, 6740154 ####[facility] (DEFAULT)[address] [place] [address] RBC 4.56 x10 Normal 3.70-5.30 [facility] Comment on above: Performed By: #### 1 040708133, 1473308, 62827640, 3291988 ####[facility] (DEFAULT)[address] [place] [address] WBC 4.5 x10 Normal 3.5-10.5 [facility] Comment on above: Performed By: #### 1 684615397, 9661504, 75267929, 2627272 ####[facility] (DEFAULT)[address] [place] [address] CRPon 07-08-2023 CRP 2.2 mg/dL High <=0.5 [facility] Comment on above: Performed By: #### 1 850332029, 9690841, 34932928, 9816890 ####[facility] (DEFAULT)[address] [place] [address] 53289 Provider Orderson 07-08-2023 Provider Orders [id number][facility] Release of Informationon Release of Information [id number]#[facility] Coding Summaryon 07-05-2023 Coding Summary [facility] Orders Onlyon 07-02-2023 Orders Only [id number] Shivani Ruiz 1950 M Date Provider Department Center 07/02/2023 267-MYKEL NASCIMENTO [facility] Heal Family History Problem Relation Age of Onset Heart attack Father Coronary artery disease Father Other Father Coronary artery disease Brother Family Status - Relation Status Age at Father Brother Normal [facility] Office Visiton 06-29-2023 Follow-up visit [id number] Shivani Ruiz 1950 M Date Provider Department Center 06/29/2023 166-LETY URIAS [facility] Family History Problem Relation Age of Onset Heart attack Father Coronary artery disease Father Other Father Coronary artery disease Brother Family Status - Relation Status Age at Father Brother Level of Service:69879 [place] OFFICE/OUTPATIENT ESTABLISHED MOD MDM 30 MIN Reason for Visit and Comments: Atrial Fibrillation [80] Shortness of Breath [355896] Congestive Heart Failure [127] [facility] 36on 06-28-2023 36 Pt calling. States i t has been about 1 month since labs were drawn and he wonders if he needs any repeat lab work now? 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 Pt is currently out of town in [place], [place] and will be back in town by Wednesday06/09/23. Pt would like you to call him as soon as possible. [facility] Outside Recordson 06-02-2023 Outside Records [id number]#1.00OTGTIFF [facility] 36on 05-24-2023 36 Pt called to cancel upcoming appt and would like to know if you are going to prescribe any medications before he leave tomorrow? [facility] Follow-Upon 05-24-2023 Follow-Up [id number] Shivani Ruiz 1950 [facility] Provider Department Center 05/24/2023 Rosemarie-KYREE CHAND MP [facility] [place] Family History Problem Relation Age of Onset Heart attack Father Coronary artery disease Father Other Father Coronary artery disease Brother Family Status - Relation Status Age at Father Brother Level of Service:10644 [place] OFFICE/OUTPATIENT ESTABLISHED SF MDM 10 MIN () Reason for Visit and Comments: Follow-up [636951] - Infection in joint [facility] Telephoneon 05-24-2023 Telephone [id number] Shivani Ruiz 1950 M Date Provider Department Center 05/24/2023 [facility] INF Mohit Heal Family History Problem Relation Age of Onset Heart attack Father Coronary artery disease Father Other Father Coronary artery disease Brother Family Status - Relation Status Age at Father Brother Normal [facility] BASIC METABOLIC PANLon 05-13 Anion gap [Moles/Vol] 12 mmol/L Normal 5-15 [facility] Comment on above: Performed By: #### Jose AGUIRRE, 59746-7, MARCUS, 1985-07 #### [facility] ([id number]) [address], [address] [place] [address] Calcium [Mass/Vol] 9.3 mg/dL Normal 8.5-10.5 [facility] Comment on above: Performed By: #### Jose AGUIRRE, 66436-4, MARCUS, 1985-07 #### [facility] ([id number]) [address], [address] [place] [address] Chloride [Moles/Vol] 100 mmol/L Normal 98-109 [facility] Comment on above: Performed By: #### Jose AGUIRRE, 78660-7, MARCUS, 1985-07 #### [facility] ([id number]) [address], [address] [place] [address] CO2 [Moles/Vol] 28 mmol/L Normal 22-32 [facility] Comment on above: Performed By: #### Jose BCA, 80660-3, [facility], 1987-07 #### [facility] ([id number]) [address], [address] [place] [address] Creatinine [Mass/Vol] 1.17 mg/dL Normal 0.60-1.30 [facility] Comment on above: Result Comment: METH OD TRACEABLE TO IDMS STANDARD Performed By: #### Jose BCA, 68998-8, MARCUS, 1985-07 #### [facility] ([id number]) [address], [address] [place] [address] GFR/1.73 sq M.predicted among non-blacks MDRD (S/P/Bld) [Vol rate/Area] 67 mL/min/{1.73_m2} Normal >59 [facility] Comment on above: Result Comment: Reported eGFR is based on the CKD-EPI 2020 equation that does not use a race coefficient. Performed By: #### Jose AGUIRRE 76897-4, [facility], 1987-07 #### [facility] ([id number]) [address] [address] Glucose [Mass/Vol] 102 mg/dL High 65-99 [facility] Comment on above: Performed By: #### Jose AGUIRRE 00471-5, [facility], 1987-07 #### [facility] ([id number]) [address] [address] Potassium [Moles/Vol] 4.1 mmol/L Normal 3.5-5.0 [facility] Comment on above: Performed By: #### Jose AGUIRRE 18705-4, [facility], 1987-07 #### [facility] ([id number]) [address] [address] Sodium [Moles/Vol] 140 mmol/L Normal 134-146 [facility] Comment on above: Performed By: #### Jose AGUIRRE 61038-0, [facility], 1987-07 #### [facility] ([id number]) [address] [address] Urea nitrogen [Mass/Vol] 16 mg/dL Normal 5-27 [facility] Comment on above: Performed By: #### Jose AGUIRRE 54098-1, [facility], 1987-07 #### [facility] ([id number]) [address] [address] CBC AND AUTO DIFFon 05-14-19 24 ABSOLUTE BASOPHIL 0.1 X10E9/L Normal 0.0-0.2 [facility] Comment on above: Performed By: #### Jose AGUIRRE 51681-0, [facility], 1987-07 #### [facility] ([id number]) [address], [address] [place] [address] ABSOLUTE NEUTROPHIL 4.3 X10E9/L Normal 1.5-6.6 [facility] Comment on above: Performed By: #### Jose AGUIRRE 59146-4, [facility], 1987-07 #### [facility] ([id number]) [address], [address] [place] [address] Basophils/100 WBC (Bld) 1.2 % Normal [facility] Comment on above: Performed By: #### Jose AGUIRRE 44475-4, [facility], 1987-07 #### [facility] ([id number]) [address], [address] [place] [address] Eosinophils (Bld) [#/Vol] 0.8 10*3/uL High 0.0-0.4 [facility] Comment on above: Performed By: #### Jose AGUIRRE 36437-2, [facility], 1987-07 #### [facility] ([id number]) [address], [address] [place] [address] Eosinophils/100 WBC (Bld) 12.2 % Normal [facility] Comment on above: Performed By: #### Jose AGUIRRE 30884-1, [facility], 1987-07 #### [facility] ([id number]) [address], [address] [place] [address] Erythrocyte distribution width (RBC) [Ratio] 16.8 % High 11.5-15.0 [facility] Comment on above: Performed By: #### Jose AGUIRRE 42881-1, [facility], 1987-07 #### [facility] ([id number]) [address], [address] [place] [address] Hematocrit (Bld) [Volume fraction] 47.0 % Normal 39-49 [facility] Comment on above: Performed By: #### Jose AGUIRRE 26747-9, [facility], 1987-07 #### [facility] ([id number]) [address], [address] [place] [address] Hemoglobin (Bld) [Mass/Vol] 15.7 g/dL Normal 13.0-17.0 [facility] Comment on above: Performed By: #### Jose AGUIRRE 00817-5, [facility], 1987-07 #### [facility] ([id number]) [address], [address] [place] [address] Lymphocytes (Bld) [#/Vol] 1.2 10*3/uL Normal 1.0-3.5 [facility] Comment on above: Performed By: #### Jose AGUIRRE 07204-6, [facility], 1987-07 #### [facility] ([id number]) [address], [address] [place] [address] Lymphocytes/100 WBC (Bld) 18.0 % Normal [facility] Comment on above: Performed By: #### Jose AGUIRRE 01885-4, [facility], 1987-07 #### [facility] ([id number]) [address], [address] [place] [address] MCH (RBC) [Entitic mass] 34.6 pg High 27-34 [facility] Comment on above: Performed By: #### Jose AGUIRRE 02153-8, [facility], 1987-07 #### [facility] ([id number]) [address], [address] [place] [address] MCHC (RBC) [Mass/Vol] 33.5 g/dL Normal 32-36 [facility] Comment on above: Performed By: #### Jose AGUIRRE 38414-8, MARCUS, 1985-07 #### [facility] ([id number]) [address], [address] [place] [address] MCV (RBC) [Entitic vol] 104 fL High 80-100 [facility] Comment on above: Performed By: #### Jose AGUIRRE 12345-8, MARCUS, 1985-07 #### [facility] ([id number]) [address], [address] [place] [address] Monocytes (Bld) [#/Vol] 0.3 10*3/uL Normal 0-0.9 [facility] Comment on above: Performed By: #### Jose AGUIRRE 44376-6, BMP, 1985-07 #### [facility] ([id number]) [address], [facility] [address] [place] [address] Monocytes/100 WBC (Bld) 4.6 % Normal [facility] Comment on above: Performed By: #### Jose AGUIRRE 64440-5, MARCUS, 1985-07 #### [facility] ([id number]) [address], [address] [place] [address] Neutrophils/100 WBC (Bld) 64.0 % Normal [facility] Comment on above: Performed By: #### Jose AGUIRRE 53116-5, MARCUS, 1985-07 #### [facility] ([id number]) [address], [address] [place] [address] Platelet mean volume (Bld) [Entitic vol] 8.6 fL Normal 7-12 [facility] Comment on above: Performed By: #### Jose AGUIRRE 41330-2, MARCUS, 1985-07 #### [facility] ([id number]) [address], [address] [place] [address] Platelets (Bld) [#/Vol] 247 10*3/uL Normal 150-450 [facility] Comment on above: Performed By: #### Jose AGUIRRE, 22995-5, MARCUS, 1985-07 #### [facility] ([id number]) [address], [address] [place] [address] RBC COUNT 4.55 X10E12/L Normal 4.10-5.70 [facility] Comment on above: Performed By: #### C CARLA, 22512-8, [facility], 1987-07 #### [facility] ([id number]) [address], [address] [place] [address] WBC (Bld) [#/Vol] 6.8 10*3/uL Normal 4.0-11.0 [facility] Comment on above: Performed By: #### C CARLA, 12086-4, [facility], 1987-07 #### [facility] ([id number]) [address], [facility] [address] [place] [address] CRP [Mass/Vol]on 05-14-2023 C REACTIVE PROTEIN 1.1 mg/dL High 0.000-0.744 [facility] Comment on above: Performed By: #### Jose AGUIRRE, 11173-7, [facility], 1987-07 #### [facility] ([id number]) [address], [address] [place] [address] ESR Photometric method (Bld) [Velocity]on 05-14-2023 ESR, ERYTHROCYTE SEDIMENTATION RATE 18 mm/h Normal 0-20 [facility] Comment on above: Performed By: #### Jose AGUIRRE, 45255-7, [facility], 1987-07 #### [facility] ([id number]) [address], [address] [place] [address] BASIC METABOLIC PANLon 03-18 Anion gap [Moles/Vol] 5 mmol/L Normal 5-15 [facility] Comment on above: Performed By: #### B MP #### [facility] ([id number]) [address], [address] [place] [address] Calcium [Mass/Vol] 8.8 mg/dL Normal 8.5-10.5 [facility] Comment on above: Performed By: #### B MP #### [facility] ([id number]) [address], [address] [place] [address] Chloride [Moles/Vol] 100 mmol/L Normal 98-109 [facility] Comment on above: Performed By: #### B MP #### [facility] ([id number]) [address], [address] [place] [address] CO2 [Moles/Vol] 35 mmol/L High 22-32 [facility] Comment on above: Performed By: #### B MP #### [facility] ([id number]) [address] [address] [place] [address] Creatinine [Mass/Vol] 1.11 mg/dL Normal 0.60-1.30 [facility] Comment on above: Result Comment: METH OD TRACEABLE TO IDMS STANDARD Performed By: #### B MP #### [facility] ([id number]) [address] [address] [place] [address] GFR/1.73 sq M.predicted among non-blacks MDRD (S/P/Bld) [Vol rate/Area] 71 mL/min/{1.73_m2} Normal >59 [facility] Comment on above: Result Comment: Reported eGFR is based on the CKD-EPI 2020 equation that does not use a race coefficient. Performed By: #### B MP #### [facility] ([id number]) [address], [address] [place] [address] Glucose [Mass/Vol] 123 mg/dL High 65-99 [facility] Comment on above: Performed By: #### B MP #### [facility] ([id number]) [address] [address] [place] [address] Potassium [Moles/Vol] 4.0 mmol/L Normal 3.5-5.0 [facility] Comment on above: Performed By: #### B MP #### [facility] ([id number]) [address] [place] [address] Sodium [Moles/Vol] 140 mmol/L Normal 134-146 [facility] Comment on above: Performed By: #### B MP #### [facility] ([id number]) [address], [address] [place] [address] Urea nitrogen [Mass/Vol] 19 mg/dL Normal 5-27 [facility] Comment on above: Performed By: #### B MP #### [facility] ([id number]) [address], [address] [place] [address] BASIC METABOLIC PANELon 09-0 -2021 Calcium [Mass/Vol] 9.3 mg/dL Normal 8.6-10.3 [facility] Comment on above: Performed By: #### 0 0071, 14760 ####[facility] [place] [address], [facility] Chloride [Moles/Vol] 104 mmol/L Normal 98-107 [facility] Comment on above: Performed By: #### 0 0071, 627[address] ####[facility] [place] [address], [facility] CO2 [Moles/Vol] 30 mmol/L Normal 21-31 [facility] Comment on above: Performed By: #### 0 0071, 434[address] ####[facility] [facility] [place] [address], [place] Creatinine [Mass/Vol] 1.30 mg/dL Normal 0.70-1.30 [facility] Comment on above: Performed By: #### 0 0071, 800[address] ####[facility] [facility] [id number], [facility] EGFR 60 ml/min/1.73sq m Abnormal >60 [facility] Comment on above: Result Comment: The [facility]'s estimated glomerular filtration rate (eGFR) will no longer include consideration of race in its calculation. The [employer]'s eGFR Task Force developed new recommendations for the estimation of the glomerular filtration rate in the [place] They recommend immediate implementation of the new equation refit without the race variable in all laboratories because the calculation does not include race. In addition to not including race in the calculation and reporting, it included diversity in its development, and has acceptable performance characteristics and potential consequences that do not disproportionately affect any one group of individuals. Performed By: #### 0 0071, 63845 ####[facility] [place] [address], [facility] Glucose [Mass/Vol] 103 mg/dL High 70-100 [facility] Comment on above: Performed By: #### 0 0071, [address] ####[address] [address] [place] [address], [facility] Potassium [Moles/Vol] 4.6 mmol/L Normal 3.5-5.1 [facility] Comment on above: Performed By: #### 0 0071, 80284 ####[facility] [place] [address], [facility] Sodium [Moles/Vol] 141 mmol/L Normal 136-145 [facility] Comment on above: Performed By: #### 0 0071, 73902 ####[facility] [place] [address], [facility] Urea nitrogen [Mass/Vol] 25 mg/dL Normal 7-25 [facility] Comment on above: Performed By: #### 0 0071, 15144 ####[facility] [place] [address], [facility] C REACTIVE PROTEINon 022 CRP [Mass/Vol] 10.2 mg/L High 0.0-7.0 [facility] Comment on above: Performed By: #### 6 1405 ####[facility] [place] [address], [facility] CBC W/DIFFon 11-14-2021 ABS IMM GRANS 0.0 10*3/uL Normal 0.0-0.2 [facility] Comment on above: Performed By: #### 5 0103 #### [facility] [address] [place] [address], [facility] ABS NEUTROPHILS 4.4 10*3/uL Normal 1.6-7.6 [facility] Comment on above: Performed By: #### 5 0103 #### [facility] [address] [facility] [place] [address], [facility] Basophils (Bld) [#/Vol] 0.1 10*3/uL Normal 0.0-0.2 [facility] Comment on above: Performed By: #### 5 0103 #### [facility] [address] [facility] [place] [address], [facility] Basophils/100 WBC (Bld) 1.3 % High 0.0-1.0 [facility] Comment on above: Performed By: #### 5 0103 #### [facility] [address] [place] [address], [facility] Eosinophils (Bld) [#/Vol] 0.8 10*3/uL High 0.0-0.5 [facility] Comment on above: Performed By: #### 5 0103 #### [facility] [address] [facility] [place] [address], [facility] Eosinophils/100 WBC (Bld) 10.6 % High 0.0-6.0 [facility] Comment on above: Performed By: #### 5 0103 #### [facility] [address] [facility] [place] [address], [facility] Erythrocyte distribution width (RBC) [Ratio] 15.1 % High 11.5-15.0 [facility] Comment on above: Performed By: #### 5 3 #### [facility] [address] [place] [address], [facility] Hematocrit (Bld) [Volume fraction] 45.5 % Normal 39.0-50.0 [facility] Comment on above: Performed By: #### 5 0103 #### [facility] [address] [place] [address], [facility] Hemoglobin (Bld) [Mass/Vol] 15.1 g/dL Normal 13.0-17.0 [facility] Comment on above: Performed By: #### 5 0103 #### [facility] [address] [place] [address], [facility] IMMATURE GRANS 0.4 % Normal 0.0-1.0 [facility] Comment on above: Performed By: #### 5 0103 #### [facility] [address] Lymphocytes (Bld) [#/Vol] 1.1 10*3/uL Low 1.2-4.0 [facility] Comment on above: Performed By: #### 5 0103 #### [facility] [address] [place] [address], [facility] Lymphocytes/100 WBC (Bld) 15.7 % Low 20.0-45.0 [facility] Comment on above: Performed By: #### 5 3 #### [facility] [address] [place] [address], [facility] MCH (RBC) [Entitic mass] 33.1 pg High 27.0-33.0 [facility] Comment on above: Performed By: #### 5 3 #### [facility] [address] [place] [address], [facility] MCHC (RBC) [Mass/Vol] 33.2 g/dL Normal 32.0-35.0 [facility] Comment on above: Performed By: #### 5 3 #### [facility] [address] [place] [address], [facility] MCV (RBC) [Entitic vol] 99.8 fL High 82.0-98.0 [facility] Comment on above: Performed By: #### 5 102 #### [facility] [address] [place] [address], [facility] Monocytes (Bld) [#/Vol] 0.8 10*3/uL Normal 0.1-1.0 [facility] Comment on above: Performed By: #### 5 3 #### [facility] [address] [place] [address], [facility] MONOS 11.4 % Normal 5.0-12.0 [facility] Comment on above: Performed By: #### 5 102 #### [facility] [address] [place] [address], [facility] Neutrophils/100 WBC (Bld) 60.6 % Normal 40.0-72.0 [facility] Comment on above: Performed By: #### 5 102 #### [facility] [address] Nucleated RBC/100 WBC (Bld) [Ratio] 0 % Normal 0-0 [facility] Comment on above: Performed By: #### 5 102 #### [facility] [address] [place] [address], [facility] PLAT CNT 198 10*3/uL Normal 150-400 [facility] Comment on above: Performed By: #### 5 102 #### [facility] [address] [place] [address], [facility] RBC (Bld) [#/Vol] 4.56 10*6/uL Normal 4.20-5.70 [facility] Comment on above: Performed By: #### 5 102 #### [facility] [address] [place] [address], [facility] WBC (Bld) [#/Vol] 7.19 10*3/uL Normal 4.00-10.60 [facility] Comment on above: Performed By: #### 5 0103 #### [address] FEMUR RIGHT 2 VWSon 11-15-19 FEMUR RIGHT 2 VWS [facility] Department of Radiology [address] [place] [id number] Patient Name: SHIVANI RUIZ : 1950 Sex: M Age: Race: White Pt. Location: Patient Status: Ordered Date: 11/14/2021 9:15:00 AM Completed Date: 11/14/2021 11:15 AM Requesting Provider: KYREE CHAND Attending Provider: Report Copy To: Signs & Symptoms: Z96.651 Presence of right artificial knee joint I10 History: Regla Comments: Evaluate Exam: FEMUR RIGHT 2 S FEMUR RIGHT 2 S 11/14/2021 11:15 AM CLINICAL INDICATIONS: Z96.651 Presence of right artificial knee joint I10 TECHNOLOGIST COMMENTS: History of right femur/right knee surgery 01/02/2021. Ortho follow up. QUESTION FOR THE RADIOLOGIST: Evaluate PROTOCOL: AP(PA) and Lateral views were obtained. COMPARISON: None FINDINGS: No acute fracture. Fusion of the right knee joint with orthopedic hardware in place. No acute fracture malalignment erosion. Soft tissues unremarkable IMPRESSION: Chronic findings as above. Symptoms persist consider bone scan or MRI. Electronically signed: Cary Perez Transcribed by: [email or web address], User Resident: Electronically Signed by: CARY HILL @ 11/14/2021 11:58 AM Normal [facility] Comment on above: Order Comment: Evalu ate KNEE RIGHT 1 OR 2 VWSon KNEE RIGHT 1 OR 2 S [facility] Department of Radiology [address] [place] [id number] Patient Name: SHIVANI RUIZ : 1950 Sex: M Age: Race: White Pt. Location: Patient Status: Ordered Date: 11/14/2021 9:15:00 AM Completed Date: 11/14/2021 11:15 AM Requesting Provider: KYREE CHAND Attending Provider: Report Copy To: Signs & Symptoms: Z96.651 Presence of right artificial knee joint I10 History: Randle Comments: Evaluate Exam: KNEE RIGHT 1 OR 2 [facility] KNEE RIGHT 1 OR 2 S 11/14/2021 11:15 AM CLINICAL INDICATIONS: Z96.651 Presence of right artificial knee joint I10 TECHNOLOGIST COMMENTS: History of right femur/right knee surgery 01/02/2021. Ortho follow up. QUESTION FOR THE RADIOLOGIST: Evaluate PROTOCOL: AP(PA) and Lateral views were obtained. COMPARISON: 10/10/2021 FINDINGS: Fusion of the knee with orthopedic hardware in place. No acute fracture. No new periostitis. Soft tissues unremarkable calcification present. IMPRESSION: No significant change Electronically signed: Cary Hill. Transcribed by: [email or web address], User Resident: Electronically Signed by: CARY Magallon MARTINA @ 11/14/2021 11:59 AM Normal [facility] Comment on above: Order Comment: Evalu ate LIVER ALVAon 11-14-2021 Albumin [Mass/Vol] 3.9 g/dL Normal 3.5-5.7 [facility] Comment on above: Performed By: #### 0 0071, 65576 ####[facility] [place] [address], [facility] ALKALINE PHOSPH 104 IU/L Normal 34-104 [facility] Comment on above: Performed By: #### 0 0071, 24407 ####[facility] [place] [address], [place] ALT [Catalytic activity/Vol] 24 U/L Normal 7-52 [facility] Comment on above: Performed By: #### 0 0071, 22299 ####[facility] [place] [address], [place] AST [Catalytic activity/Vol] 26 U/L Normal 13-39 [facility] Comment on above: Performed By: #### 0 0071, 37744 ####[facility] [place] [address], [place] Bilirubin [Mass/Vol] 0.5 mg/dL Normal 0.3-1.0 [facility] Comment on above: Performed By: #### 0 0071, 05344 ####[facility] [place] [address], [place] Bilirubin.direct [Mass/Vol] 0.1 mg/dL Normal 0.0-0.2 The [facility] Comment on above: Performed By: #### 0 [id number], [id number] ####[facility] [place] [address], [place] Protein [Mass/Vol] 6.7 g/dL Normal 6.0-8.3 The [facility] Comment on above: Performed By: #### 0 [id number], [id number] ####[facility] FEMUR RIGHT 2 [facility] 10-11-19 FEMUR RIGHT 2 S [facility] Department of Radiology [address] [place] [id number] Patient Name: SHIVANI RUIZ : 1950 Sex: M Age: Race: White Pt. Location: Patient Status: O Ordered Date: 10/10/2021 8:30:00 AM Completed Date: 10/10/2021 08:40 AM Requesting Provider: KYREE CHAND Attending Provider: KYREE CHAND Report Copy To: Signs & Symptoms: Z96.651 Presence of right artificial knee joint I10 History: Comments: Evaluate Exam: FEMUR RIGHT 2 [facility] FEMUR RIGHT 2 [facility] 10/10/2021 8:40 AM CLINICAL INDICATIONS: Right leg pain TECHNOLOGIST COMMENTS: Ortho follow up for surgery to the right femur and right knee. QUESTION FOR THE RADIOLOGIST: Evaluate PROTOCOL: AP(PA) and Lateral views were obtained. COMPARISON: Right femur x-ray 09/05/2021 FINDINGS: Redemonstrated knee prosthesis with long femoral and tibial stem components joint effusion. Interlocking screws at proximal femoral component demonstrate surrounding periosteal reaction or cortical thickening which appears stable compared to prior exam. Surrounding lucencies of the proximal screws without significant change from prior. Lucency between cement of the femoral component in the joint appears unchanged compared to prior exam. No acute hardware complication is appreciated on this exam. Degenerative changes seen at right femoral acetabular joint compartment. IMPRESSION: Right femur in the hardware appears stable compared to prior exam. Approved by:Daljit Mendez10/10/2021 10:58 AM. I, Joshua Stark,have reviewed the image(s) and agree with the findings in this report. Electronically signed: Joshua Stark. Transcribed by: [email or web address], User Resident: DALJIT RAJAN Electronically Signed by: JOSHUA STARK @ 10/10/2021 02:26 PM I personally read this/these film(s) with this resident Normal [facility] Comment on above: Order Comment: Evalu ate KNEE RIGHT 1 OR 2 [facility] KNEE RIGHT 1 OR 2 [facility] Department of Radiology [address] [place] [phone] Patient Name: SHIVANI RUIZ : 1950 Sex: M Age: Race: White Pt. Location: Patient Status: O Ordered Date: 10/10/2021 8:30:00 AM Completed Date: 10/10/2021 08:38 AM Requesting Provider: KYREE CHAND Attending Provider: KYREE CHAND Report Copy To: Signs & Symptoms: Z96.651 Presence of right artificial knee joint I10 History: Comments: Evaluate Exam: KNEE RIGHT 1 OR 2 [facility] KNEE RIGHT 1 OR 2 VWS 10/10/2021 8:38 AM CLINICAL INDICATIONS: Knee pain TECHNOLOGIST COMMENTS: Ortho follow up for surgery to the right femur and right knee. QUESTION FOR THE RADIOLOGIST: Evaluate PROTOCOL: AP(PA) and Lateral views were obtained. COMPARISON: 09/06/2019 FINDINGS: No acute fracture. Long stem knee arthroplasty in unchanged alignment without evidence of complication. Bony remodeling involving the knee joint. IMPRESSION: * Long stem knee arthroplasty in unchanged alignment without evidence of complication. Approved by:Hans Lee10/10/2021 10:13 AM. I, Joshua Stark,have reviewed the image(s) and agree with the findings in this report. Electronically signed: Joshua Stark. Transcribed by: [email or web address], User Resident: HANS ROBLEDO Electronically Signed by: JOSHUA STARK @ 10/10/2021 10:52 AM I personally read this/these film(s) with this resident Normal [facility] Comment on above: Order Comment: Evalu ate C REACTIVE PROTEINon 022 CRP [Mass/Vol] 14.5 mg/L High 0.0-7.0 [facility] Comment on above: Performed By: #### 6 1405 ####[facility] CBC COMPLETE BLOOD COUNTon 0 09-05-2021 Erythrocyte distribution width (RBC) [Ratio] 16.6 % High 11.5-15.0 [facility] Comment on above: Performed By: #### 8 [id number] #### [facility] [address] Hematocrit (Bld) [Volume fraction] 45.9 % Normal 39.0-50.0 [facility] Comment on above: Performed By: #### 8 7799 #### [facility] [address] [facility]. [address] Hemoglobin (Bld) [Mass/Vol] 15.3 g/dL Normal 13.0-17.0 [facility] Comment on above: Performed By: #### 8 6733 #### [facility] [address] MCH (RBC) [Entitic mass] 32.4 pg Normal 27.0-33.0 [facility] Comment on above: Performed By: #### 8 5499 #### [facility] [address] MCHC (RBC) [Mass/Vol] 33.3 g/dL Normal 32.0-35.0 [facility] Comment on above: Performed By: #### 8 5499 #### [facility] [address] MCV (RBC) [Entitic vol] 97.2 fL Normal 82.0-98.0 [facility] Comment on above: Performed By: #### 8 [id number] #### [facility] [address] Nucleated RBC/100 WBC (Bld) [Ratio] 0 % Normal 0-0 [facility] Comment on above: Performed By: #### 8 [id number] #### [facility] [address] PLAT CNT 229 10*3/uL Normal 150-400 [facility] Comment on above: Performed By: #### 8 [id number] #### [facility] [address] RBC (Bld) [#/Vol] 4.72 10*6/uL Normal 4.20-5.70 [facility] Comment on above: Performed By: #### 8 5499 #### [facility] [address] [place] [address], [facility] WBC (Bld) [#/Vol] 6.58 10*3/uL Normal 4.00-10.60 [facility] Comment on above: Performed By: #### 8 [id number] #### [facility] [address] [place] [address], [facility] COMP METABOLIC PANELon 09-05 Albumin [Mass/Vol] 4.1 g/dL Normal 3.5-5.7 [facility] Comment on above: Performed By: #### 0 0121 ####[facility] [place] [address], [facility] ALKALINE PHOSPH 112 IU/L High 34-104 [facility] Comment on above: Performed By: #### 0 0121 ####[facility] [place] [address], [place] ALT [Catalytic activity/Vol] 21 U/L Normal 7-52 [facility] Comment on above: Performed By: #### 0 0121 ####[facility] [facility] [place] [address], [facility] AST [Catalytic activity/Vol] 26 U/L Normal 13-39 [facility] Comment on above: Performed By: #### 0 0121 ####[facility] [facility] [place] [address], [facility] Bilirubin [Mass/Vol] 0.8 mg/dL Normal 0.3-1.0 [facility] Comment on above: Performed By: #### 0 0121 ####[facility] [facility] [place] [address], [facility] Calcium [Mass/Vol] 9.6 mg/dL Normal 8.6-10.3 [facility] Comment on above: Performed By: #### 0 0121 ####[facility] [place] [address], [place] Chloride [Moles/Vol] 102 mmol/L Normal 98-107 [facility] Comment on above: Performed By: #### 0 0121 ####[facility] [place] [address], [place] CO2 [Moles/Vol] 30 mmol/L Normal 21-31 [facility] Comment on above: Performed By: #### 0 0121 ####[facility] [place] [address], [facility] Creatinine [Mass/Vol] 1.29 mg/dL Normal 0.70-1.30 [facility] Comment on above: Performed By: #### 0 0121 ####[facility] [place] [address], [facility] eGFR- non- 55 ml/min/1.73sq m Abnormal >60 [facility] Comment on above: Performed By: #### 0 0121 ####[facility] [place] [address], [facility] GFR/1.73 sq M.predicted among blacks MDRD (S/P/Bld) [Vol rate/Area] mL/min/{1.73_m2} Normal >60 [facility] Comment on above: Performed By: #### 0 0121 ####[facility] [place] [address], [facility] Glucose [Mass/Vol] 99 mg/dL Normal 70-100 [facility] Comment on above: Performed By: #### 0 0121 ####[facility] [place] [address], [facility] Potassium [Moles/Vol] 4.1 mmol/L Normal 3.5-5.1 [facility] Comment on above: Performed By: #### 0 0121 ####[facility] [place] [address], [facility] Protein [Mass/Vol] 7.2 g/dL Normal 6.0-8.3 [facility] Comment on above: Performed By: #### 0 0121 ####[facility] [place] [address], [facility] Sodium [Moles/Vol] 139 mmol/L Normal 136-145 [facility] Comment on above: Performed By: #### 0 0121 ####[facility] Urea nitrogen [Mass/Vol] 24 mg/dL Normal 7-25 [facility] Comment on above: Performed By: #### 0 0121 ####[facility] [place], [place] [id number] [place] [address] FEMUR RIGHT 2 VWSon 09-06-19 22 FEMUR RIGHT 2 VWS [facility] Department of Radiology [address] [place] [phone] Patient Name: SHIVANI RUIZ : 1950 Sex: M Age: Race: White Pt. Location: Patient Status: D Ordered Date: 09/05/2021 10:05:00 AM Completed Date: 09/05/2021 10:14 AM Requesting Provider: KYREE CHAND Attending Provider: KYREE CHAND Report Copy To: JAREN KAM Signs & Symptoms: Z96.651 Presence of right artificial knee joint I10 History: Regla Comments: Exam: FEMUR RIGHT 2 VWS FEMUR RIGHT 2 VWS 09/05/2021 10:14 AM SIGNS AND SYMPTOMS: Z96.651 Presence of right artificial knee joint I10 TECHNOLOGIST COMMENTS: Patient complains of right femur and right knee pain. History of right knee surgery 01/02/2021. Ortho follow up. QUESTION FOR THE RADIOLOGIST: PROTOCOL: AP(PA) and Lateral views were obtained. COMPARISON: August 08, 2021 FINDINGS: Redemonstrated knee prosthesis with long femoral and tibial stem components and joint fusion. Interlocking screws the proximal femoral component demonstrates surrounding periosteal reaction or cortical thickening similar to prior studies. Associated lucency between the cement and the femoral stem component at the knee joint. Also unchanged. There is degenerative change of the femoral acetabular joint without acute abnormality. IMPRESSION: * No significant change from previous exams. Electronically signed: Sadiq Curry. Transcribed by: [email or web address], User Resident: SADIQ CURRY Electronically Signed by: SADIQ CURRY @ 09/07/2021 01:02 PM I personally read this/these film(s) with this resident Normal [facility] KNEE RIGHT 1 OR 2 [facility] KNEE RIGHT 1 OR 2 [facility] Department of Radiology [address] [place] [id number] Patient Name: SHIVANI RUIZ : 1950 Sex: M Age: Race: White Pt. Location: Patient Status: D Ordered Date: 09/05/2021 10:05:00 AM Completed Date: 09/05/2021 10:14 AM Requesting Provider: KYREE CHAND Attending Provider: KYREE CHAND Report Copy To: JAREN KAM Signs & Symptoms: Z96.651 Presence of right artificial knee joint I10 History: Randle Comments: Exam: KNEE RIGHT 1 OR 2 [facility] KNEE RIGHT 1 OR 2 VWS 09/05/2021 10:14 AM SIGNS AND SYMPTOMS: Z96.651 Presence of right artificial knee joint I10 TECHNOLOGIST COMMENTS: Patient complains of right femur and right knee pain. History of right knee surgery 01/02/2021. Ortho follow up. QUESTION FOR THE RADIOLOGIST: PROTOCOL: AP(PA) and Lateral views were obtained. COMPARISON: August 08, 2021 FINDINGS: Stable appearance of the long stem knee prosthesis and joint effusion. Tibial component appears intact without perceivable complication. Prominent surrounding soft tissues. IMPRESSION: * Stable appearance of right knee hardware. Electronically signed: Sadiq Curry. Transcribed by: [email or web address], User Resident: SADIQ CURRY Electronically Signed by: SADIQ CURRY @ 09/07/2021 01:03 PM I personally read this/these film(s) with this resident Normal [facility] FEMUR RIGHT 2 VWSon 08-09-19 22 FEMUR RIGHT 2 VWS [facility] Department of Radiology [address] [place] [phone] Patient Name: SHIVANI RUIZ : 1950 Sex: M Age: Race: White Pt. Location: Patient Status: D Ordered Date: 08/08/2021 9:25:00 AM Completed Date: 08/08/2021 09:30 AM Requesting Provider: KYREE CHAND Attending Provider: KYREE CHAND Report Copy To: Signs & Symptoms: Z96.651 Presence of right artificial knee joint I10 History: Comments: Evaluate Exam: FEMUR RIGHT 2 S FEMUR RIGHT 2 VWS 08/08/2021 9:30 AM CLINICAL INDICATIONS: Z96.651 Presence of right artificial knee joint I10 TECHNOLOGIST COMMENTS: follow up surgery to right femur and knee QUESTION FOR THE RADIOLOGIST: Evaluate PROTOCOL: AP(PA) and Lateral views were obtained. COMPARISON: 06/20/2021 FINDINGS: Frontal and lateral views of the right femur. Long stem bicompartmental knee prosthesis is again visualized similar to prior study with lucency surrounding the femoral component again seen as well as 2 interlocking screws seen proximally. Metallic clips are seen in the right upper thigh medially from prior surgery. Right hip joint is unremarkable. No other hardware complications are appreciated and mild vascular calcification is seen. IMPRESSION: Long stem right knee prosthesis with lucency around the femoral component possibly represent early loosening. No change is noticed since prior study. Electronically signed: Terrance Conn. Transcribed by: [email or web address], User Resident: Electronically Signed by: TERRANCE CONN @ 08/10/2021 02:18 PM Normal [facility] Comment on above: Order Comment: Evalu ate KNEE RIGHT 1 OR 2 [facility] KNEE RIGHT 1 OR 2 [facility] Department of Radiology [address] [place] [phone] Patient Name: SHIVANI RUIZ : 1950 Sex: M Age: Race: White Pt. Location: Patient Status: D Ordered Date: 08/08/2021 9:25:00 AM Completed Date: 08/08/2021 09:30 AM Requesting Provider: KYREE CHAND Attending Provider: KYREE CHAND Report Copy To: Signs & Symptoms: Z96.651 Presence of right artificial knee joint I10 History: Comments: Evaluate Exam: KNEE RIGHT 1 OR 2 [facility] KNEE RIGHT 1 OR 2 [facility] 08/08/2021 9:30 AM CLINICAL INDICATIONS: Z96.651 Presence of right artificial knee joint I10 TECHNOLOGIST COMMENTS: follow up surgery to right femur and knee QUESTION FOR THE RADIOLOGIST: Evaluate PROTOCOL: AP(PA) and Lateral views were obtained. COMPARISON: 06/20/2021 FINDINGS: 2 views of the right knee are obtained. Right knee prosthesis with long femoral stem is again visualized in satisfactory alignment was interlocking distal screws seen. Vascular calcification in the popliteal artery. Heterotopic ossification is seen anterior to the right proximal tibia. No evidence of hardware complications or change in alignment since prior study. IMPRESSION: Right knee by compartment prosthesis in satisfactory alignment and no interval change is noticed since prior study. Electronically signed: Terrance Conn. Transcribed by: [email or web address], User Resident: Electronically Signed by: TERRANCE CONN @ 08/10/2021 02:20 PM Normal [facility] Comment on above: Order Comment: Evalu ate FEMUR RIGHT 2 [facility] 06-21-19 22 FEMUR RIGHT 2 S [facility] Department of Radiology [address] [place] [phone] Patient Name: SHIVANI RUIZ : 1950 Sex: M Age: Race: White Pt. Location: Patient Status: Ordered Date: 06/20/2021 11:40:00 AM Completed Date: 06/20/2021 11:40 AM Requesting Provider: KYREE CHAND Attending Provider: Report Copy To: Signs & Symptoms: Z96.651 Presence of right artificial knee joint I10 History: Randle Comments: Evaluate Exam: FEMUR RIGHT 2 VWS FEMUR RIGHT 2 VWS 06/20/2021 11:40 AM CLINICAL INDICATIONS: Z96.651 Presence of right artificial knee joint I10 TECHNOLOGIST COMMENTS: follow/up surgery 10/2020 right knee history infection in right knee 12/2020 QUESTION FOR THE RADIOLOGIST: Evaluate PROTOCOL: AP(PA) and Lateral views were obtained. COMPARISON: 05/09/2021 FINDINGS: No acute fracture. No marked soft tissue swelling. Redemonstration of revision longstem hinged arthroplasty. Periprosthetic lucency around the proximal femoral component now measures 6 mm, previously measuring 4 mm. Bony remodeling and/or periosteal reaction along the proximal interlocking screws. Tibial component is incompletely evaluated on this study. Bone remodeling present around the proximal femoral component. IMPRESSION: * Periprosthetic lucency of the proximal femoral component measures 6 mm, slightly increased from prior. Progressive bony remodeling/calcification along the proximal interlocking screws.. Correlate clinically for loosening or infection. Approved by:Hans Crawford06/20/2021 12:21 PM. I, MYKEL INTERIANO,have reviewed the image(s) and agree with the findings in this report. Electronically signed: MYKEL INTERIANO. Transcribed by: [email or web address], User Resident: HANS ROBLEDO Electronically Signed by: MYKEL INTERIANO @ 06/20/2021 02:19 PM I personally read this/these film(s) with this resident Normal [facility] Comment on above: Order Comment: Evalu ate KNEE RIGHT 1 OR 2 Son - KNEE RIGHT 1 OR 2 S [facility] Department of Radiology [address] [place] [phone] Patient Name: SHIVANI RUIZ : 1950 Sex: M Age: Race: White Pt. Location: Patient Status: D Ordered Date: 06/20/2021 11:40:00 AM Completed Date: 06/20/2021 11:40 AM Requesting Provider: KYREE CHAND Attending Provider: Report Copy To: Signs & Symptoms: Z96.651 Presence of right artificial knee joint I10 History: Randle Comments: Evaluate Exam: KNEE RIGHT 1 OR 2 [facility] KNEE RIGHT 1 OR 2 [facility] 06/20/2021 11:40 AM CLINICAL INDICATIONS: Z96.651 Presence of right artificial knee joint I10 TECHNOLOGIST COMMENTS: follow/up surgery 10/2020 right knee history infection in right knee 12/2020 QUESTION FOR THE RADIOLOGIST: Evaluate PROTOCOL: AP(PA) and Lateral views were obtained. COMPARISON: March 21, 2021 IMPRESSION: Unchanged right knee arthroplasty with longstem prosthesis, no significant interval change in appearance or alignment. No interval hardware complication. Pretibial soft tissue calcifications, also unchanged. Electronically signed: Kwasi Conway. Transcribed by: [email or web address], User Resident: Electronically Signed by: KWASI CONWAY @ 06/21/2021 07:05 PM Normal [facility] Comment on above: Order Comment: Evalu ate FEMUR RIGHT 2 VWSon 05-10-19 22 FEMUR RIGHT 2 S [facility] Department of Radiology [address] [place] [phone] Patient Name: SHIVANI RUIZ : 1950 Sex: M Age: Race: White Pt. Location: Patient Status: D Ordered Date: 05/09/2021 10:05:00 AM Completed Date: 05/09/2021 10:20 AM Requesting Provider: KYREE CHAND Attending Provider: KYREE CHAND Report Copy To: Signs & Symptoms: Z96.651 Presence of right artificial knee joint I10 History: Randle Comments: Evaluate Exam: FEMUR RIGHT 2 S FEMUR RIGHT 2 S HISTORY: Prior surgery, follow-up. COMPARISON: 02/14/2021. IMPRESSION: 1. Redemonstrated changes from revision longstem hinged arthroplasty, periprosthetic lucency surrounding the femoral and tibial components are seen component roughly 4 mm along the tibial component roughly 4 mm as well. Please correlate for possibility of loosening. No appreciable acute or subacute fracture. Some new regions of osseous remodeling cording periosteal new bone along the proximal femoral hardware component along the mid shaft femur, no acute fracture is seen however remodeling from prior fracture is possible. Electronically signed: Joshua Stark. Transcribed by: [id number], User Resident: Electronically Signed by: JOSHUA STARK @ 05/11/2021 06:51 PM Normal [facility] Comment on above: Order Comment: Evalu ate KNEE RIGHT 1 OR 2 Son 03-08 KNEE RIGHT 1 OR 2 S [facility] Department of Radiology [address] [place] [phone] Patient Name: SHIVANI RUIZ : 1950 Sex: M Age: Race: White Pt. Location: Patient Status: D Ordered Date: 03/21/2021 10:25:00 AM Completed Date: 03/21/2021 10:34 AM Requesting Provider: KYREE CHAND Attending Provider: KYREE CHAND Report Copy To: Signs & Symptoms: Z96.651 Presence of right artificial knee joint I10 History: Regla Comments: Evaluate Exam: KNEE RIGHT 1 OR 2 [facility] KNEE RIGHT 1 OR 2 [facility] 03/21/2021 10:34 AM CLINICAL INDICATIONS: Z96.651 Presence of right artificial knee joint I10 TECHNOLOGIST COMMENTS: Ortho follow up. Check healing. Most recent knee surgery on 10/2020. QUESTION FOR THE RADIOLOGIST: Evaluate PROTOCOL: AP(PA) and Lateral views were obtained. COMPARISON: 02/14/2021 FINDINGS: A lucency about the tibial component and femoral bone methylmethacrylate junction appears unchanged. Hardware is unchanged. Marked degenerative change about patellofemoral joint noted no new fractures seen. Multiple small radiopacities overlie suprapatellar joint space. IMPRESSION: Unchanged appearance of the right knee. Infection is not excluded. Electronically signed: Ruby Celeste. Transcribed by: [email or web address], User Resident: Electronically Signed by: RUBY CELESTE @ 03/22/2021 02:00 PM Normal [facility] Comment on above: Order Comment: Evalu ate BASIC METABOLIC PANELon 12- Calcium [Mass/Vol] 9.9 mg/dL Normal 8.6-10.3 [facility] Comment on above: Performed By: #### 0 0071 ####[facility] [place] [address], [facility] Chloride [Moles/Vol] 102 mmol/L Normal 98-107 [facility] Comment on above: Performed By: #### 0 0071 ####[facility] [place] [address], [place] CO2 [Moles/Vol] 30 mmol/L Normal 21-31 [facility] Comment on above: Performed By: #### 0 0071 ####[facility] [place] [address], [place] Creatinine [Mass/Vol] 1.23 mg/dL Normal 0.70-1.30 [facility] Comment on above: Performed By: #### 0 0071 ####[facility] [place] [address], [place] eGFR- non- 59 ml/min/1.73sq m Abnormal >60 [facility] Comment on above: Performed By: #### 0 0071 ####[facility] [place] [address], [place] GFR/1.73 sq M.predicted among blacks MDRD (S/P/Bld) [Vol rate/Area] mL/min/{1.73_m2} Normal >60 [facility] Comment on above: Performed By: #### 0 0071 ####[facility] Glucose [Mass/Vol] 114 mg/dL High 70-100 [facility] Comment on above: Performed By: #### 0 0071 ####[facility] [facility].[address] Potassium [Moles/Vol] 4.3 mmol/L Normal 3.5-5.1 [facility] Comment on above: Performed By: #### 0 0071 ####[facility] [facility].[address] Sodium [Moles/Vol] 141 mmol/L Normal 136-145 [facility] Comment on above: Performed By: #### 0 0071 ####[facility] Urea nitrogen [Mass/Vol] 21 mg/dL Normal 7-25 [facility] Comment on above: Performed By: #### 0 0071 ####[facility] C REACTIVE PROTEINon 021 CRP [Mass/Vol] 22.5 mg/L High 0.0-7.0 [facility] Comment on above: Performed By: #### 6 1405 ####[facility] CBC W/DIFFon 02-14-2021 ABS IMM GRANS 0.1 10*3/uL Normal 0.0-0.2 [facility] Comment on above: Performed By: #### 8 5499 #### [facility] [address] [place] [address], [facility] ABS NEUTROPHILS 5.3 10*3/uL Normal 1.6-7.6 [facility] Comment on above: Performed By: #### 8 5499 #### [facility] [address] [place] [address], [facility] Basophils (Bld) [#/Vol] 0.1 10*3/uL Normal 0.0-0.2 [facility] Comment on above: Performed By: #### 8 5499 #### [facility] [address] [address] [place] [id number], [facility] Basophils/100 WBC (Bld) 0.8 % Normal 0.0-1.0 The [facility] Comment on above: Performed By: #### 8 [id number] #### [facility] [address] [place] [address], [facility] Eosinophils (Bld) [#/Vol] 0.7 10*3/uL High 0.0-0.5 The [facility] Comment on above: Performed By: #### 8 [id number] #### [facility] [address] [place] [address], [facility] Eosinophils/100 WBC (Bld) 8.9 % High 0.0-6.0 The [facility] Comment on above: Performed By: #### 8 [id number] #### [facility] [address] [place] [address], [facility] Erythrocyte distribution width (RBC) [Ratio] 16.8 % High 11.5-15.0 [facility] Comment on above: Performed By: #### 8 [id number] #### [facility] [address] [place] [address], [facility] Hematocrit (Bld) [Volume fraction] 43.5 % Normal 39.0-50.0 The [facility] Comment on above: Performed By: #### 8 [id number] #### [facility] [address] [place] [id number], [facility] Hemoglobin (Bld) [Mass/Vol] 13.8 g/dL Normal 13.0-17.0 The [facility] Comment on above: Performed By: #### 8 [id number] #### [facility] [address] [place] [address], [facility] IMMATURE GRANS 0.7 % Normal 0.0-1.0 The [facility] Comment on above: Performed By: #### 8 [id number] #### [facility] [address] [place] [address], [facility] Lymphocytes (Bld) [#/Vol] 0.9 10*3/uL Low 1.2-4.0 The [facility] Comment on above: Performed By: #### 8 [id number] #### [facility] [address] [facility] Lymphocytes/100 WBC (Bld) 12.1 % Low 20.0-45.0 [facility] Comment on above: Performed By: #### 8 [id number] #### [facility] [address] [facility] MCH (RBC) [Entitic mass] 28.6 pg Normal 27.0-33.0 The [facility] Comment on above: Performed By: #### 8 [id number] #### [facility] [address] [facility] MCHC (RBC) [Mass/Vol] 31.7 g/dL Low 32.0-35.0 The [facility] Comment on above: Performed By: #### 8 [id number] #### [facility] [address] [facility] [address], [facility] MCV (RBC) [Entitic vol] 90.2 fL Normal 82.0-98.0 The [facility] Comment on above: Performed By: #### 8 [id number] #### [facility] [address] [place] [address], [facility] Monocytes (Bld) [#/Vol] 0.6 10*3/uL Normal 0.1-1.0 The [facility] Comment on above: Performed By: #### 8 [id number] #### [facility] [address] [place] [address], [place] MONOS 7.7 % Normal 5.0-12.0 The [facility] Comment on above: Performed By: #### 8 [id number] #### [place] [address], [facility] Neutrophils/100 WBC (Bld) 69.8 % Normal 40.0-72.0 The [facility] Comment on above: Performed By: #### 8 [id number] #### [facility] [address] [place] [address], [facility] Nucleated RBC/100 WBC (Bld) [Ratio] 0 % Normal 0-0 The [facility] Comment on above: Performed By: #### 8 [id number] #### [place] [address], [facility] PLAT CNT 390 10*3/uL Normal 150-400 The [facility] Comment on above: Performed By: #### 8 5499 #### [place] [address], [facility] RBC (Bld) [#/Vol] 4.82 10*6/uL Normal 4.20-5.70 The [facility] Comment on above: Performed By: #### 8 [id number] #### [place] [address], [facility] WBC (Bld) [#/Vol] 7.54 10*3/uL Normal 4.00-10.60 The [facility] Comment on above: Performed By: #### 8 [id number] #### [place] [address], [facility] FEMUR RIGHT 2 VWSon 02-15-20 21 FEMUR RIGHT 2 VWS [facility] Department of Radiology [address] [place] [phone] Patient Name: SHIVANI RUIZ : 1950 Sex: M Age: Race: White Pt. Location: 84 Patient Status: D Ordered Date: 02/14/2021 10:15:00 AM Completed Date: 02/14/2021 10:16 AM Requesting Provider: KYREE CHAND Attending Provider: KYREE CHAND Report Copy To: Signs & Symptoms: Z96.651 Presence of right artificial knee joint I10 History: Regla Comments: Evaluate Exam: FEMUR RIGHT 2 [facility] FEMUR RIGHT 2 S 02/14/2021 10:16 AM SIGNS AND SYMPTOMS: Z96.651 Presence of right artificial knee joint I10 TECHNOLOGIST COMMENTS: repeat distal right femur to get endo of stem. History of right knee surgery 01/02/2021. QUESTION FOR THE RADIOLOGIST: Evaluate PROTOCOL: AP(PA) and Lateral views were obtained. COMPARISON: 01/01/2021 FINDINGS: Single view demonstrates grossly intact femoral stem and interlocking screws. Cortical thickening again noted. IMPRESSION: * As above Electronically signed: Sadiq Curry. Transcribed by: [email or web address], User Resident: SADIQ CURRY Electronically Signed by: SADIQ CURRY @ 02/16/2021 12:16 PM I personally read this/these film(s) with this resident Normal The [facility] Comment on above: Order Comment: Evalu ate KNEE RIGHT 1 OR 2 [facility] 02-05 KNEE RIGHT 1 OR 2 S [facility] Department of Radiology [address] [place] [phone] Patient Name: SHIVANI RUIZ : 1950 Sex: M Age: Race: White Pt. Location: Patient Status: D Ordered Date: 02/14/2021 9:10:00 AM Completed Date: 02/14/2021 09:15 AM Requesting Provider: KYREE CHAND Attending Provider: KYREE CHAND Report Copy To: Signs & Symptoms: Z96.651 Presence of right artificial knee joint I10 History: Comments: Evaluate Exam: KNEE RIGHT 1 OR 2 VWS KNEE RIGHT 1 OR 2 VWS HISTORY: Prior surgery, follow-up COMPARISON: 01/02 2021 and priors. IMPRESSION: 1. Redemonstrated longstem knee prosthesis, vague vertically oriented fracture lucency along the posterior aspect of the proximal tibia still seen suggesting incompletely healing nondisplaced fracture. Subtle periprosthetic lucencies of the proximal tibial component best seen lateral view without significant change. 2. Improved alignment of the proximal screws of the femoral component. Chronic remodeling distal femur, knee, proximal tibia unchanged. Subtle periosteal reaction seen. Electronically signed: Joshua Stark. Transcribed by: [email or web address], User Resident: Electronically Signed by: JOSHUA STARK @ 02/15/2021 10:47 AM Normal The [facility] Comment on above: Order Comment: Evalu ate BASIC METABOLIC PANELon 11-1 Calcium [Mass/Vol] 9.9 mg/dL Normal 8.6-10.3 The [facility] Comment on above: Performed By: #### 0 0071 ####[facility] [place] [address], [facility] Chloride [Moles/Vol] 100 mmol/L Normal 98-107 The [facility] Comment on above: Performed By: #### 0 0071 ####[facility] [place] [address], [place] CO2 [Moles/Vol] 29 mmol/L Normal 21-31 The [facility] Comment on above: Performed By: #### 0 0071 ####[facility] [place] [address], [place] Creatinine [Mass/Vol] 1.52 mg/dL High 0.70-1.30 The [facility] Comment on above: Performed By: #### 0 0071 ####[facility] [place] [address], [facility] eGFR- 55 ml/min/1.73sq m Abnormal >60 The [facility] Comment on above: Performed By: #### 0 0071 ####[facility] [facility] [place] [address], [facility] eGFR- non- 46 ml/min/1.73sq m Abnormal >60 The [facility] Comment on above: Performed By: #### 0 0071 ####[facility] [place] [address], [place] Glucose [Mass/Vol] 111 mg/dL High 70-100 The [facility] Comment on above: Performed By: #### 0 0071 ####[facility] [place] [address], [place] Potassium [Moles/Vol] 4.2 mmol/L Normal 3.5-5.1 [facility] Comment on above: Performed By: #### 0 0071 ####[facility] [place] [address], [place] Sodium [Moles/Vol] 138 mmol/L Normal 136-145 The [facility] Comment on above: Performed By: #### 0 0071 ####[facility] [place] [address], [facility] Urea nitrogen [Mass/Vol] 29 mg/dL High 7-25 The [facility] Comment on above: Performed By: #### 0 0071 ####[facility] C REACTIVE PROTEINon 021 CRP [Mass/Vol] 42.2 mg/L High 0.0-7.0 [facility] Comment on above: Performed By: #### 6 1405 ####[facility] CBC W/DIFFon 01-17-2021 ABS IMM GRANS 0.0 10*3/uL Normal 0.0-0.2 [facility] Comment on above: Performed By: #### 8 [id number] #### [facility] [address] [place] [address], [facility] ABS NEUTROPHILS 6.2 10*3/uL Normal 1.6-7.6 The [facility] Comment on above: Performed By: #### 8 5499 #### [facility] [address] [place] [address], [facility] Basophils (Bld) [#/Vol] 0.1 10*3/uL Normal 0.0-0.2 The [facility] Comment on above: Performed By: #### 8 5499 #### [facility] [address] [place] [address], [facility] Basophils/100 WBC (Bld) 0.9 % Normal 0.0-1.0 [facility] Comment on above: Performed By: #### 8 5499 #### [facility] [address] [place] [address], [facility] Eosinophils (Bld) [#/Vol] 0.5 10*3/uL Normal 0.0-0.5 [facility] Comment on above: Performed By: #### 8 5499 #### [facility] [address] [place] [address], [facility] Eosinophils/100 WBC (Bld) 5.9 % Normal 0.0-6.0 [facility] Comment on above: Performed By: #### 8 5499 #### [facility] [address] Erythrocyte distribution width (RBC) [Ratio] 14.5 % Normal 11.5-15.0 [facility] Comment on above: Performed By: #### 8 5499 #### [facility] [address] [facility] [place] [address], [facility] Hematocrit (Bld) [Volume fraction] 47.3 % Normal 39.0-50.0 [facility] Comment on above: Performed By: #### 8 5499 #### [facility] [address] [facility] [address] Hemoglobin (Bld) [Mass/Vol] 15.0 g/dL Normal 13.0-17.0 [facility] Comment on above: Performed By: #### 8 5499 #### [facility] [address] [facility] [place] [address], [facility] IMMATURE GRANS 0.2 % Normal 0.0-1.0 [facility] Comment on above: Performed By: #### 8 5499 #### [facility] [address] [place] [address], [facility] Lymphocytes (Bld) [#/Vol] 1.0 10*3/uL Low 1.2-4.0 [facility] Comment on above: Performed By: #### 8 5499 #### [facility] [address] [place] [id number], [facility] Lymphocytes/100 WBC (Bld) 12.5 % Low 20.0-45.0 [facility] Comment on above: Performed By: #### 8 5499 #### [facility] [address] [place] [address], [facility] MCH (RBC) [Entitic mass] 29.0 pg Normal 27.0-33.0 [facility] Comment on above: Performed By: #### 8 5499 #### [facility] [address] [place] [address], [facility] MCHC (RBC) [Mass/Vol] 31.7 g/dL Low 32.0-35.0 [facility] Comment on above: Performed By: #### 8 5499 #### [facility] [address] [facility]. [address] MCV (RBC) [Entitic vol] 91.5 fL Normal 82.0-98.0 [facility] Comment on above: Performed By: #### 8 5499 #### [facility] [address] [place] [address], [facility] Monocytes (Bld) [#/Vol] 0.4 10*3/uL Normal 0.1-1.0 [facility] Comment on above: Performed By: #### 8 5499 #### [facility] [address] [facility] [address] MONOS 5.0 % Normal 5.0-12.0 [facility] Comment on above: Performed By: #### 8 5499 #### [facility] [address] [facility] [address] Neutrophils/100 WBC (Bld) 75.5 % High 40.0-72.0 [facility] Comment on above: Performed By: #### 8 5499 #### [facility] [address] [place] [address], [facility] Nucleated RBC/100 WBC (Bld) [Ratio] 0 % Normal 0-0 [facility] Comment on above: Performed By: #### 8 5499 #### [facility] [address] [place] [address], [place] PLAT CNT 214 10*3/uL Normal 150-400 [facility] Comment on above: Performed By: #### 8 5499 #### [facility] [address] [place] [address], [place] RBC (Bld) [#/Vol] 5.17 10*6/uL Normal 4.20-5.70 [facility] Comment on above: Performed By: #### 8 5499 #### [facility] [address] [place] [address], [place] WBC (Bld) [#/Vol] 8.16 10*3/uL Normal 4.00-10.60 [facility] Comment on above: Performed By: #### 8 5499 #### [facility] [address] [place] [address], [place] BASIC METABOLIC PANELon 10-3 Calcium [Mass/Vol] 8.5 mg/dL Low 8.6-10.3 The [facility] Comment on above: Order Comment: No: D o not add to previous draw Performed By: #### 8 5499 #### [facility] [address] [place] [address], [place] Chloride [Moles/Vol] 104 mmol/L Normal 98-107 [facility] Comment on above: Order Comment: No: D o not add to previous draw Performed By: #### 8 5499 #### [facility] [address] [place] [address], [place] CO2 [Moles/Vol] 29 mmol/L Normal 21-31 [facility] Comment on above: Order Comment: No: D o not add to previous draw Performed By: #### 8 5499 #### [facility] [address] [place] [address], [place] Creatinine [Mass/Vol] 1.27 mg/dL Normal 0.70-1.30 [facility] Comment on above: Order Comment: No: D o not add to previous draw Performed By: #### 8 5499 #### [facility] [address] [place] [address], [place] eGFR- non- 56 ml/min/1.73sq m Abnormal >60 The [facility] Comment on above: Order Comment: No: D o not add to previous draw Performed By: #### 8 5499 #### [facility] [address] [place] [address], [place] GFR/1.73 sq M.predicted among blacks MDRD (S/P/Bld) [Vol rate/Area] mL/min/{1.73_m2} Normal >60 The [facility] Comment on above: Order Comment: No: D o not add to previous draw Performed By: #### 8 5499 #### [facility] [address] [place] [address], [place] Glucose [Mass/Vol] 87 mg/dL Normal 70-100 The [facility] Comment on above: Order Comment: No: D o not add to previous draw Performed By: #### 8 5499 #### [facility] [address] [place] [address], [place] Potassium [Moles/Vol] 4.1 mmol/L Normal 3.5-5.1 [facility] Comment on above: Order Comment: No: D o not add to previous draw Performed By: #### 8 5499 #### [facility] [address] [place] [address], [place] Sodium [Moles/Vol] 138 mmol/L Normal 136-145 [facility] Comment on above: Order Comment: No: D o not add to previous draw Performed By: #### 8 5499 #### [facility] [address] [place] [address], [place] Urea nitrogen [Mass/Vol] 29 mg/dL High 7-25 [facility] Comment on above: Order Comment: No: D o not add to previous draw Performed By: #### 8 5499 #### [id number] [place] [address] PORTABLE CHEST 1 VIEWon 12-08 PORTABLE CHEST 1 VIEW [facility] Department of Radiology [address] [place] [phone] Patient Name: SHIVANI RUIZ : 1950 Sex: M Age: Race: White Pt. Location: [id number] Patient Status: I Ordered Date: 01/05/2021 3:35:00 PM Completed Date: 01/05/2021 04:02 PM Requesting Provider: HOMERO BUITRAGO Attending Provider: HOMERO BUITRAGO Report Copy To: Signs & Symptoms: Post OP History: See Comments Comments: Check Line Position, pt in afib Exam: PORTABLE CHEST 1 VIEW PORTABLE CHEST 1 VIEW 01/05/2021 4:02 PM CLINICAL INDICATIONS: Post OP TECHNOLOGIST COMMENTS: Check Line Position QUESTION FOR THE RADIOLOGIST: Check Line Position, pt in afib PROTOCOL: AP(PA) view was obtained. COMPARISON: CXR, 01/05/2021 FINDINGS: Interval removal of right upper extremity PICC. Placement of left upper extremity PICC. Tip of the left upper extremity PICC line appears in the mid SVC. Changes of left atrial appendage closure device. Stable cardiomediastinal silhouette. No focal consolidation, significant effusion, or pneumothorax. Degenerative changes of shoulders. IMPRESSION: Left upper extremity PICC, tip at the mid SVC. Electronically signed: MYKEL INTERIANO. Transcribed by: [email or web address], User Resident: Electronically Signed by: MYKEL INTERIANO @ 01/05/2021 04:20 PM Normal [facility] Comment on above: Order Comment: Check Line Position, pt in afib PORTABLE CHEST 1 VIEW [facility] Department of Radiology [address] [place] [phone] Patient Name: SHIVANI RUIZ : 1950 Sex: M Age: Race: White Pt. Location: [id number] Patient Status: I Ordered Date: 01/05/2021 11:30:00 AM Completed Date: 01/05/2021 11:50 AM Requesting Provider: HOMERO BUITRAGO Attending Provider: HOMERO BUITRAGO Report Copy To: Signs & Symptoms: Post Line Placement History: Comments: Check Line Position, PICC line placement. Exam: PORTABLE CHEST 1 VIEW PORTABLE CHEST 1 VIEW 01/05/2021 11:50 AM CLINICAL INDICATIONS: Post Line Placement TECHNOLOGIST COMMENTS: check picc line placement from right side QUESTION FOR THE RADIOLOGIST: Check Line Position, PICC line placement. PROTOCOL: AP(PA) view was obtained. COMPARISON: Prior FINDINGS: Right PICC line is present. There appears to be partially coiled in the axilla and then directed towards the neck. At the time dictation results were reviewed with PICC line nurse was going to replace the catheter the heart appears enlarged but is unchanged there is an atrial clip present. Lungs are clear. IMPRESSION: Right PICC line is present. There appears to be partially coiled in the axilla and then directed towards the neck. Electronically signed: Noah Stevens. Transcribed by: [email or web address], User Resident: Electronically Signed by: NOAH STEVENS @ 01/05/2021 12:01 PM Normal The [facility] Comment on above: Order Comment: Evalu ate PROTHROMBIN TIMEon INR Coag (PPP) [Relative time] 1.01 {INR} Normal 0.91-1.16 [facility] Comment on above: Order Comment: Rebeca silva Result Comment: ACCC P RECOMMENDED INR FOR WARFARIN THERAPY ---- ------- CONDITION INR PROPHYLAXIS OF VENOUS THROMBOSIS 2-3 (HIGH-RISK SURGERY) TREATMENT OF VENOUS THROMBOSIS 2-3 TREATMENT OF PULMONARY EMBOLISM 2-3 PREVENTION OF SYSTEMIC EMBOLISM: 2-3 ACUTE MYOCARDIAL INFARCTION TISSUE HEART VALVES VALVULAR HEART DISEASE ATRIAL FIBRILLATION RECURRENT SYSTEMIC EMBOLISM MECHANICAL HEART VALVE 2.5-3.5 FROM: ORAL ANTICOAGULANTS. MECHANISM OF ACTION, CLINICAL EFFECTIVENESS, AND OPTIMAL THERAPEUTIC RANGE. CHEST 1995;108:231S-246S. Performed By: #### 8 [id number] #### [place] [address] [address] PT Coag (PPP) [Time] 13.3 s Normal 12.3-14.8 [facility] Comment on above: Order Comment: Rebeca wn Result Comment: ALL RESULTS MUST BE INTERPRETED WITH RESPECT TO BLOOD DRAWING ARTIFACT OR DILUTION ERROR OF ANTICOAGULANT AT THE TIME OF SAMPLING. Performed By: #### 8 [id number] #### [facility] [address] [facility]. [address] PROTHROMBIN TIMEon INR Coag (PPP) [Relative time] 1.06 {INR} Normal 0.91-1.16 [facility] Comment on above: Order Comment: Rebeca wn Result Comment: ACCC P RECOMMENDED INR FOR WARFARIN THERAPY ---- ------- CONDITION INR PROPHYLAXIS OF VENOUS THROMBOSIS 2-3 (HIGH-RISK SURGERY) TREATMENT OF VENOUS THROMBOSIS 2-3 TREATMENT OF PULMONARY EMBOLISM 2-3 PREVENTION OF SYSTEMIC EMBOLISM: 2-3 ACUTE MYOCARDIAL INFARCTION TISSUE HEART VALVES VALVULAR HEART DISEASE ATRIAL FIBRILLATION RECURRENT SYSTEMIC EMBOLISM MECHANICAL HEART VALVE 2.5-3.5 FROM: ORAL ANTICOAGULANTS. MECHANISM OF ACTION, CLINICAL EFFECTIVENESS, AND OPTIMAL THERAPEUTIC RANGE. CHEST 1995;108:231S-246S. Performed By: #### 8 5499 #### [facility] [address] [facility] [address] PT Coag (PPP) [Time] 13.8 s Normal 12.3-14.8 [facility] Comment on above: Order Comment: Unkno wn Result Comment: ALL RESULTS MUST BE INTERPRETED WITH RESPECT TO BLOOD DRAWING ARTIFACT OR DILUTION ERROR OF ANTICOAGULANT AT THE TIME OF SAMPLING. Performed By: #### 8 5499 #### [facility] [address] BASIC METABOLIC PANELon 10-2 Calcium [Mass/Vol] 8.8 mg/dL Normal 8.6-10.3 [facility] Comment on above: Order Comment: No: D o not add to previous draw Performed By: #### 0 0071, 63243 ####[facility] [place] [address], [facility] Chloride [Moles/Vol] 100 mmol/L Normal 98-107 [facility] Comment on above: Order Comment: No: D o not add to previous draw Performed By: #### 0 0071, 617[address] ####[facility] [facility] [place] [address], [facility] CO2 [Moles/Vol] 28 mmol/L Normal 21-31 [facility] Comment on above: Order Comment: No: D o not add to previous draw Performed By: #### 0 0071, 374[address] ####[facility] [place] [address], [facility] Creatinine [Mass/Vol] 1.33 mg/dL High 0.70-1.30 The [facility] Comment on above: Order Comment: No: D o not add to previous draw Performed By: #### 0 0071, 07682 ####[facility] [place] [address], [facility] eGFR- non- 53 ml/min/1.73sq m Abnormal >60 [facility] Comment on above: Order Comment: No: D o not add to previous draw Performed By: #### 0 0071, 17277 ####[facility] [place] [address], [facility] GFR/1.73 sq M.predicted among blacks MDRD (S/P/Bld) [Vol rate/Area] mL/min/{1.73_m2} Normal >60 [facility] Comment on above: Order Comment: No: D o not add to previous draw Performed By: #### 0 0071, 48073 ####[facility] [facility] [place] [address], [facility] Glucose [Mass/Vol] 178 mg/dL High 70-100 [facility] Comment on above: Order Comment: No: D o not add to previous draw Performed By: #### 0 0071, 25723 ####[facility] [place] [address], [facility] Potassium [Moles/Vol] 4.6 mmol/L Normal 3.5-5.1 [facility] Comment on above: Order Comment: No: D o not add to previous draw Performed By: #### 0 0071, 44855 ####[facility] Sodium [Moles/Vol] 136 mmol/L Normal 136-145 [facility] Comment on above: Order Comment: No: D o not add to previous draw Performed By: #### 0 0071, 617[address] ####[facility] Urea nitrogen [Mass/Vol] 28 mg/dL High 7-25 [facility] Comment on above: Order Comment: No: D o not add to previous draw Performed By: #### 0 0071, 15623 ####[facility] C REACTIVE PROTEINon 021 CRP [Mass/Vol] 60.5 mg/L High 0.0-7.0 [facility] Comment on above: Order Comment: Yes: Add to Previous draw if able Performed By: #### 6 1405 ####[facility] [place] [address], [facility] CBC W/DIFFon 01-03-2021 ABS IMM GRANS 0.0 10*3/uL Normal 0.0-0.2 The [facility] Comment on above: Order Comment: No: D o not add to previous draw Performed By: #### 8 [id number] #### [facility] [address] [place] [address], [facility] ABS NEUTROPHILS 7.1 10*3/uL Normal 1.6-7.6 The [facility] Comment on above: Order Comment: No: D o not add to previous draw Performed By: #### 8 [id number] #### [facility] [address] [place] [address], [facility] Basophils (Bld) [#/Vol] 0.0 10*3/uL Normal 0.0-0.2 The [facility] Comment on above: Order Comment: No: D o not add to previous draw Performed By: #### 8 [id number] #### [facility] [address] [place] [id number], [facility] Basophils/100 WBC (Bld) 0.5 % Normal 0.0-1.0 The [facility] Comment on above: Order Comment: No: D o not add to previous draw Performed By: #### 8 [id number] #### [facility] [address] [place] [address], [place] Eosinophils (Bld) [#/Vol] 0.0 10*3/uL Normal 0.0-0.5 The [facility] Comment on above: Order Comment: No: D o not add to previous draw Performed By: #### 8 [id number] #### [facility] [address] [place] [address], [facility] Eosinophils/100 WBC (Bld) 0.0 % Normal 0.0-6.0 The [facility] Comment on above: Order Comment: No: D o not add to previous draw Performed By: #### 8 [id number] #### [facility] [address] [place] [id number], [place] Erythrocyte distribution width (RBC) [Ratio] 13.8 % Normal 11.5-15.0 The [facility] Comment on above: Order Comment: No: D o not add to previous draw Performed By: #### 8 [id number] #### [facility] [address] [place] [address], [place] Hematocrit (Bld) [Volume fraction] 42.8 % Normal 39.0-50.0 The [facility] Comment on above: Order Comment: No: D o not add to previous draw Performed By: #### 8 [id number] #### [facility] [address] [place] [address], [facility] Hemoglobin (Bld) [Mass/Vol] 13.4 g/dL Normal 13.0-17.0 The [facility] Comment on above: Order Comment: No: D o not add to previous draw Performed By: #### 8 [id number] #### [facility] [address] [place] [id number], [facility] IMMATURE GRANS 0.3 % Normal 0.0-1.0 The [facility] Comment on above: Order Comment: No: D o not add to previous draw Performed By: #### 8 [id number] #### [facility] [address] [place] [address], [facility] Lymphocytes (Bld) [#/Vol] 0.5 10*3/uL Low 1.2-4.0 The [facility] Comment on above: Order Comment: No: D o not add to previous draw Performed By: #### 8 [id number] #### [facility] [address] [place] [id number], [facility] Lymphocytes/100 WBC (Bld) 6.1 % Low 20.0-45.0 The [facility] Comment on above: Order Comment: No: D o not add to previous draw Performed By: #### 8 [id number] #### [facility] [address] [place] [address], [place] MCH (RBC) [Entitic mass] 28.8 pg Normal 27.0-33.0 The [facility] Comment on above: Order Comment: No: D o not add to previous draw Performed By: #### 8 [id number] #### [facility] [address] [place] [id number], [place] MCHC (RBC) [Mass/Vol] 31.3 g/dL Low 32.0-35.0 The [facility] Comment on above: Order Comment: No: D o not add to previous draw Performed By: #### 8 [id number] #### [facility] [address] [place] [address], [facility] MCV (RBC) [Entitic vol] 91.8 fL Normal 82.0-98.0 The [facility] Comment on above: Order Comment: No: D o not add to previous draw Performed By: #### 8 [id number] #### [facility] [address] [facility] [place] [address], [facility] Monocytes (Bld) [#/Vol] 0.3 10*3/uL Normal 0.1-1.0 The [facility] Comment on above: Order Comment: No: D o not add to previous draw Performed By: #### 8 [id number] #### [facility] [address] [facility] [place] [address], [facility] MONOS 4.3 % Low 5.0-12.0 The [facility] Comment on above: Order Comment: No: D o not add to previous draw Performed By: #### 8 [id number] #### [facility] [address] [place] [address], [facility] Neutrophils/100 WBC (Bld) 88.8 % High 40.0-72.0 The [facility] Comment on above: Order Comment: No: D o not add to previous draw Performed By: #### 8 [id number] #### [facility] [address] [place] [address], [facility] Nucleated RBC/100 WBC (Bld) [Ratio] 0 % Normal 0-0 The [facility] Comment on above: Order Comment: No: D o not add to previous draw Performed By: #### 8 [id number] #### [facility] [address] [place] [id number], [facility] PLAT CNT 292 10*3/uL Normal 150-400 The [facility] Comment on above: Order Comment: No: D o not add to previous draw Performed By: #### 8 [id number] #### [facility] [address] [place] [address], [facility] RBC (Bld) [#/Vol] 4.66 10*6/uL Normal 4.20-5.70 The [facility] Comment on above: Order Comment: No: D o not add to previous draw Performed By: #### 8 [id number] #### [facility] [address] [place] [address], [facility] WBC (Bld) [#/Vol] 7.93 10*3/uL Normal 4.00-10.60 The [facility] Comment on above: Order Comment: No: D o not add to previous draw Performed By: #### 8 [id number] #### [facility] [address] [facility] [address] CPKon 01-03-2021 CK [Catalytic activity/Vol] 24 U/L Low 30-223 The [facility] Comment on above: Performed By: #### 0 0071, [id number] ####[facility] Operative Reporton Operative Report MR#: [id number] [facility] Pt. Name: Shivani Ruiz Room #: [id number] Discharge Date: Birthdate: 1950 OPERATIVE REPORT DATE OF SURGERY: 01/02/2021 SURGEON: Kyree Chand M.D. MACHINE SEWER: Bucky Harley MD. PREOPERATIVE DIAGNOSIS: Right knee infection, status post right knee fusion on 10/18/2020. PROCEDURES: #1 Excision of the Pustular lesion along with fluid collection right knee surgical wound, irrigation and debridement down to bone of the right knee, #2 Hardware adjustment: Tightening of the proximal locking screws x2 under C-arm guidance for modular intramedullary fusion nail for knee arthrodesis. ANESTHESIA: General endotracheal intubation. BLOOD LOSS: Approximately 15 mL. FLUIDS: Per anesthesia record. SPECIMENS: Right anterior leg/knee wound sent for culture and pathology. COMPLICATIONS: None. IMPLANTS: None. INDICATIONS: This is a 70-year-old male trying to do his bed despite being told not to weight-bear on the right lower extremity following recent knee debridement and fusion nail placement along with bone grafting. Patient lost his balance and fell onto his right hip joint following which he had increasing pain in his right hip as well as his right knee joint along with increasing redness and pustular eruption at the distal end of the previous incision. Of note patient had recently gone aspiration of his fluctuant area in the office that grew: Corynebacterium diphtheria as a result, he was managed by infectious disease team Dr. Nascimento with IV antibiotics and oral antibiotics in the past. He then presented to the emergency department with increased swelling and erythema of the right lower extremity concerning for infection after having a knee fusion on 10/18/[address] 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 Recent x-ray showed that there is loosening of the proximal 2 screws of the intramedullary modular fusion nail and x-rays of the hip joint show severe osteoporosis but no new fracture dislocation. Patient has progressive healing of the right knee joint fusion site without major callus formation at this point in time. Since the patient has superficial wound infection along with loosening of the hardware be planned for operative intervention the form of tightening of the hardware under C-arm guidance to enable persistent healing and for irrigation and debridement of the superficial wound to attempt to eradicate infection. PROCEDURE IN DETAIL: The patient was seen in the preop holding area by Dr. Kyree Chand and the operative site was marked with the attending physician's initials. The patient was brought back to the operating room, was placed supine on the operating table and anesthesia was induced. The right hip was bumped as the patient had morbid obesity to enable locking of the proximal 2 screws. The patient is prepped and draped in usual sterile fashion. From then, we 1st directed our attention to sterile area of proximal locking of the 2 loose screws of the modular intramedullary knee arthrodesis fusion nail, with use of the C-arm to the mid aspect of the thigh to evaluate the hardware of the implant from the previous knee fusion. It was deemed that the most proximal screw of the modular intramedullary fusion nail was backing out. Using C-arm, we did localize the screw. An incision was made down to the fascia when we bluntly dissected down to the level of the bone at the mid aspect of the femur. Then a 3.5 mm exertional solid screwdriver was used to secure the screw back into its previous location C-arm guidance which was successful without any complications. Confirming with the x-ray that the screw was indeed tightened and secured in the proximal femur component. There we turned our attention to the wound overlying the knee. There was noted to be boggy edematous tissue overlying the right knee. Due to the dimensions of the infected appearing tissue, an elliptical incision was made around the entirety of infected appearing tissue and excised undermining with the use of Bovie and pickups. From there, a further undermining underneath the medial and lateral aspects of the skin was performed in order to further explore him more extensive infection as well as to attempt to close the end of the procedure. From there, multiple samples were sent for culture and pathology including the entirety of the skin flap that was undermined at the beginning of the procedure. Additional purulent appearing superficial tissues were sent to pathology as well. The wound was then copiously irrigated and debrided, making sure to excise any devitalized or unhealthy appearing tissue and using pulse lavage and irrigation in order to clean the wound. From there, it was felt that the wound would be able to be closed and #1 Prolene was used in a subcutaneous manner to approximate the skin edges, which came t (more content not included)... Normal The [facility] POC GLUCOSE LABon 01-03-2021 Glucose [Mass/Vol] 144 mg/dL High 70-100 The [facility] Comment on above: Performed By: #### 8 [id number] #### [facility] [address] [place] [address], [facility] Glucose [Mass/Vol] 142 mg/dL High 70-100 The [facility] Comment on above: Performed By: #### 8 [id number] #### [facility] [address] [place] [address], [facility] PROTHROMBIN TIMEon INR Coag (PPP) [Relative time] 1.03 {INR} Normal 0.91-1.16 The [facility] Comment on above: Order Comment: No: D o not add to previous draw Result Comment: ACCC P RECOMMENDED INR FOR WARFARIN THERAPY ---- ------- CONDITION INR PROPHYLAXIS OF VENOUS THROMBOSIS 2-3 (HIGH-RISK SURGERY) TREATMENT OF VENOUS THROMBOSIS 2-3 TREATMENT OF PULMONARY EMBOLISM 2-3 PREVENTION OF SYSTEMIC EMBOLISM: 2-3 ACUTE MYOCARDIAL INFARCTION TISSUE HEART VALVES VALVULAR HEART DISEASE ATRIAL FIBRILLATION RECURRENT SYSTEMIC EMBOLISM MECHANICAL HEART VALVE 2.5-3.5 FROM: ORAL ANTICOAGULANTS. MECHANISM OF ACTION, CLINICAL EFFECTIVENESS, AND OPTIMAL THERAPEUTIC RANGE. CHEST 1995;108:231S-246S. Performed By: #### 8 [id number] #### [facility] [address] [place] [address], [facility] PT Coag (PPP) [Time] 13.5 s Normal 12.3-14.8 [facility] Comment on above: Order Comment: No: D o not add to previous draw Result Comment: ALL RESULTS MUST BE INTERPRETED WITH RESPECT TO BLOOD DRAWING ARTIFACT OR DILUTION ERROR OF ANTICOAGULANT AT THE TIME OF SAMPLING. Performed By: #### 8 [id number] #### [facility] [address] [employer] *ANAEROBIC CULTURE 10-28-2 021 *ANAEROBIC CULTURE Clinical Report: (D) Specimen/Source: TISSUE/INTRAOP SPEC Collected: 01/02/2021 16:11 Status: Final Last Updated: 01/07/2021 11:16 (1) RIGHT KNEE TISSUE ISO (Final) No Anaerobes Isolated 5 Days Normal The [facility] Comment on above: Order Comment: RIGHT KNEE TISSUE Performed By: #### 3 0312 #### [facility] [address] *FUNGAL CULTUREon 01-02-2021 *FUNGAL CULTURE Clinical Report: (D) Specimen/Source: TISSUE/INTRAOP SPEC Collected: 01/02/2021 16:11 Status: Final Last Updated: 02/03/2021 09:14 (1) RIGHT KNEE TISSUE FS (Final) No Yeast or Fungal Elements Seen CULT RES (Final) Culture negative for fungus Normal The [facility] Comment on above: Order Comment: RIGHT KNEE TISSUE Performed By: #### 8 [id number] #### [facility] [address] *SUSCEPTIBILITY - GRAM POS R OD [id number] 01-02-2021 FINAL RESULT SEE NOTE Abnormal The [facility] Comment on above: Order Comment: [id number]: Susceptibility for Corynebacterium striatum group Result Comment: Phuc nebacterium striatum group Organism identified by client INTERPRETIVE INFORMATION: Gram Positive Tommy Susceptibility Units = micrograms/mL Susceptibility testing is performed by CLSI-approved broth microdilution method using custom-made NESTOR panels. NESTOR Penicillin >=16 Resist Meropenem 0.25 Suscept Clindamycin >=4 Resist Ceftriaxone >=4 Resist Levofloxacin >=8 None Linezolid 0.25 Suscept Erythromycin >=8 Resist Vancomycin 0.5 Suscept Gentamicin 4 Suscept Doxycycline >=16 Resist Trimethoprim/Sulfamethoxazole >=4/76 Resist Performed By: [facility] [address] [place] [id number] Chemistry Department Chair: Erna Lofton MD Result changed by IF on 01/10/2021 11:51. The previous value was no value. *TISSUE CULTUREon 01-02-2021 *TISSUE CULTURE Clinical Report: (D) Specimen/Source: TISSUE/INTRAOP SPEC Collected: 01/02/2021 16:11 Status: Final Last Updated: 01/04/2021 08:00 (1) RIGHT KNEE TISSUE GRAM (Final) Moderate Polys Few Gram Positive Cocci In Clusters ISO (Final) Methicillin Resistant Staphylococcus aureus (MRSA) Light Growth Results called. Read back by Missy Cardona RN at 0800 on 01/04/2021 ISO (Final) Corynebacterium striatum group Light Growth Susceptibility To Follow Testing to be performed by [facility], [place], [place] ISOLATE: Methicillin Resistant Staphylococcus aureus (MRSA) NESTOR (mcg/ml) CLINDAMYCIN (CC) >2 Resistant DAPTOMYCIN (DAP) <=1 Susceptible LINEZOLID (LNZ) <=1 Susceptible OXACILLIN (OX) >2 Resistant TETRACYCLINE (TE) >8 Resistant TRIMETH/SULFA (SXT) <=0.5/9.5 Susceptible VANCOMYCIN (VA) 1 Susceptible Normal The [facility] Comment on above: Order Comment: RIGHT KNEE TISSUE Performed By: #### 8 [id number] #### [address] APTTon 01-02-2021 aPTT Coag (Bld) [Time] 37.4 s High 25.0-35.0 The [facility] Comment on above: Order Comment: No: D o not add to previous draw Missed twice rn notified Result Comment: ALL RESULTS MUST BE INTERPRETED WITH RESPECT TO BLOOD DRAWING ARTIFACT OR DILUTION ERROR OF ANTICOAGULANT AT THE TIME OF SAMPLING. THE APTT SHOULD NOT BE USED TO MONITOR UNFRACTIONATED HEPARIN THERAPY, THIS LABORATORY NO LONGER HAS AN ESTABLISHED THERAPEUTIC RANGE BASED ON THE APTT. IT IS RECOMMENDED THAT THE [facility] - HEPARIN ASSAY (ANTI-XA ACTIVITY) BE USED FOR THIS PURPOSE. Performed By: #### 5 [id number], [address] #### [address] KNEE RIGHT 1 OR 2 VWSon 12-07 KNEE RIGHT 1 OR 2 VWS [facility] Department of Radiology [address] [place] [address] Patient Name: SHIVANI RUIZ : 1950 Sex: M Age: Race: White Pt. Location: [address] [place] [address] Patient Status: I Ordered Date: 01/02/2021 8:20:00 AM Completed Date: 01/02/2021 05:14 PM Requesting Provider: KYREE CHAND Attending Provider: KYREE CHAND Report Copy To: Signs & Symptoms: IANDD RT KNEE History: Comments: IANDD RT KNEE Exam: KNEE RIGHT 1 OR 2 VWS KNEE RIGHT 1 OR 2 VWS CLINICAL INFORMATION: Dr. Chand used 39 secs of fluoro for a I\EANDE\D RT KNEE. ree c-arm in 1530 out 1609. 5 images sent and 6.40 mGy.. I\EANDE\D RT KNEE. COMPARISON: 01/01/2021. IMPRESSION: 1. Intraoperative fluoroscopy noted. Approximately 6 images obtained. Electronically signed: Jeanne Conrad. Transcribed by: [email or web address], User Resident: Electronically Signed by: JEANNE CONRAD @ 01/03/2021 01:57 PM Normal The [facility] Comment on above: Order Comment: IANDD RT KNEE POC GLUCOSE LABon 01-02-2021 Glucose [Mass/Vol] 138 mg/dL High 70-100 The [facility] Comment on above: Performed By: #### 8 [id number] #### [facility] [address] [place] [address], [place] Glucose [Mass/Vol] 82 mg/dL Normal 70-100 The [facility] Comment on above: Performed By: #### 8 [id number] #### [facility] [address] [place] [address], [place] POC SARS COV2 ANTIGEN NEGATI VEon 01-02-2021 POC SARS COV2 ANTIGEN NEG Negative Normal NEGATIVE The [facility] Comment on above: Result Comment: Nega tive results from patients with symptom onset beyond seven days, should be treated presumptive and confirmation with a molecular assay, if necessary, for patient management, may be performed. Negative results do not rule out SARS-CoV-2 infection and should not be used as the sole basis for treatment or patient management decisions, including infection control decisions. Negative results should be considered in the context of a patient?s recent exposures, history and the presence of clinical signs and symptoms consistent with COVID-19. The [employer] COVID-19 Ag Card is a lateral flow immunoassay intended for the qualitative detection of nucleocapsid protein antigen from SARS-CoV-2 in direct nasal swabs from individuals within the first seven days of symptom onset. Testing is limited to laboratories certified under the Clinical Laboratory Improvement Amendments of 1988 (CLIA), 42 U.S.C. ???263a, that meet the requirements to perform moderate, high or waived complexity tests. This test is authorized for use at the Point of Care (POC), i.e., in patient care settings operating under a CLIA Certificate of Waiver, Certificate of Compliance, or Certificate of Accreditation. Performed By: #### 3 [id number] #### [address] PROTHROMBIN TIMEon 1 INR Coag (PPP) [Relative time] 1.08 {INR} Normal 0.91-1.16 The [facility] Comment on above: Order Comment: No: D o not add to previous drawMissed twice rn notified Result Comment: ACCC P RECOMMENDED INR FOR WARFARIN THERAPY ---- ------- CONDITION INR PROPHYLAXIS OF VENOUS THROMBOSIS 2-3 (HIGH-RISK SURGERY) TREATMENT OF VENOUS THROMBOSIS 2-3 TREATMENT OF PULMONARY EMBOLISM 2-3 PREVENTION OF SYSTEMIC EMBOLISM: 2-3 ACUTE MYOCARDIAL INFARCTION TISSUE HEART VALVES VALVULAR HEART DISEASE ATRIAL FIBRILLATION RECURRENT SYSTEMIC EMBOLISM MECHANICAL HEART VALVE 2.5-3.5 FROM: ORAL ANTICOAGULANTS. MECHANISM OF ACTION, CLINICAL EFFECTIVENESS, AND OPTIMAL THERAPEUTIC RANGE. CHEST 1995;108:231S-246S. Performed By: #### 8 [id number] #### [facility] [address] PT Coag (PPP) [Time] 14.0 s Normal 12.3-14.8 [facility] Comment on above: Order Comment: No: D o not add to previous drawMissed twice rn notified Result Comment: ALL RESULTS MUST BE INTERPRETED WITH RESPECT TO BLOOD DRAWING ARTIFACT OR DILUTION ERROR OF ANTICOAGULANT AT THE TIME OF SAMPLING. Performed By: #### 8 [id number] #### [facility] [address] TYPE AND SCREENon 01-02-2021 ABO INTERPRETATION O Normal The [facility] Comment on above: Order Comment: Lupis dalton twice rn notified Performed By: #### 8 [id number] #### [facility] [address] RH INTERPRETATION Positive Normal [facility] Comment on above: Order Comment: Lupis dalton twice rn notified Performed By: #### 8 [id number] #### [facility] [address] *BLOOD CULTUREon 01-01-2021 *BLOOD CULTURE Clinical Report: (D) Specimen: BLOOD CULTURE Collected: 01/01/2021 20:15 Status: Final Last Updated: 01/07/2021 07:40 (1) R. HAND CULT RES (Final) No Growth Day 5 Normal [facility] Comment on above: Order Comment: Ramakrishna GLASS ND Performed By: #### 8 [id number] #### [facility] [address] *BLOOD CULTURE Clinical Report: (D) Specimen: BLOOD CULTURE Collected: 01/01/2021 20:00 Status: Final Last Updated: 01/07/2021 07:40 (1) L. HAND CULT RES (Final) No Growth Day 5 Normal [facility] Comment on above: Order Comment: Tere GLASS ND Performed By: #### 8 [id number] #### [facility] [address] *WOUND CULTUREon 01-01-2021 *WOUND CULTURE Clinical Report: (D) Specimen/Source: WOUND/OTHER Collected: 01/01/2021 20:30 Status: Final Last Updated: 01/03/2021 13:25 GRAM (Final) Moderate Polys Moderate Gram Positive Cocci In Clusters Rare Gram Positive Bacilli ISO (Final) Methicillin Resistant Staphylococcus aureus (MRSA) Moderate Growth Results called. Read back by Amy Juan RN at 1325 01/03/21 ISO (Final) Skin Catherine Light Growth ISOLATE: Methicillin Resistant Staphylococcus aureus (MRSA) NESTOR (mcg/ml) CLINDAMYCIN (CC) >2 Resistant DAPTOMYCIN (DAP) <=1 Susceptible LINEZOLID (LNZ) <=1 Susceptible OXACILLIN (OX) >2 Resistant TETRACYCLINE (TE) >8 Resistant TRIMETH/SULFA (SXT) <=0.5/9.5 Susceptible VANCOMYCIN (VA) 1 Susceptible Normal The [facility] Comment on above: Performed By: #### 8 [id number] #### [facility] [address] BASIC METABOLIC PANELon 10-2 Calcium [Mass/Vol] 10.2 mg/dL Normal 8.6-10.3 [facility] Comment on above: Performed By: #### 0 0071 ####[facility] Chloride [Moles/Vol] 100 mmol/L Normal 98-107 [facility] Comment on above: Performed By: #### 0 0071 ####[facility] [place] [address], [facility] CO2 [Moles/Vol] 29 mmol/L Normal 21-31 The [facility] Comment on above: Performed By: #### 0 0071 ####[facility] [place] [address], [facility] Creatinine [Mass/Vol] 1.52 mg/dL High 0.70-1.30 The [facility] Comment on above: Performed By: #### 0 0071 ####[facility] [place] [address], [facility] eGFR- 55 ml/min/1.73sq m Abnormal >60 [facility] Comment on above: Performed By: #### 0 0071 ####[facility] [place] [address], [facility] eGFR- non- 46 ml/min/1.73sq m Abnormal >60 The [facility] Comment on above: Performed By: #### 0 0071 ####[facility] [place] [address], [facility] Glucose [Mass/Vol] 100 mg/dL Normal 70-100 The [facility] Comment on above: Performed By: #### 0 0071 ####[facility] [place] [address], [facility] Potassium [Moles/Vol] 5.0 mmol/L Normal 3.5-5.1 The [facility] Comment on above: Performed By: #### 0 0071 ####[facility] [place] [address], [facility] Sodium [Moles/Vol] 140 mmol/L Normal 136-145 The [facility] Comment on above: Performed By: #### 0 0071 ####[facility] [place] [address], [facility] Urea nitrogen [Mass/Vol] 24 mg/dL Normal 7-25 The [facility] Comment on above: Performed By: #### 0 [id number] ####[facility] C REACTIVE PROTEINon 021 CRP [Mass/Vol] 75.8 mg/L High 0.0-7.0 [facility] Comment on above: Performed By: #### 8 [id number] #### [facility] [address] [place] [address], [facility] CBC W/DIFFon 01-01-2021 ABS IMM GRANS 0.0 10*3/uL Normal 0.0-0.2 [facility] Comment on above: Performed By: #### 8 [id number] #### [facility] [address] [place] [address], [facility] ABS NEUTROPHILS 7.2 10*3/uL Normal 1.6-7.6 [facility] Comment on above: Performed By: #### 8 [id number] #### [facility] [address] [place] [address], [facility] Basophils (Bld) [#/Vol] 0.1 10*3/uL Normal 0.0-0.2 [facility] Comment on above: Performed By: #### 8 [id number] #### [facility] [address] [place] [address], [facility] Basophils/100 WBC (Bld) 1.1 % High 0.0-1.0 [facility] Comment on above: Performed By: #### 8 [id number] #### [facility] [address] [place] [address], [facility] Eosinophils (Bld) [#/Vol] 0.9 10*3/uL High 0.0-0.5 [facility] Comment on above: Performed By: #### 8 [id number] #### [facility] [address] [facility] [place] [address], [facility] Eosinophils/100 WBC (Bld) 9.0 % High 0.0-6.0 [facility] Comment on above: Performed By: #### 8 [id number] #### [facility] [address] [facility] Erythrocyte distribution width (RBC) [Ratio] 14.1 % Normal 11.5-15.0 [facility] Comment on above: Performed By: #### 8 [id number] #### [facility] [address] [facility] [address] Hematocrit (Bld) [Volume fraction] 48.4 % Normal 39.0-50.0 [facility] Comment on above: Performed By: #### 8 [id number] #### [facility] [address] [facility] [address] Hemoglobin (Bld) [Mass/Vol] 15.9 g/dL Normal 13.0-17.0 [facility] Comment on above: Performed By: #### 8 [id number] #### [facility] [address] [facility]. [address] IMMATURE GRANS 0.4 % Normal 0.0-1.0 [facility] Comment on above: Performed By: #### 8 [id number] #### [facility] [address] [facility] [address], [facility] Lymphocytes (Bld) [#/Vol] 1.3 10*3/uL Normal 1.2-4.0 [facility] Comment on above: Performed By: #### 8 [id number] #### [facility] [address] [facility] [place] [address], [facility] Lymphocytes/100 WBC (Bld) 12.8 % Low 20.0-45.0 [facility] Comment on above: Performed By: #### 8 [id number] #### [facility] [address] [place] [address], [facility] MCH (RBC) [Entitic mass] 29.5 pg Normal 27.0-33.0 [facility] Comment on above: Performed By: #### 8 [id number] #### [facility] [address] [place] [address], [facility] MCHC (RBC) [Mass/Vol] 32.9 g/dL Normal 32.0-35.0 [facility] Comment on above: Performed By: #### 8 [id number] #### [facility] [address] [place] [address], [facility] MCV (RBC) [Entitic vol] 89.8 fL Normal 82.0-98.0 [facility] Comment on above: Performed By: #### 8 [id number] #### [facility] [address] [place] [address], [facility] Monocytes (Bld) [#/Vol] 0.8 10*3/uL Normal 0.1-1.0 [facility] Comment on above: Performed By: #### 8 [id number] #### [facility] [address] [place] [address], [facility] MONOS 7.3 % Normal 5.0-12.0 [facility] Comment on above: Performed By: #### 8 [id number] #### [facility] [address] Neutrophils/100 WBC (Bld) 69.4 % Normal 40.0-72.0 [facility] Comment on above: Performed By: #### 8 [id number] #### [facility] [address] [place] [address], [facility] Nucleated RBC/100 WBC (Bld) [Ratio] 0 % Normal 0-0 [facility] Comment on above: Performed By: #### 8 [id number] #### [facility] [address] [place] [address], [facility] PLAT CNT 352 10*3/uL Normal 150-400 [facility] Comment on above: Performed By: #### 8 [id number] #### [address] [place] [address], [facility] RBC (Bld) [#/Vol] 5.39 10*6/uL Normal 4.20-5.70 [facility] Comment on above: Performed By: #### 8 [id number] #### [facility] [address] [place] [address], [facility] WBC (Bld) [#/Vol] 10.30 10*3/uL Normal 4.00-10.60 [facility] Comment on above: Performed By: #### 8 [id number] #### [facility] [address] [place] [address], [facility] KNEE RIGHT 1 OR 2 VWSon 12-07 KNEE RIGHT 1 OR 2 S [facility] Department of Radiology [address] [place] [id number] Patient Name: SHIVANI RUIZ : 1950 Sex: M Age: Race: White Pt. Location: [facility] Patient Status: E Ordered Date: 01/01/2021 5:30:00 PM Completed Date: 01/01/2021 06:47 PM Requesting Provider: YULISA STYLES Attending Provider: RIKI SHEIKH Report Copy To: Signs & Symptoms: Pain History: Comments: evaluate for FX Exam: KNEE RIGHT 1 OR 2 VWS KNEE RIGHT 1 OR 2 VWS 01/01/2021 6:47 PM CLINICAL INDICATIONS: Pain TECHNOLOGIST COMMENTS: complains of right hip and knee pain. swelling and skin pealing on the right knee area. h/o knee surgery 10/2020. QUESTION FOR THE RADIOLOGIST: evaluate for FX PROTOCOL: AP(PA) and Lateral views were obtained. COMPARISON: None FINDINGS: Fusion across the knee joint with an intramedullary tommy and spacer at the joint with graft material. Appearance unchanged since December 06, 2020. Redemonstrated is a fracture involving the posterior aspect of the tibia alignment unchanged incomplete healing there may be some lucency along the medial aspect of the femoral component of the arthrodesis hardware consistent with loosening. IMPRESSION: Lucency consistent with posterior tibial fracture alignment unchanged incomplete healing Areas of possible loosening especially along the ilial aspect of the femoral component of the arthrodesis unchanged Electronically signed: Noah Stevens. Transcribed by: [email or web address], User Resident: Electronically Signed by: NOAH STEVENS @ 01/01/2021 07:03 PM Normal [facility] Comment on above: Order Comment: evalu ate for FX PORTABLE HIP RIGHT 1 OR 2 VW S WITH PELVISon 01-01-2021 PORTABLE HIP RIGHT 1 OR 2 VWS WITH PELVIS [facility] Department of Radiology [address] [place] [phone] Patient Name: SHIVANI RUIZ : 1950 Sex: M Age: Race: White Pt. Location: [facility] Patient Status: E Ordered Date: 01/01/2021 5:30:00 PM Completed Date: 01/01/2021 06:47 PM Requesting Provider: YULISA STYLES Attending Provider: RIKI SHEIKH Report Copy To: Signs & Symptoms: Pain History: Comments: evaluate for FX Exam: PORTABLE HIP RIGHT 1 OR 2 VWS WITH PELVIS PORTABLE HIP RIGHT 1 OR 2 VWS WITH PELVIS 01/01/2021 6:47 PM CLINICAL INDICATIONS: Pain TECHNOLOGIST COMMENTS: complains of right hip and knee pain. swelling and skin pealing on the right knee area. h/o knee surgery 10/2020. QUESTION FOR THE RADIOLOGIST: evaluate for FX PROTOCOL: AP(PA) and Lateral views were obtained. COMPARISON: October 18, 2020 FINDINGS: No acute fracture or dislocation of the right hip degenerative changes in the hip joints with joint space narrowing severe degenerative changes in the lumbar spine with marked disc space narrowing and levoscoliosis IMPRESSION: 1. No pelvic fracture no right hip fracture or dislocation 2. Degenerative changes in both hips with joint space narrowing 3. Severe degenerative changes in the lower lumbar spine with levoscoliosis Electronically signed: Noah Stevens. Transcribed by: [email or web address], User Resident: Electronically Signed by: NOAH STEVENS @ 01/01/2021 06:57 PM Normal [facility] Comment on above: Order Comment: Evalu ate SEDIMENTATION RATEon 021 SED RATE 26 mm/hr High 0-10 [facility] Comment on above: Performed By: #### 8 [id number] #### [address] KNEE RIGHT 1 OR 2 VWSon KNEE RIGHT 1 OR 2 VWS [facility] Department of Radiology [address] [place] [phone] Patient Name: SHIVANI RUIZ : 1950 Sex: M Age: Race: White Pt. Location: 84 Patient Status: O Ordered Date: 12/06/2020 10:00:00 AM Completed Date: 12/06/2020 10:20 AM Requesting Provider: KYREE CHAND Attending Provider: KYREE CHAND Report Copy To: Signs & Symptoms: M25.561 Pain in right knee I10 History: Comments: Evaluate Exam: KNEE RIGHT 1 OR 2 S KNEE RIGHT 1 OR 2 VWS 12/06/2020 10:20 AM CLINICAL INDICATIONS: M25.561 Pain in right knee I10 TECHNOLOGIST COMMENTS: History of multiple right knee surgeries. Last surgery was 10/18/2020. Ortho follow up. QUESTION FOR THE RADIOLOGIST: Evaluate PROTOCOL: AP(PA) and Lateral views were obtained. COMPARISON: 11/01/2020 FINDINGS: There is right knee arthrodesis hardware. Persistent slight lucencies around the lateral distal femoral component and the lateral tibial component. There is a small lucency at the cement-bone interface the lateral femur. There is a crescentic lucency in the posterior aspect of the tibia concerning for nondisplaced fracture that is slightly more prominent from previous exam. IMPRESSION: * Persistent slight periprosthetic lucencies around several portions of the hardware and at the lateral bone-cement interface. * Findings concerning for nondisplaced fracture of the posterior tibia that is more prominent than previous exam with some mild callus. Approved by:Art Smith 4:12 PM. I, Jeanne Conrad,have reviewed the image(s) and agree with the findings in this report. Electronically signed: Jeanne Conrad. Transcribed by: [email or web address], User Resident: ART HILTON Electronically Signed by: JEANNE CONRAD @ 12/06/2020 04:17 PM I personally read this/these film(s) with this resident Normal [facility] Comment on above: Order Comment: Evalu ate ECHOCARDIO M/2D COMPLETEon 0 10-02-2020 ECHOCARDIO M/2D COMPLETE Patient: SHIVANI RUIZ Exam Date: 10/02/2020 : 1950 Gender:M Ordering : CECI MACKO Admission #: [id number] Family : Order #: [id number] CLICK HERE TO VIEW EXAM ECHOCARDIOGRAM REPORT PROCEDURE: CARDIO PULMONARY ECHOCARDIO M/2D COMP INDICATIONS: Chronic Afib COMPARISON: None. DESCRIPTION: COMPLETE ECHOCARDIOGRAM Real-time transthoracic echocardiography with 2D, M-mode, spectral and color flow Doppler performed. QUALITY: Technical quality was adequate. LEFT VENTRICLE: Normal chamber size. Mild concentric left ventricular hypertrophy. Difficult to accurately access left ventricular systolic function due to heart rhythm, but appears mildly reduced. Ejection fraction by visual estimation is 40-45%. LV EF: DIASTOLIC: Not adequately assessed due to heart rhythm. ATRIAL SEPTUM: LEFT ATRIUM: Moderate dilatation. RIGHT ATRIUM: Mild dilatation. RIGHT VENTRICLE: Normal chamber size. Normal right ventriculaar systolic function. TRICUSPID VALVE: Normal mobility and thickness. No stenosis with mild regurgitation. No evidence of pulmonary hypertension. RVSP 27mmHg. MITRAL VALVE: Normal mobility and thickness. No mitral valve prolapse. No evidence of mitral valve stenosis. Mild mitral annular calcification. Mild mitral regurgitation. AORTIC VALVE: Normal trileaflet appearance. Moderately calcified aortic valve. Mildly diminished mobility. Doppler velocity suggest moderate aortic valve stenosis. DVI is 0.35 AORTIC ROOT: Normal diameter and appearance. PULMONIC VALVE: Normal thickness and mobility. No stenosis. PERICARDIUM: No evidence of pericardial effusion. IVC: Collapses with inspirations. PLEURA: CONCLUSION: 1. Left ventricular systolic function is difficult to assess due to rhythm but appears mildly reduced. LVEF is 40-45%. 2. Normal right ventricular systolic function. 3. Mild to moderate atrial dilatation. 4. Moderate aortic valve stenosis. 5. Mild mitral and tricuspid regurgitation. Adult Echocardiography Procedure Report Left Ventricle LVEDD (3.7 - 5.6 cm): 4.69 cm LVESD (2.2 - 4.0 cm): 3.83 cm LVIVS thickness (0.6 - 1.2 cm): 1.21 cm LVPW thickness (0.5 - 1.0 cm): 1.35 cm e': 14.50 cm/s E - e': 7.40 LVOT Area (cm2): 4.91 cm2 Peak Velocity (LVOT): 68.40 cm/s Mean Velocity (LVOT): 41.30 cm/s LVOT Diameter 2.50 cm Left Ventricular Ejection Fraction: 40-45 % Left Atrium LA Volume Index (2D A2C): 39.10 ml/m2 Left Atrium Systolic Dimension: 4.40 cm Left Atrium Systolic Area(A2C): 27.00 cm2 Left Atrium Systolic Area(A4C): 29.00 cm2 Left Atrium Systolic Volume(A2C): 18668 mm3 Left Atrium Systolic Volume(A4C): 289806 mm3 Mitral Valve Mitral Valve E-Wave Peak Velocity: 105.00 cm/s Deceleration [place]: 5170 mm/s2 Mitral Valve E-Wave Peak Velocity: 107.00 cm/s Right Ventricle RV Internal Diastolic Dimension: 3.18 cm Aorta AO Root Diam: 3.60 cm Aortic Valve Peak Velocity (Antegrade Flow): 183.00 cm/s AoV Area (Peak Darvin): 1.72 cm2 AoV Area (VTI): 1.79 cm2 Aortic Valve Cusp Separation: 1.20 cm Peak Velocity(Antegrade Flow): 211.00 cm/s Peak Gradient(Antegrade Flow): 18 mm[Hg] Mean Velocity(Antegrade Flow): 138.00 cm/s Mean Gradient(Antegrade Flow): 9 mm[Hg] Velocity Time Integral: 34.50 cm Tricuspid Valve Peak Velocity (Regurgitant Flow): 225.00 cm/s, 224.00 cm/s Pulmonic Valve Peak Velocity: 78.00 cm/s Peak Gradient: 2 mm[Hg] Right Atrium Dictated by: Rolly Brasher M.D. on 10/03/2020 at 14:15 Approved by: Rolly Brasher M.D. on 10/03/2020 at 14:21 Normal [facility] HEMOGLOBINon 06-11-2020 Hemoglobin (Bld) [Mass/Vol] 15.2 g/dL Normal 14.0-18.0 [facility] Comment on above: Performed By: #### H GB #### [facility] [address] [address] Iam Boyd ECHOCARDIO M/2D COMPLETEon 1 ECHOCARDIO M/2D COMPLETE Patient: SHIVANI RUIZ Exam Date: 03/07/2020 : 1950 Gender:M Ordering : [facility] Admission #: [id number] Family : DR EASTMAN BLUNT Order #: [id number] CLICK HERE TO VIEW EXAM ECHOCARDIOGRAM REPORT PROCEDURE: CARDIO PULMONARY ECHOCARDIO M/2D COMP INDICATIONS: Chronic Atrial Fibrillation COMPARISON: None. DESCRIPTION: COMPLETE ECHOCARDIOGRAM Real-time transthoracic echocardiography with 2D, M-mode, spectral and color flow Doppler performed. QUALITY: Technical quality was good. LEFT VENTRICLE: Mild dilatation. Normal left ventricular wall thickness. No left ventricular outflow obstruction. LV EF: Normal left ventricular systolic function is normal; ejection fraction is 55 to 60%. No significant wall motion abnormalities. DIASTOLIC: Not adequately assessed due to heart rhythm. ATRIAL SEPTUM: Intact atrial septum. LEFT ATRIUM: Moderate dilatation. RIGHT ATRIUM: Moderate dilatation. RIGHT VENTRICLE: Normal chamber size. Normal systolic function. TRICUSPID VALVE: Normal mobility and thickness. Mild regurgitation. No evidence of pulmonary hypertension. MITRAL VALVE: Normal mobility and thickness. No mitral valve prolapse. No evidence of mitral valve stenosis. There is no mitral annular calcification. Mild mitral regurgitation. AORTIC VALVE: Normal trileaflet appearance. Mildly calcified aortic valve. No significant aortic stenosis. No aortic regurgitation. AORTIC ROOT: Normal diameter and appearance. PULMONIC VALVE: Normal thickness and mobility. No stenosis. No regurgitation. PERICARDIUM: No evidence of pericardial effusion. IVC: Collapses with inspirations. PLEURA: No evidence of pleural effusion. CONCLUSION: Global left ventricular systolic function is normal. Biatrial enlargement. The right ventricle is normal in size and systolic function. Mild mitral and tricuspid regurgitation. Adult Echocardiography Procedure Report Left Ventricle LVEDD (3.7 - 5.6 cm): 5.79 cm LVESD (2.2 - 4.0 cm): 4.16 cm LVIVS thickness (0.6 - 1.2 cm): 9.67 mm LVPW thickness (0.5 - 1.0 cm): 1.03 cm e': 18.90 cm/s E - e': 5.60 LVOT Area (cm2): 4.52 cm2 LVOT Diameter 2.40 cm Left Ventricular Ejection Fraction: 53.70 % Left Ventricular Ejection Fraction (A2C): 52 % Left Ventricular Ejection Fraction (A4C): 50 % Left Atrium LA Volume Index (2D A2C): 43.70 ml/m2 Left Atrium Systolic Dimension: 4.90 cm Left Atrium Systolic Area(A2C): 28.10 cm2 Left Atrium Systolic Area(A4C): 32.00 cm2 Left Atrium Systolic Volume(A2C): 470350 mm3 Left Atrium Systolic Volume(A4C): 365252 mm3 Mitral Valve Mitral Valve E-Wave Peak Velocity: 102.00 cm/s Mitral Valve E-Wave Peak Velocity: 105.00 cm/s Right Ventricle RV Internal Diastolic Dimension: 3.90 cm Aorta AO Root Diam: 3.50 cm Aortic Valve AoV Area (Peak Darvin): 2.04 cm2 Aortic Valve Cusp Separation: 1.40 cm Peak Velocity(Antegrade Flow): 200.00 cm/s Peak Gradient(Antegrade Flow): 16 mm[Hg] Tricuspid Valve Peak Velocity (Regurgitant Flow): 240.00 cm/s Pulmonic Valve Peak Velocity: 90.90 cm/s Peak Gradient: 3 mm[Hg] Right Atrium Dictated by: Stanley Durham M.D. on 03/07/2020 at 09:39 Approved by: Stanley Durham M.D. on 03/07/2020 at 09:46 [facility] Outside Recordson 07-08-2017 Outside Records [id number] [facility] PROGRESSon 06-01-2017 PROGRESS HNO ID: [id number] thor: Darya Serrano) GrantService: (none)Author Type: Physician AssistantType: Progress NotesFiled: 06/03/2017 7:57 AMNote Text: [facility] NOTENAME: JIHAN RUIZ NO.: [id number] OF SERVICE: 06/01/2017[facility] December 153CHIEF COMPLAINT: Tentative discharge on June 03, 2017.SUBJECTIVE FINDINGS: The patient was seen sitting in his wheelchair. Hereported feeling well and doing well with antibiotic therapy. He wasanxious to go home later this week. He reported that his appetite wasgood and bowels were regular. He reported that his pain was wellcontrolled. He was seen by Infectious Disease and will continue IVcefazolin every 8 hours through June 21, 2017. Following this, he willremain on doxycycline for life. He is cleared for weightbearing astolerated to the right leg by Orthopedics.REVIEW OF SYSTEMS: Please see above.Medications were reviewed in the snf records.PHYSICAL EXAM: Temp 97.9, pulse 74, respirations 20, BP 118/68. Examrevealed an obese male, sitting in his wheelchair. He appeared in noacute distress. HEENT: Mucosa moist. Neck: Supple. Heart:Irregularly irregular rhythm. Lungs: Clear. Abdomen: Positive bowelsounds, obese, soft. No tenderness. Extremities with chronic rightlower extremity edema. Dressing is intact over the right knee and leg.His left leg is nontender and nonedematous.ASSESSMENT AND PLAN:1. 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 He is okayed fordischarge to home on June 03, 2017. [id number] evaluation wascompleted today and he will undergo home health occupational therapy andphysical therapy. He will require a home health nurse for IV antibioticadministration and PICC line care. In addition, he was given aprescription for a 1-week supply of Percocet to be taken on an as-neededbasis. An OARRS report was completed prior to discharge. He wasinstructed to follow up with his orthopedic doctor within 1 week. Inaddition, he should follow up with his primary care physician within 1 to2 weeks of discharge. 2. Chronic atrial fibrillation. This has beenrate controlled. We will continue present medications and Eliquis. 3.Mild anemia. Recommend continued close followup and workup if needed.4. Hypertension. This has been stable. Continue same. 5. Please seeabove prosthetic joint infection. We will continue ongoing home healthphysical and occupational therapy.His prognosis does remain somewhat guarded.Greater than 30 minutes spent in the discharge process on this patient.DICTATED BY: TOMÁS Reyes/AcusisD:06/01/2017 JOB# [id number]:Viry ManKerwinectronically Signed by Darya Manuel PA-C at 06/03/2017 07:46:33 Normal [facility] PROGRESSon 05-27-2017 PROGRESS HNO ID: [id number] thor: Darya Serrano) Oniervice: (none)Author Type: Physician AssistantType: Progress NotesFiled: 05/28/2017 10:57 AMNote Text: [facility] NOTENAME: JIHAN RUIZ NO.: [id number] OF SERVICE: 05/27/2017[place] ManorDATE OF : December 153CHIEF COMPLAINT: Followup right knee infection.SUBJECTIVE FINDINGS: The patient was seen sitting in his wheelchair. Hewas doing well with IV antibiotic therapy. He was seen by infectiousdisease yesterday who felt that he should remain on IV antibioticsthrough June 21, 2017 and that he would be converted to oraldoxycycline. His rash on the forearms had improved with addition ofClaritin. His appetite has been good and bowels were regular. His painwas well controlled. He is scheduled for orthopedic followup next week.REVIEW OF SYSTEMS: See above.MEDICATIONS: Reviewed in the snf record.PHYSICAL EXAMINATION: Temperature 97.9, pulse 86, respirations 20, andblood pressure 132/78. Exam revealed an obese male, sitting in hiswheelchair, in no distress. HEENT: Mucosa moist. Heart: Irregularlyirregular rhythm. Lungs: Clear. Abdomen: Soft, obese, and nontender.Extremities: With chronic right lower extremity edema. The dressing wasintact to the right leg. His left leg was nontender and nonedematous.LABORATORY DATA: Sodium is 138, potassium 4.7, chloride 104, CO2 29, BUN24, and creatinine 1.05. CRP was down to 1.7. White blood cell count is7.1, hemoglobin 9.7, and platelet count 433.ASSESSMENT AND PLAN:1. 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 We will continue IVantibiotics per Infectious Disease recommendations. He will follow upwith Orthopedics next week.2. Chronic atrial fibrillation that is rate controlled. Continue ratecontrol and Eliquis.3. Mild anemia. This is stable. We will continue to monitor. 4.Hypertension. This is stable. We will continue same. 5. Weakness. Wewill continue ongoing physical and occupational therapy.DICTATED BY: TOMÁS Reyes/AcusisD:05/27/2017 JOB# [id number]:[place] Normal [facility] PROGRESSon 05-25-2017 PROGRESS HNO ID: [id number] thor: Darya Serrano) GrantService: (none)Author Type: Physician AssistantType: Progress NotesFiled: 05/26/2017 9:47 PMNote Text: [facility] NOTENAME: JIHAN RUIZ NO.: [id number] OF SERVICE: 05/25/2017Viry BhatiaorDATE OF : December 153CHIEF COMPLAINT: Pruritus of the forearm.SUBJECTIVE FINDINGS: The patient was [facility] He reported feeling fairly well and doing well with IVantibiotic therapy. He continued to have intermittent itching of theforearms, which he states was only minimally relieved with Atarax andtopical hydrocortisone cream. He stated that he had this even prior tohis hospitalization and that he took an antihistamine prescribed by [facility] at home. He could not recall the name of thatmedication. He reported his appetite to be good and bowels regular. Hereported that his pain was well controlled. He is scheduled to see theinfectious disease physician tomorrow. He is scheduled to seeOrthopedics for followup next week.REVIEW OF SYSTEMS: Please see above.FAMILY/SOCIAL HISTORY: Unchanged.MEDICATIONS: Reviewed in the snf record.PHYSICAL EXAMINATION: Temp 97.7, pulse 69, respirations 20, BP 123/87.Exam revealed an obese male, sitting in his wheelchair, in no acutedistress. HEENT: Mucosa moist. Neck: Supple. Heart: Irregularlyirregular rhythm. Lungs: Clear. Abdomen: Positive bowel sounds,obese, soft. No tenderness. Extremities: With chronic right lowerextremity edema. Dressing is intact to that incision and nursing staffhave provided some recent reinforcement due to bleeding. His left leg isnontender and nonedematous.LABORATORY DATA: From today, sodium 138, potassium 4.0, chloride 103,CO2 29, BUN 20, creatinine 1.22, glucose 103. CRP was slightly elevatedat 4.0, white blood cell count 7.3, hemoglobin 9.8, hematocrit 30.8,platelet count elevated at 641,000.ASSESSMENT AND PLAN:1. 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 Will continueintravenous antibiotics. He will follow up with Infectious Diseasetomorrow. He also will see Orthopedics in 1 week. 2. Chronic atrialfibrillation. This has been rate controlled. Will continue presentmedications and continue Eliquis. 3. Mild anemia, will continue tofollow this closely and eval if needed.4. Hypertension, continue same. Blood pressures have been wellcontrolled.5. Generalized weakness. Will continue physical and occupationaltherapy, he would like to go home at some point, but is unable to managehis antibiotics at home as he lives by himself. Will continue to followclosely.DICTATED BY: TOMÁS Reyes/AcusisD:05/25/2017 JOB# [id number]:Viry [facility] PROGRESSon 05-20-2017 PROGRESS HNO ID: [id number] thor: Franc Galindo ErenService: (none)Author Type: PhysicianType: Progress NotesFiled: 05/24/2017 2:57 PMNote Text: [facility] NOTENAME: JIHAN RUIZ NO.: [id number] OF SERVICE: 05/20/2017[facility]DATE [facility] : December 15, 1950History and PhysicalHISTORY OF PRESENT ILLNESS: The patient is a 66-year-old male who wasadmitted to us from [facility] with a diagnosisof infected right knee prosthesis with MSSA, status post right kneepoly-exchange, chronic atrial fibrillation on chronic Eliquis therapy,chronic right leg lymphedema, previous carpal tunnel surgery, previousleft total knee arthroplasty and multiple right knee surgeries, statuspost carpal tunnel surgery, obesity, remote smoking history, and ongoingalcohol use. The patient has recently undergone successful right totalknee arthroplasty on March 26, 2017 from which he had been recoveringwell. However, he then developed 2-day history of bleeding from hisincision along with fever and chills. Evaluation in the hospital didreveal findings consistent with an MSSA right knee prosthetic infection.He was seen in consultation by the Infectious Disease service and didundergo poly-exchange. He was started on initially IV vancomycin andthen switched to Ancef once the culture results became apparent. He isadmitted to our facility for continued prolonged course of IV antibiotictherapy.REVIEW OF SYSTEMS: The patient was sitting up in bed. He is alert andoriented x3. He claims to be in fairly good health overall. He has hadno prior history of major or migraine headaches, actual syncope, anyobvious change in his vision or hearing. No shortness of breath, asthma,wheezing, hemoptysis, recent pneumonia or bronchitis. No chest pain orangina, previous heart surgeries or pacemakers. He does have chronicatrial fibrillation for which he has been on chronic Eliquis therapy. Hedoes have hypertension. No abdominal pain. His appetite has been fair.No bleeding ulcers, hepatitis, or melena. No prior strokes or seizures,diabetes mellitus, bleeding problems or blood clots or any recent falls.Rest of system review is negative.FAMILY HISTORY: His mother of old and natural causes. His fatherdied of a heart condition.SOCIAL/FUNCTIONAL HISTORY: He stopped smoking over 30 years ago. Hedoes admit to drinking both liquor and beer on a daily basis, but deniesany history of withdrawal or alcoholism. He has been living at home byhimself.MEDICATIONS: Allopurinol 300 mg daily, aspirin 81 mg daily, aovppccxil28 mg daily, Coreg 3.125 mg b.i.d., cefazolin 2 g IV q.8 hours,diclofenac 75 mg b.i.d., docusate b.i.d., Eliquis 5 mg b.i.d., ferrousgluconate daily, furosemide 40 mg daily, oxycodone/acetaminophen p.r.n.,pantoprazole 40 mg daily, and potassium 20 make use daily.EXAMINATION: Afebrile, vital signs are stable. He is in no distress.HEENT: Extraocular movements are intact, sclerae nonicteric. Ears areintact. Lungs are clear. Heart: Irregular, controlled rate. Abdomen:Soft, obese, and nontender. Bowel sounds present. Extremities: Withchronic right lower extremity edema. He does have a dressing to hisincision that is clean and dry. He does have a brace to his right leg.He does have generalized weakness.ALLERGIES: No known drug allergies.IMPRESSION:1. 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 - He is status post recent right total kneearthroplasty March 26, 2017. He did undergo poly-exchange. Thepatient will continue with the current prolonged course of intravenouscefazolin. He does have a peripherally inserted central catheter linepresent. We will obtain weekly laboratories and monitor his progress.The patient will follow up with Infectious Disease Service and OrthopedicService as an outpatient. 2. Chronic atrial fibrillation. - He has beenrate controlled. He is also on Eliquis therapy. Monitor his heart rateclosely. 3. Hypertension. Monitor his blood pressure closely and makefurther adjustment as needed.4. Functional assessment. - He does have generalized weakness. He willbe receiving rehabilitation services for overall strengthening andconditioning. Overall, his condition and prognosis is somewhat guarded.He does have a peripherally inserted central catheter line present. Theeventual goal is for him to return back to his home situation.DICTATED BY: Franc Chadwick MDIAE/AcusisD:05/20/2017 JOB# [id number]:[facility] [place] [facility] Vital Signs Date Time Vital Sign Value Performing Clinician Pat gunn 07-28-2019 09:00-0400 BP Diastolic 78 mm[Hg] [facility] 07-28-2019 09:00-0400 BP Systolic 122 mm[Hg] [facility] 07-28-2019 09:00-0400 Pulse (Heart Rate) 77 /min [facility] 07-28-2019 09:00-0400 Pulse Oximetry 96 % [facility] 07-28-2019 09:00-0400 Respiratory Rate 20 /min [facility] 07-28-2019 07:52-0400 BMI (Body Mass Index) 42.5 kg/m2 [facility] 07-28-2019 07:52-0400 Body Temperature 97.7 [degF] [facility] 07-28-2019 07:52-0400 Body weight 127 kg [facility] 07-28-2019 07:52-0400 Height 172.72 cm [facility] Encounters Encounter Date Encounter Type Care Provider Facility Start: 05-19-2024 ambulatory Jaren M Blunt Facility:[facility] Start: 05-18-2024 End: 05-18-2024 ambulatory KYREE CHAND [facility] Start: 05-17-2024 End: 05-17-2024 ambulatory Angella M Tian Facility:[facility] Start: 05-12-2024 End: 05-12-2024 ambulatory Angella M Tian Facility:[facility] Start: 05-10-2024 End: 05-10-2024 ambulatory Angella M Tian Facility:[facility] Start: 05-05-2024 ambulatory Jaren M Blunt Facility:[facility] Start: 05-03-2024 End: 05-03-2024 ambulatory Angella M Cristobalsey Facility:[facility] Start: 04-26-2024 End: 04-26-2024 ambulatory Angella M Copsey Facility:[facility] Start: 04-21-2024 ambulatory Jaren M Blunt Facility:[facility] Start: 04-19-2024 End: 04-19-2024 ambulatory Angella M Copsey Facility:[facility] Start: 04-12-2024 End: 04-12-2024 ambulatory Angella M Tian Facility:[facility] Start: 04-05-2024 End: 04-05-2024 ambulatory Angella M Tian Facility:[facility] Start: 03-29-2024 End: 03-29-2024 ambulatory Angella M Copzenon Facility:[facility] Start: 03-25-2024 End: 03-25-2024 ambulatory Kyree Chand MD Facility:[facility] Start: 03-22-2024 End: 03-22-2024 ambulatory MYKEL NASCIMENTO [facility] Start: 03-21-2024 End: 03-21-2024 ambulatory Angella Overton Facility:[facility] Start: 03-17-2024 End: 03-17-2024 ambulatory Mykel Nascimento Facility:[facility] Start: 03-15-2024 End: 03-15-2024 ambulatory Angella Overton Facility:[facility] Start: 03-09-2024 End: 03-09-2024 ambulatory Mykel Nascimento Facility:[facility] Start: 03-03-2024 End: 03-03-2024 ambulatory Mykel Nascimento Facility:[facility] Start: 02-28-2024 End: 02-28-2024 ambulatory [facility] Start: 02-25-2024 End: 02-25-2024 ambulatory Mykel Nascimento Facility:[facility] Start: 02-23-2024 End: 02-23-2024 ambulatory Angella Overton Facility:[facility] Start: 02-18-2024 End: 02-18-2024 ambulatory Mykel Nascimento Facility:[facility] Start: 02-16-2024 End: 02-16-2024 ambulatory Angella Overton Facility:[facility] Start: 02-11-2024 End: 02-11-2024 ambulatory Mykel Azam Facility:[facility] Start: 02-09-2024 End: 02-09-2024 ambulatory Angella Overton Facility:[facility] Start: 02-05-2024 End: 02-05-2024 ambulatory Mykel Nascimento Facility:[facility] Start: 02-01-2024 End: 02-01-2024 ambulatory Angella Overton Facility:[facility] Start: 01-31-2024 End: 01-31-2024 ambulatory Jaren Kam Facility:[facility] Start: 01-28-2024 End: 01-28-2024 ambulatory Mykel Nascimento Facility:[facility] Start: 01-24-2024 ambulatory [facility] Start: 01-20-2024 End: 01-20-2024 ambulatory MYKEL NASCIMENTO [facility] Start: 01-17-2024 End: 01-17-2024 ambulatory Jaren Kam Facility:[facility] Start: 01-04-2024 Evaluation and management of inpatient HOMERO PURVIS [facility] Start: 01-01-2024 Evaluation and management of inpatient HERMAN A [facility] Start: 01-01-2024 Evaluation and management of inpatient HERMAN A [facility] Start: 01-01-2024 [facility]: 01-01-2024 End: 01-06-2024 Evaluation and management of inpatient [facility] Start: 12-31-2023 End: 12-31-2023 Emergency department patient visit [facility] Facility:[facility] Start: 12-29-2023 End: 12-29-2023 ambulatory Jaren Kam Facility:[facility] Start: 12-17-2023 End: 12-17-2023 ambulatory Mykel Nascimento Facility:[facility] Start: 11-02-2023 End: 11-02-2023 ambulatory Jaren Kam Facility:[facility] Start: 10-25-2023 End: 10-25-2023 ambulatory Jack JAVED Facility:[facility] Start: 09-22-2023 End: 09-22-2023 [facility]: 09-21-2023 End: 09-21-2023 ambulatory Mykel Nascimento Facility:[facility] Start: 08-30-2023 End: 08-30-2023 ambulatory Mykel Nascimento Facility:[facility] Start: 08-23-2023 ambulatory [facility] Start: 08-23-2023 End: 08-23-2023 ambulatory [facility] Start: 07-19-2023 End: 07-19-2023 ambulatory NICHOLAS Isaac Facility:[facility] Start: 07-08-2023 End: 07-08-2023 ambulatory Mykel Nascimento Facility:[facility] Start: 07-02-2023 End: 01-26-2024 ambulatory Jaren M Blunt Facility:[facility] Start: 06-29-2023 End: 06-29-2023 ambulatory LETY URIAS [facility] Start: 06-28-2023 End: 06-28-2023 ambulatory Jaren M Blunt Facility:[facility] Start: 05-24-2023 End: 05-24-2023 ambulatory KYREE CHAND [facility] Start: 05-14-2023 End: 05-15-2023 ambulatory MYKEL Weeks [facility] Start: 03-18-2023 End: 03-19-2023 ambulatory MYKEL Weeks [facility] Start: 01-02-2021 End: 01-09-2021 Evaluation and management of inpatient JAREN BLUNT Facility:[facility] Start: 11-28-2020 End: 11-29-2020 ambulatory JAREN KAM Facility:[facility] Start: 10-02-2020 End: 10-03-2020 ambulatory CECI COELHO Facility:[facility] Start: 06-17-[address] DOCTOR ENGEL Facility :[facility] Start: 06-11-2020 End: 06-12-[address] DOCTOR ENGEL Facility:[facility] Start: 03-07-2020 End: 03-08-2020 ambulatory LETY URIAS Facility:[facility] Start: 07-28-2019 End: 07-28-2019 Admission to day surgery Jaren Kam [facility] Procedures Date Procedure Procedure Detail Performing Clinician Start: 02-28-2024 Follow-up visit Follow-up KYREE CHAND Start: 01-05-2021 INSERTION OF INFUSION DEV INTO SUP VENA CAVA, PERC APPROACH HOMERO ALI Start: 01-02-2021 Antibody screen JAREN BLUNT Comment on above: Order Comment: Missed twice rn notified Performed By: #### [id number] #### [address] Start: 01-02-2021 EXCISION OF R LOW LEG SUBCU/FASCIA, OPEN APPROACH KYREE CHAND Start: 07-28-2019 Esophagogastroduodenoscopy Jaren Negin Plan of Treatment Date Care Activity Detail Author Patient Education Esophageal Str icture (DC) Esophageal Dilation (DC) [facility] Payers Date Payer Category Payer Medicare [id number] [id number] 1959 Self-pay [id number] 1959 Unknown [id number] 1952 Unknown [id number] 2.16.84 0.1.285163.3.579.2.593 1952 Unknown [id number] 2.16.84 0.1.713791.3.579.2.593 1952 Unknown [id number] 2.16.84 0.1.712980.3.579.2.593 1952 Unknown [id number] 2.16.8 40.1.566722.3.579.2.647 1952 Unknown [id number] 2.16.8 40.1.183215.3.579.2.647 1952 Unknown [id number] 2.16.8 40.1.900193.3.579.2.1286 1952 Unknown [id number] 2.16.84 0.1.914797.3.579.2.1286 1952 Unknown [id number] 2.16.8 40.1.034078.3.579.2.718 1952 Unknown [id number] 2.16.8 40.1.830426.3.579.2.718 1952 Unknown [id number] 2.16.8 40.1.489624.3.579.2.718 1952 Unknown [id number] 2.16.8 40.1.946347.3.579.2.718 1952 Unknown [id number] 2.16.8 40.1.556552.3.579.2.8 1952 Unknown [id number] 2.16.8 40.1.504085.3.579.2. 1952 Unknown [id number] 2.16.8 40.1.634835.3.579.2.8 1952 Unknown [id number] 2.16.8 40.1.492347.3.579.2. 1952 Unknown [id number] 2.16.8 40.1.333008.3.579.2. 1952 Unknown [id number] 2.16.8 40.1.141227.3.579.2. 1952 Unknown [id number] 2.16.8 40.1.467938.3.579.2. 1952 Unknown [id number] 2.16.8 40.1.134409.3.579.2. 1952 Unknown [id number] 2.16.8 40.1.981149.3.579.2. 1952 Unknown [id number] 2.16.8 40.1.367002.3.579.2. 1952 Unknown [id number] 2.16.8 40.1.954639.3.579.2.8 1952 Unknown [id number] 2.16.8 40.1.971527.3.579.2. 1952 Unknown [id number] 2.16.8 40.1.850290.3.579.2. 1952 Unknown [id number] 2.16.8 40.1.825376.3.579.2. 1952 Unknown [id number] 2.16.8 40.1.866545.3.579.2. 1952 Unknown [id number] 2.16.8 40.1.068945.3.579.2.718 1952 Unknown [id number] 2.16.8 40.1.797737.3.579.2.8 1952 Unknown [id number] 2.16.8 40.1.647205.3.579.2.8 1952 Unknown [id number] 2.16.8 40.1.593315.3.579.2. 1952 Unknown [id number] 2.16.8 40.1.579221.3.579.2. 1952 Unknown [id number] 2.16.8 40.1.953897.3.579.2. 1952 Unknown [id number] 2.16.8 40.1.990602.3.579.2. 1952 Unknown [id number] 2.16.8 40.1.523132.3.579.2. 1952 Unknown [id number] 2.16.8 40.1.510538.3.579.2. 1952 Unknown [id number] 2.16.8 40.1.324591.3.579.2.8 1952 Unknown [id number] 2.16.8 40.1.323740.3.579.2.8 1952 Unknown [id number] 2.16.8 40.1.856884.3.579.2. 1952 Unknown [id number] 2.16.8 40.1.293275.3.579.2.8 1952 Unknown [id number] 2.16.8 40.1.417531.3.579.2. 1952 Unknown [id number] 2.16.8 40.1.944534.3.579.2.8 1952 Unknown [id number] 2.16.8 40.1.764744.3.579.2. 1952 Unknown [id number] 2.16.8 40.1.247151.3.579.2.718 1952 Unknown [id number] 2.16.8 40.1.892220.3.579.2.718 1952 Unknown [id number] 2.16.8 40.1.363367.3.579.2.718 1952 Unknown [id number] 2.16.8 40.1.356306.3.579.2.718 1952 Unknown [id number] 2.16.8 40.1.628294.3.579.2.718 1952 Unknown [id number] 2.16. 840.1.644148.3.579.2.1286 Unknown Self Pay [id number] Unknown [id number] 2.16.84 0.1.863697.3.579.2.593 Social History Date Type Detail Facility [facility]: [facility]28[facility] Start: 1950 Sex Assigned At Male F [facility] Goals Date Patient Goal Desired Activity /State Clinical Notes 01-06-2021 to 04-26-2024 Note Date & Type Note Facility 04-26-2024 Note [facility] 03-29-2024 Note [facility] 03-22-2024 Note Subjective Patient ID: Shivani Ruiz is a 73 y.o. male. Expand All Collapse All Subjective[]Expand by Default Patient ID: Shivani Ruiz is a 73 y.o. male. Mr. Ruiz is a 73-year-old man who is well-known to me. He is here for follow-up for right stump MRSA abscess and probable chronic osteomyelitis. He [place] care [place]. He denies fever, chills, night sweats; he denies new redness or unusual drainage from his right stump. 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 There was concern for residual osteomyeltis of femur. He was treated with vancomycin Oct-26 Nov 2022, then started on TMP-SMX 1 DS BID on 27 Nov 2022- approx 06 Jan 2023. Within approximately 1 month after stopping antibiotics, he developed approximately 5 cm subcutaneous abscess which was drained and cultures grew MRSA. He has had 2 different isolates of MRSA, one is susceptible to doxycycline and the other is not. He was admitted from through 07 December 2023; he was initially treated with daptomycin for approximately 3 weeks, but he developed fever, chills, fatigue and eosinophilia; daptomycin was stopped and he was changed over to trimethoprim/sulfamethoxazole double strength twice daily plus rifampin twice daily in mid January 2024. PMH: Right AKA stump infection status post I&D in 01/02/2024 growing MRSA Obesity HTN Afib CADSVAC 3. Gout GERD CKD Hyperkalemia Macrocytic anemia Review of Systems Constitutional: Negative for chills, fatigue and fever. Respiratory: Negative for cough and shortness of breath. Cardiovascular: Negative for chest pain. Gastrointestinal: Negative for abdominal pain, diarrhea, nausea and vomiting. Skin: Negative for rash. Objective Physical Exam Vitals reviewed. Constitutional: Appearance: Normal appearance. HENT: Head: Normocephalic. Mouth/Throat: Mouth: Mucous membranes are moist. Pharynx: No oropharyngeal exudate or posterior oropharyngeal erythema. Eyes: General: No scleral icterus. Cardiovascular: Rate and Rhythm: Normal rate and regular rhythm. Heart sounds: No murmur heard. Pulmonary: Effort: Pulmonary effort is normal. Breath sounds: Normal breath sounds. Abdominal: General: Abdomen is flat. Bowel sounds are normal. Palpations: Abdomen is soft. Musculoskeletal: Left lower leg: Edema present. Comments: Right stump: sinus (draining); no rubor, no calor, no dolor, no tumor Skin: Findings: No rash. Neurological: General: No focal deficit present. Mental Status: He is alert and oriented to person, place, and time. Psychiatric: Mood and Affect: Mood normal. Laboratory: Assessment/Plan 73 y.o. male 73 year old man right stump MRSA abscess who was admitted from through 07 December 2023; he was initially treated with daptomycin for approximately 3 weeks, but he developed fever, chills, fatigue and eosinophilia; daptomycin was stopped and he was changed over to trimethoprim/sulfamethoxazole double strength twice daily plus rifampin twice daily in mid January. Since that time, he has had stable serum creatinine, stable CBC, stable C-reactive protein. He is being treated with wound care for a chronic draining sinus which is most likely related to chronic osteomyelitis. Plan: Continue rifampin 300 mg twice daily plus trimethoprim/sulfamethoxazole double strength twice daily; however, when the prescription for rifampin expires later this month, stop it. That will complete approximately 3 months of rifampin. Continue the Bactrim. I will monitor his renal function and CBC monthly I will follow-up with him in approximately 3 months. Continue wound care; the sinus may not close. [facility] 02-28-2024 Note Orthopaedic Surgery Subjective Follow-up and Pain of the Right Knee 02/28/24 Shivani Ruiz is a 73 y.o. male who underwent a R AKA on 10/14/22 and I&D of said stump on 01/02/24. He presents in a wheelchair. He has been receiving local wound care by home health aides and states that the sinus at his knee stump has continued to close and appear healthy. He does not endorse any concerns as it relates to his R AKA stump currently. He denies any sick-like symptoms, fevers, and chills. 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 CV: Normal respiratory rate HEENT: Normocephalic, atraumatic Right Knee: Inspection- no ecchymosis, no edema, no effusion Non-tender to palpation globally R AKA stump with ~1cm sinus tract with packing in place, no drainage currently or erythema or any active signs of infection Patient has active flexion extension of his stump without any major concerns. Patient is seen in the wheelchair today and continues to have central obesity. Patient has no excoriation of the stump at this point in time. His pain is well-controlled. No drainage on deep pressure and expression. Sensation: intact Gait: heel toe pattern, normal Imaging None performed. Assessment/Plan Shivani Ruiz is a 73 y.o. male who underwent a R AKA on 10/14/22 and I&D of said stump on 01/02/24. Patient was reassured that the chronic infection may persist and he will continue to be on his antibiotics. He will continue his follow-up with infectious disease as per previous plan. We will see him earlier if any systemic symptoms like fever chills or rigors. He understands the plan all questions answered today. Patient will continue working with his prosthetic continues to enable his ambulation and be on falls precautions. -WBAT RLE -Return to clinic in 2 months -Continue local wound care Art Burgos MD, PGY-1 Orthopaedic Surgery Resident By using the attestations below, the signing clinician agrees that I have read and verify that the documentation has been personally reviewed by me and ensure that the documentation accurately reflects the encounter. GC: I personally saw this patient on the day of the encounter, performed the hernandez portion(s) of the service and participated in the management and confirm the resident's documentation. Please note there may be an additional personal documentation from me. Dr. Kyree Chand MD [facility] [employer] [employer] Assembler orthopedic surgery Adult Reconstruction and Trauma [facility]. [facility] 01-24-2024 Note Orthopedic Surgery Subjective Chief complaint: Chief Complaint Patient presents with Right Knee - Post-op, Pain 01/24/24 Shivani Ruiz is a 73 y.o. year old male presenting for evaluation of right above-knee amputation stump dehiscence of the wound. Patient recently underwent revision of the amputation along with debridement washout and application of wound VAC. Patient wants to avoid wound VAC if possible. He is now here for his removal of sutures and further evaluation of his wound. Patient is here for further evaluation and treatment of the wound. Denies any fever, chills or exertional breathlessness. Patient has been following up antibiotics. 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 No acute distress, comfortable Respiratory: Unlabored breathing with normal rate, no cough Cardiovascular: Warm well perfused extremities Psych: Appropriate mood behavior Right above-knee amputation stump was examined: There is about 1 cm x 2 cm gaping noted in the mid incision along with depth of the incision to about 2.5 cm deeper into the soft tissue. Overall deeper collection has been expressed. We cleaned the edges of the wound. This was not followed by using sterile dry dressings in the form of the 4 x 4. No major redness noted. Were removed today without any complications. Did an ABD and tape. Patient had good range of motion of the stump. Imaging personally reviewed: No new x-rays taken today. Previous x-rays were reviewed which show above-knee amputation stump with previous comminution at the point with. Assessment/Plan Shivani Ruiz is a 73 y.o. 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 There is a small area of wound dehiscence measuring about 2.5 cm x 1 cm and deep to about 2.5 centimeters. This was cleaned and new dressings were applied. Patient will continue with his daily wet-to-dry dressing changes and will continue with his antibiotics. He will continue this follow-up with his infectious disease team as he had complex MRSA infection in his right stump. Patient will follow-up to see me in about 4 weeks time or earlier if required. Patient was given option to continue with his wound VAC plan. Again all questions answered patient happy with the plan. Dr. Kyree Chand MD MRCSEd [employer] Assembler orthopedic surgery Adult Reconstruction and Trauma [facility]. [facility] 01-20-2024 Note Subjective Patient ID: Shivani Ruiz is a 73 y.o. male. Mr. Ruiz is a 73-year-old man who is well-known to me. He is here for follow-up for hospitalization from through 07 December 2023 for right stump MRSA abscess which was surgically incised and drained. There is no comment in the operative report about bone involvement; however, there is most likely residual osteomyelitis. 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 There was concern for residual osteomyeltis of femur. He was treated with vancomycin Oct-26 Nov 2022, then started on TMP-SMX 1 DS BID on 27 Nov 2022- approx 06 Jan 2023. Within approximately 1 month after stopping antibiotics, he developed approximately 5 cm subcutaneous abscess which was drained and cultures grew MRSA. He has had 2 different isolates of MRSA, one is susceptible to doxycycline and the other is not. Beginning approximately 10 February, he was restarted on trimethoprim/sulfamethoxazole, and this was stopped in about one month. PMH: Right AKA stump infection status post I&D in 01/02/2024 growing MRSA Obesity HTN Afib CADSVAC 3. Gout GERD CKD Hyperkalemia Normocytic anemia Review of Systems Constitutional: Negative for chills, fatigue and fever. Respiratory: Negative for cough and shortness of breath. Cardiovascular: Negative for chest pain. Gastrointestinal: Negative for abdominal pain, diarrhea, nausea and vomiting. Skin: Negative for rash. Objective Physical Exam Vitals reviewed. Constitutional: Appearance: Normal appearance. HENT: Head: Normocephalic. Mouth/Throat: Mouth: Mucous membranes are moist. Pharynx: No oropharyngeal exudate or posterior oropharyngeal erythema. Eyes: General: No scleral icterus. Cardiovascular: Rate and Rhythm: Normal rate and regular rhythm. Pulmonary: Effort: Pulmonary effort is normal. No respiratory distress. Breath sounds: Normal breath sounds. No rhonchi or rales. Abdominal: General: Abdomen is flat. Bowel sounds are normal. Palpations: Abdomen is soft. Tenderness: There is no right CVA tenderness or left CVA tenderness. Musculoskeletal: Right lower leg: Edema present. Left lower leg: Edema present. Legs: Comments: Right stump: sutures in place; no rubor, no calor, no dolor, no tumor, slight drainage. Lymphadenopathy: Cervical: No cervical adenopathy. Skin: Capillary Refill: Capillary refill takes less than 2 seconds. Coloration: Skin is not jaundiced. Findings: No rash. Neurological: General: No focal deficit present. Mental Status: He is alert and oriented to person, place, and time. Psychiatric: Mood and Affect: Mood normal. Laboratory: Lab Results Component Value Date AST 16 01/01/2024 ALT 12 01/01/2024 ALBUMIN 3.1 (L) 01/01/2024 PROT 6.1 01/01/2024 Lab Results Component Value Date CRP 161.5 (H) 01/01/2024 Lab Results Component Value Date HGB 11.2 (L) 01/05/2024 HCT 34.0 (L) 01/05/2024 WBC 7.55 01/05/2024 PLT 295 01/05/2024 Lab Results Component Value Date NA 142 01/06/2024 K 4.3 01/06/2024 CL 106 01/06/2024 GLUCOSE 100 01/06/2024 BUN 21 01/06/2024 CREATININE 1.00 01/06/2024 1. Chronic osteomyelitis of right lower leg ([facility]) Assessment/Plan 73 y.o. male 73 year old man right stump MRSA abscess who was admitted from through 07 December 2023. He has been treated with daptomycin since that time. His C-reactive protein has decreased, he has a normal creatinine kinase and his CRP is stable; however, he reports that he has had chills and fatigue after infusion of daptomycin and he has an absolute eosinophilia of approximately 900. He has no respiratory symptoms and his physical exam has no pulmonary abnormalities. He has no signs or symptoms of systemic infection. His serum creatinine is 1.0. His right stump appears to be healing appropriately and there appears to be no reaccumulation of fluid. Plan: He needs to follow-up with orthopedics so they can remove his sutures. I will stop daptomycin in order to avoid an adverse drug reaction-i.e. eosinophilic pneumonia Pull Picc I will give rifampin 300 mg twice daily plus trimethoprim/sulfamethoxazole double strength twice daily I will monitor his renal function and CBC weekly. Need to see him in 2 to 3 weeks [facility] 01-19-2024 Note Addendum created 1324 by Chadwick Ayala MD Intraprocedure Staff edited [facility] 01-13-2024 Note [id number]#1.00[facility] 01-06-2024 Note Discharge Planning: [facility] (SNF) The patient was admitted to [facility] on 01/01/2024 with a diagnosis of osteomyelitis. Discharge orders are completed, and the patient will be discharged to [facility] ([facility]). [facility] transportation is scheduled for 11:15 a.m., and the transportation packet has been placed in the front of the patient's physical chart. [facility] has been added to the After Visit Summary (AVS), and the facility has been notified of the discharge time with updates. Nurses may provide the report by calling No addition need from OTM. [facility] 01-06-2024 Note Hospital Medicine Discharge Summary Final Discharge Diagnosis: Right AKA stump infection status post I&D in 01/02/2024 growing MRSA Obesity HTN Afib CADSVAC 3. Gout GERD CKD Hyperkalemia Normocytic anemia Admission Diagnosis: Osteomyelitis (CMS/[facility]) [M86.9] Hospital course: Patient is a 73-year-old who was admitted with right AKA stump infection. Outside CT reported by our radiology IMPRESSION: Right above knee amputation, features suggestive of chronic osteomyelitis of the distal right femur with draining sinus tract to the stump, ill-defined associated 6.7 x 6.8 cm collection [possible abscess]. MRI could further assess extent of femoral medullary involvement, as in clinically appropriate. Note, contrast would be indicated He underwent I&D. Cultures were growing MRSA. ID was consulted. Initially patient was on vancomycin but later after PICC line placement, he was switched to daptomycin on on discharge. Alcohol cessation was recommended. Blood cultures from were NGTD. Surgical, Invasive or Diagnostic Procedures Done During Admission: InD Consultations During Admission: Ayden, EFREN Dear Dr. Negin MD, Shivani is advised to follow up with you within 1-2 weeks. Items to follow up in ambulatory setting: None Follow-up with: ID and ortho Scheduled appointments: Future Appointments Date Time Provider Department Center 01/18/2024 2:40 PM Shlomo Girard NP [facility] Your medication list START taking these medications Instructions Last Dose Given Next Dose Due DAPTOmycin 1,000 mg in sodium chloride 0.9 % 50 mL Infuse 1,000 mg into a venous catheter 1 (one) time each day at the same time for 39 doses. thiamine 100 mg tablet Commonly known as: Vitamin B-1 Take 1 tablet (100 mg) by mouth in the morning. CONTINUE taking these medications Instructions Last Dose Given Next Dose Due allopurinol 300 mg tablet Commonly known as: Zyloprim aspirin 81 mg EC tablet Take 1 tablet (81 mg) by mouth in the morning. Do not start before October 31, 2022. carvedilol 6.25 mg tablet Commonly known as: Coreg Take 1 tablet (6.25 mg) by mouth with breakfast and with evening meal. furosemide 20 mg tablet Commonly known as: Lasix Take 2 tablets (40 mg) by mouth in the morning. HYDROcodone-acetaminophen 7.5-325 mg tablet Commonly known as: [place] hydrOXYzine HCL 25 mg tablet Commonly known as: Atarax pantoprazole 40 mg EC tablet Commonly known as: ProtoNix triamcinolone 0.025 % cream Commonly known as: Kenalog Where to Get Your Medications These medications were sent to [facility] at [address] [address] furosemide 20 mg tablet thiamine 100 mg tablet You can get these medications from any pharmacy Bring a paper prescription for each of these medications DAPTOmycin 1,000 mg in sodium chloride 0.9 % 50 mL Shivani is allergic to chlorhexidine and alcohol swabs. Disposition: [facility] ([facility] Discharge Condition: Stable Code Status: Full Code Diagnostic Results Hematology: Results from last 7 days Lab Units 01/05/24 0515 01/04/24 0342 01/01/24 0549 CRP mg/L -- -- 161.5* WBC AUTO 10*3/uL 7.55 8.71 10.24 HEMOGLOBIN g/dL 11.2* 10.8* 13.3 HEMATOCRIT % 34.0* 33.3* 40.4 MCV fL 105.3* 106.1* 104.7* PLATELETS AUTO 10*3/uL 295 284 242 Chemistry: Results from last 7 days Lab Units 01/06/24 0639 01/05/24 0439 01/04/24 0343 SODIUM mmol/L 142 142 139 POTASSIUM mmol/L 4.3 4.3 4.4 CHLORIDE mmol/L 106 107 107 CO2 mmol/L 32* 33* 29 BUN mg/dL 21 23 28* CREATININE mg/dL 1.00 1.02 1.27 GLUCOSE mg/dL 100 92 112* CALCIUM mg/dL 8.5* 8.4* 8.4* Results from last 7 days Lab Units 01/01/24 0549 AST U/L 16 ALT U/L 12 ALK PHOS U/L 109* BILIRUBIN TOTAL mg/dL 0.5 Test Results Pending At Discharge: Pending Labs Order Current Status Abscess culture and anaerobic culture Preliminary result Anaerobic culture Preliminary result Anaerobic culture Preliminary result Blood culture, peripheral #1 Preliminary result Blood culture, peripheral #2 Preliminary result Fungal culture Preliminary result Fungal culture Preliminary result Tissue culture and anaerobic culture Preliminary result Diet at the time of discharge: regular diet Nutrition Screen Activity: Patient currently has no discharge activity orders Objective Blood pressure 139/84, pulse 88, temperature 36.2 ???C (97.1 ???F), temperature source Temporal, resp. rate 17, height 1.753 m (5' 9 ), weight (!) 141 kg (310 lb 13.6 oz), SpO2 98 %. Cardiology: Normal rate, regular rhythm. Lungs: Clear to auscultation, no wheezes, rales or rhonchi, symmetric air entry. Abdomen: Soft, non tender, non distended. Total time for discharge - review of data, exam, discussion with providers and care-team, med-rec and orders, arranging follow up, counseling of patient and/or fa (more content not included)... [facility] 01-05-2024 Note SW advised that [facility] will not have a bed at their facility until 01/11. NBA met with patient to discuss placement. He did not really want to go to another provider but said if he has to he would want [facility]. Patient would prefer to go home with [facility] and his IV meds. He states he has completed IV meds at home in the past. His [facility] of preference is [facility]. NBA sent referral to [facility] and [facility] as well as [facility] for review and determination of eligibility. Awaiting their review and determination for final discharge arrangements. [facility] 01-05-2024 Note Infectious Diseases - Inpatient daily Progress Note - Patient name: Shivani Ruiz Patient Today's Date and Time: 01/05/2024, 3:15 PM Admission Date: 01/01/2024 Assessment/Plan Impression: Right AKA Stump Osteomyelitis with Abscess - Patient developed R knee infection that required AKA in 10/2022. Had some problems postop with recurrent infections with MRSA, was placed on Bactrim suppression that was stopped sometime in September. He had a fluid collection in the knee on CT. S/P I&D 01/01 with drainage of focal purulent collection with bony involvement (osteomyelitis) reported as well. Cultures from tissue/abscess 01/01 are growing MRSA, similar to previous cultures. His MRSA is susceptible to vancomycin and daptomycin. Blood cultures currently showing NGTD. His pain in his right knee stump remains tolerable, the surgical site appears clean and dry, and there are no new symptoms reported at this time. TEQUILA - Mild, Resolved. Latest Cr 1.02, baseline around 1. Did have similar episodes in the past a year ago. Prediabetes - HbA1c 6.5%, not on meds Morbid Obesity - Clas III, BMI 44 Recommendations: Continue IV Daptomycin 1000 mg daily (Day 5 total). Initial CK is [address]. The patient will require IV antibiotics for a total 6 week/42 day antibiotic course. He can be discharged from our perspective when ready. Subjective Interval history: The patient reports feeling well today. His stump dressing was replaced and the ortho provider reported that it looked good today. The pain in his stump remains tolerable. He denies any fever, chills, or any other symptoms at this time. He is currently awaiting placement at a facility at this time. Objective Physical Examination: BP 128/82 (BP Location: Left arm, Patient Position: Lying) Pulse 74 Temp 36.2 ???C (97.2 ???F) (Temporal) Resp 20 Ht 1.753 m (5' 9 ) Wt (!) 141 kg (310 lb 13.6 oz) SpO2 96% BMI 45.90 kg/m??? Temperature Range: Temp: 36.2 ???C (97.2 ???F) Temp Av.4 ???C (97.5 ???F) Min: 36.2 ???C (97.2 ???F) Max: 36.7 ???C (98.1 ???F) General Appearance: Awake, alert, and in no apparent distress, nontoxic Eyes: Sclera anicteric; conjunctivae clear ENT: Oropharynx clear, without erythema, exudate, no thrush. Neck: Supple, without lymphadenopathy. Pulmonary/Chest: clear to auscultation, no wheezes or rales, and unlabored breathing Cardiovascular: Regular rate and rhythm without murmurs Abdomen: soft, protuberant abdomen. Non-tender, nondistended, no palpable masses no organomegaly; normal bowel sounds Extremities: R stump wrapped in dressing. Clean, dry surgical scar present over R stump. Erythema has improved significantly overall. Neurologic: Alert and oriented x 3, nonfocal. strength and sensation grossly normal Skin: Small pretibial wound present on left leg, not infected. No pallor See Media entries of RLE stump for additional details. Laboratory data: I have independently reviewed the following labs: Results from last 7 days Lab Units 01/05/24 0515 01/04/24 0342 01/01/24 0549 WBC AUTO 10*3/uL 7.55 8.71 10.24 HEMOGLOBIN g/dL 11.2* 10.8* 13.3 HEMATOCRIT % 34.0* 33.3* 40.4 MCV fL 105.3* 106.1* 104.7* PLATELETS AUTO 10*3/uL 295 284 242 NEUTROS ABS 10*3/uL 4.73 -- 8.26* LYMPHS ABS AUTO 10*3/uL 1.44 -- 0.35* MONOS ABS AUTO 10*3/uL 0.61 -- 0.86 EOS ABS AUTO 10*3/uL 0.67* -- 0.68* BASOS ABS AUTO 10*3/uL 0.07 -- 0.05 Results from last 7 days Lab Units 01/05/24 0439 01/04/24 0343 01/03/24 1428 01/02/24 0534 01/01/24 0549 POTASSIUM mmol/L 4.3 4.4 4.6 < > 4.1 CHLORIDE mmol/L 107 107 105 < > 104 CO2 mmol/L 33* 29 28 < > 30 BUN mg/dL 23 28* 26* < > 20 CREATININE mg/dL 1.02 1.27 1.35* < > 1.43* GLUCOSE mg/dL 92 112* 166* < > 111* CALCIUM mg/dL 8.4* 8.4* 8.3* < > 8.6 ALK PHOS U/L -- -- -- -- 109* ALT U/L -- -- -- -- 12 AST U/L -- -- -- -- 16 < > = values in this interval not displayed. Results from last 7 days Lab Units 01/02/24 1346 SED RATE mm/hr 66* No lab exists for component: TURBIDITY , SPECIFICGRA , PHURINE , LEUKOCYTE , PROTEIN , BLOODHGB , RBCELLS , RENALEPITH No lab exists for component: TOXIGENICC Imaging Studies: I have reviewed myself the following imaging studies performed in the past 3 days: XR chest 1 view Result Date: 01/04/2024 Mild congestive changes. Satisfactory position of right upper extremity PICC line. Electronically signed: Terrance Conn MD. No CT results found for the past 3 days No MRI results found for the past 3 days Cultures: Results for orders placed or performed during the hospital encounter of 01/01/24 Abscess culture Specimen: Leg; Tissue Result Value Ref Range Culture (AA) Moderate Growth Methicillin-Resistant Staphylococcus aureus Gram Stain Result Many Polymorphonuclear leukocytes Gram Stain Result Moderate Gram positive cocci in clusters Susceptibility Methicil (more content not included)... [facility] 01-05-2024 Note Occupational Therapy Occupational Therapy Treatment Patient Name: Shivani Ruiz : 1950 Today's Date: 01/05/2024 01/05/24 1414 Time Calculation Start Time 1414 Stop Time 1508 Time Calculation (min) 54 min OT Therapeutic Procedures Time Entry Self Care/Home Management (ADLs) Time Entry 54 Discharge Recommendation: Retirement Facility Placement (return to) Problem List Patient Active Problem List Diagnosis PAF (paroxysmal atrial fibrillation) (CMS/HCC) Chronic infection of right knee (CMS/HCC) Chronic osteomyelitis of lower leg (CMS/HCC) Chronic primary gouty arthritis Constipation Contusion of foot Dysphagia Esophageal web GERD with stricture History of surgical procedure Hyperlipidemia Primary hypertension Lymphedema Lymphedema of lower extremity Mechanical complication of internal joint prosthesis (CMS/HCC) Arthropathy of knee Pneumothorax on left Arthrosis of knee Pruritus Sepsis (CMS/HCC) CKD (chronic kidney disease), stage III (CMS/HCC) Nonrheumatic aortic valve stenosis Chronic infection of prosthetic knee, subsequent encounter Chronic combined systolic and diastolic congestive heart failure (CMS/HCC) Above knee amputation of right lower extremity (CMS/HCC) Wound dehiscence Absence of lower extremity (CMS/HCC) Mobility impaired Phantom limb pain (CMS/HCC) Prosthetic limb gait Osteomyelitis (CMS/HCC) 01/05/24 1414 OT Last Visit OT Received On 01/05/24 General Subjective Man, I wish I would have seen you like 3 days ago...I feel great! Treatment Duration (min) 54 Minutes Response to Previous Treatment Patient with no complaints from previous session Family/Caregiver Present No Precautions LE Weight Bearing Status Right;NWB Medical Precautions fall risk, bed/chair alarms, telemetry Post-Surgical Precautions R/AKA, limb loss precs Pain Assessment Pain Assessment No/denies pain Cognition Overall Cognitive Status WFL Arousal/Alertness Appropriate responses to stimuli Orientation Level Oriented X4 Following Commands Follows all commands and directions without difficulty Safety Judgment Decreased awareness of need for assistance;Decreased awareness of need for safety Awareness of Errors Assistance required to identify errors made Deficits Fully aware of deficits Attention Span Appears intact Memory Appears intact Problem Solving Assistance required to identify errors made Communication Intact Cognition Comments Pt pleasant during session, agreeable to all bed mobility & transferring OOB to<>from w/c. Pt did refuse to remain upin recliner, despite encouragement. Pt presents with impaired safety awareness, & required educ & cues for safety & compensatory strategies for bed mobility, STS to device, completion of standing ADL task. General Assessment Hearing WFL Skin Integrity ABD to R/residual limb incision Edema RLE, 2/2 amputation Grooming Grooming Level of Assistance Setup;Minimal verbal cues Grooming Where Assessed Edge of bed Grooming Comments to complete facial & oral care while sitting unsupported EOB. UE Bathing UE Bathing Level of Assistance Setup;Minimal verbal cues UE Bathing Where Assessed Edge of bed UE Bathing Comments to complete 100% UBB sitting unsupported EOB. LE Bathing LE Bathing Level of Assistance Moderate assistance;Minimal verbal cues LE Bathing Where Assessed Bed level;Other (Comment);Edge of bed (standing EOB) LE Bathing Comments Pt dependent for distal L/LE bathing, 2/2 body habitus. Dependent for divine-hygiene standing with RW at EOB. Pt requires use of BUEs to maintain center of gravity. Pt completed proximal 50% LBB sitting EOB. UE Dressing UE Dressing Level of Assistance Minimum assistance UE Dressing Where Assessed Edge of bed UE Dressing Comments to doff/don gowns LE Dressing Sock Level of Assistance Dependent LE Dressing Where Assessed Bed level LE Dressing Comments to doff/don L/sock Toileting Toileting Level of Assistance Setup Where Assessed Other (Comment) (sitting EOB) Toileting Comments for use of urinal sitting EOB. Functional Standing Tolerance Time ~5 mins Activity Divine-hygiene & bed linen change Functional Standing Tolerance Comments Pt stood EOB with device to accommodate both tasks with fair standing tolerance & balance. Pt's balance declined relative to fatigue, with tremors observed with prolonged stance. Pt rested R/residual limb onto EOB, while standing with L/LE. Static Sitting Balance Static Sitting-Balance Support Feet supported Static Sitting-Level of Assistance Close supervision Static Sitting-Comment/Number of Minutes SBA for safety while sitting unsupported EOB. Dynamic Sitting Balance Dynamic Sitting-Balance Support Right upper extremity supported;Left upper extremity supported (LLE supported) Dynamic Sitting-Balance Forward lean;Reaching for objects;Reaching across midline (more content not included)... [facility] 01-05-2024 Note ---- Attestation signed by Kyree Chand MD at 01/05/2024 4:31 PM Care discussed with my resident in Orthopedic surgery Dr Art Burgos MD ---- Date: 01/05/2024 Surgery: 01/02/2024 - I&D RIGHT AKA STUMP (R) Subjective (24-Hour Events): Underwent I&D of R AKA stump 3 days ago. Pain is well-controlled. Objective: BP 117/80 (BP Location: Left arm, Patient Position: Sitting) Pulse 75 Temp 36.5 ???C (97.7 ???F) (Temporal) Resp 19 Ht 1.753 m (5' 9 ) Wt (!) 141 kg (310 lb 13.6 oz) SpO2 96% BMI 45.90 kg/m??? General: A/O x3, resting comfortably in bed, cooperative Musculoskeletal: RLE - Surgical site with stitches in place, no signs of erythema, drainage, or infection; non-tender to palpation (dressing changed by our team this AM) - Able to flex hip - Sensory intact Labs: Lab Results Component Value Date WBC 7.55 01/05/2024 HGB 11.2 (L) 01/05/2024 HCT 34.0 (L) 01/05/2024 MCV 105.3 (H) 01/05/2024 PLT 295 01/05/2024 CRP 52.8 (H) 04/30/2023 Lab Results Component Value Date GLU 103 (H) 11/14/2021 CALCIUM 8.4 (L) 01/05/2024 NA 142 01/05/2024 K 4.3 01/05/2024 CO2 33 (H) 01/05/2024 CL 107 01/05/2024 BUN 23 01/05/2024 CREATININE 1.02 01/05/2024 Lab Results Component Value Date INR 1.01 01/05/2021 Imaging: XR chest 1 view Result Date: 01/04/2024 Mild congestive changes. Satisfactory position of right upper extremity PICC line. Electronically signed: Terrance Conn MD. No CT results found for the past 24 hours No MRI results found for the past 24 hours Assessment: Shivani Ruiz is a 73 y.o. male who underwent an I&D of his R AKA stump on 01/02/24. Plan: WBAT RLE Abx: Continue per ID, appreciate recommendations Follow cultures DVT ppx: Per primary team Dressing: Changed today by ortho team. Future dressing changes can be done by nursing staff. Please add photo to chart. Dress with adaptic followed by ABD adhered with skin tape. No need for MISHA Ice, elevate extremity PT/OT as able Multimodal pain control Diet: Regular as tolerated Ortho will sign off at this time Art Burgos MD, PGY-1 Orthopaedic Surgery Resident [facility] 01-05-2024 Note Patient name: Shivani Ruiz Date of : 1950 Admission date: 01/01/2024 ANTIBIOTIC ORDERS Infectious Diseases Diagnosis for antibiotic management: chronic MRSA osteomyelitis right thigh stump Name/dosing/frequency of antibiotic: daptomycin 1000 mg iv daily Continue antibiotics through: 02/12/2024 Pharmacy to dose LABORATORY ORDERS: Draw TWICE WEEKLY the following labs:, CBC, BUN, Creatinine, ESR, CRP, CPK, >>>FAX RESULTS TO [phone]<<<, Discontinue laboratory orders when antibiotics have been completed, and Call Infectious Diseases with critical lab values. CONTACT NUMBERS For all questions call: [phone] IV ACCESS: PICC line OK to draw blood from IV access device: Yes Remove intravenous access after completion of antibiotics. IV ACCESS FLUSHING ORDERS PER INFUSION COMPANY PROTOCOL ID PHYSICIAN WHO WILL BE OVERSEEING OUTPATIENT IV ANTIMICROBIAL THERAPY: Dr. Lashawn Pollack MD PRIMARY CARE PROVIDER: Jaren Kam MD ALLERGIES: Allergies Allergen Reactions Chlorhexidine Alcohol Swabs Rash WEIGHT: Wt Readings from Last 1 Encounters: 01/05/24 (!) 141 kg (310 lb 13.6 oz) HEIGHT: Ht Readings from Last 1 Encounters: 01/01/24 1.753 m (5' 9 ) RECENT LABS: Results from last 7 days Lab Units 01/05/24 0439 POTASSIUM mmol/L 4.3 CHLORIDE mmol/L 107 CO2 mmol/L 33* BUN mg/dL 23 CREATININE mg/dL 1.02 CALCIUM mg/dL 8.4* Results from last 7 days Lab Units 01/05/24 0515 WBC AUTO 10*3/uL 7.55 HEMOGLOBIN g/dL 11.2* HEMATOCRIT % 34.0* PLATELETS AUTO 10*3/uL 295 NEUTROS PCT AUTO % 62.6 LYMPHS PCT AUTO % 19.1* MONOS PCT AUTO % 8.1 EOS PCT AUTO % 8.9* Significant Hospital Summary: ression: Right AKA Stump Osteomyelitis with Abscess - Patient developed R knee infection that required AKA in 10/2022. Had some problems postop with recurrent infections, was placed on Bactrim suppression that was stopped sometime in September. Was found to have a fluid collection in the knee on CT. S/P I&D 01/01 with drainage of focal purulent collection with bony involvement (osteomyelitis) reported as well. Cultures from tissue/abscess 01/01 are growing MRSA, similar to previous cultures. His MRSA is susceptible to vancomycin and daptomycin. Blood cultures currently showing NGTD. TEQUILA - Mild, stable. Latest Cr 1.27, baseline around 1. Did have similar episodes in the past a year ago. Prediabetes - HbA1c 6.5%, not on meds Morbid Obesity - Clas III, BMI 44 Recommendations: Change antibiotics to IV Daptomycin 1000 mg daily (Day 4 total) Contact precautions. CK ordered for baseline evaluation on Daptomycin. OPAT orders in place. The patient will require IV antibiotics for a total 6 week/42 day antibiotic course. MICROBIOLOGY: MRSA DISPOSITION: [facility] Follow-up: With Dr Nascimento in 2 weeks This information has been explained to the patient: Yes Thank you for allowing me to see the patient Please call for any questions or concerns, Lashawn Pollack MD [place] Infectious diseases P:[phone] [facility] 01-05-2024 Note Physical Therapy Physical Therapy Treatment Patient Name: Shivani Ruiz : 1950 Today's Date: 01/05/2024 01/05/24 Time Calculation Start Time 1009 Stop Time 1024 Time Calculation (min) 15 min PT Therapeutic Procedures Time Entry Therapeutic Activity Time Entry 15 Patient Active Problem List Diagnosis PAF (paroxysmal atrial fibrillation) (CMS/HCC) Chronic infection of right knee (CMS/HCC) Chronic osteomyelitis of lower leg (CMS/HCC) Chronic primary gouty arthritis Constipation Contusion of foot Dysphagia Esophageal web GERD with stricture History of surgical procedure Hyperlipidemia Primary hypertension Lymphedema Lymphedema of lower extremity Mechanical complication of internal joint prosthesis (CMS/HCC) Arthropathy of knee Pneumothorax on left Arthrosis of knee Pruritus Sepsis (CMS/HCC) CKD (chronic kidney disease), stage III (CMS/HCC) Nonrheumatic aortic valve stenosis Chronic infection of prosthetic knee, subsequent encounter Chronic combined systolic and diastolic congestive heart failure (CMS/HCC) Above knee amputation of right lower extremity (CMS/HCC) Wound dehiscence Absence of lower extremity (CMS/HCC) Mobility impaired Phantom limb pain (CMS/HCC) Prosthetic limb gait Osteomyelitis (CMS/HCC) 01/05/24 1123 PT Last Visit PT Received On 12/15/23 General Family/Caregiver Present No Subjective You guys don't realize I do this every day. Pt agreeable to transfer to W/C. Nrsg okays session. Activity Tolerance Endurance Stage II Activity Tolerance Comments Pt exhibits mod fatigue/SOB with minimal activity and tends to hold breath when exerting self despite cues to avoid this. Precautions LE Weight Bearing Status Right;NWB Medical Precautions fall risk, bed/chair alarms, telemetry Post-Surgical Precautions s/p I&D to R residual limb (AKA) on 01/02/24 Pain Assessment Pain Assessment ( It's manageable right now. Pt did not rate pain numerically.) Cognition Arousal/Alertness Appropriate responses to stimuli Orientation Level Oriented X4 Following Commands Follows multistep commands with increased time Safety Judgment Decreased awareness of need for safety;Decreased awareness of need for assistance Awareness of Errors Decreased awareness of errors Deficits Fully aware of deficits Attention Span Appears intact Memory Appears intact Problem Solving Assistance required to identify errors made Communication Intact Cognition Comments Poor cooperation noted. General Assessment Skin Integrity ABD bandage to R residual limb, arrived for wound care during session Edema RLE Static Sitting Balance Static Sitting-Balance Support Feet supported Static Sitting-Level of Assistance Close supervision Static Sitting-Comment/Number of Minutes Supervision for safety Dynamic Sitting Balance Dynamic Sitting-Balance Support Feet supported;Left upper extremity supported;Right upper extremity supported Dynamic Sitting-Balance Lateral lean;Forward lean Dynamic Sitting Balance-Level of Assistance Close supervision Dynamic Sitting-Comments heavy reliance of UEs to initiate scooting Static Standing Balance Static Standing-Balance Support Left upper extremity supported;Right upper extremity supported Static Standing-Level of Assistance Contact guard (x2) Static Standing-Comment/Number of Minutes did not fully stand upright, SPC in R hand, L hand supported on bed rail Bed Mobility 1 Bed Mobility From 1 Supine Bed Mobility Type 1 To and from Bed Mobility to 1 Short sit Level of Assistance 1 Close supervision Bed Mobility Comments 1 Pt uses bed controls to sit upright and heavy use of bed rails for bed mobility. Hold breath with exertion. Incr efforts. Transfers Transfer Yes Transfer 1 Transfer From 1 Bed Transfer Type 1 To and from Transfer to 1 Wheelchair Technique 1 Stand pivot Transfer Device 1 straight cane Transfer Level of Assistance 1 Contact guard;Minimum assistance;x2;Minimal verbal cues Trials/Comments 1 CGA x1 Min A x1 to hold W/C in place and maintain safety with transfer. Pt used SPC and used bed rail/armrest of chair for support with opposite hand. Pt requested the bed to be elevated several inches to assist with STS. Pt then transferred back to bed due to wound care arriving utilizing same method. Other Activity Other Activity 1 Pt in bed with alarm activated and nrsg present upon ad copy writer exit. PT Assessment PT Assessment/UTILITY ENGINEER Summary Pt exhibited decreased safety awareness and unsteadiness with transfers this date. Pt would benefit from cont skilled PT to maximize functional mobility/independence and ensure safe return to PLOF. Evaluation/Treatment Tolerance Patient limited by fatigue Medical Staff Made Aware Yes PT Education/Comments safety awareness, benefits of skilled PT Plan Level of assist (S) 1 assist (2 person for transfer OOB due to d (more content not included)... [facility] 01-05-2024 Note Hospital Medicine Daily Progress Note - 01/05/2024 8:53 AM; Room: [id number]- Admission: 01/01/2024 12:42 AM; Length of stay: 4 days THE HOSPITALIST TEAM PREFERS TO USE [employer] FOR NON-URGENT COMMUNICATION 7AM-7PM. IF I DO NOT RESPOND WITHIN 20 MINUTES OR URGENT MATTERS, PLEASE CALL THROUGH THE NECK BAND SETTER. FROM 7PM-7AM, PLEASE PAGE [phone](COVR). Code Status: Full Code Barriers to Discharge: Ortho eval Expected Discharge Date: 1-2 days Discharge Destination: home Overview Patient is seen for evaluation and management of knee infection. . Subjective seen and evaluated bedside. Denies headache vision changes chest pain nausea vomiting. Physical Exam Visit Vitals BP 127/77 (BP Location: Right arm, Patient Position: Lying) Pulse 79 Temp 36.2 ???C (97.2 ???F) (Temporal) Resp 20 Intake/Output Summary (Last 24 hours) at 01/05/2024 0853 Last data filed at 01/05/2024 0600 Gross per 24 hour Intake 50 ml Output 1200 ml Net -1150 ml Estimated body mass index is 45.9 kg/m??? as calculated from the following: Height as of this encounter: 1.753 m (5' 9 ). Weight as of this encounter: 141 kg (310 lb 13.6 oz). GENERAL: The patient is well developed. No distress. Obese VITAL SIGNS: Reviewed in the EMR. HEART: Regular rate and rhythm without murmurs. LUNGS: Clear to auscultation bilaterally. No wheezing and crackles. ABDOMEN: Soft, positive bowel sounds, nontender NEUROLOGIC: Cranial nerves II-XII intact without motor/sensory deficit. MSK: right stump covered in dressing not removed Active Inpatient Problems Principal Problem: Osteomyelitis (CMS/HCC) Assessment and Plan Possible OM of the right AKA stump status post I&D in 01/02/2024 growing MRSA Obesity HTN Afib CADSVAC 3. Gout GERD CKD Hyperkalemia Normocytic anemia PLAN Continue daptomycin. PICC line placement ordered. Infectious disease orthopedics following. MRSA in cultures. No fever overnight. Pain control. Cr stable. Daily labs PT OT Alcohol cessation recommended Patient refused AC for Afib Needs placement VTE Prophylaxis: Heparin subcutaneous Scheduled Meds allopurinol, 300 mg, oral, Daily after evening meal aspirin, 81 mg, oral, Daily [Held by provider] carvedilol, 6.25 mg, oral, BID with meals DAPTOmycin (Cubicin) 1,000 mg in sodium chloride 0.9 % 50 mL IVPB, 1,000 mg, intravenous, q24h folic acid, 1 mg, oral, Daily furosemide, 20 mg, oral, Daily heparin (porcine), 5,000 Units, subcutaneous, q8h ALEXANDRA pantoprazole, 40 mg, oral, Daily before breakfast sodium chloride, 10 mL, intravenous, q12h thiamine, 100 mg, oral, Daily Pertinent Investigations Hematology: Results from last 7 days Lab Units 01/05/24 0515 01/04/24 0342 WBC AUTO 10*3/uL 7.55 8.71 HEMOGLOBIN g/dL 11.2* 10.8* HEMATOCRIT % 34.0* 33.3* MCV fL 105.3* 106.1* PLATELETS AUTO 10*3/uL 295 284 Chemistry: Results from last 7 days Lab Units 01/05/24 0439 01/04/24 0343 01/03/24 1428 SODIUM mmol/L 142 139 138 POTASSIUM mmol/L 4.3 4.4 4.6 CHLORIDE mmol/L 107 107 105 CO2 mmol/L 33* 29 28 BUN mg/dL 23 28* 26* CREATININE mg/dL 1.02 1.27 1.35* GLUCOSE mg/dL 92 112* 166* CALCIUM mg/dL 8.4* 8.4* 8.3* Results from last 7 days Lab Units 01/01/24 0549 AST U/L 16 ALT U/L 12 ALK PHOS U/L 109* BILIRUBIN TOTAL mg/dL 0.5 Historical Values: (Includes values prior to this admission) Lab Results Component Value Date HDL 47 10/15/2022 LDL 107 10/15/2022 Lab Results Component Value Date IRON 24 (L) 10/15/2022 TIBC 197 (L) 10/15/2022 Imaging XR chest 1 view Narrative: XR CHEST 1 VIEW 01/04/2024 5:12 PM CLINICAL INDICATIONS: PICC line placement to check position. COMPARISON: 01/01/2024 FINDINGS: Portable AP upright view of the chest Cardiac silhouette is upper limits of normal considering magnification by the frontal technique. There is bilateral hilar congestion upper lobe cephalization. No focal consolidation, effusion or pneumothorax. Trachea is in the midline. Left atrial appendage clip is unchanged. Right upper cavity PICC line is visualized with the tip in satisfactory position within the SVC. Severe left shoulder degenerative arthritis similar to prior exam. Impression: Mild congestive changes. Satisfactory position of right upper extremity PICC line. Electronically signed: Terrance Conn MD. Discharge Planning Expected Discharge Disposition: [facility] Facility (03) PT Discharge Recommendations: intermediate facility placement OT Discharge Recommendations: intermediate facility placement Signed Homero Purvis MD [facility] Medicine 01/05/2024 8:53 AM [facility] 01-04-2024 Note Hospital Medicine Daily Progress Note - 01/04/2024 2:49 PM; Room: 5152/5152-01 Admission: 01/01/2024 12:42 AM; Length of stay: 3 days THE HOSPITALIST TEAM PREFERS TO USE [employer] FOR NON-URGENT COMMUNICATION 7AM-7PM. IF I DO NOT RESPOND WITHIN 20 MINUTES OR URGENT MATTERS, PLEASE CALL THROUGH THE NECK BAND SETTER. FROM 7PM-7AM, PLEASE PAGE [phone](COVR). Code Status: Full Code Barriers to Discharge: Ortho eval Expected Discharge Date: 1-2 days Discharge Destination: home Overview Patient is seen for evaluation and management of knee infection. . Subjective seen and evaluated bedside. Denies headache vision changes chest pain nausea vomiting. Physical Exam Visit Vitals BP 130/90 Pulse 84 Temp 36.6 ???C (97.8 ???F) (Oral) Resp 17 Intake/Output Summary (Last 24 hours) at 01/04/2024 1449 Last data filed at 01/04/2024 1341 Gross per 24 hour Intake 50 ml Output 1250 ml Net -1200 ml Estimated body mass index is 45.93 kg/m??? as calculated from the following: Height as of this encounter: 1.753 m (5' 9 ). Weight as of this encounter: 141 kg (311 lb). GENERAL: The patient is well developed. No distress. Obese VITAL SIGNS: Reviewed in the EMR. HEART: Regular rate and rhythm without murmurs. LUNGS: Clear to auscultation bilaterally. No wheezing and crackles. ABDOMEN: Soft, positive bowel sounds, nontender NEUROLOGIC: Cranial nerves II-XII intact without motor/sensory deficit. MSK: right stump covered in dressing not removed Active Inpatient Problems Principal Problem: Osteomyelitis (CMS/HCC) Assessment and Plan Possible OM of the right AKA stump status post I&D in 01/02/2024 Obesity HTN Afib CADSVAC 3. Gout GERD CKD Hyperkalemia Normocytic anemia PLAN Continue daptomycin. PICC line placement ordered. Infectious disease orthopedics following. Cultures have been negative so far. No fever overnight. Pain control. Cr stable. Daily labs PT OT Alcohol cessation recommended VTE Prophylaxis: Heparin subcutaneous Scheduled Meds allopurinol, 300 mg, oral, Daily after evening meal aspirin, 81 mg, oral, Daily carvedilol, 6.25 mg, oral, BID with meals DAPTOmycin (Cubicin) 1,000 mg in sodium chloride 0.9 % 50 mL IVPB, 1,000 mg, intravenous, q24h folic acid, 1 mg, oral, Daily furosemide, 20 mg, oral, Daily heparin (porcine), 5,000 Units, subcutaneous, q8h ALEXANDRA pantoprazole, 40 mg, oral, Daily before breakfast sodium chloride, 10 mL, intravenous, q12h thiamine, 100 mg, oral, Daily Pertinent Investigations Hematology: Results from last 7 days Lab Units 01/04/24 0342 01/01/24 0549 WBC AUTO 10*3/uL 8.71 10.24 HEMOGLOBIN g/dL 10.8* 13.3 HEMATOCRIT % 33.3* 40.4 MCV fL 106.1* 104.7* PLATELETS AUTO 10*3/uL 284 242 Chemistry: Results from last 7 days Lab Units 01/04/24 0343 01/03/24 1428 01/03/24 0402 SODIUM mmol/L 139 138 138 POTASSIUM mmol/L 4.4 4.6 5.2* CHLORIDE mmol/L 107 105 106 CO2 mmol/L 29 28 29 BUN mg/dL 28* 26* 22 CREATININE mg/dL 1.27 1.35* 1.25 GLUCOSE mg/dL 112* 166* 156* CALCIUM mg/dL 8.4* 8.3* 8.8 Results from last 7 days Lab Units 01/01/24 0549 AST U/L 16 ALT U/L 12 ALK PHOS U/L 109* BILIRUBIN TOTAL mg/dL 0.5 Historical Values: (Includes values prior to this admission) Lab Results Component Value Date HDL 47 10/15/2022 LDL 107 10/15/2022 Lab Results Component Value Date IRON 24 (L) 10/15/2022 TIBC 197 (L) 10/15/[address] interpretation of outside films Narrative: Outside Study: CT right femur without IV contrast. CLINICAL HISTORY: Leg pain, infection. COMPARISON: 12/18/2042 radiograph. TECHNIQUE: Standard CT of the right femur with coronal and sagittal reformats.. Initial study performed on 12/31/2043 Second opinion was requested by Dr. Chuy FIGUEROA, DO FINDINGS: Prostate calcifications versus fiducial markers. Surgical clips within scrotum. Prominent right inguinal lymph nodes. No transcortical femoral fracture visualized. Right above knee amputation with hypertrophic callus and mature periosteal reaction about the distal right femoral diaphysis. There are areas of sclerosis and apparent cloacal formation/draining sinus tract extending to the lateral margin of the stump, out of field of view. There is a triangular-shaped collection which measures 6.8 x 6.7 x 3.8 cm. Surrounding inflammatory change. Vascular calcifications. Impression: Right above knee amputation, features suggestive of chronic osteomyelitis of the distal right femur with draining sinus tract to the stump, ill-defined associated 6.7 x 6.8 cm collection [possible abscess]. MRI could further assess extent of femoral medullary involvement, as in clinically appropriate. Note, contrast would be indicated. PLEASE NOTE: Our interpretation of studies performed at an outside institution is limited by factors including the absence of technical specifics of the image, undisclosed clinical informatio (more content not included)... [facility] 01-04-2024 Note DISCHARGE PLANNING U DORINA I (social worker masters) phoned [facility] to inquire about referral placed on patient's behalf. There was no answer. Voicemail left requesting call back. [facility] 01-04-2024 Note ---- Attestation signed by Lashawn Pollack MD at 01/04/2024 5:17 PM By using the attestations below, the signing clinician agrees that I have read and verify that the documentation has been personally reviewed by me and ensure that the documentation accurately reflects the encounter. GC: I personally saw this patient on the day of the encounter, performed the hernandez portion(s) of the service and participated in the management and confirm the resident's documentation. Please note there may be an additional personal documentation from me. Additional Comments: Daptomycin would be safer and easier to administer than vancomycin But will check if it is affordable by [facility] facility [facility] or not Script is in the chart Thank you for allowing me to see the patient Please call for any questions or concerns, Lashawn Pollack MD [place] Infectious diseases P:[phone] ---- Infectious Diseases - Inpatient daily Progress Note - Patient name: Shivani Ruiz Patient Today's Date and Time: 01/04/2024, 2:17 PM Admission Date: 01/01/2024 Assessment/Plan Impression: Right AKA Stump Osteomyelitis with Abscess - Patient developed R knee infection that required AKA in 10/2022. Had some problems postop with recurrent infections, was placed on Bactrim suppression that was stopped sometime in September. Was found to have a fluid collection in the knee on CT. S/P I&D 01/01 with drainage of focal purulent collection with bony involvement (osteomyelitis) reported as well. Cultures from tissue/abscess 01/01 are growing MRSA, similar to previous cultures. His MRSA is susceptible to vancomycin and daptomycin. Blood cultures currently showing NGTD. TEQUILA - Mild, stable. Latest Cr 1.27, baseline around 1. Did have similar episodes in the past a year ago. Prediabetes - HbA1c 6.5%, not on meds Morbid Obesity - Clas III, BMI 44 Recommendations: Change antibiotics to IV Daptomycin 1000 mg daily (Day 4 total) Contact precautions. CK ordered for baseline evaluation on Daptomycin. OPAT orders in place. The patient will require IV antibiotics for a total 6 week/42 day antibiotic course. Subjective Interval history: The patient reports feeling well. Per the patient, the surgery team redressed the stump earlier and said that it looked good. He still has some residual soreness around the R stump. He denies any fever, chills, or any other symptoms at this time. Objective Physical Examination: BP 130/90 Pulse 84 Temp 36.6 ???C (97.8 ???F) (Oral) Resp 17 Ht 1.753 m (5' 9 ) Wt (!) 141 kg (311 lb) SpO2 96% BMI 45.93 kg/m??? Temperature Range: Temp: 36.6 ???C (97.8 ???F) Temp Av.7 ???C (98.1 ???F) Min: 36.6 ???C (97.8 ???F) Max: 36.8 ???C (98.2 ???F) General Appearance: Awake, alert, and in no apparent distress, nontoxic Eyes: Sclera anicteric; conjunctivae clear ENT: Oropharynx clear, without erythema, exudate, no thrush. Neck: Supple, without lymphadenopathy. Pulmonary/Chest: clear to auscultation, no wheezes or rales, and unlabored breathing Cardiovascular: Regular rate and rhythm without murmurs Abdomen: soft, protuberant abdomen. Non-tender, nondistended, no palpable masses no organomegaly; normal bowel sounds Extremities: R stump wrapped in dressing. Less erythematous overall, although one area remains soft and boggy with scar tissue. Neurologic: Alert and oriented x 3, nonfocal. strength and sensation grossly normal Skin: Small pretibial wound present on left leg, not infected. No pallor See Media entries of RLE stump for additional details. Laboratory data: I have independently reviewed the following labs: Results from last 7 days Lab Units 01/04/24 0342 01/01/24 0549 WBC AUTO 10*3/uL 8.71 10. HEMOGLOBIN g/dL 10.8* 13.3 HEMATOCRIT % 33.3* 40.4 MCV fL 106.1* 104.7* PLATELETS AUTO 10*3/uL 284 242 NEUTROS ABS 10*3/uL -- 8.26* LYMPHS ABS AUTO 10*3/uL -- 0.35* MONOS ABS AUTO 10*3/uL -- 0.86 EOS ABS AUTO 10*3/uL -- 0.68* BASOS ABS AUTO 10*3/uL -- 0.05 Results from last 7 days Lab Units 01/04/24 0343 01/03/24 1428 01/03/24 0402 01/02/24 0534 01/01/24 0549 POTASSIUM mmol/L 4.4 4.6 5.2* < > 4.1 CHLORIDE mmol/L 107 105 106 < > 104 CO2 mmol/L 29 28 29 < > 30 BUN mg/dL 28* 26* 22 < > 20 CREATININE mg/dL 1.27 1.35* 1.25 < > 1.43* GLUCOSE mg/dL 112* 166* 156* < > 111* CALCIUM mg/dL 8.4* 8.3* 8.8 < > 8.6 ALK PHOS U/L -- -- -- -- 109* ALT U/L -- -- -- -- 12 AST U/L -- -- -- -- 16 < > = values in this interval not displayed. Results from last 7 days Lab Units 01/02/24 1346 SED RATE mm/hr 66* No lab exists for component: TURBIDITY , SPECIFICGRA , PHURINE , LEUKOCYTE , PROTEIN , BLOODHGB , RBCELLS , RENALEPITH No lab exists for component: TOXIGENICC Imaging S (more content not included)... [facility] 01-04-2024 Note ---- Attestation signed by Kyree Chand MD at 01/04/2024 10:22 AM By using the attestations below, the signing clinician agrees that I have read and verify that the documentation has been personally reviewed by me and ensure that the documentation accurately reflects the encounter. GC: I personally saw this patient on the day of the encounter, performed the hernandez portion(s) of the service and participated in the management and confirm the resident's documentation. Please note there may be an additional personal documentation from me. Dr. Kyree Chand MD MRCSEd Phonograph Cartridge Assembler orthopedic surgery Adult Reconstruction and Trauma [facility]. ---- Date: 01/04/2024 Surgery: 01/02/2024 - I&D RIGHT AKA STUMP (R) Subjective (24-Hour Events): Underwent I&D of R AKA stump 2 days ago. Pain is well-controlled. Objective: BP 130/90 Pulse 84 Temp 36.6 ???C (97.8 ???F) (Oral) Resp 17 Ht 1.753 m (5' 9 ) Wt (!) 141 kg (311 lb) SpO2 96% BMI 45.93 kg/m??? General: A/O x3, resting comfortably in bed, cooperative Musculoskeletal: RLE - Surgical site with stitches in place, no signs of erythema, drainage, or infection; non-tender to palpation - Able to flex hip - Sensory intact Labs: Lab Results Component Value Date WBC 10.24 01/01/2024 HGB 13.3 01/01/2024 HCT 40.4 01/01/2024 MCV 104.7 (H) 01/01/2024 PLT 242 01/01/2024 CRP 52.8 (H) 04/30/2023 Lab Results Component Value Date GLU 103 (H) 11/14/2021 CALCIUM 8.4 (L) 01/04/2024 NA 139 01/04/2024 K 4.4 01/04/2024 CO2 29 01/04/2024 CL 107 01/04/2024 BUN 28 (H) 01/04/2024 CREATININE 1.27 01/04/2024 Lab Results Component Value Date INR 1.01 01/05/2021 Imaging: No X-ray results found for the past [address] results found for the past 24 hours No MRI results found for the past 24 hours Assessment: Shivani Ruiz is a 73 y.o. male who underwent an I&D of his R AKA stump on 01/02/24. Plan: WBAT RLE Abx: Continue per ID, appreciate recommendations Follow cultures DVT ppx: Per primary team Dressing: Changed today, starting tomorrow can be done by nursing staff. Please add photo to chart. Dressing change once daily: adaptic, fluffs, kerlix, misha Ice, elevate extremity PT/OT as able Multimodal pain control Diet: Regular as tolerated Ortho will continue to follow Art Burgos MD, PGY-1 Orthopaedic Surgery Resident [facility] 01-04-2024 Note DISCHARGE PLANNING U PDATE PT/OT are recommending SNF. Referral placed to [facility] ([place]) via [facility] at patient's request. Awaiting reply. [facility] 01-03-2024 Note Clinical Nutrition A ssessment: Name: Shivani Ruiz Room: 5152/5152-01 Date: 1950 Date of Visit: 01/03/24 Admission Dx: Osteomyelitis (CMS/HCC) [M86.9] Reason for assessment: high risk Information obtained from: patient, medical record, and nursing Past Medical History: Diagnosis Date Atrial fibrillation (CMS/HCC) Cardiomyopathy (CMS/HCC) Chronic infection of prosthetic knee (CMS/HCC) Chronic infectious disease Chronic kidney disease STAGE 3 GERD (gastroesophageal reflux disease) Gout Hypertension Lymphedema MRSA (methicillin resistant Staphylococcus aureus) Nonrheumatic aortic (valve) stenosis Obesity Pneumothorax Current Medications: allopurinol, 300 mg, oral, Daily after evening meal aspirin, 81 mg, oral, Daily carvedilol, 6.25 mg, oral, BID with meals folic acid, 1 mg, oral, Daily furosemide, 20 mg, oral, Daily heparin (porcine), 5,000 Units, subcutaneous, q8h ALEXANDRA pantoprazole, 40 mg, oral, Daily before breakfast thiamine, 100 mg, oral, Daily Labs: 0 Lab Value Date/Time POCGLU 153 (H) 10/14/2022 1547 BUN 26 (H) 01/03/2024 1428 CREATININE 1.35 (H) 01/03/2024 1428 NA 138 01/03/2024 1428 K 4.6 01/03/2024 1428 PHOS 4.8 10/14/2022 1549 MG 1.6 (L) 10/14/2022 1549 HGBA1C 6.4 (H) 10/15/2022 0530 HGB 13.3 01/01/2024 0549 WBC 10.24 01/01/2024 0549 CHOL 154 10/15/2022 0530 HDL 47 10/15/2022 0530 Latest Reference Range & Units 04/30/23 10:33 01/01/24 05:49 01/02/24 05:34 01/03/24 04:02 01/03/24 14:28 Glucose 70 - 100 mg/dL 112 (H) 111 (H) 100 156 (H) 166 (H) (H): Data is abnormally high I/O: Intake/Output Summary (Last 24 hours) at 01/03/2024 1639 Last data filed at 01/03/2024 1436 Gross per 24 hour Intake 470 ml Output 875 ml Net -405 ml Allergies: Allergies Allergen Reactions Chlorhexidine Alcohol Swabs Rash Nutrition Problems: Swallowing: Pt denies swallowing difficulty Mouth: Pt denies chewing difficulty Abdominal Assessment: Last BM: 12/31 per pt report Appetite: good Cognition: A/O x 4 Feeding skills: Pt is able to feed himself at all meals; reported that he prepares his own meals at home Physical findings: R AKA Skin integrity: s/p I&D of R AKA stump (01/02/2024) Edema: non-pitting generalized, non-pitting LLE -EtOH use; pt reported drinking 5 days/week with usual intake of 6-10 beers on those days Nutrition Data/Clinical Indicators of Nutrition Status: Height: 175.3 cm (5' 9 ) Weight: (!) 140 kg (309 lb 3.2 oz) BMI (Calculated): 45.64 Wt change: Increased wt likely r/t fluid; pt reported wide fluctuation of wt for UBW but noted that in the last year wts have been closer between 168-295 lb Wt Readings from Last 20 Encounters: 01/03/24 (!) 140 kg (309 lb 3.2 oz) 09/22/23 134 kg (295 lb) 06/29/23 134 kg (295 lb) 05/24/23 126 kg (277 lb) 05/03/23 126 kg (277 lb) 04/30/23 126 kg (277 lb) 03/19/23 126 kg (277 lb) 02/24/23 126 kg (277 lb) 02/19/23 124 kg (274 lb) 12/30/22 124 kg (274 lb) 12/18/22 122 kg (268 lb) 12/02/22 122 kg (268 lb) 11/13/22 122 kg (268 lb) 11/13/22 122 kg (268 lb) 10/30/22 118 kg (261 lb) 10/17/22 119 kg (261 lb 14.5 oz) 08/14/22 128 kg (282 lb) 06/12/22 128 kg (282 lb) 05/29/22 (!) 143 kg (316 lb) 04/03/22 130 kg (286 lb) Adjusted BMI: 50.6 kg/m2 IBW: 72.7 kg (160 lb) Adjusted IBW: 65.5 kg (-10% R AKA) UBW: 84.1-136.4 kg (185-300 lb); reported by pt Nutrition Assessment: Visiting pt for initial assessment d/t wound -> pt is s/p I&D of R AKA stump (01/02/2024). 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 Also reported regular EtOH use -> 5 days/week of 6-10 beers each day. Agreeable to offer for ONS (liquacel) this admission; explained the importance of protein for wound healing. Dietary Orders (From admission, onward) Start Ordered 01/03/24 1005 Dietary nutrition supplements TID; Liquacel; Vary Flavors; 1 packet; Oral Until discontinued Question Answer Comment Deliver with TID Select supplement: Liquacel flavor Vary Flavors Strength: 1 packet Route Oral 01/03/24 1004 01/02/24 180 Regular Diet Diet effective now Question: Room Service? Answer: Yes 01/02/241808 Meal Intakes: 75-100% Current supplement: Not yet offered Nutrition Risk: High Nutrition Needs: Needs based on: adjusted ideal body weight (65.5 kg) Calorie needs: 7295-7670 kcals/day based on Equation: 25-30 kcal/kg Protein needs: 79-98 g/day based on 1.2-1.5 g/kg Fluid needs: 1965 ml/day based on 30 ml/kg Nutrition Diagnosis: Increased protein needs Related to: wound healing As evidenced by: s/p I&D R AKA stump Malnutrition Assessment: Nutrition Intake Percent Meals Eaten (%): 100 Inflammation: Hand Grasp/Motor Function/Sensation Assessment: Grasp R Hand Grasp: Moderate L Hand (more content not included)... [facility] 01-03-2024 Note Physical Therapy Physical Therapy Evaluation Patient Name: Shivani Ruiz : 1950 Today's Date: 01/03/2024 Time Calculation Start Time 1119 Stop Time 1137 Time Calculation (min) 18 min PT Evaluation Time Entry PT Evaluation (Moderate) Time Entry 18 PT Discharge Recommendations: intermediate facility placement Pt is a 73 year old male admitted 01/01/24 complaining of increased pain, swelling, redness to RLE AKA site. Suspect osteomyelitis of R AKA site. I&D completed on 01/02/24. General Family/Caregiver Present: No Subjective: Now that you got me in this wheelchair, you have to take me out of this room for a while. RN and pt agreeable to PT eval this date. Co-eval with OT. Pt supine in bed upon arrival and left up in wheelchair with call light/needs in reach, RN aware. Pt pleasant and cooperative. 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) Arthropathy of knee Pneumothorax on left Arthrosis of knee Pruritus Sepsis (CMS/HCC) CKD (chronic kidney disease), stage III (CMS/HCC) Nonrheumatic aortic valve stenosis Chronic infection of prosthetic knee, subsequent encounter Chronic combined systolic and diastolic congestive heart failure (CMS/HCC) Above knee amputation of right lower extremity (CMS/HCC) Wound dehiscence Absence of lower extremity (CMS/HCC) Mobility impaired Phantom limb pain (CMS/HCC) Prosthetic limb gait Osteomyelitis (CMS/HCC) Past Medical History: Diagnosis Date Atrial fibrillation (CMS/HCC) Cardiomyopathy (CMS/HCC) Chronic infection of prosthetic knee (CMS/HCC) Chronic infectious disease Chronic kidney disease STAGE 3 GERD (gastroesophageal reflux disease) Gout Hypertension Lymphedema MRSA (methicillin resistant Staphylococcus aureus) Nonrheumatic aortic (valve) stenosis Obesity Pneumothorax Past Surgical History: Procedure Laterality Date CARDIOVERSION CARPAL TUNNEL RELEASE FL GUIDED ASPIRATION OR INJECTION LARGE JOINT BILATERAL Bilateral 02/04/2018 [place] GUIDED ASPIRATION OR INJECTION LARGE JOINT BILATERAL THOMAS CONVERSION FL GUIDED ASPIRATION OR INJECTION LARGE JOINT BILATERAL Bilateral 04/11/2018 [place] GUIDED ASPIRATION OR INJECTION LARGE JOINT BILATERAL THOMAS CONVERSION KNEE ARTHROPLASTY Right TONSILLECTOMY Precautions Precautions LE Weight Bearing Status: Right, NWB Medical Precautions: IV, telemetry, fall risk Post-Surgical Precautions: s/p I&D to R residual limb (AKA) on 01/02/24 Pain Pain Assessment Pain Assessment: 0-10 Pain Score: 6 Pain Type: Acute pain Pain Location: Leg Pain Orientation: Right Cognition Cognition Overall Cognitive Status: Within Functional Limits Arousal/Alertness: Appropriate responses to stimuli Orientation Level: Oriented X4 Following Commands: Follows all commands and directions without difficulty Safety Judgment: Good awareness of safety precautions Communication: Intact General Assessment General Assessment Hearing: WFL Skin Integrity: Surgical incision to RLE residual limb. initially bandaged with misha wrap covering, bandage/covering falls off during transfer. RN aware. Edema: RLE Hand Dominance: Right Home Living Home Living Type of Home: intermediate facility ([place]) Home Adaptive Equipment: Wheelchair-manual, Wheelchair-power, Cane, Other (Comment) (RLE prosthesis) Prior Level of Function Prior Function Level of [place]: Independent with ADLs and functional transfers, Needs assistance with homemaking Prior Functional Mobility: Transfers only, Independent with wheelchair (pt reports typically transfers to/from [facility] with use of cane) Prior Function Comments: Pt reports currently participating with therapy. Has not worn prosthesis for ~2 weeks d/t pain/swelling. Vision Basic Assessment Vision - Basic Assessment Current Vision: Wears glasses only for reading Activity Tolerance Activity Tolerance Ambulation comments: Did not assess, pt pivots to wheelchair at baseline Endurance: Stage II Stage II (METs 1.4-2.0) - Sittin-10 mins Number of Rest Breaks: 2 Activity Tolerance Comments: Pt with mild-mod SOB noted, demos increased fatigue following transfer. Vitals WNL on RA. General Assessments Sensation Light Touch: No apparent deficits Proprioception Proprioception: No apparent deficits Perception Inattention/Neglect: Appears intact Initiation: Appears intact Motor Planning: Appears intact Perseveration: Not p (more content not included)... [facility] 01-03-2024 Note Infectious Diseases - Inpatient daily Progress Note - Patient name: Shivani Ruiz Patient Today's Date and Time: 01/03/2024, 1:53 PM Admission Date: 01/01/2024 Assessment/Plan Impression: Right AKA Stump Osteomyelitis with Abscess - Patient developed R knee infection that required AKA in 10/2022. Had some problems postop with recurrent infections, was placed on Bactrim suppression that was stopped sometime in September. Was found to have a fluid collection in the knee on CT. S/P I&D 01/01 with drainage of focal purulent collection with bony involvement (osteomyelitis) reported as well. Cultures from tissue/abscess are currently growing Staph aureus. MRSA is the most likely organism given his previous history of MRSA infections from this area. Blood cultures currently showing NGTD. TEQUILA - Mild, Improving. Creatinine improved to 1.25, baseline around 1. Did have similar episodes in the past a year ago. Prediabetes - HbA1c 6.5%, not on meds Morbid Obesity - Clas III, BMI 44 Recommendations: Continue IV Vancomycin (Day 3), AUC dosed by Pharmacy. Will adjust antibiotics depending on culture and susceptibility results. Contact precautions. Monitor Cr while on Vancomycin. Subjective Interval history: The patient reports feeling better today after his fluid collection in his knee got drained. His right stump is still sore. He denies any fever, chills, or any other symptoms at this time. Objective Physical Examination: BP 116/68 Pulse 90 Temp 36.6 ???C (97.9 ???F) (Oral) Resp 19 Ht 1.753 m (5' 9 ) Wt (!) 140 kg (309 lb 3.2 oz) SpO2 94% BMI 45.66 kg/m??? Temperature Range: Temp: 36.6 ???C (97.9 ???F) Temp Av.6 ???C (97.9 ???F) Min: 36.2 ???C (97.2 ???F) Max: 37.1 ???C (98.8 ???F) General Appearance: Awake, alert, and in no apparent distress, nontoxic Eyes: Sclera anicteric; conjunctivae clear ENT: Oropharynx clear, without erythema, exudate, no thrush. Neck: Supple, without lymphadenopathy. Pulmonary/Chest: clear to auscultation, no wheezes or rales, and unlabored breathing Cardiovascular: Regular rate and rhythm without murmurs Abdomen: soft, protuberant abdomen. Non-tender, nondistended, no palpable masses no organomegaly; normal bowel sounds Extremities: R stump wrapped in dressing. Less erythematous overall, although one area remains soft and boggy with scar tissue. Neurologic: Alert and oriented x 3, nonfocal. strength and sensation grossly normal Skin: Small pretibial wound present on left leg, not infected. No pallor See Media entries of RLE stump for additional details. Laboratory data: I have independently reviewed the following labs: Results from last 7 days Lab Units 01/01/24 0549 WBC AUTO 10*3/uL 10.24 HEMOGLOBIN g/dL 13.3 HEMATOCRIT % 40.4 MCV fL 104.7* PLATELETS AUTO 10*3/uL 242 NEUTROS ABS 10*3/uL 8.26* LYMPHS ABS AUTO 10*3/uL 0.35* MONOS ABS AUTO 10*3/uL 0.86 EOS ABS AUTO 10*3/uL 0.68* BASOS ABS AUTO 10*3/uL 0.05 Results from last 7 days Lab Units 01/03/24 0402 01/02/24 0534 01/01/24 0549 POTASSIUM mmol/L 5.2* 4.0 4.1 CHLORIDE mmol/L 106 106 104 CO2 mmol/L 29 31 30 BUN mg/dL 22 20 20 CREATININE mg/dL 1.25 1.40* 1.43* GLUCOSE mg/dL 156* 100 111* CALCIUM mg/dL 8.8 8.8 8.6 ALK PHOS U/L -- -- 109* ALT U/L -- -- 12 AST U/L -- -- 16 Results from last 7 days Lab Units 01/02/24 1346 SED RATE mm/hr 66* No lab exists for component: TURBIDITY , SPECIFICGRA , PHURINE , LEUKOCYTE , PROTEIN , BLOODHGB , RBCELLS , RENALEPITH No lab exists for component: TOXIGENICC Imaging Studies: I have reviewed myself the following imaging studies performed in the past 3 days: XR chest 1 view Result Date: 01/01/2024 Impression: *No consolidation or pleural fluid. No acute findings. * Electronically signed: Fawad Prado. CT interpretation of outside films Result Date: 01/03/2024 Right above knee amputation, features suggestive of chronic osteomyelitis of the distal right femur with draining sinus tract to the stump, ill-defined associated 6.7 x 6.8 cm collection [possible abscess]. MRI could further assess extent of femoral medullary involvement, as in clinically appropriate. Note, contrast would be indicated. PLEASE NOTE: Our interpretation of studies performed at an outside institution is limited by factors including the absence of technical specifics of the image, undisclosed clinical information and the unavailability of the original interpretation. Specialists at the institution that performed the study may have access to information not available to us that could make a difference in this interpretation. We suggest that you obtain the original interpretation from the site where the study was performed. Electronically signed: Kwasi Conway MD. No MRI results found for the past 3 days Cultures: Results for orders placed or performed during the hospital encounter of 01/01/24 (more content not included)... [facility] 01-03-2024 Note Occupational Therapy Occupational Therapy Evaluation Patient Name: Shivani Ruiz : 1950 Today's Date: 01/03/2024 Start Time 1119 Stop Time 1137 Time Calculation (min) 18 min OT Evaluation Time Entry OT Evaluation (Moderate) Time Entry 18 OT Discharge Recommendations: intermediate facility placement General Subjective: I should have negotiated first. Pt pleasant and cooperative. Family/Caregiver Present: No Objective: RN ok'd pt for therapy this date, pt agreeable. Co-eval with PT. Pt supine in bed upon arrival, retired to seated in personal wheelchair upon exit. RN aware, call light within reach, all needs addressed. Activity Orders: Up in chair three times per day Present Illness 73 year-old male admitted 01/01/24 complaining of increased pain, swelling, redness to RLE AKA site. Suspect osteomyelitis of R AKA site. I&D completed on 01/02/24. OT Diagnosis Decreased functional independence and performance of ADLs. Patient Active Problem List Diagnosis PAF (paroxysmal atrial fibrillation) (CMS/HCC) Chronic infection of right knee (CMS/HCC) Chronic osteomyelitis of lower leg (CMS/HCC) Chronic primary gouty arthritis Constipation Contusion of foot Dysphagia Esophageal web GERD with stricture History of surgical procedure Hyperlipidemia Primary hypertension Lymphedema Lymphedema of lower extremity Mechanical complication of internal joint prosthesis (CMS/HCC) Arthropathy of knee Pneumothorax on left Arthrosis of knee Pruritus Sepsis (CMS/HCC) CKD (chronic kidney disease), stage III (CMS/HCC) Nonrheumatic aortic valve stenosis Chronic infection of prosthetic knee, subsequent encounter Chronic combined systolic and diastolic congestive heart failure (CMS/HCC) Above knee amputation of right lower extremity (CMS/HCC) Wound dehiscence Absence of lower extremity (CMS/HCC) Mobility impaired Phantom limb pain (CMS/HCC) Prosthetic limb gait Osteomyelitis (CMS/HCC) Past Medical History: Diagnosis Date Atrial fibrillation (CMS/HCC) Cardiomyopathy (CMS/HCC) Chronic infection of prosthetic knee (CMS/HCC) Chronic infectious disease Chronic kidney disease STAGE 3 GERD (gastroesophageal reflux disease) Gout Hypertension Lymphedema MRSA (methicillin resistant Staphylococcus aureus) Nonrheumatic aortic (valve) stenosis Obesity Pneumothorax Past Surgical History: Procedure Laterality Date CARDIOVERSION CARPAL TUNNEL RELEASE FL GUIDED ASPIRATION OR INJECTION LARGE JOINT BILATERAL Bilateral 02/04/2018 [place] GUIDED ASPIRATION OR INJECTION LARGE JOINT BILATERAL THOMAS CONVERSION [place] GUIDED ASPIRATION OR INJECTION LARGE JOINT BILATERAL Bilateral 04/11/2018 [place] GUIDED ASPIRATION OR INJECTION LARGE JOINT BILATERAL THOMAS CONVERSION KNEE ARTHROPLASTY Right TONSILLECTOMY Precautions Precautions LE Weight Bearing Status: Right, NWB Medical Precautions: IV, telemetry (R AKA) Post-Surgical Precautions: I&D R AKA site on 01/02/24 Pain Pain Assessment Pain Assessment: 0-10 Pain Score: 6 Pain Type: Acute pain Pain Location: Leg Pain Orientation: Right Pain Interventions: Ambulation/increased activity, Repositioned Cognition Cognition Overall Cognitive Status: Within Functional Limits Arousal/Alertness: Appropriate responses to stimuli Orientation Level: Oriented X4 Following Commands: Follows all commands and directions without difficulty Safety Judgment: Good awareness of safety precautions Deficits: Fully aware of deficits Communication: Intact General Assessment General Assessment Hearing: WFL Skin Integrity: Surgical incision to RLE residual limb initially bandaged with MISHA wrap (fell off during transfer, RN aware) Edema: Observed to RLE Hand Dominance: Right Home Living Home Living Type of Home: intermediate facility ([facility] Home Adaptive Equipment: Wheelchair-manual, Wheelchair-power, Cane, Other (Comment) (RLE prosthesis) Prior Level of Function Prior Function Prior Functional Mobility: Transfers only, Independent with wheelchair (pt reports typically transfers to/from [facility] with use of cane, does not typically use RLE prosthesis (last put it on ~2 weeks ago)) ADL Assistance: Independent Homemaking Assistance: Needs assistance Prior Function Comments: Pt reports participation in PT/OT. Static Sitting Balance Static Sitting Balance Static Sitting-Balance Support: Feet supported, Right upper extremity supported, Left upper extremity supported Static Sitting-Level of Assistance: Close supervision Dynamic Sitting Balance Dynamic Sitting Balance Dynamic Sitting-Balance Support: Feet supported, Right upper extremity supported, Left upper extremity supported Dynamic Sitting Balance-Level of Assistance: Close supervision Dynamic Standing Balance Dynamic Standing Balance Dynamic Standing-Balance Support: Right upper extremity supported, Left upper (more content not included)... [facility] 01-03-2024 Note ---- Attestation signed by Kyree Chand MD at 01/03/2024 10:31 AM By using the attestations below, the signing clinician agrees that I have read and verify that the documentation has been personally reviewed by me and ensure that the documentation accurately reflects the encounter. GC: I personally saw this patient on the day of the encounter, performed the hernandez portion(s) of the service and participated in the management and confirm the resident's documentation. Please note there may be an additional personal documentation from me. Dr. Kyree Chand MD MRCSEd Phonograph Cartridge Assembler orthopedic surgery Adult Reconstruction and Trauma [facility]. ---- Date: 01/03/2024 Surgery: 01/02/2024 - I&D RIGHT AKA STUMP (R) Subjective (24-Hour Events): NAEON. Underwent I&D of R AKA stump yesterday. Pain is well-controlled. Objective: BP 110/72 Pulse 82 Temp 37.1 ???C (98.8 ???F) (Oral) Resp 15 Ht 1.753 m (5' 9 ) Wt (!) 140 kg (309 lb 3.2 oz) SpO2 98% BMI 45.66 kg/m??? General: A/O x3, resting comfortably in bed, cooperative Musculoskeletal: RLE - Wrapped in MISHA bandage above surgical dressing - Able to flex hip - Sensory intact Labs: Lab Results Component Value Date WBC 10.24 01/01/2024 HGB 13.3 01/01/2024 HCT 40.4 01/01/2024 MCV 104.7 (H) 01/01/2024 PLT 242 01/01/2024 CRP 52.8 (H) 04/30/2023 Lab Results Component Value Date GLU 103 (H) 11/14/2021 CALCIUM 8.8 01/03/2024 NA 138 01/03/2024 K 5.2 (H) 01/03/2024 CO2 29 01/03/2024 CL 106 01/03/2024 BUN 22 01/03/2024 CREATININE 1.25 01/03/2024 Lab Results Component Value Date INR 1.01 01/05/2021 Imaging: No X-ray results found for the past [address] results found for the past 24 hours No MRI results found for the past 24 hours Assessment: Shivani Ruiz is a 73 y.o. male who underwent an I&D of his R AKA stump on 01/02/24. Plan: WBAT RLE Abx: Continue per ID, appreciate recommendations Follow cultures DVT ppx: Per primary team Dressing: Will change dressing on POD2 Ice, elevate extremity PT/OT as able Multimodal pain control Diet: Regular as tolerated Ortho will continue to follow Art Burgos MD, PGY-1 Orthopaedic Surgery Resident [facility] 01-03-2024 Note 01/03/24 0852 Admission Assessment Questions Verify insurance with patient Yes Do you understand medical disease or what brought you into the hospital? Yes Who is your current PCP? Jaren Kam MD Can I schedule a follow up appointment for you at the time of discharge? No Do you understand why you are taking your current medications? Yes Are you taking your medications as prescribed? Yes Did patient provide teach back? No Pharmacy Bedside Delivery Status Not Interested Does the patient have a bilingual patient support caseworker assigned to them through their insurance? No Living Arrangement (Current/Prior to Hospitalization) Private residence Does the patient have history of HHC or SNF? Yes (Hx of [facility], SNF stay at [facility]) Assistive Device Cane;Walker;Wheelchair;Other (Comment) (shower chair) Patient's goal for discharge SNF Was patient reminded that goal for discharge is 11am? No Does the patient have transportation at discharge? No Type of Residence intermediate facility Is PT/OT appropriate? Yes Is PT/OT ordered? Yes Is SW consult appropriate? Yes Is SW consult ordered? Yes Do you understand the benefits of MyChart? Yes Were you able to send link and activate MyChart? No [facility] 01-03-2024 Note Hospital Medicine Daily Progress Note - 01/03/2024 7:34 AM; Room: [address] [place] [address] Admission: 01/01/2024 12:42 AM; Length of stay: 2 days THE HOSPITALIST TEAM PREFERS TO USE [employer] CHAT FOR NON-URGENT COMMUNICATION 7AM-7PM. IF I DO NOT RESPOND WITHIN 20 MINUTES OR URGENT MATTERS, PLEASE CALL THROUGH THE NECK BAND SETTER. FROM 7PM-7AM, PLEASE PAGE [phone](COVR). Code Status: Full Code Barriers to Discharge: Ortho eval Expected Discharge Date: 1-2 days Discharge Destination: home Overview Patient is seen for evaluation and management of knee infection. . Subjective seen and evaluated bedside. Denies headache vision changes chest pain nausea vomiting. Had I&D yesterday with Orthopedics. Vital signs have been stable. Pain under good control Physical Exam Visit Vitals BP 95/57 (BP Location: Right arm, Patient Position: Lying) Pulse 81 Temp 36.8 ???C (98.3 ???F) (Oral) Resp 15 Intake/Output Summary (Last 24 hours) at 01/03/2024 0734 Last data filed at 01/03/2024 0600 Gross per 24 hour Intake 360 ml Output 675 ml Net -315 ml Estimated body mass index is 45.66 kg/m??? as calculated from the following: Height as of this encounter: 1.753 m (5' 9 ). Weight as of this encounter: 140 kg (309 lb 3.2 oz). GENERAL: The patient is well developed. No distress. Obese VITAL SIGNS: Reviewed in the EMR. HEART: Regular rate and rhythm without murmurs. LUNGS: Clear to auscultation bilaterally. No wheezing and crackles. ABDOMEN: Soft, positive bowel sounds, nontender NEUROLOGIC: Cranial nerves II-XII intact without motor/sensory deficit. MSK: right stump covered in dressing not removed Active Inpatient Problems Principal Problem: Osteomyelitis (CMS/HCC) Assessment and Plan Possible OM of the right AKA stump status post I&D in 01/02/2024 Obesity HTN Afib CADSVAC 3. Gout GERD CKD Hyperkalemia PLAN continue antibiotics. Infectious disease orthopedics following. Cultures have been negative so far. No fever overnight. Pain control. Cr stable. Daily labs PT OT Alcohol cessation recommended Will repeat labs for hyperkalemia. Cr is better with no change in other renal parameters ? Lab error ? VTE Prophylaxis: Heparin subcutaneous Scheduled Meds allopurinol, 300 mg, oral, Daily after evening meal aspirin, 81 mg, oral, Daily carvedilol, 6.25 mg, oral, BID with meals folic acid, 1 mg, oral, Daily furosemide, 20 mg, oral, Daily heparin (porcine), 5,000 Units, subcutaneous, q8h ALEXANDRA pantoprazole, 40 mg, oral, Daily before breakfast thiamine, 100 mg, oral, Daily Pertinent Investigations Hematology: Results from last 7 days Lab Units 01/01/24 0549 WBC AUTO 10*3/uL 10.24 HEMOGLOBIN g/dL 13.3 HEMATOCRIT % 40.4 MCV fL 104.7* PLATELETS AUTO 10*3/uL 242 Chemistry: Results from last 7 days Lab Units 01/03/24 0402 01/02/24 0534 01/01/24 0549 SODIUM mmol/L 138 140 139 POTASSIUM mmol/L 5.2* 4.0 4.1 CHLORIDE mmol/L 106 106 104 CO2 mmol/L 29 31 30 BUN mg/dL 22 20 20 CREATININE mg/dL 1.25 1.40* 1.43* GLUCOSE mg/dL 156* 100 111* CALCIUM mg/dL 8.8 8.8 8.6 Results from last 7 days Lab Units 01/01/24 0549 AST U/L 16 ALT U/L 12 ALK PHOS U/L 109* BILIRUBIN TOTAL mg/dL 0.5 Historical Values: (Includes values prior to this admission) Lab Results Component Value Date HDL 47 10/15/2022 LDL 107 10/15/2022 Lab Results Component Value Date IRON 24 (L) 10/15/2022 TIBC 197 (L) 10/15/[address] transfer of outside films This order has been auto-finalized and does not contain a result. XR chest 1 view Narrative: Single view chest History: cough wheeze Comparison: 10/16/2022 Impression: Impression: *No consolidation or pleural fluid. No acute findings. * Electronically signed: Fawad Prado. Discharge Planning Expected Discharge Disposition: Home or Self Care () Signed Homero Purvis MD [facility] Medicine 01/03/2024 7:34 AM [facility] 01-02-2024 Note Patient: Shivani arthur Procedure Summary Date: 01/02/24 Room / Location: [facility] OPERATING ROOM 04 / [facility] Operating Room Anesthesia Start: 164 Anesthesia Stop: 1808 Procedure: I&D RIGHT AKA STUMP (Right: Hip) Diagnosis: Osteomyelitis (CMS/HCC) (Osteomyelitis (CMS/HCC) [M86.9]) Surgeons: Kyree Chand MD Responsible Provider: Linda Frost MD Anesthesia Type: general ASA Status: 4 - Emergent Anesthesia Type: general Vitals Value Taken Time BP 129/102 01/02/24 1831 Temp 36.2 ???C (97.2 ???F) 01/02/24 1812 Pulse 92 01/02/24 1835 Resp 22 01/02/24 1835 SpO2 96 % 01/02/24 183 Vitals shown include unvalidated device data. Anesthesia Post Evaluation Patient location during evaluation: PACU Patient participation: complete - patient participated Level of consciousness: awake and alert Pain score: 1 Pain management: adequate Multimodal analgesia pain management approach Airway patency: patent Two or more strategies used to mitigate risk of obstructive sleep apnea Cardiovascular status: hemodynamically stable Respiratory status: acceptable, spontaneous ventilation, nonlabored ventilation and nasal cannula (2l supp) Hydration status: euvolemic Patient is hemodynamically stable and is able to be discharged from PACU per anesthesia protocol. No notable events documented. [facility] 01-02-2024 Note Patient: Shivani arthur Procedure Summary Date: 01/02/24 Room / Location: [facility] OPERATING ROOM 04 / [facility] Operating Room Anesthesia Start: 164 Anesthesia Stop: 1808 Procedure: I&D RIGHT AKA STUMP (Right: Hip) Diagnosis: Osteomyelitis (CMS/HCC) (Osteomyelitis (CMS/HCC) [M86.9]) Surgeons: Kyree Chand MD Responsible Provider: Linda Frost MD Anesthesia Type: general ASA Status: 4 - Emergent Anesthesia Post Transport Note Transport to: PACU O2 Route: face mask Patient Monitor: direct observation Transport: uneventful Patient condition is: stable Comments: Patient was able to respond and follow verbal commands throughout transport process [facility] 01-02-2024 Note Infectious Diseases - Inpatient daily Progress Note - Patient name: Shivani Ruiz Patient Today's Date and Time: 01/02/2024, 5:46 PM Admission Date: 01/01/2024 Assessment/Plan Impression: This is a patient with morbid obesity with a BMI of 45 to developed a right knee infection that required fbpbk-sdn-[id number] amputation October of 2022. He had some issues postop with recurrent infections - he was put on suppression with Bactrim which was eventually stopped sometime in September of this year. He now presented to [facility] with pain in the right stump swelling and induration. He was found to have a fluid collection on the CT. There seems to be some bony involvement too. Given his previous relationship with orthopedics here at [facility] he was transferred for further management. Today ortho planning I&D. Hospitalist tells me the stump started draining after I saw the patient earlier this morning. The likely organism is MRSA Mild TEQUILA - creatinine 1.4; baseline 1, but he did have similar episodes in the past, a year ago Prediabetes - A1c 6.4, not on meds Morbid obesity - class 3 BMI 44 Recommendations: Continue IV Vancomycin (Day 2), AUC dosing by Pharmacy. Ortho to perform I&D today Contact precautions Monitor Cr while on Vancomycin. Subjective Interval history: R stump less painful, worsened by touch Objective Physical Examination: BP (!) 138/93 Pulse 89 Temp 36.3 ???C (97.3 ???F) (Temporal) Resp 18 Ht 1.753 m (5' 9 ) Wt (!) 137 kg (302 lb 4 oz) SpO2 92% BMI 44.63 kg/m??? Temperature Range: Temp: 36.3 ???C (97.3 ???F) Temp Av.5 ???C (97.7 ???F) Min: 36.3 ???C (97.3 ???F) Max: 36.9 ???C (98.4 ???F) General Appearance: Awake, alert, and in no apparent distress, nontoxic Pulmonary/Chest: clear to auscultation, no wheezes or rales, and unlabored breathing Cardiovascular: Regular rate and rhythm without murmurs Abdomen: soft, protuberant Extremities: R stump less red; one area very soft and boggy within the scar tissue Neurologic: Alert and oriented x 3, nonfocal. strength and sensation grossly normal Skin: No rash no lesions. no pallor Laboratory data: I have independently reviewed the following labs: Results from last 7 days Lab Units 01/01/24 0549 WBC AUTO 10*3/uL 10.24 HEMOGLOBIN g/dL 13.3 HEMATOCRIT % 40.4 MCV fL 104.7* PLATELETS AUTO 10*3/uL 242 NEUTROS ABS 10*3/uL 8.26* LYMPHS ABS AUTO 10*3/uL 0.35* MONOS ABS AUTO 10*3/uL 0.86 EOS ABS AUTO 10*3/uL 0.68* BASOS ABS AUTO 10*3/uL 0.05 Results from last 7 days Lab Units 01/02/24 0534 01/01/24 0549 POTASSIUM mmol/L 4.0 4.1 CHLORIDE mmol/L 106 104 CO2 mmol/L 31 30 BUN mg/dL 20 20 CREATININE mg/dL 1.40* 1.43* GLUCOSE mg/dL 100 111* CALCIUM mg/dL 8.8 8.6 ALK PHOS U/L -- 109* ALT U/L -- 12 AST U/L -- 16 Results from last 7 days Lab Units 01/02/24 1346 SED RATE mm/hr 66* Imaging Studies: I have reviewed myself the following imaging studies performed in the past 3 days: XR chest 1 view Result Date: 01/01/2024 Impression: *No consolidation or pleural fluid. No acute findings. * Electronically signed: Fawad Prado. No CT results found for the past 3 days No MRI results found for the past 3 days Cultures: Results for orders placed or performed during the hospital encounter of 01/01/24 Blood culture, peripheral #2 Specimen: Blood, Venous Result Value Ref Range Blood Culture No growth at 18-24 hours Blood culture, peripheral #1 Specimen: Blood, Venous Result Value Ref Range Blood Culture No growth at 18-24 hours Medications: [May] allopurinol, 300 mg, oral, Daily after evening meal [May] aspirin, 81 mg, oral, Daily [May] carvedilol, 6.25 mg, oral, BID with meals [May] folic acid, 1 mg, oral, Daily [May] furosemide, 20 mg, oral, Daily [May] heparin (porcine), 5,000 Units, subcutaneous, q8h ALEXANDRA [May] pantoprazole, 40 mg, oral, Daily before breakfast [May] thiamine, 100 mg, oral, Daily This progress note was completed using a voice tankage grinder system. Every effort was made to ensure accuracy; however, inadvertent computerized tankage grinder errors may be present. Thank you for allowing us to participate in the care of this patient. Herman Caban MD [facility] Infectious Diseases Please contact us via [employer] chat during business hours. If no response in 15 min, call / page through the tool operator [facility] 01-02-2024 Note Peripheral IV Date/Time: 01/02/2024 5:03 PM Inserted by: Linda Frost MD Placement Needle size: 18 G Laterality: right Location: hand Site prep: alcohol Technique: anatomical landmarks Attempts: 1 [facility] 01-02-2024 Note Airway Date/Time: 01/02/2024 5:00 PM Urgency: elective Airway not difficult General Information and Staff Patient location during procedure: OR Anesthesiologist: Linda Frost MD Resident/EMERGENCY DEPARTMENT DIRECTOR/CAA: Eduardo Apodaca MD Performed: resident/EMERGENCY DEPARTMENT DIRECTOR/CAA Indications and Patient Condition Indications for airway management: anesthesia Spontaneous Ventilation: absent Sedation level: deep Preoxygenated: yes Patient position: sniffing Mask difficulty assessment: 0 - not attempted Planned trial extubation Final Airway Details Final airway type: endotracheal airway Successful airway: ETT Cuffed: yes Successful intubation technique: video laryngoscopy Facilitating devices/methods: intubating stylet Endotracheal tube insertion site: oral Blade: Wolff Blade size: #3 ETT size (mm): 7.5 Cormack-Lehane Classification: grade I - full view of glottis Placement verified by: chest auscultation and capnometry Measured from: lips ETT to lips (cm): 22 Number of attempts at approach: 1 [facility] 01-02-2024 Note Patient: Shivani arthur Procedure Information Date/Time: 01/02/24 4117 Procedure: I&D FEMUR/HIP (Right: Hip) - I&D RLE stump site, wound vac, poss. stump resection, 9L cysto, MRSA Location: [facility] OPERATING ROOM 05 / [facility] Operating Room Surgeons: Kyree Chand MD Relevant Problems Cardio (+) Chronic combined systolic and diastolic congestive heart failure (CMS/HCC) (+) Nonrheumatic aortic valve stenosis (+) PAF (paroxysmal atrial fibrillation) (CMS/HCC) (+) Primary hypertension GI (+) GERD with stricture /Renal (+) CKD (chronic kidney disease), stage III (CMS/HCC) Other (+) Chronic osteomyelitis of lower leg (CMS/HCC) (+) Chronic primary gouty arthritis (+) Osteomyelitis (CMS/HCC) Clinical information reviewed: Tobacco Allergies Meds Med Hx Surg Hx Fam Hx Soc Hx Physical Exam Airway Mallampati: IV TM distance: >3 FB Neck ROM: full Comments: Big tongue, thick neck. quiroz Cardiovascular - normal exam Dental - normal exam Pulmonary - normal exam (+) decreased breath sounds Abdominal (+) obese Other findings: AKA w stump infection; blood cx positive for MRSA at OSH. Now for I&D Last anesthetic G1 view w wolff Anesthesia Plan ASA 4 - emergent general (GETA, piv x 2. [place]. Ramp. ) intravenous induction Anesthetic plan and risks discussed with patient. Use of blood products discussed with patient who consented to blood products. Plan discussed with resident. Additional Equipment Requests [facility] 01-02-2024 Note Hospital Medicine Daily Progress Note - 01/02/2024 11:44 AM; Room: [address] [place] [address] Admission: 01/01/2024 12:42 AM; Length of stay: 1 days THE HOSPITALIST TEAM PREFERS TO USE [employer] FOR NON-URGENT COMMUNICATION 7AM-7PM. IF I DO NOT RESPOND WITHIN 20 MINUTES OR URGENT MATTERS, PLEASE CALL THROUGH THE NECK BAND SETTER. FROM 7PM-7AM, PLEASE PAGE [phone](COVR). Code Status: Full Code Barriers to Discharge: Ortho sarah Expected Discharge Date: 1-2 days Discharge Destination: home Overview Patient is seen for evaluation and management of knee infection. . Subjective patient is a 73-year-old gentleman laying in bed no distress denies headache vision changes chest pain shortness of breath nausea or vomiting, continues to have significant pain in the stump. Patient was transferred from outside hospital, where he presented for increasing pain swelling and redness around his right lower extremity stump where he had BKA in the past. He had chronic infection of the prosthetic knee due to chronic osteomyelitis and subsequently had right above-knee amputation. He also has history of A-fib, heart failure with preserved ejection fraction, Physical Exam Visit Vitals BP 140/87 (BP Location: Right arm, Patient Position: Lying) Pulse 87 Temp 36.9 ???C (98.4 ???F) (Oral) Resp 19 Intake/Output Summary (Last 24 hours) at 01/02/2024 1144 Last data filed at 01/02/2024 1011 Gross per 24 hour Intake 900 ml Output 1480 ml Net -580 ml Estimated body mass index is 44.63 kg/m??? as calculated from the following: Height as of this encounter: 1.753 m (5' 9 ). Weight as of this encounter: 137 kg (302 lb 4 oz). GENERAL: The patient is well developed. No distress. Obese VITAL SIGNS: Reviewed in the EMR. HEART: Regular rate and rhythm without murmurs. LUNGS: Clear to auscultation bilaterally. No wheezing and crackles. ABDOMEN: Soft, positive bowel sounds, nontender NEUROLOGIC: Cranial nerves II-XII intact without motor/sensory deficit. MSK: Right AKA stump was tender and upon palpation a jet of pus came out that was expressed.Muscle wasting absent. Active Inpatient Problems Principal Problem: Osteomyelitis (CMS/HCC) Assessment and Plan Possible OM of the right AKA stump Obesity HTN Afib CADSVAC 3. Gout GERD CKD PLAN Continue antibiotics. ID ortho on board. Discussed with ID. Cr stable. Daily labs PT OT Alcohol cessation recommended VTE Prophylaxis: Heparin subcutaneous Scheduled Meds allopurinol, 300 mg, oral, Daily after evening meal aspirin, 81 mg, oral, Daily carvedilol, 6.25 mg, oral, BID with meals folic acid, 1 mg, oral, Daily furosemide, 20 mg, oral, Daily heparin (porcine), 5,000 Units, subcutaneous, q8h ALEXANDRA pantoprazole, 40 mg, oral, Daily before breakfast thiamine, 100 mg, oral, Daily Pertinent Investigations Hematology: Results from last 7 days Lab Units 01/01/24 0549 WBC AUTO 10*3/uL 10.24 HEMOGLOBIN g/dL 13.3 HEMATOCRIT % 40.4 MCV fL 104.7* PLATELETS AUTO 10*3/uL 242 Chemistry: Results from last 7 days Lab Units 01/02/24 0534 01/01/24 0549 SODIUM mmol/L 140 139 POTASSIUM mmol/L 4.0 4.1 CHLORIDE mmol/L 106 104 CO2 mmol/L 31 30 BUN mg/dL 20 20 CREATININE mg/dL 1.40* 1.43* GLUCOSE mg/dL 100 111* CALCIUM mg/dL 8.8 8.6 Results from last 7 days Lab Units 01/01/24 0549 AST U/L 16 ALT U/L 12 ALK PHOS U/L 109* BILIRUBIN TOTAL mg/dL 0.5 Historical Values: (Includes values prior to this admission) Lab Results Component Value Date HDL 47 10/15/2022 LDL 107 10/15/2022 Lab Results Component Value Date IRON 24 (L) 10/15/2022 TIBC 197 (L) 10/15/[address] transfer of outside films This order has been auto-finalized and does not contain a result. XR chest 1 view Narrative: Single view chest History: cough wheeze Comparison: 10/16/2022 Impression: Impression: *No consolidation or pleural fluid. No acute findings. * Electronically signed: Fawad Prado. Discharge Planning Expected Discharge Disposition: Home or Self Care () Signed Homero Purvis MD Hospital Medicine 01/02/2024 11:44 AM [facility] 01-01-2024 Note Please see our consu lt under Individualized Overall Plan of Care Note [facility] 01-01-2024 Note ---- Attestation signed by Herman Caban MD at 01/01/2024 3:11 PM I performed a history and physical examination of the patient Shivani Ruiz, I independently reviewed the laboratory work and imaging as well as other studies mentioned in the above note; I have seen the patient along with and discussed the management with the Infectious Diseases fellow, Owen Figueroa, DO I have reviewed the above note, I agree with the findings and plan of care with the following additions and corrections: This is a patient with morbid obesity with a BMI of 45 to developed a right knee infection that required ipaka-dbw-[id number] amputation and is in the October of last year. He had some issues postop with recurrent infections he was put on suppression with Bactrim which stopped sometime in September of this year. He now presented to [facility] with pain in the right stump swelling and induration. He was found to have a fluid collection on the CT. There seems to be some bony involvement too. Given his previous relationship with orthopedics here at [facility] he was transferred for further management. He is a fairly well-controlled diabetic with an A1c of 6.4. Denies any fever or chills. The right stump feels a little better Ortho has not seen him yet. I notified them We sent the CT down to be uploaded but it does not seem that it was done In my view the patient will need to have an I&D with some bone debridement Thank you for allowing us to participate in the care of this patient. . ---- Infectious Diseases - Initial Consult Note - Patient name: Shivani Ruiz Patient Today's Date and Time: 01/01/2024, 2:08 PM Admission Date: 01/01/2024 Impression: Right AKA Stump Cellulitis with Abscess - Had an AKA done 10/24/22 due to chronic infection of prosthetic knee. Noted to have skin changes consistent with cellulitis as well as fever and chills on admission. Review of CT interpretation from [facility] reported a dense fluid collection in the knee consistent with abscess. Has been previously diagnosed with MRSA infection and was on Bactrim suppression up until 09/2023. High suspicion for MRSA or other gram positive organism causing his current infection. Chronic Osteomyelitis of R Knee - Per Dr. Nascimento on chart review. As stated before, had been on Bactrim suppression up until 09/2023. Type 2 DM - Latest HbA1c 6.4% about 1 year ago. CKD stage III Morbid obesity Recommendations: Continue IV Vancomycin (Day 1), AUC adjusted by Pharmacy. Stop Cefepime. Patient is not septic and does not require GN coverage at this time. Ortho consulted, appreciate recommendations. Contact precautions ordered due to prior MRSA infection. Monitor Cr while on Vancomycin. Subjective Reason for consultation / Chief complaint: osteomylitis right stump Referring Provider: Paul Doe MD History of Present Illness Shivani Ruiz is a 73 y.o.-year-old male who was initially admitted on 01/01/2024. His PMH is notable for Right AKA amputation, chronic osteomyelitis of the right knee on Bactrim suppression up until 09/28, CKD stage III, type 2 DM. The patient states that his Right leg and knee started feeling sore, tender, hot, and became red starting Wednesday. He does have some chronic lymphedema but the swelling in his knee was reported to be worse than normal. He also has reported fevers and chills over the past couple of days. He denies any oozing or bleeding from his amputated stump. He denies any nausea, vomiting, diarrhea, open wounds, chest pain, SOB, or any other symptoms. He denies any smoking, drinking, or illicit drug use. He has had MRSA infection in the past and was diagnosed with chronic osteomyelitis by Dr. Nascimento. He had previously been on Bactrim suppression up until September 2023 when his prescription fell off. Past Medical History: Past Medical History: Diagnosis Date Atrial fibrillation (CMS/HCC) Cardiomyopathy (CMS/HCC) Chronic infection of prosthetic knee (CMS/HCC) Chronic infectious disease Chronic kidney disease STAGE 3 GERD (gastroesophageal reflux disease) Gout Hypertension Lymphedema MRSA (methicillin resistant Staphylococcus aureus) Nonrheumatic aortic (valve) stenosis Obesity Pneumothorax Past Surgical History: Past Surgical History: Procedure Laterality Date CARDIOVERSION CARPAL TUNNEL RELEASE FL GUIDED ASPIRATION OR INJECTION LARGE JOINT BILATERAL Bilateral 02/04/2018 FL GUIDED ASPIRATION OR INJECTION LARGE JOINT BILATERAL THOMAS CONVERSION FL GUIDED ASPIRATION OR INJECTION LARGE JOINT BILATERAL Bilateral 04/11/2018 FL GUIDED ASPIRATION OR INJECTION LARGE JOINT BILATERAL THOMAS CONVERSION KNEE ARTHROPLASTY Right TONSILLEC (more content not included)... [facility] 01-01-2024 Note Pharmacy Dosing Serv ice - Vancomycin Initial Consult Note Pharmacy has been consulted for the dosing and evaluation of Drug: Vancomycin Indication: surgical wound infection Ygyra-gv-egwkbh Other Antimicrobial Regimens: cefepime 1g q8h- will adjust to 2g q8h with crcl of 65 Labs and Renal Function Total body weight: (!) 137 kg (302 lb 8 oz) [place] body weight: 70.7 kg (155 lb 13.8 oz) Adjusted ideal body weight: 97.3 kg (214 lb 8.3 oz) Body mass index is 44.67 kg/m???. Lab Results Component Value Date WBC 10.24 01/01/2024 WBC 8.56 04/30/2023 WBC 8.22 10/17/2022 Lab Results Component Value Date BUN 20 01/01/2024 BUN 22 04/30/2023 BUN 27 (H) 10/17/2022 CREATININE 1.43 (H) 01/01/2024 CREATININE 1.07 04/30/2023 CREATININE 1.07 10/17/2022 CrCl or renal function: 68 I/O: No intake/output data recorded. Estimated Pharmacokinetic Parameters: Weight used to calculate CrCl and Ke: adjusted body weight (due to obesity) Pharmacokinetic Parameters: Vd: 68 L Ke: 0.06 hr -1 T1/2: 11 hr Microbiology: -None ordered -MRSA Nares ordered? No Assessment / Comments: - 73 yom with hx of right above knee amputation stump infection back in 2023 and drainage, seen by ID OP. Was growing MRSA and finished course of linezolid by may of 2023. -Pt transferred from [facility] ED for concern of osteo from their CT. Currently hemodynamically stable, afebrile and wbc is stable 10.43. Spoke with ED RN at [facility], stated that patient received 2g of vanco on 12/30 @1416 and cefepime 12/30 @1757. Questionable TEQUILA? Baseline Scr ~1.1 so we will dose by levels. I checked random levels today ~ s/p 30 hours from the loading dose, and came back 13.3. Plan to give one dose 1500 mg and check level tomorrow morning -Current risk factors for nephrotoxicity: Advanced age and Contrast Administration within last 72 hours -Comments on renal function / baseline serum creatinine: questionable TEQUILA? Baseline is 1.1 -Recent vancomycin history: No, not recently, last vancomycin regimen was approximately 1 year ago Plan: -Start vancomycin 1500 mg once and [id number] -Plan to check random level with morning labs on 01/01 @0500 -Check BUN/SCr daily -Pharmacy will follow up daily on culture and sensitivity results and renal function -Please do not hesitate to contact us with comments or questions Thank you, Chantelle Lamb, PharmD, 01/01/24 [facility] 01-01-2024 Note Plan of care reviewe d, continue current antibiotics regimen, cultures outcome to monitor [facility] 01-01-2024 Note Hospital Medicine History and Physical 01/01/2024 2:01 AM THE HOSPITALIST TEAM PREFERS TO USE [employer] CHAT FOR NON-URGENT COMMUNICATION 7AM-7PM. IF I DO NOT RESPOND WITHIN 20 MINUTES OR URGENT MATTERS, PLEASE CALL THROUGH THE NECK BAND SETTER. FROM 7PM-7AM, PLEASE PAGE [phone](COVR). Chief Complaint No chief complaint on file. History of Present Illness Shivani Ruiz is an 73 y.o. male transferred from [facility] following the ER made contact with on-call orthopedic surgeon at [facility] who recommended patient to be admitted by hospitalist team and for any orthopedic to be consultation service. Patient presented admitted to the ER for increased pain swelling redness around right lower extremity stump where he had BKA in the past, he had chronic infections of prosthetic knee due to chronic osteomyelitis of the fever subsequently had right above-knee amputation. Patient denies any fall fever chills chest pain cough shortness of breath anorexia. Patient has history of A-fib status post hybrid surgical and endocardial PVI and atrial clipping done also has history of HFpEF with EF 40 to 45% patient admits to consuming alcohol 6-8 standard drinks including alcohol-beer Review of System and Physical Exam Temp: [36.5 ???C (97.7 ???F)] 36.5 ???C (97.7 ???F) BP: (125)/(80) 125/80 Physical Exam Vitals reviewed. Constitutional: Comments: Morbidly obese white male plethoric facies alert awake no distress HENT: Head: Normocephalic and atraumatic. Right Ear: Tympanic membrane, ear canal and external ear normal. Left Ear: Tympanic membrane, ear canal and external ear normal. Nose: Nose normal. Mouth/Throat: Mouth: Mucous membranes are moist. Pharynx: Oropharynx is clear. Comments: Mallampati score 2 Eyes: Extraocular Movements: Extraocular movements intact. Conjunctiva/sclera: Conjunctivae normal. Pupils: Pupils are equal, round, and reactive to light. Cardiovascular: Rate and Rhythm: Normal rate. Rhythm irregular. Pulses: Normal pulses. Heart sounds: Murmur heard. Pulmonary: Effort: Pulmonary effort is normal. Breath sounds: Normal breath sounds. Abdominal: General: Abdomen is flat. Bowel sounds are normal. Palpations: Abdomen is soft. Musculoskeletal: Cervical back: Normal range of motion and neck supple. Comments: Right BKA area swollen erythematous tender and warm no open area or oozing or drainage Skin: Capillary Refill: Capillary refill takes less than 2 seconds. Neurological: General: No focal deficit present. Mental Status: He is oriented to person, place, and time. Psychiatric: Mood and Affect: Mood normal. Behavior: Behavior normal. Review of Systems Constitutional: Negative. HENT: Negative. Eyes: Negative. Respiratory: Negative. Cardiovascular: Negative. Gastrointestinal: Negative. Endocrine: Negative. Genitourinary: Negative. Musculoskeletal: Positive for arthralgias and gait problem. Allergic/Immunologic: Negative. Neurological: Negative for dizziness, tremors, seizures, syncope, facial asymmetry, speech difficulty, weakness, light-headedness, numbness and headaches. Hematological: Negative. Psychiatric/Behavioral: Negative. Problem List Principal Problem: Osteomyelitis (CMS/HCC) Assessment and Plan Osteomyelitis right BKA patient was started on cefepime in the ER will continue IV consult as well as orthopedic consult he had blood cultures drawn at [facility] will retrieve records of labs and imaging. Persistent atrial fibrillation CHADS2 DS vascular score is 3 including age [age] years old history of hypertension history of heart failure with reduced EF status post atrial clipping per review of cardiology note patient has refused anticoagulation and currently is on aspirin Hypertension on Coreg .patient counseled to have sleep study done History of aortic stenosis last echo 08/10/2022 shows calculated aortic valve area 1.49 cm??? peak gradient 18.32 and calculated aortic valve mean gradient was 11 mmHg Alcohol dependency [place] protocol thiamine folate counseled to refrain from alcohol social worker masters to see patient Heart failure with preserved EF, last echo done 07/12/2023 showed EF between 50 to 55% diuretics Coreg had been on Entresto which is currently not on the chart relative medications optimize guideline directed medical therapy /patient was counseled to abstain from alcohol which can potentially cause cardiomyopathy Mixed hyperlipidemia patient is on Zetia Chronic kidney disease stage II avoid nephrotoxic meds hypovolemia CODE STATUS full code VTE Prophylaxis: Heparin subcutaneous ----- Focus of this inpatient stay will remain on problems that need acute care setting for care. We will review available studies and will order additional labs, imaging and other studies as appropriate. As needed medicines are ordered as appropriate. VTE Prophylaxis will be ordered as appropriate. Please see abov (more content not included)... [facility] 12-27-2023 Note [facility]01-2023 Note [facility] 09-22-2023 Note Cardiovascular Medic [facility] SUBJECTIVE Chief Complaint Patient presents with Follow-up 3 Month Shivani Ruiz is a 72 y.o. male here for follow-up. HPI PMHx: A fib s/p hybrid surgical and endocardial PVI and atrial clipping, HFrEf 40-45%, CKD, HTN, HLD Additional hx: right AKA, drinks 4-5 drinks/day 6 days a week No changes. He c/o intermittent shoulder discomfort - related to positioning. He has come occasional chest burning. Protonix or burping helps. He has some HARO. He has been trying to be more mobile. He has been working with PT with his prosthetic leg. He has some dizziness with turning his head too quickly. He is trying to lose weight. He is hoping his PCP will prescribe him something. Denies CP, palpitations, orthopnea, LE edema. Patient Active Problem List Diagnosis PAF (paroxysmal atrial fibrillation) (CMS/HCC) Chronic infection of right knee (CMS/HCC) Chronic osteomyelitis of lower leg (CMS/HCC) Chronic primary gouty arthritis Constipation Contusion of foot Dysphagia Esophageal web GERD with stricture History of surgical procedure Hyperlipidemia Primary hypertension Lymphedema Lymphedema of lower extremity Mechanical complication of internal joint prosthesis (CMS/HCC) Arthropathy of knee Pneumothorax on left Arthrosis of knee Pruritus Sepsis (CMS/HCC) CKD (chronic kidney disease), stage III (CMS/HCC) Nonrheumatic aortic valve stenosis Chronic infection of prosthetic knee, subsequent encounter Chronic combined systolic and diastolic congestive heart failure (CMS/HCC) Above knee amputation of right lower extremity (CMS/HCC) Wound dehiscence Absence of lower extremity (CMS/HCC) Mobility impaired Phantom limb pain (CMS/HCC) Prosthetic limb gait Past Medical History: Diagnosis Date Atrial fibrillation (CMS/HCC) Cardiomyopathy (CMS/HCC) Chronic infection of prosthetic knee (CMS/HCC) Chronic infectious disease Chronic kidney disease STAGE 3 GERD (gastroesophageal reflux disease) Gout Hypertension Lymphedema MRSA (methicillin resistant Staphylococcus aureus) Nonrheumatic aortic (valve) stenosis Obesity Pneumothorax Family History Problem Relation Name Age of Onset Heart attack Father Coronary artery disease Father Other (CABG) Father Coronary artery disease Brother Social History Tobacco Use Smoking status: Former Types: Cigarettes Smokeless tobacco: Never Substance Use Topics Alcohol use: Yes Alcohol/week: 8.0 standard drinks of alcohol Types: 8 Cans of beer per week Drug use: Never Allergies Allergen Reactions Chlorhexidine Alcohol Swabs Rash Review of Systems Constitutional: Negative for chills, decreased appetite, fever, malaise/fatigue and weight gain. Cardiovascular: Negative for chest pain, dyspnea on exertion, irregular heartbeat, leg swelling, near-syncope, orthopnea, palpitations, paroxysmal nocturnal dyspnea and syncope. Hematologic/Lymphatic: Negative for bleeding problem. Does not bruise/bleed easily. Neurological: Positive for dizziness. OBJECTIVE Visit Vitals BP 110/62 (BP Location: Left arm, Patient Position: Sitting, BP Cuff Size: Adult) Pulse 82 Resp 12 Ht 1.727 m (5' 8 ) Wt 134 kg (295 lb) SpO2 93% BMI 44.85 kg/m??? Smoking Status Former BSA 2.54 m??? Medications: Current Outpatient Medications: allopurinol (Zyloprim) 300 mg tablet, allopurinol 300 mg tablet, Disp: , Rfl: aspirin 81 mg EC tablet, Take 1 tablet (81 mg) by mouth in the morning. Do not start before October 31, 2022., Disp: 90 tablet, Rfl: 3 carvedilol (Coreg) 6.25 mg tablet, Take 1 tablet (6.25 mg) by mouth with breakfast and with evening meal., Disp: 180 tablet, Rfl: 3 ferrous sulfate 325 (65 Fe) MG tablet, Take 65 mg by mouth with breakfast., Disp: , Rfl: furosemide (Lasix) 20 mg tablet, Take 1 tablet (20 mg) by mouth once daily as directed., Disp: 90 tablet, Rfl: 3 HYDROcodone-acetaminophen ([place]) 7.5-325 mg tablet, Take 1 tablet by mouth every 6 (six) hours if needed., Disp: , Rfl: hydrOXYzine HCL (Atarax) 25 mg tablet, Take 25 mg by mouth in the morning, at noon, and at bedtime., Disp: , Rfl: magnesium hydroxide (MILK OF MAGNESIA ORAL), Take by mouth., Disp: , Rfl: magnesium oxide (Mag-Ox) 400 mg tablet, 400 mg in the morning., Disp: , Rfl: mirtazapine (Remeron) 15 mg tablet, , Disp: , Rfl: morphine (MSIR) 15 mg tablet, Take by mouth., Disp: , Rfl: naloxone (Narcan) 0.4 mg/mL injection, Inject into the shoulder, thigh, or buttocks if needed for opioid reversal., Disp: , Rfl: pantoprazole (ProtoNix) 40 mg EC tablet, pantoprazole 40 mg tablet,delayed release, Disp: , Rfl: sacubitril-valsartan (Entresto) 24-26 mg tablet, Take 1 tablet by mouth in the morning and at bedtime., Disp: 180 tablet, Rfl: 3 sildenafil (Viagra) 50 mg tablet, Take 50 mg by mouth if needed., Disp: , Rfl: sulfamethoxazole-trimethoprim (Bactrim DS) 800-160 mg tablet, Take (more content not included)... [facility] 08-23-2023 Note Orthopaedic Surgery Subjective Follow-up of the Right Knee (Infection in joint) 08/23/23 Shivani Ruiz is a 72 y.o. male presenting for follow up of right above-knee amputation stump infection and drainage. Pt doing well. Pt finished course of abx approx 1 mth ago. Patient has been feeling better and does not want to have any further x-rays today. He is happy with the fact that his incision is completely healed. He has been working with his prosthetic department for his application of prosthesis and has been trying to ambulate. Due to his weakness in the lower extremities and balance he has been gradually progressing. He has been seen today in the wheelchair. Pleased with his overall recovery and is due to see infectious disease team and Dr. Nascimento. Patient denies any fever, chills or rigors or any breathlessness. 05/24/23 Shivani Ruiz is a 72 y.o. male presenting for follow up of right above-knee amputation stump infection and drainage. Patient believes that he started on antibiotics as recommended by Dr. Nascimento and has complete resolution of his draining sinus. He has a dressing in site to but has formed a scab without any major drainage at this point in time. He is here for his follow-up visit and wound check. He plans to follow-up with infectious disease team next week. Patient denies any fever, chills or rigors or breathlessness. He has completed his course of linezolid. He plans to go to [place] to his daughter and will be with them for a few months. He has had multiple complex medical issues including right infected total knee arthroplasty, which required removal of hardware and attempted fusion that failed. 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 Patient has had initial wound disease complications as well. Most recent healing wound complication began 3 weeks ago with daily serosanguineous drainage and gram positive/anaerobic cultures. Patient is feeling better and just completed 2 week course of linezolid Wednesday05/21/23. Denies fever, chills, N/V. Drainage stopped 5 days ago. Patient has had wound cleaned daily and dressing/bandage applied every other day. Denies pain or swelling in right stump wound. Patient History Past Surgical History: Procedure Laterality Date CARDIOVERSION CARPAL TUNNEL RELEASE FL GUIDED ASPIRATION OR INJECTION LARGE JOINT BILATERAL Bilateral 02/04/2018 FL GUIDED ASPIRATION OR INJECTION LARGE JOINT BILATERAL THOMAS CONVERSION FL GUIDED ASPIRATION OR INJECTION LARGE JOINT BILATERAL Bilateral 04/11/2018 FL GUIDED ASPIRATION OR INJECTION LARGE JOINT BILATERAL THOMAS CONVERSION KNEE ARTHROPLASTY Right TONSILLECTOMY Past Medical History: Diagnosis Date Atrial fibrillation (CMS/HCC) Cardiomyopathy (CMS/HCC) Chronic infection of prosthetic knee (CMS/HCC) Chronic infectious disease Chronic kidney disease STAGE 3 GERD (gastroesophageal reflux disease) Gout Hypertension Lymphedema MRSA (methicillin resistant Staphylococcus aureus) Nonrheumatic aortic (valve) stenosis Obesity Pneumothorax Objective General: Body mass index is 42.12 kg/m???. No acute distress, comfortable Inspection: Right above-knee amputation stump : wound site at right stump is clean, no erythema, no swelling, no drainage or bleeding. No further sinus noted. His healing with secondary intention shows no further drainage. No redness noted, no lymphangitis. No localized collection noted in the stump. He has good active range of motion of his above-knee amputation stump. Non-tender to palpation at site no evidence of any drainage from the scab site. This Is healthy, no redness noted, no lymphangitis noted. No signs of any new neurological deficit seen. No localized collection noted. Range of motion of the amputation stump on the right lower extremity is well-maintained. Imaging no new x-rays taken today since the patient feels better and does not want any further imaging. No new x-rays taken today. Previous x-rays show callus formation at the amputation stump and just a reaction suggestive of chronic previous osteomyelitis. No active infection noted or any collection. No imaging performed at this visit. Assessment/Plan Shivani Ruiz is a 72 y.o. 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 Right above-knee amputation stump is healing well with the scab over the previous sinus which has completely sealed off. Patient has no further drainage. Patient has good active range of motion of the stump. -Encouraged pt to continue with weight loss program. Patient will continue with his workup with his prosthetic flight software test engineer and department. I have recommended we see him back in about 3 months time after he has completed his prosthetic fitting and to evaluate his gait training. Patient agrees wi (more content not included)... [facility] 08-16-2023 Note [facility] 06-29-2023 Note Cardiovascular Medic [facility] SUBJECTIVE Chief Complaint Patient presents with Atrial Fibrillation Shortness of Breath Congestive Heart Failure Shivani Ruiz is a 72 y.o. male here for follow-up. HPI PMHx: A fib s/p hybrid surgical and endocardial PVI and atrial clipping, HFrEf 40-45%, CKD, HTN, HLD Additional hx: right AKA He c/o worsened shortness of breath for the past month-month and a half. He has put on about 15lbs since he lost his leg and he has not been very mobile. He was fitted for a prosthetic leg recently, he will be starting PT with this soon. He has some dizziness with turning his head too quickly. Denies CP, palpitations, orthopnea, LE edema. Patient Active Problem List Diagnosis PAF (paroxysmal atrial fibrillation) (CMS/HCC) Chronic infection of right knee (CMS/HCC) Chronic osteomyelitis of lower leg (CMS/HCC) Chronic primary gouty arthritis Constipation Contusion of foot Dysphagia Esophageal web GERD with stricture History of surgical procedure Hyperlipidemia Primary hypertension Lymphedema Lymphedema of lower extremity Mechanical complication of internal joint prosthesis (CMS/HCC) Arthropathy of knee Pneumothorax on left Arthrosis of knee Pruritus Sepsis (CMS/HCC) CKD (chronic kidney disease), stage III (CMS/HCC) Nonrheumatic aortic valve stenosis Chronic infection of prosthetic knee, subsequent encounter Chronic combined systolic and diastolic congestive heart failure (CMS/HCC) Above knee amputation of right lower extremity (CMS/HCC) Wound dehiscence Absence of lower extremity (CMS/HCC) Mobility impaired Phantom limb pain (CMS/HCC) Past Medical History: Diagnosis Date Atrial fibrillation (CMS/HCC) Cardiomyopathy (CMS/HCC) Chronic infection of prosthetic knee (CMS/HCC) Chronic infectious disease Chronic kidney disease STAGE 3 GERD (gastroesophageal reflux disease) Gout Hypertension Lymphedema MRSA (methicillin resistant Staphylococcus aureus) Nonrheumatic aortic (valve) stenosis Obesity Pneumothorax Family History Problem Relation Name Age of Onset Heart attack Father Coronary artery disease Father Other (CABG) Father Coronary artery disease Brother Social History Tobacco Use Smoking status: Former Types: Cigarettes Smokeless tobacco: Never Substance Use Topics Alcohol use: Yes Alcohol/week: 8.0 standard drinks of alcohol Types: 8 Cans of beer per week Drug use: Never Allergies Allergen Reactions Chlorhexidine Alcohol Swabs Rash ROS Skin: Positive for poor wound healing. All other systems reviewed and are negative. OBJECTIVE Visit Vitals BP 124/80 (BP Location: Left arm, Patient Position: Sitting) Pulse 80 Ht 1.727 m (5' 8 ) Wt 134 kg (295 lb) Comment: patient stated SpO2 94% BMI 44.85 kg/m??? Smoking Status Former BSA 2.54 m??? Medications: Current Outpatient Medications: allopurinol (Zyloprim) 300 mg tablet, allopurinol 300 mg tablet, Disp: , Rfl: aspirin 81 mg EC tablet, Take 1 tablet (81 mg) by mouth in the morning. Do not start before October 31, 2022., Disp: 90 tablet, Rfl: 3 carvedilol (Coreg) 6.25 mg tablet, Take 1 tablet (6.25 mg) by mouth with breakfast and with evening meal., Disp: 180 tablet, Rfl: 3 ferrous sulfate 325 (65 Fe) MG tablet, Take 65 mg by mouth with breakfast., Disp: , Rfl: furosemide (Lasix) 20 mg tablet, Take 1 tablet (20 mg) by mouth once daily as directed., Disp: 90 tablet, Rfl: 3 HYDROcodone-acetaminophen ([place]) 7.5-325 mg tablet, Take 1 tablet by mouth every 6 (six) hours if needed., Disp: , Rfl: pantoprazole (ProtoNix) 40 mg EC tablet, pantoprazole 40 mg tablet,delayed release, Disp: , Rfl: sildenafil (Viagra) 50 mg tablet, Take 50 mg by mouth if needed., Disp: , Rfl: hydrOXYzine HCL (Atarax) 25 mg tablet, Take 25 mg by mouth in the morning, at noon, and at bedtime., Disp: , Rfl: magnesium hydroxide (MILK OF MAGNESIA ORAL), Take by mouth., Disp: , Rfl: magnesium oxide (Mag-Ox) 400 mg tablet, 400 mg in the morning., Disp: , Rfl: mirtazapine (Remeron) 15 mg tablet, , Disp: , Rfl: morphine (MSIR) 15 mg tablet, Take by mouth., Disp: , Rfl: naloxone (Narcan) 0.4 mg/mL injection, Inject into the shoulder, thigh, or buttocks if needed for opioid reversal., Disp: , Rfl: ondansetron (Zofran) 4 mg tablet, Take 4 mg by mouth every 8 (eight) hours if needed for nausea or vomiting., Disp: , Rfl: sacubitril-valsartan (Entresto) 24-26 mg tablet, Take 1 tablet by mouth in the morning and at bedtime., Disp: 180 tablet, Rfl: 3 sulfamethoxazole-trimethoprim (Bactrim DS) 800-160 mg tablet, Take 1 tablet by mouth in the morning and at bedtime. (Patient not taking: Reported on 06/29/2023), Disp: 60 tablet, Rfl: 3 Physical Exam Constitutional: Appearance: Normal appearance. He is obese. HENT: Head: Normocephalic and atraumatic. Right Ear: External ear normal. Left Ear: External ear normal. Eyes: Extraoc (more content not included)... [facility] 06-29-2023 Note Patient here for 6 m o follow up PAF, hypertension CHF, and aortic valve stenosis. C/o HARO, which he states he was not having at last apt in Nov 2022. Denies chest pain, palpitations, and lightheadedness/syncope. Review of Systems Skin: Positive for poor wound healing. All other systems reviewed and are negative. [facility] 05-24-2023 Note Orthopaedic Surgery Subjective Follow-up of the Right Knee (Infection in joint) 05/24/23 Shivani Ruiz is a 72 y.o. male presenting for follow up of right above-knee amputation stump infection and drainage. Patient believes that he started on antibiotics as recommended by Dr. Nascimento and has complete resolution of his draining sinus. He has a dressing in site to but has formed a scab without any major drainage at this point in time. He is here for his follow-up visit and wound check. He plans to follow-up with infectious disease team next week. Patient denies any fever, chills or rigors or breathlessness. He has completed his course of linezolid. He plans to go to [place] to his daughter and will be with them for a few months. He has had multiple complex medical issues including right infected total knee arthroplasty, which required removal of hardware and attempted fusion that failed. 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 Patient has had initial wound disease complications as well. Most recent healing wound complication began 3 weeks ago with daily serosanguineous drainage and gram positive/anaerobic cultures. Patient is feeling better and just completed 2 week course of linezolid Wednesday05/21/23. Denies fever, chills, N/V. Drainage stopped 5 days ago. Patient has had wound cleaned daily and dressing/bandage applied every other day. Denies pain or swelling in right stump wound. Patient History Past Surgical History: Procedure Laterality Date CARDIOVERSION CARPAL TUNNEL RELEASE FL GUIDED ASPIRATION OR INJECTION LARGE JOINT BILATERAL Bilateral 02/04/2018 FL GUIDED ASPIRATION OR INJECTION LARGE JOINT BILATERAL THOMAS CONVERSION FL GUIDED ASPIRATION OR INJECTION LARGE JOINT BILATERAL Bilateral 04/11/2018 FL GUIDED ASPIRATION OR INJECTION LARGE JOINT BILATERAL THOMAS CONVERSION KNEE ARTHROPLASTY Right TONSILLECTOMY Past Medical History: Diagnosis Date Atrial fibrillation (CMS/HCC) Cardiomyopathy (CMS/HCC) Chronic infection of prosthetic knee (CMS/HCC) Chronic infectious disease Chronic kidney disease STAGE 3 GERD (gastroesophageal reflux disease) Gout Hypertension Lymphedema MRSA (methicillin resistant Staphylococcus aureus) Nonrheumatic aortic (valve) stenosis Obesity Pneumothorax Objective General: Body mass index is 42.12 kg/m???. No acute distress, comfortable Inspection: Right above-knee amputation stump : wound site at right stump is clean, no erythema, no swelling, no drainage or bleeding Non-tender to palpation at site no evidence of any drainage from the scab site. This Is healthy, no redness noted, no lymphangitis noted. No signs of any new neurological deficit seen. No localized collection noted. Range of motion of the amputation stump on the right lower extremity is well-maintained. Imaging No new x-rays taken today. Previous x-rays show callus formation at the amputation stump and just a reaction suggestive of chronic previous osteomyelitis. No active infection noted or any collection. No imaging performed at this visit. Previous labs swabs from the wound has grown MRSA infection which has been sensitive to linezolid from the previous sinus which has been treated with linezolid. Patient has been currently treated for the same by infectious disease team; Dr. Nascimento. Assessment/Plan Shivani Ruiz is a 72 y.o. 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 Right above-knee amputation stump is healing well with the scab over the previous sinus which has completely sealed off. Patient has no further drainage. Patient has good active range of motion of the stump. We have contacted the ID team and the fellow has seen the patient today. Patient was advised to continue with his antibiotics and contact us if any questions or concerns. He plans to go to [place] and we will see him after he returns. All questions answered today. Patient may continue with his application of his prosthetic limb and continue his follow-up with his prosthetic flight software test engineer. Patient will be on falls precautions and continue with weight loss program. All questions answered today. -Continue daily wound cleaning and changing of bandages. -Patient should continue with rehabilitation therapy. -Details of the findings and progress were also discussed with his infectious disease team Dr. Mykel Nascimento MD. -Return to clinic 2-3 months. Richard Saravia, MS3 Orthopaedic Surgery 05/24/23 9:26 AM By using the attestations below, the signing clinician agrees that I have read and verify that the documentation has been personally reviewed by me and ensure that the documentation accurately reflects the encounter. GC: I personally saw this patient on the day of the encounter, performed the hernandez (more content not included)... [facility] 01-10-2021 Note MR#: [id number] I [facility] Pt. Name: Shivani Ruiz Admitted: 01/01/2021 Discharged: 01/09/2021 Date of : 1950 Physician: Lavon Perez MD DISCHARGE SUMMARY HOSPITAL COURSE: The patient's discharge got delayed as we were waiting for placement, initially there was a plan for IV daptomycin, but that was changed as per Infectious Disease recommendation. The patient will be discharged on oral Zyvox along with ciprofloxacin and follow up with Infectious Disease on January 17. PICC line will be removed prior to discharge. Rest of the medications remain the same. PHYSICAL EXAMINATION: GENERAL: When examined on day of discharge. No change in exam. Please see the following details for further hospital course for the previous discharge summary dictated by Dr. Buitrago. Electronically Signed by: Lavon Perez MD 01/13/2021 12:19 P Lavon Perez MD Date Dict: 01/10/2021/02:43 P/Lavon Perez MD Date Trans: 01/10/2021 03:51 P/george [id number] cc: Jaren Kam M.D. [address] [place] [address] [facility] 01-06-2021 Note MR#: [id number] I [facility] Pt. Name: Shivani Ruiz Admitted: 01/01/2021 Discharged: 01/06/2021 Date of : 1950 Physician: Homero Buitrago MD DISCHARGE SUMMARY DIAGNOSIS AT ADMISSION: Right knee pain and swelling. DIAGNOSES AT DISCHARGE: 1. Status post excision of pustular lesions and fluid collection of the right knee surgical wound, status post irrigation, debridement down to the bone of the right knee. 2. Chronic kidney disease, stage 3. 3. Hypertension, controlled. HOSPITAL COURSE: This is a 70-year-old male with a history of right knee prosthesis who came to the hospital for worsening pain in the right hip and knee. He was recently discharged from nursing facility after having a status post right knee surgery, which included the right knee arthrodesis with modular intramedullary device and removal of antibiotic spacer. He also underwent at that time with impregnated bone graft and all of this postprocedure 1 to 2 weeks ago. He underwent further excision, irrigation, debridement down to the bone of the right knee along with a tightening of the proximal screws with intramedullary fusion nail for right knee arthrodesis. Based upon the culture and sensitivity, which was showing MRSA and chronic bacterium has been on the vancomycin and cefepime by the Infectious Disease. Blood cultures remained negative and no sepsis. Renal functions have been stable and hypertension well controlled. Infectious Disease recommended to continue IV daptomycin by the PICC line for at least 4 to 6 weeks with oral ciprofloxacin and have a followup in the clinic in 2 weeks. PHYSICAL EXAMINATION AT TIME OF DISCHARGE: VITAL SIGNS: The patient's blood pressure 142/80 mmHg, heart rate 77 per minute, temperature 98 degree, respiratory rate 17 per minute. EYES: No pallor or jaundice. ENT: No nasal discharge. RESPIRATORY: Bilateral air entry. CARDIOVASCULAR: S1, S2. ABDOMEN: Soft, nontender. MEDICATIONS: Reviewed reconciled. DISCHARGE INSTRUCTIONS: The patient will be discharged to the skilled facility with IV antibiotic, daptomycin by the PICC arm and oral ciprofloxacin 500 mg b.i.d. have a follow with orthopedic ID for further plan of care. Wound management recommendations as per orthopedic physician. The patient will be nonweightbearing in the right leg. CONDITION ON DISCHARGE: Stable. Time spent discharge process, 35 minutes. Electronically Signed by: Homero Buitrago MD 01/06/2021 11:31 A Homero Buitrago MD Date Dict: 01/06/2021/08:44 A/Homero Buitrago MD Date Trans: 01/06/2021 09:01 A/george [id number] cc: Jaren Kam M.D. [address] Summary Purpose Family History No Family History Records Found Relationship Condition Age at Onset Recorded Date/T rose father History of heart bypass surgery Unknown Not Specified Diabetes mellitus Unknown Advance Directives No Advanced Directives Records Found Advance Directive Response Recorded Date/ Time Advance Directives No July 25 0 5:09pm Chief Complaint and Reason for Visit Chief Complaint Dysphagia, Gerd Reason for Visit Dysphagia Assessments Diagnosis Onset Date Resolution Status Dysphagia acute Discharge Instructions Additional Instructions DISCHARGE INSTRUCTIONS FOR ENDOSCOPY FOR MIGUEL/EGD/ERCP/PEG: -Your throat may feel sore today from the scope that the doctor passed through your throat to visualize your stomach. Take a throat lozenge or suck on ice to ease the discomfort. -Do NOT smoke. -You may notice some streaks of blood in your sputum if the doctor has taken a biopsy. Notify the doctor if you cough up large amounts of blood. -Expect a gassy or full feeling after esophagoscopy. Report any persistent pain or vomiting. -Take it easy today. You need not stay in bed, but avoid strenuous activities such as jogging. FOR SEDATION FOR 24 HOURS: -NO driving -Do NOT operate machinery such as power tools, lawn mowers, snow blowers, sewing machines, etc. -Avoid alcoholic beverages and drugs for allergies, nerves, or sleep. -Do NOT stay alone. Do NOT leave your child unattended. -Do NOT make important personal or business decisions or sign any legal documents. -Eat solid foods and drink liquids in smaller amounts than usual until normal appetite returns. If you should experience an upset stomach, liquids high in sugar content (soda, Frantz-aid, non-acid juices) are recommended. -You can resume normal activities tomorrow. FOLLOW UP Please call the office and make a follow up appointment to see me in [2] weeks. -Notify the doctor if you have any problems. -Office number [phone] Additional Source Comments (unrecognized sect ion and content) No Status Records FoundNo Status Records FoundNo Status Records FoundNo Status Records FoundNo Status Records FoundNo Status Records FoundNo Status Records Found INFORMATION SOURCE (unrecogn ized section and content) DATE CREATED AUTHOR 08/27/2017 [facility] DATE CREATED AUTHOR AUTHOR'S ORGANIZ ATION 01/11/2021 [facility] DATE CREATED AUTHOR AUTHOR'S ORGANIZ ATION 11/15/2021 [facility] DATE CREATED AUTHOR AUTHOR'S ORGANIZ ATION 05/16/2023 [facility] DATE CREATED AUTHOR AUTHOR'S ORGANIZ ATION 05/09/2024 [facility] DATE CREATED AUTHOR AUTHOR'S ORGANIZ ATION 05/19/2024 [facility] DATE CREATED AUTHOR AUTHOR'S ORGANIZ ATION 05/21/2024 [facility] FOR RECORDS PERTAINING TO PATIENTS WHO ARE OR HAVE BEEN ENROLLED IN A CHEMICAL DEPENDENCY/SUBSTANCEABUSE PROGRAM, SOME INFORMATION MAY BE OMITTED. This clinical summary was aggregated from multiple sources. Caution should be exercised in using it in the provision of clinical care. This summary normalizes information from multiple sources, and as a consequence, information in this document may materially change the coding, format and clinical context of patient data. In addition, data may be omitted in some cases. CLINICAL DECISIONS SHOULD BE BASED ON THE PRIMARY CLINICAL RECORDS. [facility]. provides no warranty or guarantee of the accuracy or completeness of information in this document.
--- NOTE | 2024-05-23 09:55 | XR_ITS ---
The [address] [address] Patient Name: SHIVANI RUIZ MRN: [id number] date: 1950 Sex: M Assigned Patient Location: [facility] Current Patient Location: [facility] Accession/Order Number: [id number] Exam Date: 05/23/2024 11:54 Report Date: 05/23/2024 12:36 At the request of: ARIELLA WHITMORE NP Procedure: XR femur RT 2V Right femur 2 views. 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 COMPARISON: None. FINDINGS: The patient is status post [id number] amputation. There appears to be callus formation along the distal aspect of the femur without definitive plain film evidence of osteomyelitis. Moderate degenerative changes of the right hip. Soft tissue swelling is present with presumed ulcer involving the distal soft tissues. XR/XR femur RT 2V IMPRESSION: Soft tissue swelling with presumed ulcer involving the distal soft tissues. No definitive plain film evidence of osteomyelitis is seen. Impression dictated by: Tejas Ace Jr., D.O.05/23/2024 12:36 PM Dictation Location: [place] [address] Electronically authenticated by: [id number] Y Date: 05/23/2024 12:36
== END 2024-05-23 09:02 | disposition home or self-care (01) ==
LOC: LAB 09:03 → RAD 09:06
PROVIDERS: PCP Family Medicine; Visit Provider Nurse Practitioner Adult Health
DX: L97.112 Non-pressure chronic ulcer of right thigh with fat layer exposed (principal)
CPT/HCPCS: 73552